=== PATIENT | female | born 1940 | race Caucasian/White ===

== ENCOUNTER 2017-05-25 07:51 | Inpatient (IN) | payer MEDICARE, OTHER ==
[2017-05-25] MEDS ORDERED: Adenosine 6 MG/2 ML VIAL ONE (08:06)
[2017-05-25 09:08] LABS: #Lymphocytes 1.1 thou/uL (1.20-3.40); #Monocytes 1.3 thou/uL (0.11-0.59); #Neutrophils 15.1 thou/uL (1.40-6.50); %Basophils 0.2 % (0.0-1.0); %Eosinophils 0.2 % (0.0-10.0); %Monocytes 7.4 % (0.0-10.0); ALT (SGPT) 18 U/L (8-55); AST (SGOT) 30 U/L (5-34); Alkaline Phosphatase 111 U/L (40-150); Anion Gap 19 mmol/L (10-20); BUN (Urea Nitrogen) 13 mg/dL (9.8-20.1); Band 3 % (5-11); Bilirubin, Total 1.4 mg/dL (0.2-1.2); CK (CPK) 26 U/L (29-168); Calc. Creatinine Clearance 0 mL/min (70-130); Calcium 9.3 mg/dL (7.8-10.44); Carbon Dioxide 26 mmol/L (23-31); Chloride 94 mmol/L (98-107); Estimated GFR-MDRD 57; Hematocrit 40.5 % (36.0-47.0); Hypochromia SLIGHT = 6-15 cells (100X) (0-5/hpf); Lipase 36 U/L (8-78); Mean Platelet Volume 9.5 fL (7.4-10.4); Microcytosis SLIGHT = 6-15 cells (100X) (0-5/hpf); Neutrophil 83 % (42-75); Polychromasia SLIGHT = 2-3 cells (100X) (0-2/hpf); Protein, Total 7.5 g/dL (6.0-8.3); Red Blood Cell (RBC) Count 5.44 mill/uL (4.20-5.40); Troponin I 0.021 ng/mL (< 0.028); White Blood Cell (WBC) Count 17.5 thou/uL (4.8-10.8)
[2017-05-25] MEDS ORDERED: Digoxin 0.5 MG/2 ML AMP ONE (09:19)
--- NOTE | 2017-05-25 10:55 | RAD ---
CHEST ONE VIEW: History: Cough. Comparison: Chest two view, 04-19-17 FINDINGS: Lungs are clear. No pneumothorax or effusion. Cardiac silhouette and mediastinal contours are within normal limits. IMPRESSION: No acute cardiopulmonary process. POS: OFF
--- NOTE | 2017-05-25 11:49 | HP ---
PRIMARY CARE PHYSICIAN: Dr. Vineet Anderson REASON FOR ADMISSION: Atrial fibrillation with rapid ventricular response. HISTORY OF PRESENT ILLNESS: This is a 76-year-old female with a history of gastroesophageal reflux disease and hypertension who is suffering from cough and respiratory symptoms for about 2-3 weeks. The patient saw primary care physician and considering bronchitis the patient was given antibiotic t herapy and steroid. The patient has finished antibiotic therapy and steroid, but she felt a little bit better, but her cough has not improved. Yesterday, she saw her primary care physician again for cough and the patient was given treatment with DuoNeb, albuterol nebs in her primary care physician 's office and primary care physician was concerned about CHF diagnosis as well and that is why he pr escribed Lasix. The patient never had echocardiography before. This morning, the patient was feeling pain in her right shoulder blade and it was getting worse. It started last night. She was feeling palpitations, somewhat dizziness, somewhat shortness of breath . She denies any lower extremity edema. She denies any orthopnea, PND. She denies any fever or ch ills. She denies any hemoptysis. She denies any calf tenderness. She denies any chest pain. The patient was having difficulty walking in the parking lot and she was complaining of dyspnea on e xertion and that is why the patient came to the emergency room for evaluation. When she presented t o emergency room, she was found with atrial fibrillation with RVR. Initially her heart rate was 192 and irregular and fast. The patient was given Cardizem bolus and subsequently Cardizem drip was st arted. Despite that, the patient was still in atrial fibrillation with RVR. We decided to keep thi s patient in the hospital for further evaluation and treatment. The patient denies any excessive caffeinated products. She denies any thyroid problems. She does r eport that she was told that she had some kind of arrhythmia before, but she is not knowing what typ e of arrhythmia she had and she was only taking atenolol. Her primary care physician also did not m ention about any kind of arrhythmia to her as well. REVIEW OF SYSTEMS: The following complete review of systems was negative, unless otherwise mentioned in the HPI or below: Constitutional: Weight loss or gain, ability to conduct usual activities. Skin: Rash, itching. Eyes: Double vision, pain. ENT/Mouth: Nose bleeding, neck stiffness, pain, tenderness. Cardiovascular: Palpitations, dyspnea on exertion, orthopnea. Respiratory: Shortness of breath, wheezing, cough, hemoptysis, fever or night sweats. Gastrointestinal: Poor appetite, abdominal pain, heartburn, nausea, vomiting, constipation, or diarrhea. Genitourinary: Urgency, frequency, dysuria, nocturia. Musculoskeletal: Pain, swelling. Neurologic/Psychiatric: Anxiety, depression. Allergy/Immunologic: Skin rash, bleeding tendency. Please see my HPI for pertinent positives and negatives. All other review of systems reviewed and n egative except as mentioned in the HPI. PAST MEDICAL HISTORY: Hypertension, dyslipidemia, chronic hepatitis C, gastroesophageal reflux dise ase, recent diagnosis of bronchitis. The patient does report that she has history of arrhythmia. PAST SURGICAL HISTORY: Bilateral cataract surgery. She reports vaginal births x4, cholecystectomy. PAST PSYCHIATRIC HISTORY: Reviewed and negative. SOCIAL HISTORY: The patient is and lives at home with her . No history of tobacco, alcohol or illicit drug abuse. FAMILY HISTORY: No strong family history of premature coronary artery disease, stroke or cancer. ALLERGIES: No known drug allergies. CURRENT HOME MEDICATIONS: Atenolol 50 mg p.o. daily, Nexium 40 mg p.o. daily, ferrous sulfate 1 ta blet p.o. daily, Flonase nasal spray daily, Mucinex 600 mg twice daily, Lasix 40 mg p.o. daily. The patient was on Maxzide, but that medication was recently discontinued. EMERGENCY ROOM COURSE: Patient is given Cardizem drip and digoxin 0.5 mg, IV fluid 1 liter, Cardize m bolus. PHYSICAL EXAMINATION: VITAL SIGNS: On arrival, blood pressure 114/90, pulse 192, respiratory rate 20, temperature 98.6, s aturation 95% on room air, weight 70.3 kilograms. GENERAL: The patient is currently alert, awake, no obvious acute distress. HEENT: Head; normocephalic, atraumatic. Eyes: Pupils round, reactive to light. Extraocular muscl es intact. ENT: Oropharynx within normal limits. Moist mucous membranes. No oral lesions. No ph aryngeal erythema, no exudate. NECK: Supple. Range of motion is normal. No meningeal signs of irritation. No JVD, no thyromegal y, no carotid bruits. LUNGS: Clear to auscultation without any wheezing, rhonchi, or rales. CARDIAC: S1, S2 irregularly irregular. No murmur elicited, no gallop, no rub. ABDOMEN: Soft, bowel sounds present, nontender, nondistended. No organomegaly, no mass, no suprapu bic tenderness. BACK: Unremarkable, no CVA tenderness. EXTREMITIES: Upper extremity passive movement of all joints are normal. Lower extremities: No bettina ma. Good peripheral pulsation. SKIN: No skin rash. HEMATOLOGICAL: No lymphadenopathy. NEUROLOGIC: The patient is alert and oriented x3. Cranial nerves II-XII intact. Motor and sensati on within normal limits. No focal neurological deficit noted. SIGNIFICANT LABS: 1. EKG based on my review: Atrial fibrillation with rapid ventricular response. 2. CBC: WBC 17.5, hemoglobin 12.0, platelet 300 with a left shift. 3. BMP: Sodium 136, potassium 3.3, chloride 94, carbon dioxide 26, BUN 13, creatinine 0.95, glucos e 161, calcium 9.3. 4. LFTs: AST 30, ALT 18, alkaline phosphatase 111, albumin 3.5, CK 26, CK-MB 0.8, troponin I 0.021 . BNP 203.6, lipase 36. Chest x-ray based on my review, no acute cardiopulmonary process. ASSESSMENT AND PLAN: 1. Atrial fibrillation with rapid ventricular response. This patient will need admission for rate control. She is currently on Cardizem drip at 10 mg per hour, based on Donaldo 2 score, she had at [facility] 1 point with hypertension and with her age 2 points. She does not have any previous history of c ongestive heart failure. She does not have any diabetes or stroke history. At this point, the jairo ent is to intermediate risk for stroke. We will obtain echocardiography. We will continue with Awilda enox 1 mg per kg subcu twice daily. We will consult Cardiology for assessment. If this patient rem ains in atrial fibrillation then she may need cardioversion versus antiarrhythmic medication versus ablation. We will defer that part to Cardiology. We will check thyroid function test. We will bertin tor on telemetry floor. 2. Leukocytosis. Etiology uncertain, may be related with her bronchitis because the patient is sti ll having cough. She does not have any pneumonia at this point. We will check her urinalysis, give n her bandemia I will start empirically levofloxacin 500 mg IV daily. We will send urine culture as well to rule out any urinary tract infection and we will repeat CBC tomorrow. 3. Hypokalemia. We will give her potassium chloride 40 mEq p.o. 1 time dose and we will check magn esium level as well and will repeat BMP tomorrow. 4. Elevated BNP. We will check echocardiography to assess ejection fraction and other structural a bnormality. 5. Gastroesophageal reflux disease. We will continue Protonix 40 mg p.o. daily. 6. Chronic hepatitis C. We will confirm that status with checking hepatitis profile tomorrow gary romano 7. Hypertension. We will continue with atenolol 50 mg p.o. daily along with Cardizem drip. 8. Deep venous thrombosis prophylaxis. The patient is already on full dose of Lovenox therapy at t his point. The patient will need chronic anticoagulation therapy upon discharge. 9. Gastrointestinal prophylaxis. The patient is already on Protonix therapy. 10. CODE STATUS: The patient is full code. The patient's is surrogate decision maker. Disposition plan based on clinical course. We are expecting the patient's stay in hospital more dwayne n 2 midnights. Plan of care discussed with the patient and her at bedside in the emergency room.
[2017-05-25] MEDS ORDERED: Zolpidem Tartrate 5 MG TAB PO PRN (12:11)
[2017-05-25] MEDS ORDERED: Senokot 8.6 MG TAB PO PRN (12:11)
[2017-05-25] MEDS ORDERED: Nitroglycerin 0.4 MG TAB (25 Tab Bottle) SL PRN (12:11)
[2017-05-25] MEDS ORDERED: Sodium Chloride 0.65% Nasal 44 ML BOT EA NARE PRN (12:11)
[2017-05-25] MEDS ORDERED: Ondansetron ODT 4 MG TAB PO PRN (12:11)
[2017-05-25] MEDS ORDERED: HYDROcodone/Acetaminophen 5/325 mg Tablet PO PRN (12:11)
[2017-05-25] MEDS ORDERED: Acetaminophen 325 MG TAB PO PRN (12:11)
[2017-05-25] MEDS ORDERED: Loperamide HCl 2 MG CAP PO PRN (12:11)
[2017-05-25] MEDS ORDERED: Labetalol HCl 100 MG/20 ML VIAL SLOW IVP PRN (12:11)
[2017-05-25] MEDS ORDERED: Artificial Tears 18 DROP/0.9 ML EA EYE PRN (12:11)
[2017-05-25] MEDS ORDERED: Milk Of Magnesia 30 ML UDCUP PO PRN (12:11)
[2017-05-25] MEDS ORDERED: Mag-Al 1200 mg/1200 mg/30 ML UDCUP PO PRN (12:11)
[2017-05-25] MEDS ORDERED: Eucerin (Mineral Oil/Petrolatum,White) 30 gm Jar TOP PRN (12:11)
[2017-05-25] MEDS ORDERED: Loratadine 10 MG TAB PO PRN (12:11)
[2017-05-25] MEDS ORDERED: Chloraseptic Spray 180 ml Bottle PO PRN (12:11)
[2017-05-25] MEDS ORDERED: Diabetic Tussin 200 MG/10 ML UDCUP PO PRN (12:11)
[2017-05-25] MEDS ORDERED: Potassium Chloride 20 MEQ TAB PO SCH (12:30)
--- NOTE | 2017-05-25 18:06 | CON ---
DATE OF CONSULTATION: 05/25/2017 PRIMARY PROVIDER: Dr. Post. REASON FOR CONSULTATION: Atrial fibrillation. HISTORY OF PRESENT ILLNESS: Ms. Nash is a 76-year-old woman who states over the last several wee ks she has had increased shortness of breath. No chest pain or pressure noted. No ameliorating, ex acerbating or precipitating factors are present. She gives a questionable history of having atrial fibrillation in the past, but has not been on anticoagulation therapy. She was recently seen and ev aluated by Dr. Vineet Anderson who recommended she proceed to the emergency room. PAST MEDICAL HISTORY: Chronic hepatitis C, hypertension, hyperlipidemia, recent bronchitis, acid re flux, cataract surgery. SOCIAL HISTORY: No current tobacco or alcohol use. ALLERGIES: None. MEDICATIONS: Include atenolol, Flomax, Nexium, Mucinex, Maxzide and Lasix. REVIEW OF SYSTEMS: Ten-point review of systems is reviewed and as above is negative. PHYSICAL EXAMINATION: VITAL SIGNS: Blood pressure 112/70, pulse 80, respirations . GENERAL: Patient is a pleasant female who is in no acute distress. The patient appears her stated age. NEUROLOGIC: The patient is alert and oriented times 3 with no focal neurologic deficits. HEENT: Sclerae without icterus. Mouth has moist mucous membranes with normal pallor. NECK: No JVD. Carotid upstroke brisk. No bruits bilaterally. LUNGS: Clear to auscultation with unlabored respirations. BACK: No scoliosis or kyphosis. CARDIAC: Irregularly irregular and tachycardic. ABDOMEN: Soft, nontender, nondistended. No peritoneal signs present. No hepatosplenomegaly. No abnormal striae. EXTREMITIES: 2+ femoral and 2+ dorsalis pedis pulses. No cyanosis, clubbing, or edema. SKIN: No gross abnormalities. EXTREMITIES: No gross abnormalities. PERTINENT LABORATORY DATA: Hemoglobin 12, creatinine 0.95. TSH 0.0146. IMPRESSION: 1. Atrial fibrillation. 2. Hyperthyroidism. RECOMMENDATIONS: I agree with Cardizem and digoxin. Workup on hyperthyroidism per primary team. Kevyn e will add p.o. Cardizem in hopes of titrating down IV Cardizem. She would also benefit from novel oral anticoagulation therapy. I agree with Lovenox for now. Ms. Nash's is a patient of Dr. Ravinder Vazquez. She would like to be seen and evaluated by Dr. Ravinder Vazquez. We will discuss with Dr. Vazquez.
[2017-05-25 18:08] VITALS: BMI 27.0
[2017-05-25 20:31] LABS: Bilirubin Small (Negative); Blood, Urine Negative (Negative); Glucose, Urine (Dipstick) Negative (Negative); Ketone, Urine Trace mg/dL (Negative); Nitrite Negative (Negative); Protein, Urine (Dipstick) 30 mg/dL (Neg-Trace)
[2017-05-25 20:33] LABS: Bacteria/HPF 4+ HPF (None Seen); Squamous Epithelial 0-3 HPF (0-3)
[2017-05-25] MEDS ORDERED: Enoxaparin Sodium 40 MG/0.4 ML SYRINGE SC SCH (21:00)
[2017-05-25] MEDS: Enoxaparin Sodium 80 MG/0.8 ML SYRINGE SC SCH (21:17)
[2017-05-26 07:06] LABS: ALT (SGPT) 11 U/L (8-55); AST (SGOT) 21 U/L (5-34); Alkaline Phosphatase 78 U/L (40-150); Anion Gap 12 mmol/L (10-20); BUN (Urea Nitrogen) 11 mg/dL (9.8-20.1); Calc. Creatinine Clearance 78 mL/min (70-130); Calcium 8.5 mg/dL (7.8-10.44); Carbon Dioxide 23 mmol/L (23-31); Chloride 104 mmol/L (98-107); Estimated GFR-MDRD 90; Globulin 2.8 g/dL (2.4-3.5); Protein, Total 5.4 g/dL (6.0-8.3)
[2017-05-26] MEDS ORDERED: Digoxin 0.5 MG/2 ML AMP SLOW IVP SCH ×2 (07:45→14:00)
[2017-05-26 08:15] LABS: #Lymphocytes 0.8 thou/uL (1.20-3.40); #Neutrophils 11.6 thou/uL (1.40-6.50); %Basophils 0.3 % (0.0-1.0); %Eosinophils 0.2 % (0.0-10.0); Hematocrit 31.9 % (36.0-47.0); Mean Platelet Volume 9.4 fL (7.4-10.4); Red Blood Cell (RBC) Count 4.22 mill/uL (4.20-5.40); White Blood Cell (WBC) Count 13.5 thou/uL (4.8-10.8)
[2017-05-26 08:42] LABS: Free T3 2.89 pg/mL (1.71-3.71); Hypochromia SLIGHT = 6-15 cells (100X) (0-5/hpf); Microcytosis SLIGHT = 6-15 cells (100X) (0-5/hpf); Polychromasia SLIGHT = 2-3 cells (100X) (0-2/hpf)
--- NOTE | 2017-05-26 10:34 | PDOC.PN ---
- Subjective Encounter Start Date: 05/26/17 Encounter Start Time: 10:32 Ms. Nash does not have any complaints. He denies feeling weak or dizzy. She denies chest pain. - Objective Resuscitation Status: Resuscitation Status FULL:Full Resuscitation MAR Reviewed: Yes Vital Signs & Weight: Vital Signs (12 hours) Temp Pulse Resp BP Pulse Ox 05/26/17 04:00 99.7 F H 131 H 18 95/56 L 90 L 05/26/17 00:00 118 H 18 112/65 05/25/17 22:37 94 L Weight Weight 147 lb 14.4 oz I&O: 05/25/17 05/26/17 05/27/17 06:59 06:59 06:59 Intake Total 720 Balance 720 Result Diagrams: 05/26/17 07:46 05/26/17 06:22 Phys Exam - Physical Examination HEENT: PERRLA Respiratory: no wheezing, no rales, no rhonchi, clear to auscultation bilateral Cardiovascular: irregular Tachycardic, no murmurs, Gastrointestinal: soft, non-tender, positive bowel sounds Musculoskeletal: no edema Dx/Plan (1) New onset a-fib Code(s): I48.91 - UNSPECIFIED ATRIAL FIBRILLATION Status: Acute (2) Hypertension Code(s): I10 - ESSENTIAL (PRIMARY) HYPERTENSION Status: Acute (3) Abnormal TSH Code(s): R94.6 - ABNORMAL RESULTS OF THYROID FUNCTION STUDIES Status: Acute - Plan * AFIB with RVR- patient is currently on a Cardizem drip at 10mg./hr * Digoxin IV has been added. * HTN- blood pressure is low normal * ?Thyroid disease- her TSH is suppressed, however the free T4 is normal. In most cases in asymptomatic patients this would be considered Subclinical Hyperthyroidism, and would not need to be treated. However she is in AFIB, and this can be considered an affect of hyperthyroidism. However it is not clear if she does in fact have overt hyperthyroidism, if it is truly causing the AFIB. She also has Bronchitis, and her Echo is still pending. Will check a Thyroid ultrasound , but will hold off on a Radio-active Iodine thyroid scan due to her present illness. This can be done as an outpatient, and she can see an Milk Delivery Driver as outpatient as well. In the meantime, may consider changing Cardizem to a Beta-radha to aid in rate control * Will follow-up on Echo, and Thyroid ultrasound.
[2017-05-26] MEDS: Enoxaparin Sodium 80 MG/0.8 ML SYRINGE SC SCH (10:49)
[2017-05-26] MEDS: Atenolol 50 MG TAB PO SCH (10:52)
[2017-05-26] MEDS: Apixaban 5 MG TAB PO SCH ×2 (10:53→21:23)
--- NOTE | 2017-05-26 14:15 | ULT ---
ULTRASOUND THYROID: History: 76-year-old female with subclinical hyperthyroidism. FINDINGS: Isthmus: 0.2 cm anteroposterior Right lobe: 4.3 x 1.2 x 1.4 cm Left lobe: 4.9 x 1.6 x 2.0 cm Thyroid parenchymal echogenicity is heterogenous. There are multiple focal lesions throughout the bi lateral lobes. Many of them are cystic, with some being cystic with solid components and others bein g purely cystic. The largest lesion is located at the left midpole, measuring 2.2 x 1.2 x 1.4 cm. It has hypoechoic and mixed intermediate echogenicity. It is uncertain whether this is a solid nodule or a cyst with hemorrhage internal contents, or a mixed solid and cystic mass. Although there is no internal blood flow, this is slightly favored to be predominately solid. There is a similar appearin g lesion in the left lower pole, measuring 1.4 x 0.8 x 1.1 cm. Both of these have well circumscribed margins, and are wider than tall. These will be designated as mixed solid and cystic, with hypoecho ic internal contents, for TI-RADS classification purposes. There are no calcifications within them. Both of them are TR3. In the right lower pole, there is a 0.6 x 0.5 x 0.5 cm solid nodule with macrocalcification. It prod uces acoustic shadowing. Margins are circumscribed. TI-RADS score: TR4. IMPRESSION: 1. Numerous bilateral solid and cystic thyroid nodules. 2. Small size of thyroid gland, with heterogeneous echogenicity. 3. A small 0.6 cm TI-RADS category TR4 in the right lower pole, moderately suspicious. However, its size is significantly below the threshold for both follow up and for fine needle aspiration. Therefo re, no further workup is recommended for this. 4. Two lesions in the left lower pole that are TI-RADS TR3, mildly suspicious. They are below the th reshold for fine needle aspiration. One of the two, in the midpole, is greater than the threshold si ze for follow up (greater than 1.5 cm). Therefore, a one-time follow up thyroid ultrasound is recomm ended in 1 year. POS: [facility]
[2017-05-27] MEDS ORDERED: Digoxin 0.5 MG/2 ML AMP SLOW IVP SCH (08:00)
[2017-05-27] MEDS: Dronedarone HCl 400 MG TAB PO SCH ×2 (09:17→18:05)
[2017-05-27] MEDS: Apixaban 5 MG TAB PO SCH ×2 (09:17→22:39)
[2017-05-27] MEDS: Atenolol 50 MG TAB PO SCH (09:18)
--- NOTE | 2017-05-27 10:12 | PDOC.PN ---
- Subjective Encounter Start Date: 05/27/17 Encounter Start Time: 10:08 Ms. Nash notes some nausea, and feeling weak, but otherwise ok. - Objective Resuscitation Status: Resuscitation Status FULL:Full Resuscitation MAR Reviewed: Yes Vital Signs & Weight: Vital Signs (12 hours) Temp Pulse Resp BP Pulse Ox 05/27/17 09:18 104 H 05/27/17 09:08 107 H 05/27/17 04:00 97.8 F 89 20 110/65 92 L 05/27/17 00:00 74 114/66 Weight Weight 147 lb 14.4 oz I&O: 05/26/17 05/27/17 05/28/17 06:59 06:59 06:59 Intake Total 720 1300 Output Total 200 Balance 720 1100 Result Diagrams: 05/26/17 07:46 05/26/17 06:22 Phys Exam - Physical Examination HEENT: PERRLA Respiratory: no wheezing, no rales, no rhonchi, clear to auscultation bilateral Cardiovascular: RRR mildly tachycardic Gastrointestinal: soft, non-tender, no distention, positive bowel sounds Musculoskeletal: no edema Dx/Plan (1) New onset a-fib Code(s): I48.91 - UNSPECIFIED ATRIAL FIBRILLATION Status: Acute (2) Hypertension Code(s): I10 - ESSENTIAL (PRIMARY) HYPERTENSION Status: Acute (3) Abnormal TSH Code(s): R94.6 - ABNORMAL RESULTS OF THYROID FUNCTION STUDIES Status: Acute - Plan * AFIB- Cardiology evaluation appreciated- patient is to go for Cardioversion tomorrow * Subclinical Hyperthyroidism- She is noted to have Multi- nodular Goiter by Thyroid ultrasound. -I have given the report to patient. Will start a low dose Methimazole, in the case that one of these nodules may be functioning, and recommend Outpatient Endocrinology evaluation. She will also need repeat Thyroid Ultrasound in one year- this was all explained to patient. * HTN- blood pressure is stable * Ambulate
[2017-05-27] MEDS: Ondansetron HCl/PF 4 MG/2 ML Vial IVP PRN ×2 (16:40→22:39)
[2017-05-27] MEDS ORDERED: Methimazole 5 MG TAB PO SCH (21:00)
[2017-05-28 05:56] LABS: Hematocrit 35.8 % (36.0-47.0)
[2017-05-28] MEDS: Atenolol 50 MG TAB PO SCH (06:40)
[2017-05-28] MEDS ORDERED: Diprivan 20 ML ONE (07:29)
[2017-05-28] MEDS ORDERED: Lidocaine 1% PF 5 ML VIAL ONE ×2 (07:42→08:02)
[2017-05-28] MEDS ORDERED: Propofol 200 MG/20 ML VIAL ONE (08:02)
--- NOTE | 2017-05-28 09:24 | ECHO ---
TRANSESOPHAGEAL ECHOCARDIOGRAM: DATE OF PROCEDURE: 05/28/17 INDICATION: 76-year-old woman with paroxysmal atrial fibrillation. DESCRIPTION OF PROCEDURE: The patient was taken to the PACU. The patient was sedated by anesthesiology. A transesophageal probe was placed in the distal esophagus and stomach. Echocardiographic images were obtained. The transesophageal probe was removed. FINDINGS: 1. Normal left ventricular systolic function. 2. Normal mitral and aortic valves. 3. Mild mitral regurgitation. 4. Mild tricuspid regurgitation. 5. No thrombus in the left atrium or left atrial appendage. 6. Atherosclerotic debris in the descending aorta. IMPRESSION: No formed thrombus in the left atrium or left atrial appendage.
--- NOTE | 2017-05-28 09:31 | OP ---
ELECTRICAL CARDIOVERSION: Date: 05/28/17 INDICATION: This patient is a 76-year-old woman with paroxysmal atrial fibrillation. DESCRIPTION OF PROCEDURE: The patient was taken to the PACU. The patient was sedated by anesthesiology. The patient was shocke d with 200 joules synchronized electricity. The patient converted to normal sinus rhythm. IMPRESSION: Successful electrical cardioversion.
[2017-05-28] MEDS: Ondansetron HCl/PF 4 MG/2 ML Vial IVP PRN ×2 (09:41→15:14)
[2017-05-28] MEDS: Dronedarone HCl 400 MG TAB PO SCH ×2 (09:41→16:17)
[2017-05-28] MEDS: Apixaban 5 MG TAB PO SCH ×2 (09:41→20:16)
--- NOTE | 2017-05-28 11:46 | PDOC.PN ---
- Subjective Encounter Start Date: 05/28/17 Encounter Start Time: 11:43 Ms. Nash is feeling a bit sleepy, otherwise ok. She has a little chest soreness, otherwise ok. - Objective Resuscitation Status: Resuscitation Status FULL:Full Resuscitation MAR Reviewed: Yes Vital Signs & Weight: Vital Signs (12 hours) Temp Pulse Resp BP Pulse Ox 05/28/17 09:54 98.3 F 75 18 122/65 92 L 05/28/17 04:00 98.6 F 88 18 112/63 92 L 05/28/17 01:24 90 L 05/28/17 00:00 94 18 113/69 93 L Weight Weight 148 lb 3.2 oz I&O: 05/27/17 05/28/17 05/29/17 06:59 06:59 06:59 Intake Total 1300 600 Output Total 200 100 Balance 1100 500 Result Diagrams: 05/28/17 04:58 05/28/17 04:58 Phys Exam - Physical Examination HEENT: PERRLA Respiratory: no wheezing, no rales, no rhonchi, clear to auscultation bilateral Cardiovascular: RRR, no significant murmur Gastrointestinal: soft, non-tender, positive bowel sounds Musculoskeletal: no edema Dx/Plan (1) New onset a-fib Code(s): I48.91 - UNSPECIFIED ATRIAL FIBRILLATION Status: Acute (2) Hypertension Code(s): I10 - ESSENTIAL (PRIMARY) HYPERTENSION Status: Acute (3) Abnormal TSH Code(s): R94.6 - ABNORMAL RESULTS OF THYROID FUNCTION STUDIES Status: Acute - Plan * AFIB- patient is now in sinus rhythm. However there were some EKG changes notes. A stress test has been ordered * Subclinical Hypothyroidism- she is to follow-up with Endocrinology as outpatient * HTN- blood pressure is stable.
[2017-05-28] MEDS ORDERED: Regadenoson 0.4 MG/5 ML SYRINGE ONE (16:18)
--- NOTE | 2017-05-28 17:10 | NM ---
CARDIAC SPECT: CLINICAL HISTORY: 76-year-old female with atrial fibrillation, hypertension, and dyslipidemia. TECHNIQUE: A myocardial perfusion scan was performed using the single isotope one day protocol with technetium- 99m sestamibi. 9 mCi were injected intravenously for the rest exam followed by 27 mCi for the stress exam. Pharmacologic stress with Lexiscan was monitored and interpreted by Dr. Carpenter. FINDINGS: Homogeneous tracer distribution is seen in the myocardial segments on stress and rest images without fixed or reversible defects. GATED SPECT LVEF: 89%. WALL MOTION EXAM: Normal. IMPRESSION: Normal myocardial perfusion scan. POS: [facility]
--- NOTE | 2017-05-29 09:33 | PDOC.PN ---
- Subjective Encounter Start Date: 05/29/17 Encounter Start Time: 09:32 Ms. Nash does not have any complaints. she wants to go home. - Objective Resuscitation Status: Resuscitation Status FULL:Full Resuscitation MAR Reviewed: Yes Vital Signs & Weight: Vital Signs (12 hours) Temp Pulse Resp BP Pulse Ox 05/29/17 08:00 97.0 F L 90 16 143/71 H 95 05/29/17 04:00 97.9 F 83 16 134/71 93 L 05/29/17 00:52 92 L Weight Weight 148 lb 3.2 oz I&O: 05/28/17 05/29/17 05/30/17 06:59 06:59 06:59 Intake Total 600 820 Output Total 100 3 Balance 500 817 Result Diagrams: 05/28/17 04:58 05/28/17 04:58 Phys Exam - Physical Examination HEENT: PERRLA Respiratory: no wheezing, no rales, no rhonchi, clear to auscultation bilateral Cardiovascular: RRR, no significant murmur Gastrointestinal: soft, non-tender, positive bowel sounds Musculoskeletal: no edema Dx/Plan (1) New onset a-fib Code(s): I48.91 - UNSPECIFIED ATRIAL FIBRILLATION Status: Acute (2) Hypertension Code(s): I10 - ESSENTIAL (PRIMARY) HYPERTENSION Status: Acute (3) Abnormal TSH Code(s): R94.6 - ABNORMAL RESULTS OF THYROID FUNCTION STUDIES Status: Acute - Plan * AFIB- she has remained in sinus rhythm since the cardioversion * Stress test was negative * Multinodular goiter- follow-up with Endocrinology as an outpatient * Stable for discharge from the Medical standpoint.
[2017-05-29] MEDS: Atenolol 50 MG TAB PO SCH (10:29)
[2017-05-29] MEDS: Apixaban 5 MG TAB PO SCH (10:29)
[2017-05-29] MEDS: Dronedarone HCl 400 MG TAB PO SCH (10:29)
[2017-05-29 12:18] VITALS: BP 117/68; TEMP 98.6
--- NOTE | 2017-05-29 12:52 | DIS ---
DATE OF ADMISSION: 05/25/2017 DATE OF DISCHARGE: 05/29/2017 PRIMARY CARE PHYSICIAN: Dr. Erik Anderson. DISCHARGE DISPOSITION: Home. PRIMARY DISCHARGE DIAGNOSES: 1. Atrial fibrillation with rapid ventricular response. 2. Hypertension. 3. Dyslipidemia. 4. Chronic hepatitis C. 5. Gastroesophageal reflux disease. DISCHARGE MEDICATIONS: Include Eliquis 5 mg twice daily, atenolol 50 mg daily, Multaq 400 mg twice a day, Nexium 40 mg daily, slow iron 142 mg daily, Flovent 1 spray in each naris daily, Lasix 40 mg daily, DuoNeb q.6 hourly as needed; lutein, lycopene and thiamine plus multivitamins daily; and Muci nex 1200 mg daily. PROCEDURES DONE DURING ADMISSION: The patient had an echocardiogram and this demonstrated an ejecti on fraction estimated at 55%-60%. The right atrium was slightly enlarged as well as the left atrium . The patient had a transesophageal echo, which was not normal. There was no evidence of any throm bus and the patient had an electrical cardioversion as well as a nuclear stress test, which was nega tive for any reversible ischemia. CODE STATUS: FULL CODE. ALLERGIES: No known drug allergies. HOSPITAL COURSE: Ms. Nash is a pleasant 76-year-old female who presented to the emergency room i n atrial fibrillation with rapid ventricular response. She was admitted and started on a Cardizem d rip. She also required digoxin in addition to the Cardizem for rate control. She was seen by her c ardiologist who recommended that she undergo electrical cardioversion. This was done and the patien t returned to sinus rhythm. There were some acute EKG changes seen post-cardioversion and for this reason, a nuclear stress test was obtained. This was negative. Also, during this patient's hospita l course, it was discovered that the patient had slightly enlarged thyroid gland. Her TSH was sligh tly suppressed, but her free T4 was normal. Thyroid ultrasound was obtained and it revealed that sh alexandra had multiple small thyroid nodules, some were solid and some cystic. Two lesions in the left lowe r pole were mildly suspicious and it is recommending that she probably a repeat thyroid ultrasound i n approximately 1 year. I gave the patient a copy of this report to give to her primary care physic georgiana and also I recommended that she follow up either with an kiln placer or primary care physici an, given the suppressed TSH and she may have some subclinical hyperthyroidism, given the setting of the atrial fibrillation, this may need to be treated; however, this is not an urgent issue and can be taken up in the outpatient setting.
== END 2017-05-29 13:16 | disposition home or self-care (01) | DRG 310 ==
LOC: ERS 07:51 → 2NO 09:20
PROVIDERS: ADMIT Internal Medicine; ATTEND Internal Medicine
PROC: 5A2204Z Restoration of Cardiac Rhythm, Single (ICD-10-PCS; principal; 2017-05-28)
DX: I48.0 Paroxysmal atrial fibrillation (principal); E05.20 Thyrotoxicosis with toxic multinodular goiter without thyrotoxic crisis or storm; I10 Essential (primary) hypertension; B18.2 Chronic viral hepatitis C; Z98.42 Cataract extraction status, left eye; Z98.41 Cataract extraction status, right eye; Z90.49 Acquired absence of other specified parts of digestive tract; D72.829 Elevated white blood cell count, unspecified; E87.6 Hypokalemia; K21.9 Gastro-esophageal reflux disease without esophagitis; E78.00 Pure hypercholesterolemia, unspecified
CPT/HCPCS: 36415; 71010; 76536; 78452; 80053; 80061; 81001; 82553; 82565; 83690; 83735; 83880; 84436; 84443; 84479; 84481; 84484; 85014; 85018; 85025; 85049; 87086; 92960; 93005; 93010; 93017; 93306; 93312; 96365; 96366; 96375; 96376; A4216; A9500; J0153; J1160; J1650; J1956; J2001; J2405; J2704; J2785; J7050; Q0162

== ENCOUNTER 2017-06-03 11:06 | Inpatient (IN) | payer MEDICARE, OTHER ==
--- NOTE | 2017-06-03 12:15 | RAD ---
CHEST 1 VIEW: HISTORY: Heart problems. Pain. Chest pain. COMPARISON: Chest 1 view 05/25/17. FINDINGS: Small layering effusions. Perihilar opacities. Heart size is enlarged. Moderate S-shaped scoliosi s thoracolumbar spine. IMPRESSION: New moderate effusions as well as bibasilar opacities can be suggestive of congestive heart failure. Pneumonia is within the differential. Followup recommended. POS: [facility]
[2017-06-03 12:18] LABS: #Eosinphils 0.1 thou/uL (0.0-0.7); #Lymphocytes 1.1 thou/uL (1.20-3.40); #Monocytes 1.3 thou/uL (0.11-0.59); %Basophils 0.1 % (0.0-1.0); %Eosinophils 0.9 % (0.0-10.0); %Lymphocytes 6.6 % (21.0-51.0); Hematocrit 42.5 % (36.0-47.0); Mean Platelet Volume 8.2 fL (7.4-10.4); Red Blood Cell (RBC) Count 5.72 mill/uL (4.20-5.40); White Blood Cell (WBC) Count 16.6 thou/uL (4.8-10.8)
[2017-06-03 12:35] LABS: ALT (SGPT) 21 U/L (8-55); AST (SGOT) 41 U/L (5-34); Alkaline Phosphatase 103 U/L (40-150); Anion Gap 15 mmol/L (10-20); BUN (Urea Nitrogen) 11 mg/dL (9.8-20.1); Bilirubin, Total 0.9 mg/dL (0.2-1.2); CK (CPK) 26 U/L (29-168); Calc. Creatinine Clearance 0 mL/min (70-130); Calcium 9.1 mg/dL (7.8-10.44); Carbon Dioxide 30 mmol/L (23-31); Chloride 93 mmol/L (98-107); Estimated GFR-MDRD 73; Globulin 4.2 g/dL (2.4-3.5); Protein, Total 7.2 g/dL (6.0-8.3)
[2017-06-03 12:36] LABS: Troponin I 0.022 ng/mL (< 0.028)
[2017-06-03 13:09] LABS: Hypochromia SLIGHT = 6-15 cells (100X) (0-5/hpf); Microcytosis SLIGHT = 6-15 cells (100X) (0-5/hpf); Polychromasia SLIGHT = 2-3 cells (100X) (0-2/hpf)
[2017-06-03 13:30] LABS: Bilirubin Negative (Negative); Blood, Urine Negative (Negative); Glucose, Urine (Dipstick) Negative (Negative); Ketone, Urine Negative (Negative); Nitrite Negative (Negative); Protein, Urine (Dipstick) Negative (Neg-Trace)
[2017-06-03 13:38] LABS: Bacteria/HPF None Seen HPF (None Seen); Hyaline Casts/LPF 0-3 HYALINE CAST LPF (0-3 Hyaline); RBC/HPF 0-3 HPF (0-3); Squamous Epithelial 0-3 HPF (0-3); WBC/HPF 0-3 HPF (0-3)
[2017-06-03] MEDS ORDERED: Enoxaparin Sodium 60 MG/0.6 ML SYRINGE ONE (14:36)
[2017-06-03] MEDS ORDERED: ISOVUE-370 76%-LOCM 1 ML ONE (15:01)
--- NOTE | 2017-06-03 15:10 | CT ---
CT PULMONARY ANGIOGRAM WITH IV CONTRAST AND 3D POSTPROCESSING: Date: 06/03/17 HISTORY: Chest pain. FINDINGS: There is good contrast opacification of the pulmonary arterial vasculature with filling defects in t he right and left branches (lower lobe dominance). No pericardial effusion is seen. There is no evid ence of aneurysmal dilatation of the thoracic aorta. Bilateral pleural effusions are seen, left larg er than right, with adjacent infiltrate/atelectatic changes, left greater than right. No pneumothora mimi are seen. There are benign-appearing calcifications in the region of the dome of the liver and a right renal cyst, also seen on CT stone protocol of 05/09/14. IMPRESSION: 1. Bilateral pulmonary embolism. 2. Bilateral pleural effusions, left larger than right. Findings discussed over the telephone with ER physician at 1351 hours. CODE CR. POS: [facility]
[2017-06-03] MEDS ORDERED: Ondansetron ODT 4 MG TAB SL PRN (15:49)
[2017-06-03] MEDS ORDERED: Ondansetron HCl/PF 4 MG/2 ML Vial IVP PRN ×2 (15:49→15:59)
[2017-06-03] MEDS ORDERED: Acetaminophen 325 MG TAB PO PRN ×2 (15:49→15:59)
[2017-06-03] MEDS ORDERED: Eucerin (Mineral Oil/Petrolatum,White) 30 gm Jar TOP PRN (15:59)
[2017-06-03] MEDS ORDERED: Loratadine 10 MG TAB PO PRN (15:59)
[2017-06-03] MEDS ORDERED: Milk Of Magnesia 30 ML UDCUP PO PRN (15:59)
[2017-06-03] MEDS ORDERED: Artificial Tears 18 DROP/0.9 ML EA EYE PRN (15:59)
[2017-06-03] MEDS ORDERED: Ondansetron ODT 4 MG TAB PO PRN (15:59)
[2017-06-03] MEDS ORDERED: Diabetic Tussin 200 MG/10 ML UDCUP PO PRN (15:59)
[2017-06-03] MEDS ORDERED: Sodium Chloride 0.65% Nasal 44 ML BOT EA NARE PRN (15:59)
[2017-06-03] MEDS ORDERED: Mag-Al 1200 mg/1200 mg/30 ML UDCUP PO PRN (15:59)
[2017-06-03] MEDS ORDERED: Senokot 8.6 MG TAB PO PRN (15:59)
[2017-06-03] MEDS ORDERED: Loperamide HCl 2 MG CAP PO PRN (15:59)
[2017-06-03] MEDS ORDERED: Chloraseptic Spray 180 ml Bottle PO PRN (15:59)
[2017-06-03] MEDS ORDERED: Zolpidem Tartrate 5 MG TAB PO PRN (15:59)
[2017-06-03] MEDS ORDERED: HYDROcodone/Acetaminophen 5/325 mg Tablet PO PRN (15:59)
--- NOTE | 2017-06-03 16:04 | HP ---
PRIMARY CARE PHYSICIAN: Dr. Erik Anderson. REASON FOR ADMISSION: Bilateral pulmonary embolism. HISTORY OF PRESENT ILLNESS: A 76-year-old female who was recently admitted in our hospital on 05/25. At that time, the patient was having atrial fibrillation with rapid ventricular response. P arline was treated with a Cardizem drip and subsequently Cardiology changed to Multaq therapy. She also had transesophageal echocardiography and patient had a cardioversion done. She was discharged home on 05/29/2017. Patient was taking Eliquis therapy after discharge and while in hospital, she was on anticoagulant t herapy as well. Patient was doing relatively well up until yesterday when she was complaining of le ft scapular pain and left-sided chest pain, which was pleuritic in nature. She denies any associate d cough, hemoptysis, shortness of breath or palpitation. She denies any calf tenderness. She denie s any lower extremity swelling. Patient reports that at home she was pretty much relatively active and able to do all her routine activities, but pain was not getting better. Intensity of pain was a bout /10. She denies any syncope. She denies any fever or chills. She denies any urinary tract i nfection symptoms. She denies any recent travel or immobilization. Patient was recently admitted in the hospital for about 5 to 6 days. Today, patient came to the ER and she had elevated D-dimer and that is why CT angio was done, which showed bilateral pulmonary embolism, bilateral pleural effusions, left more than right. Patient was given Lovenox 1 mg per kg in the emergency room and subsequently patient is being admitted to [facility] floor for further treatment. EMERGENCY ROOM COURSE: Patient is given Lovenox 60 mg subcutaneously one time dose. REVIEW OF SYSTEMS: The following complete review of systems was negative, unless otherwise mentione d in the HPI or below: CONSTITUTIONAL: Weight loss or gain, ability to conduct usual activities. SKIN: Rash, itching. EYES: Double vision, pain. ENT/MOUTH: Nose bleeding, neck stiffness, pain, tenderness. CARDIOVASCULAR: Palpitations, dyspnea on exertion, orthopnea. RESPIRATORY: Shortness of breath, wheezing, cough, hemoptysis, fever or night sweats. GASTROINTESTINAL: Poor appetite, abdominal pain, heartburn, nausea, vomiting, constipation, or diar edvin. GENITOURINARY: Urgency, frequency, dysuria, nocturia. MUSCULOSKELETAL: Pain, swelling. NEUROLOGIC/PSYCHIATRIC: Anxiety, depression. ALLERGY/IMMUNOLOGIC: Skin rash, bleeding tendency. Please see my HPI for pertinent positives and negative. All other review of systems reviewed and ne gative except as mentioned in the HPI. PAST MEDICAL HISTORY: Chronic hepatitis C, hypertension, dyslipidemia, gastroesophageal reflux dise ase, atrial fibrillation, chronic anticoagulation therapy with Eliquis. PAST PSYCHIATRIC HISTORY: Reviewed and negative. PAST SURGICAL HISTORY: Bilateral cataract surgery, transesophageal echocardiography cardioversion, history of vaginal x4, cholecystectomy. SOCIAL HISTORY: Patient is . Lives at home with her . No history of tobacco, alcoho l, or illicit drug abuse. FAMILY HISTORY: No strong family history of premature coronary artery disease, stroke or cancer. ALLERGIES: No known drug allergies. CURRENT HOME MEDICATIONS: Patient was discharged home on following medication, atenolol 50 mg p.o. daily, Eliquis 5 mg p.o. b.i.d., Multaq 400 mg p.o. b.i.d., Nexium 40 mg p.o. daily, ferrous sulfat e one tablet p.o. daily, Flovent inhalation daily, Lasix 40 mg p.o. daily, DuoNeb q.6 hourly p.r.n., multivitamin 1 tablet p.o. daily, Mucinex 600 mg twice daily. PHYSICAL EXAMINATION: VITAL SIGNS: On arrival, blood pressure 123/75, pulse 74 irregular, respiratory rate 16, temperatur e 98.6, saturation 94% on room air, weight 63.9 kilograms. GENERAL: Patient is currently alert, awake, no obvious acute distress. HEENT: Normocephalic, atraumatic. Eyes: Pupils round, reactive to light. Extraocular muscle inta ct. ENT: Oropharynx within normal limits. Moist mucous membranes. No oral lesions. No pharyngeal mikal thema, no exudate. NECK: Supple. Range of motion is normal. No meningeal signs of irritation. LUNGS: Clear to auscultation without any rhonchi or rales. CARDIAC: S1, S2 irregularly irregular. No murmur elicited, no gallop, no rub. ABDOMEN: Soft, bowel sounds present, nontender, nondistended. No organomegaly, no mass, no suprapu bic tenderness. BACK: Unremarkable, no CVA tenderness. EXTREMITIES: Upper extremity: Passive movements of all joints are normal. Lower extremities: No edema, no calf tenderness. Good peripheral pulsation. SKIN: No skin rash. HEMATOLOGICAL: No lymphadenopathy. PSYCHIATRIC: Normal affect. SIGNIFICANT LABORATORY DATA: 1. EKG based on my review, atrial fibrillation with controlled ventricular response, nonspecific ST -T changes in anterolateral leads. 2. CBC: WBC 16.6, hemoglobin 12.6, MCV 74.3, platelets 484, D-dimer 2.78. BMP: Sodium 134, potas sium 3.8, chloride 93, carbon dioxide 30, anion gap 15, BUN 11, creatinine 0.77, glucose 111, calciu m 9.1. 3. LFT: AST 41, ALT 21, alkaline phosphatase was 103. Albumin 3.0. CK 26, CK-MB 0.8, troponin I 0.022. Urinalysis: Leukocyte esterase trace. ASSESSMENT AND PLAN: IMPRESSION: 1. New onset bilateral pulmonary embolism, acute. This patient presented with pleuritic chest pain . This patient has elevated D-dimer and CT angio positive for bilateral pulmonary embolism. This p atient was treated with anticoagulation therapy in the recent hospitalization as well as patient was on p.o. Eliquis therapy. Despite that, this patient developed with pulmonary embolism. Most likel y this patient has Eliquis failure. At this point, patient will be admitted to telemetry floor. We will continue to treat with Lovenox 1 mg per kg subcu twice daily. Upon discharge, we will conside r changing her Eliquis to Xarelto therapy. We will also do ultrasound bilateral lower extremity to rule out deep vein thrombosis. We will check stool for guaiac to rule out any occult bleeding. We will monitor H\T\H, platelets, creatinine and PT/INR as per protocol. We will monitor her oxygen sa turation. 2. Atrial fibrillation with controlled ventricular response. At this point, we are changing her ch ronic anticoagulation therapy with Lovenox 1 mg per kg. We will continue Multaq 400 mg twice daily, atenolol 50 mg p.o. daily. Patient's rate is under control. Patient already had recently treatment from Cardiology. 3. Bilateral pleural effusion, most likely related with bilateral pulmonary embolism. Patient migh t have underlying diastolic dysfunction. Patient had recently echocardiography, which showed normal ejection fraction. 4. Gastroesophageal reflux disease. We will continue Protonix 40 mg p.o. daily. 5. Microcytosis. We will continue ferrous sulfate one tablet p.o. daily. 6. Hypertension. Currently well controlled. We will continue with atenolol 50 mg p.o. daily. 7. Leukocytosis. We will send urine culture. We will repeat CBC tomorrow. 8. Deep venous thrombosis prophylaxis. Patient is already on full dose of Lovenox therapy. 9. Gastrointestinal prophylaxis. Protonix 40 mg p.o. daily. CODE STATUS: The patient is FULL CODE. Patient's is surrogate decision maker. Disposition plan based on clinical course. We are expecting patient's stay in hospital more than 2 midnights. Plan of care discussed with the patient and patient's at bedside in the emergenc y room.
[2017-06-03 16:05] VITALS: BMI 25.7
[2017-06-03] MEDS: Dronedarone HCl 400 MG TAB PO SCH (17:23)
--- NOTE | 2017-06-03 17:27 | ULT ---
ULTRASOUND WITH DOPPLER DUPLEX VENOUS LOWER EXTREMITY BILATERAL 06/03/17 CPT: 70261 ICD-10-PCS: B54D HISTORY: Pulmonary embolus. TECHNIQUE: Color flow Doppler, spectral waveform analysis of pulsed Doppler, and hale-scale imaging with compre ssion and augmentation, were used to evaluate the bilateral common femoral, femoral, popliteal, post erior tibial, and superficial femoral, veins; and the proximal portions of the profunda femoral and greater saphenous, veins. FINDINGS: There is absence of normal flow and decreased compressibility involving the popliteal vein in the le ft lower extremity. Otherwise, within the remainder of left lower extremity and within the right low er extremity, there is appropriate compressibility and flow within the imaged deep vein system of ea ch lower extremity. IMPRESSION: Evidence of DVT involving the left popliteal vein. Telephone call of findings placed to nurse caring for the patient on the hospital floor at the time of interpretation, 1700 hours, 06/03/17. Code CR POS: [facility]
[2017-06-03] MEDS ORDERED: FLU VACC TS2017-18 (>65YR) 0.5 ML SYRINGE IM ONE (19:00)
[2017-06-03] MEDS: Enoxaparin Sodium 60 MG/0.6 ML SYRINGE SC SCH (20:36)
[2017-06-04 05:17] LABS: Prothrombin Time 21.4 SEC (12.0-14.7)
[2017-06-04 05:20] LABS: #Basophils 0.1 thou/uL (0.0-0.2); #Eosinphils 0.1 thou/uL (0.0-0.7); #Lymphocytes 1.3 thou/uL (1.20-3.40); #Monocytes 1.4 thou/uL (0.11-0.59); #Neutrophils 10.3 thou/uL (1.40-6.50); %Basophils 0.6 % (0.0-1.0); %Monocytes 10.6 % (0.0-10.0); Hematocrit 36.9 % (36.0-47.0); Hematocrit 37.5 % (36.0-47.0); Mean Platelet Volume 8.3 fL (7.4-10.4); Red Blood Cell (RBC) Count 4.99 mill/uL (4.20-5.40); White Blood Cell (WBC) Count 13.2 thou/uL (4.8-10.8)
[2017-06-04 05:35] LABS: ALT (SGPT) 17 U/L (8-55); AST (SGOT) 22 U/L (5-34); Alkaline Phosphatase 84 U/L (40-150); Anion Gap 10 mmol/L (10-20); BUN (Urea Nitrogen) 11 mg/dL (9.8-20.1); Bilirubin, Total 0.9 mg/dL (0.2-1.2); Calc. Creatinine Clearance 67 mL/min (70-130); Calcium 8.7 mg/dL (7.8-10.44); Carbon Dioxide 36 mmol/L (23-31); Chloride 92 mmol/L (98-107); Estimated GFR-MDRD 80; Globulin 3.4 g/dL (2.4-3.5); Protein, Total 5.9 g/dL (6.0-8.3)
[2017-06-04] MEDS: Ferrous Sulfate 325 MG TAB PO SCH (08:51)
[2017-06-04] MEDS: Dronedarone HCl 400 MG TAB PO SCH ×2 (08:51→16:17)
[2017-06-04] MEDS: Enoxaparin Sodium 60 MG/0.6 ML SYRINGE SC SCH (08:52)
[2017-06-04] MEDS: Atenolol 50 MG TAB PO SCH (08:52)
[2017-06-04] MEDS ORDERED: Potassium Chloride 40 MEQ, Admixture Fee 1 EACH in Sodium Chloride 0.9% 250 ML 250 ML IVPB SCH (09:15)
[2017-06-04] MEDS ORDERED: Potassium Chloride 40 MEQ in Premix Bag 1 BAG IVPB SCH (09:15)
--- NOTE | 2017-06-04 11:54 | PDOC.PN ---
- Subjective Encounter Start Date: 06/04/17 Encounter Start Time: 11:52 Subjective: feels well. no chest pain/SOB/leg pain or swelling - Objective Resuscitation Status: Resuscitation Status FULL:Full Resuscitation MAR Reviewed: Yes Vital Signs & Weight: Vital Signs (12 hours) Temp Pulse Resp BP BP Pulse Ox 06/04/17 08:52 77 117/70 06/04/17 08:00 98.4 F 77 18 91 L 06/04/17 07:55 98.4 F 77 18 117/70 91 L 06/04/17 03:47 98.5 F 70 16 118/61 93 L 06/04/17 03:19 92 L Weight Weight 141 lb 0.122 oz I&O: 06/03/17 06/04/17 06/05/17 06:59 06:59 06:59 Intake Total 200 Balance 200 Result Diagrams: 06/04/17 04:17 06/04/17 04:17 Radiology Reviewed by me: Yes (CTA -b/l [place] doppler- left popliteal vein DVT) Phys Exam - Physical Examination Constitutional: NAD HEENT: PERRLA, moist MMs, sclera anicteric, oral pharynx no lesions Neck: no nodes, no JVD, supple, full ROM Respiratory: no wheezing, no rales, no rhonchi, clear to auscultation bilateral Cardiovascular: no significant murmur, no rub, gallop, irregular Gastrointestinal: soft, non-tender, no distention, positive bowel sounds Musculoskeletal: no edema, pulses present Neurological: non-focal, normal sensation, moves all 4 limbs Psychiatric: normal affect, A&O x 3 Skin: no rash Dx/Plan (1) Pulmonary emboli Code(s): I26.99 - OTHER PULMONARY EMBOLISM WITHOUT ACUTE COR PULMONALE Status : Acute Qualifiers: Chronicity: acute Acute cor pulmonale presence: without acute cor pulmonale (2) DVT (deep venous thrombosis) Code(s): I82.409 - ACUTE EMBOLISM AND THOMBOS UNSP DEEP VN UNSP LOWER EXTREMITY Status: Acute Qualifiers: DVT location: lower extremity Affected thrombotic vein of extremity: popliteal Chronicity: acute Laterality: left Qualified Code(s): I82.432 - Acute embolism and thrombosis of left popliteal vein (3) A-fib Code(s): I48.91 - UNSPECIFIED ATRIAL FIBRILLATION Status: Chronic (4) Hypertension Code(s): I10 - ESSENTIAL (PRIMARY) HYPERTENSION Status: Chronic - Plan incentive spirometry, DVT proph w/SCDs cont BID lovenox.? choice of PO AC -: pt took only 5 days of eliquis so may not be true failure of eliquis. 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 HR controlled on Multaq+atenolol. -: add HH .am labs * . Review of Systems - Review of Systems Constitutional: negative: Fever, Chills, Sweats, Weakness, Malaise, Other Respiratory: negative: Cough, Dry, Shortness of Breath, Hemoptysis, SOB with Excertion, Pleuritic Pain, Sputum, Wheezing Cardiovascular: negative: Chest Pain, Palpitations, Orthopnea, Paroxysmal Noc. Dyspnea, Edema, Light Headedness, Other Gastrointestinal: negative: Nausea, Vomiting, Abdominal Pain, Diarrhea, Constipation, Melena, Hematochezia, Other Genitourinary: negative: Dysuria, Frequency, Incontinence, Hematuria, Retention , Other Musculoskeletal: negative: Neck Pain, Shoulder Pain, Arm Pain, Back Pain, Hand Pain, Leg Pain, Foot Pain, Other Neurological: negative: Weakness, Numbness, Incoordination, Change in Speech, Confusion, Seizures, Other - Medications/Allergies Allergies/Adverse Reactions: Allergies Allergy/AdvReac Type Severity Reaction Status Date / Time No Known Allergies Allergy Unverified 05/25/17 08:26 Medications: Current Medications Acetaminophen (Tylenol) 650 mg PO Q4H PRN PRN Reason: Headache/Fever or Pain Hydrocodone Bitart/Acetaminophen ([place] 5/325) 1 tab PO Q4H PRN PRN Reason: Moderate Pain (4-6) Al Hydroxide/Mg Hydroxide (Maalox) 30 ml PO Q6H PRN PRN Reason: Heartburn or Indigestion Artificial Tears (Tears Naturale) 0 drop EA EYE PRN PRN PRN Reason: Dry Eyes Atenolol (Tenormin) 50 mg PO DAILY [facility] Last Admin: 06/04/17 08:52 Dose: 50 mg Dronedarone (Multaq) 400 mg PO BID-[facility] Last Admin: 06/04/17 08:51 Dose: 400 mg Enoxaparin Sodium (Lovenox) 60 mg SC 0900,2100 [facility] Last Admin: 06/04/17 08:52 Dose: 60 mg Ferrous Sulfate (Feosol) 325 mg PO QAM-[facility] Last Admin: 06/04/17 08:51 Dose: 325 mg Ferrous Sulfate (Feosol) 325 mg PO DAILY [facility] Furosemide (Lasix) 40 mg PO DAILY [facility] Guaifenesin (Robitussin Sf) 200 mg PO Q4H PRN PRN Reason: Cough Hydralazine HCl (Apresoline) 10 mg SLOW IVP Q4H PRN PRN Reason: Systolic BP > 180 Potassium Chloride 40 meq/Miscellaneous Medication 1 each/ Sodium Chloride 270 mls @ 67.5 mls/hr IVPB NOW [facility] Stop: 06/04/17 13:00 Loperamide HCl (Imodium) 2 mg PO PRN PRN PRN Reason: Diarrhea/Loose Stools Loratadine (Claritin) 10 mg PO DAILYPRN PRN PRN Reason: Sinus Symptoms Magnesium Hydroxide (Milk Of Magnesium) 30 ml PO DAILYPRN PRN PRN Reason: Constipation Mineral Oil/White Petrolatum (Eucerin Cream) 0 gm TOP BIDPRN PRN PRN Reason: Dry Skin Mometasone Furoate (Asmanex Hfa 100 Mcg) 1 puff INH BID-RT [facility] Ondansetron HCl (Zofran Odt) 4 mg PO Q6H PRN PRN Reason: Nausea/Vomiting Ondansetron HCl (Zofran) 4 mg IVP Q6H PRN PRN Reason: Nausea/Vomiting Pantoprazole Sodium (Protonix) 40 mg PO DAILY [facility] Last Admin: 06/04/17 08:52 Dose: 40 mg Phenol (Chloraseptic [place] 180 Ml Bot) 0 ml PO PRN PRN PRN Reason: Sore Throat Potassium Chloride (K-Dur) 20 meq PO QAM-[facility] Senna (Senokot) 2 tab PO HSPRN PRN PRN Reason: Constipation Sodium Chloride ([place] Nasal [place] 0.65%) 0 ml EA NARE QIDPRN PRN PRN Reason: Nasal Congestion Sodium Chloride (Flush - Normal Saline) 10 ml IVF Q12HR [facility] Sodium Chloride (Flush - Normal Saline) 10 ml IVF PRN PRN PRN Reason: Saline Flush Zolpidem Tartrate (Ambien) 5 mg PO HSPRN PRN PRN Reason: Insomnia
[2017-06-04] MEDS ORDERED: Ipratropium Bromide 0.06% Nasal Inhaler 15ml NASAL SCH (13:00)
--- NOTE | 2017-06-04 17:15 | CON ---
DATE OF CONSULTATION: 06/04/2017 HISTORY OF PRESENT ILLNESS: Ms. Nash is a 76-year-old female. She presented with complaints of left-sided chest discomfort that was pleuritic. She was found to have thromboembolic disease on CT angiogram. She has also been complaining of cough that has been going on for a month. She was recently in the hospital for atrial fibrillation and underwent a transesophageal echo and wa s cardioverted. I was consulted. Reviewing records from what I can get out of the computer looks like she is on Lovenox for 2 days. She was sent home on Eliquis 5 mg twice a day. PAST MEDICAL HISTORY: Remarkable for hepatitis C, hypertension, lipid disorder, reflux disease, and cataract surgery. She also gives a history of having longstanding allergic rhinitis. SOCIAL HISTORY: She is nonsmoker and nondrinker. ALLERGIES: She has no drug allergies. REVIEW OF SYSTEMS: Otherwise negative. PHYSICAL EXAMINATION: GENERAL: She is in no distress. VITAL SIGNS: She is afebrile, heart rate is 68, respiratory rate is 17, blood pressure 123/66, and oximetry is 95 on 2 liters. HEAD AND NECK: Unremarkable. LUNGS: Clear. HEART: Regular rhythm. ABDOMEN: Soft and nontender. EXTREMITIES: Asymmetry. LABORATORY DATA: White count 13.2, hemoglobin 10.9, and platelets 413. Sodium 135, potassium 3.1, chloride 92, bicarbonate 36, BUN 11, and creatinine 0.7. Albumin is 2.5. IMPRESSION: Thromboembolic disease from a deep vein thrombosis and still has residual clot in her p opliteal vein. I suggest we put her back on Eliquis but increase her to the loading dose for a week and then cut he r back to 5 mg twice a day. With regards to her cough, I suspect this is rhinitis cough, nasal ipratropium will be added.
[2017-06-04] MEDS: Mometasone 100 MCG HFA INHALER INH SCH (18:58)
[2017-06-04] MEDS: Apixaban 5 MG TAB PO SCH (20:36)
[2017-06-05 05:17] LABS: Prothrombin Time 22.4 SEC (12.0-14.7)
[2017-06-05 05:18] LABS: Hematocrit 37.1 % (36.0-47.0)
[2017-06-05] MEDS: Mometasone 100 MCG HFA INHALER INH SCH ×2 (07:23→18:37)
[2017-06-05] MEDS: Ferrous Sulfate 325 MG TAB PO SCH ×2 (08:50→09:34)
[2017-06-05] MEDS: Dronedarone HCl 400 MG TAB PO SCH ×2 (08:50→16:22)
[2017-06-05] MEDS ORDERED: FERROUS SULFATE 142 MG PO SCH (09:00)
[2017-06-05] MEDS ORDERED: Non-Formulary Item 1 EACH (Fluticasone Propionate [Flovent Diskus] 1 SPRAY) NASAL SCH (09:00)
[2017-06-05] MEDS: Potassium Chloride 20 MEQ TAB PO SCH (09:32)
[2017-06-05] MEDS: Atenolol 50 MG TAB PO SCH (09:32)
[2017-06-05] MEDS: Furosemide 40 MG TAB PO SCH (09:32)
[2017-06-05] MEDS: Apixaban 5 MG TAB PO SCH ×2 (09:33→20:33)
[2017-06-05] MEDS ORDERED: Benzonatate 100 MG CAP PO PRN (09:34)
--- NOTE | 2017-06-05 10:42 | PDOC.PN ---
- Subjective Encounter Start Date: 06/05/17 Encounter Start Time: 10:41 Subjective: feels much better. denies any Chest pain/SOB. -: developed dry cough -: daughter at bedside,updated - Objective Resuscitation Status: Resuscitation Status FULL:Full Resuscitation MAR Reviewed: Yes Vital Signs & Weight: Vital Signs (12 hours) Temp Pulse Resp BP BP Pulse Ox 06/05/17 09:32 73 126/72 06/05/17 08:00 98 F 73 18 93 L 06/05/17 07:55 98 F 73 18 126/72 93 L 06/05/17 07:26 93 L 06/05/17 07:23 72 14 93 L 06/05/17 04:00 97.9 F 68 18 114/65 94 L 06/05/17 00:00 98.5 F 74 18 130/66 95 Weight Weight 147 lb 6.4 oz I&O: 06/04/17 06/05/17 06/06/17 06:59 06:59 06:59 Intake Total 200 1685 Balance 200 1685 Result Diagrams: 06/05/17 04:14 06/05/17 04:14 Additional Labs: Microbiology 06/03/17 13:22 Urine clean catch Urine Culture - Preliminary NO GROWTH AT 24 HOURS Phys Exam - Physical Examination Constitutional: NAD HEENT: PERRLA, moist MMs, sclera anicteric, oral pharynx no lesions Neck: no nodes, no JVD, supple, full ROM Respiratory: no wheezing, no rales, no rhonchi, clear to auscultation bilateral Cardiovascular: RRR, no significant murmur, no rub, gallop Gastrointestinal: soft, non-tender, no distention, positive bowel sounds Musculoskeletal: no edema, pulses present Neurological: non-focal, normal sensation, moves all 4 limbs Psychiatric: normal affect, A&O x 3 Skin: no rash Dx/Plan (1) Pulmonary emboli Code(s): I26.99 - OTHER PULMONARY EMBOLISM WITHOUT ACUTE COR PULMONALE Status : Acute Qualifiers: Chronicity: acute Acute cor pulmonale presence: without acute cor pulmonale (2) DVT (deep venous thrombosis) Code(s): I82.409 - ACUTE EMBOLISM AND THOMBOS UNSP DEEP VN UNSP LOWER EXTREMITY Status: Acute Qualifiers: DVT location: lower extremity Affected thrombotic vein of extremity: popliteal Chronicity: acute Laterality: left Qualified Code(s): I82.432 - Acute embolism and thrombosis of left popliteal vein (3) A-fib Code(s): I48.91 - UNSPECIFIED ATRIAL FIBRILLATION Status: Chronic Qualifiers: Atrial fibrillation type: chronic Qualified Code(s): I48.2 - Chronic atrial fibrillation (4) Hypertension Code(s): I10 - ESSENTIAL (PRIMARY) HYPERTENSION Status: Chronic - Plan plan discussed w/ family, PT/OT, respiratory therapy, incentive spirometry, out of bed/ambulate, DVT proph w/SCDs Eliquis increased.Lovenox BId stopped. appreciate Pulm input. -: cont higher dose eliquis 10 BID X 1 week,then 5 mg BID -: isael DC home later today. PT eval & HH if qualifies -: add jhony ford * . Review of Systems - Review of Systems Constitutional: negative: Fever, Chills, Sweats, Weakness, Malaise, Other Respiratory: Cough. negative: Dry, Shortness of Breath, Hemoptysis, SOB with Excertion, Pleuritic Pain, Sputum, Wheezing Cardiovascular: negative: Chest Pain, Palpitations, Orthopnea, Paroxysmal Noc. Dyspnea, Edema, Light Headedness, Other Gastrointestinal: negative: Nausea, Vomiting, Abdominal Pain, Diarrhea, Constipation, Melena, Hematochezia, Other Genitourinary: negative: Dysuria, Frequency, Incontinence, Hematuria, Retention , Other Musculoskeletal: negative: Neck Pain, Shoulder Pain, Arm Pain, Back Pain, Hand Pain, Leg Pain, Foot Pain, Other Neurological: negative: Weakness, Numbness, Incoordination, Change in Speech, Confusion, Seizures, Other - Medications/Allergies Allergies/Adverse Reactions: Allergies Allergy/AdvReac Type Severity Reaction Status Date / Time No Known Allergies Allergy Unverified 05/25/17 08:26 Medications: Current Medications Acetaminophen (Tylenol) 650 mg PO Q4H PRN PRN Reason: Headache/Fever or Pain Hydrocodone Bitart/Acetaminophen ([place] 5/325) 1 tab PO Q4H PRN PRN Reason: Moderate Pain (4-6) Al Hydroxide/Mg Hydroxide (Maalox) 30 ml PO Q6H PRN PRN Reason: Heartburn or Indigestion Apixaban (Eliquis) 10 mg PO BID [facility] Last Admin: 06/05/17 09:33 Dose: 10 mg Artificial Tears (Tears Naturale) 0 drop EA EYE PRN PRN PRN Reason: Dry Eyes Atenolol (Tenormin) 50 mg PO DAILY [facility] Last Admin: 06/05/17 09:32 Dose: 50 mg Benzonatate (Tessalon) 100 mg PO Q4H PRN PRN Reason: Cough Dronedarone (Multaq) 400 mg PO BID-[facility] Last Admin: 06/05/17 08:50 Dose: 400 mg Ferrous Sulfate (Feosol) 325 mg PO QAM-[facility] Last Admin: 06/05/17 08:50 Dose: 325 mg Ferrous Sulfate (Feosol) 325 mg PO DAILY [facility] Last Admin: 06/05/17 09:34 Dose: Not Given Furosemide (Lasix) 40 mg PO DAILY [facility] Last Admin: 06/05/17 09:32 Dose: 40 mg Guaifenesin (Robitussin Sf) 200 mg PO Q4H PRN PRN Reason: Cough Hydralazine HCl (Apresoline) 10 mg SLOW IVP Q4H PRN PRN Reason: Systolic BP > 180 Ipratropium [place] (Atrovent 0.06% Nasal Inhaler) 1 ml NASAL BID [facility] Loperamide HCl (Imodium) 2 mg PO PRN PRN PRN Reason: Diarrhea/Loose Stools Loratadine (Claritin) 10 mg PO DAILYPRN PRN PRN Reason: Sinus Symptoms Magnesium Hydroxide (Milk Of Magnesium) 30 ml PO DAILYPRN PRN PRN Reason: Constipation Mineral Oil/White Petrolatum (Eucerin Cream) 0 gm TOP BIDPRN PRN PRN Reason: Dry Skin Mometasone Furoate (Asmanex Hfa 100 Mcg) 1 puff INH BID-RT [facility] Last Admin: 06/05/17 07:23 Dose: 1 puff Ondansetron HCl (Zofran Odt) 4 mg PO Q6H PRN PRN Reason: Nausea/Vomiting Ondansetron HCl (Zofran) 4 mg IVP Q6H PRN PRN Reason: Nausea/Vomiting Pantoprazole Sodium (Protonix) 40 mg PO DAILY [facility] Last Admin: 06/05/17 09:32 Dose: 40 mg Phenol (Chloraseptic [place] 180 Ml Bot) 0 ml PO PRN PRN PRN Reason: Sore Throat Potassium Chloride (K-Dur) 20 meq PO QAM-[facility] Last Admin: 06/05/17 09:32 Dose: 20 meq Senna (Senokot) 2 tab PO HSPRN PRN PRN Reason: Constipation Sodium Chloride ([place] Nasal [place] 0.65%) 0 ml EA NARE QIDPRN PRN PRN Reason: Nasal Congestion Sodium Chloride (Flush - Normal Saline) 10 ml IVF Q12HR [facility] Last Admin: 06/05/17 09:33 Dose: 10 ml Sodium Chloride (Flush - Normal Saline) 10 ml IVF PRN PRN PRN Reason: Saline Flush Zolpidem Tartrate (Ambien) 5 mg PO HSPRN PRN PRN Reason: Insomnia
--- NOTE | 2017-06-05 16:56 | PRG ---
DATE OF SERVICE: 06/05/2017 SUBJECTIVE: Ms. Nash has no complaints. She says she feels better and yesterday she was afebril e. OBJECTIVE: VITAL SIGNS: Oximetry is 95 on 1 liter, heart rate 75, blood pressure 126/72. LUNGS: Clear. HEART: Regular rhythm. ABDOMEN: Soft. IMPRESSION: 1. Pulmonary emboli. 2. Decreased mean corpuscular volume on CBC suggestive of iron deficiency. It is unclear to me at this point whether she is up to date on her GI prophylaxis, colonoscopy. PLAN: Continue anticoagulation, may consider discharge if she is stable tomorrow.
[2017-06-06 05:32] LABS: Hematocrit 37.6 % (36.0-47.0)
[2017-06-06 05:48] LABS: Prothrombin Time 26.9 SEC (12.0-14.7)
[2017-06-06] MEDS: Mometasone 100 MCG HFA INHALER INH SCH (07:48)
[2017-06-06] MEDS: Apixaban 5 MG TAB PO SCH (08:56)
[2017-06-06] MEDS: Ferrous Sulfate 325 MG TAB PO SCH ×2 (08:57→09:30)
[2017-06-06] MEDS: Dronedarone HCl 400 MG TAB PO SCH (08:57)
[2017-06-06] MEDS: Atenolol 50 MG TAB PO SCH (08:57)
[2017-06-06] MEDS: Potassium Chloride 20 MEQ TAB PO SCH (08:57)
[2017-06-06] MEDS: Furosemide 40 MG TAB PO SCH (08:57)
--- NOTE | 2017-06-06 10:39 | PDOC.PN ---
- Subjective Encounter Start Date: 06/06/17 Encounter Start Time: 10:37 Subjective: feels better and wants to go home.denies any chest pain/SOB -: Pt unfortunately hasn't been out of bed yet. -: nursing reports hypoxia w/o O2 supplementation - Objective Resuscitation Status: Resuscitation Status FULL:Full Resuscitation MAR Reviewed: Yes Vital Signs & Weight: Vital Signs (12 hours) Temp Pulse Resp BP BP Pulse Ox 06/06/17 08:57 74 125/69 06/06/17 08:00 97.7 F 74 18 125/69 96 06/06/17 07:48 82 16 93 L 06/06/17 04:00 98.3 F 80 20 127/70 92 L 06/06/17 00:24 94 L 06/06/17 00:00 98.3 F 71 16 129/60 92 L Weight Weight 147 lb 3.2 oz I&O: 06/05/17 06/06/17 06/07/17 06:59 06:59 06:59 Intake Total 1685 1050 Balance 1685 1050 Result Diagrams: 06/06/17 04:32 06/06/17 04:32 Phys Exam - Physical Examination Constitutional: NAD HEENT: PERRLA, moist MMs, sclera anicteric, oral pharynx no lesions Neck: no nodes, no JVD, supple, full ROM Respiratory: no wheezing, no rales, no rhonchi, clear to auscultation bilateral Cardiovascular: no significant murmur, no rub, gallop, irregular Gastrointestinal: soft, non-tender, no distention, positive bowel sounds Musculoskeletal: no edema, pulses present Neurological: non-focal, normal sensation, moves all 4 limbs Psychiatric: normal affect, A&O x 3 Dx/Plan (1) Pulmonary emboli Code(s): I26.99 - OTHER PULMONARY EMBOLISM WITHOUT ACUTE COR PULMONALE Status : Acute Qualifiers: Chronicity: acute Acute cor pulmonale presence: without acute cor pulmonale (2) DVT (deep venous thrombosis) Code(s): I82.409 - ACUTE EMBOLISM AND THOMBOS UNSP DEEP VN UNSP LOWER EXTREMITY Status: Acute Qualifiers: DVT location: lower extremity Affected thrombotic vein of extremity: popliteal Chronicity: acute Laterality: left Qualified Code(s): I82.432 - Acute embolism and thrombosis of left popliteal vein (3) A-fib Code(s): I48.91 - UNSPECIFIED ATRIAL FIBRILLATION Status: Chronic Qualifiers: Atrial fibrillation type: chronic Qualified Code(s): I48.2 - Chronic atrial fibrillation (4) Hypertension Code(s): I10 - ESSENTIAL (PRIMARY) HYPERTENSION Status: Chronic - Plan plan discussed w/ family, PT/OT, 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 -: Ambulate and check O2.cont supportive care. PCCM following -: cont Eliquis 10 mg BID X1 week then 5 mg BID. -: A-fib is rate controlled.cont Atenolol,Multaq. -: Home only if able to wean off of Oxygen.am labs * . Review of Systems - Review of Systems Constitutional: negative: Fever, Chills, Sweats, Weakness, Malaise, Other Respiratory: negative: Cough, Dry, Shortness of Breath, Hemoptysis, SOB with Excertion, Pleuritic Pain, Sputum, Wheezing Cardiovascular: negative: Chest Pain, Palpitations, Orthopnea, Paroxysmal Noc. Dyspnea, Edema, Light Headedness, Other Gastrointestinal: negative: Nausea, Vomiting, Abdominal Pain, Diarrhea, Constipation, Melena, Hematochezia, Other Genitourinary: negative: Dysuria, Frequency, Incontinence, Hematuria, Retention , Other Musculoskeletal: negative: Neck Pain, Shoulder Pain, Arm Pain, Back Pain, Hand Pain, Leg Pain, Foot Pain, Other Neurological: negative: Weakness, Numbness, Incoordination, Change in Speech, Confusion, Seizures, Other - Medications/Allergies Allergies/Adverse Reactions: Allergies Allergy/AdvReac Type Severity Reaction Status Date / Time No Known Allergies Allergy Unverified 05/25/17 08:26 Medications: Current Medications Acetaminophen (Tylenol) 650 mg PO Q4H PRN PRN Reason: Headache/Fever or Pain Hydrocodone Bitart/Acetaminophen ([place] 5/325) 1 tab PO Q4H PRN PRN Reason: Moderate Pain (4-6) Al Hydroxide/Mg Hydroxide (Maalox) 30 ml PO Q6H PRN PRN Reason: Heartburn or Indigestion Apixaban (Eliquis) 10 mg PO BID [facility] Last Admin: 06/06/17 08:56 Dose: 10 mg Artificial Tears (Tears Naturale) 0 drop EA EYE PRN PRN PRN Reason: Dry Eyes Atenolol (Tenormin) 50 mg PO DAILY [facility] Last Admin: 06/06/17 08:57 Dose: 50 mg Benzonatate (Tessalon) 100 mg PO Q4H PRN PRN Reason: Cough Dronedarone (Multaq) 400 mg PO BID[facility] Last Admin: 06/06/17 08:57 Dose: 400 mg Ferrous Sulfate (Feosol) 325 mg PO [facility] Last Admin: 06/06/17 08:57 Dose: 325 mg Ferrous Sulfate (Feosol) 325 mg PO DAILY [facility] Last Admin: 06/05/17 09:34 Dose: Not Given Furosemide (Lasix) 40 mg PO DAILY [facility] Last Admin: 06/06/17 08:57 Dose: 40 mg Guaifenesin (Robitussin Sf) 200 mg PO Q4H PRN PRN Reason: Cough Hydralazine HCl (Apresoline) 10 mg SLOW IVP Q4H PRN PRN Reason: Systolic BP > 180 Ipratropium [place] (Atrovent 0.06% Nasal Inhaler) 1 ml NASAL BID [facility] Loperamide HCl (Imodium) 2 mg PO PRN PRN PRN Reason: Diarrhea/Loose Stools Loratadine (Claritin) 10 mg PO DAILYPRN PRN PRN Reason: Sinus Symptoms Magnesium Hydroxide (Milk Of Magnesium) 30 ml PO DAILYPRN PRN PRN Reason: Constipation Mineral Oil/White Petrolatum (Eucerin Cream) 0 gm TOP BIDPRN PRN PRN Reason: Dry Skin Mometasone Furoate (Asmanex Hfa 100 Mcg) 1 puff INH BID-RT [facility] Last Admin: 06/06/17 07:48 Dose: 1 puff Ondansetron HCl (Zofran Odt) 4 mg PO Q6H PRN PRN Reason: Nausea/Vomiting Ondansetron HCl (Zofran) 4 mg IVP Q6H PRN PRN Reason: Nausea/Vomiting Pantoprazole Sodium (Protonix) 40 mg PO DAILY [facility] Last Admin: 06/06/17 08:57 Dose: 40 mg Phenol (Chloraseptic [place] 180 Ml Bot) 0 ml PO PRN PRN PRN Reason: Sore Throat Potassium Chloride (K-Dur) 20 meq PO [facility] Last Admin: 06/06/17 08:57 Dose: 20 meq Senna (Senokot) 2 tab PO HSPRN PRN PRN Reason: Constipation Sodium Chloride ([place] Nasal [place] 0.65%) 0 ml EA NARE QIDPRN PRN PRN Reason: Nasal Congestion Sodium Chloride (Flush - Normal Saline) 10 ml IVF Q12HR [facility] Last Admin: 06/05/17 20:33 Dose: 10 ml Sodium Chloride (Flush - Normal Saline) 10 ml IVF PRN PRN PRN Reason: Saline Flush Zolpidem Tartrate (Ambien) 5 mg PO HSPRN PRN PRN Reason: Insomnia
--- NOTE | 2017-06-06 15:13 | PRG ---
DATE OF SERVICE: 06/06/2017 Ms. Nash did well overnight. She says she is ready to go home. She is in no distress. She is a febrile. OBJECTIVE: VITAL SIGNS: Blood pressure 125/60, heart rate 74. Oximetry is 94 on room air. LUNGS: Clear. PLAN: She will go home on Eliquis 10 mg twice a day for 5 more days and then go to 5 mg twice a day . She will see me when she comes back into town to see Dr. Vazquez since they live 50 [place] for the prescription for the Eliquis and a prescription for Tenormin 50 mg a day since she is almost out of this.
[2017-06-06 19:46] VITALS: BP 125/69; TEMP 98.2
--- NOTE | 2017-06-06 20:30 | DIS ---
DATE OF ADMISSION: 06/03/2017 DATE OF DISCHARGE: 06/06/2017 CONDITION AT THE TIME OF DISCHARGE: Stable and improved. DISCHARGE DIAGNOSES: 1. Left lower extremity deep venous thrombosis. 2. Pulmonary embolism, bilateral. 3. Chronic atrial fibrillation diagnosed last month. 4. Chronic anticoagulation. 5. Hypertension. 6. History of cerebrovascular accident in the past. 7. Dyslipidemia. 8. History of chronic hepatitis C. DISCHARGE MEDICATIONS: Are as follows; new medication, Eliquis 10 mg p.o. b.i.d. for 5 more days, t hen resume 5 mg p.o. b.i.d. Resume following home medications; Flovent Diskus daily, Nexium 40 mg d aily, Multaq 400 mg p.o. b.i.d., Tenormin 50 mg daily, Mucinex as needed, Lasix 40 mg daily. CONSULTATIONS IN THE HOSPITAL: Pulmonary or Critical Care, Dr. Wilkes. PROCEDURES DONE IN THE HOSPITAL: Include; 1. CT angio of the chest, which shows bilateral pulmonary embolism and bilateral pleural effusions, left greater than right. 2. Lower extremity Doppler ultrasound, which shows small left popliteal vein DVT. ADMISSION HISTORY: Ms. Nash is a very pleasant 76-year-old female with past medical history of h ypertension, dyslipidemia, and recent atrial fibrillation, who came to the emergency room with compl aints of left-sided chest pain going to left scapula, which was pleuritic in nature. She was recent ly admitted in our facility and was discharged on 05/29/2017 on Eliquis for new onset of atrial fibr illation. She has taken the medication for 5 days prior to arrival. Upon presentation, she had vijay vated D-dimer and a CT angio confirmed findings of bilateral pulmonary embolism. She was given ther apeutic anticoagulation with Lovenox 1 mg/kg dozing and was admitted to telemetry floor for further treatment. Please see admission history and physical for further detail. She was hemodynamically s table upon presentation. HOSPITAL COURSE: The patient remained stable throughout the rest of her hospitalization. A lower e xtremity ultrasound also confirmed left lower extremity popliteal vein DVT. Because of the question of her already being on Eliquis and the need for anticoagulation, Pulmonary Medicine was consulted. Dr. Wilkes saw the patient and recommended increasing the Eliquis to twice a day for 1 week and the n resuming the dosages of 5 mg b.i.d. Lovenox was discontinued and she was put on 10 mg of Eliquis twice a day and scripts were provided to her by Dr. Wilkes. Otherwise, she remained hemodynamically stable and her atrial fibrillation remained rate controlled on Tenormin and Multaq in the hospital. She was seen and examined prior to discharge. 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 At this time, she is safe to go back to work in 1-2 days. The patient was weaned off of oxygen and she tolerated it very well prior to discharge. All the questions were answered. Discharge plan was discussed with the patien t and family, who verbalized understanding. She was seen and examined prior to discharge. Please see hospitalist progress note from today's saad e for further details. PRIMARY CARE PHYSICIAN: Erik Anderson D.O. DISCHARGE FOLLOWUP: Primary care physician as well Pulmonary Medicine in 1 week.
== END 2017-06-06 15:39 | disposition home or self-care (01) | DRG 299 ==
LOC: ERS 11:06 → 2NO 15:00
PROVIDERS: ADMIT Internal Medicine; ATTEND Internal Medicine
DX: I82.432 Acute embolism and thrombosis of left popliteal vein (principal); I26.99 Other pulmonary embolism without acute cor pulmonale; Z79.01 Long term (current) use of anticoagulants; I48.2 Chronic atrial fibrillation; I10 Essential (primary) hypertension; Z86.73 Personal history of transient ischemic attack (TIA), and cerebral infarction without residual deficits; E78.5 Hyperlipidemia, unspecified; K21.9 Gastro-esophageal reflux disease without esophagitis
CPT/HCPCS: 36415; 71010; 71275; 80053; 81003; 81015; 82550; 82553; 82565; 84484; 85014; 85018; 85025; 85049; 85379; 85610; 87086; 90471; 90682; 93005; 93970; 94664; 94760; 96372; A4216; G0008; G8978-GP-CJ; G8979-GP-CI; J1650; J3480; J7050; Q2036

== ENCOUNTER 2017-06-29 12:42 | Outpatient (CLI) | payer MEDICARE, OTHER ==
--- NOTE | 2017-06-29 15:58 | RAD ---
PA AND LATERAL CHEST: Date: 06-29-17 History: Dyspnea. FINDINGS: There is patchy parenchymal opacity seen within the left hilar region, not well seen on the frontal projection. This was not seen on the prior study. This may be related to developing area of pneumoni a. The right lung is clear. Cardiac silhouette and pulmonary vasculature are within normal limits. T here has been improvement in bibasilar pleural and parenchymal lung changes noted on the study of . IMPRESSION: 1. Parenchymal opacity in the left hilar region which may be related to developing pneumonia. Follow up to complete resolution is recommended. 2. Improvement in bilateral pleural and parenchymal lung changes. POS: [facility]
== END 2017-06-29 12:43 | disposition home or self-care (01) ==
LOC: RAD 12:42
PROVIDERS: ATTEND Internal Medicine Critical Care Medicine
DX: R06.00 Dyspnea, unspecified (principal); J98.4 Other disorders of lung
CPT/HCPCS: 71020

== ENCOUNTER 2017-07-09 16:45 | Emergency (ER) | payer MEDICARE, OTHER ==
[2017-07-09 17:25] LABS: Hematocrit 29.7 % (36.0-47.0); Mean Platelet Volume 7.9 fL (7.4-10.4); Red Blood Cell (RBC) Count 3.52 mill/uL (4.20-5.40); White Blood Cell (WBC) Count 17.2 thou/uL (4.8-10.8)
[2017-07-09 17:31] LABS: Prothrombin Time 16.6 SEC (12.0-14.7)
[2017-07-09 17:40] LABS: PTT 18.7 SEC (22.9-36.1)
[2017-07-09 17:44] LABS: ALT (SGPT) 21 U/L (8-55); AST (SGOT) 25 U/L (5-34); Alkaline Phosphatase 83 U/L (40-150); Anion Gap 15 mmol/L (10-20); BUN (Urea Nitrogen) 22 mg/dL (9.8-20.1); Bilirubin, Total 0.3 mg/dL (0.2-1.2); Calc. Creatinine Clearance 0 mL/min (70-130); Calcium 9.2 mg/dL (7.8-10.44); Carbon Dioxide 28 mmol/L (23-31); Chloride 96 mmol/L (98-107); Estimated GFR-MDRD 56; Globulin 3.1 g/dL (2.4-3.5); Protein, Total 6.3 g/dL (6.0-8.3)
[2017-07-09 17:46] LABS: #Eosinphils 0.1 thou/uL (0.0-0.7); #Lymphocytes 1.4 thou/uL (1.20-3.40); #Monocytes 0.9 thou/uL (0.11-0.59); #Neutrophils 14.8 thou/uL (1.40-6.50); %Basophils 0.2 % (0.0-1.0); %Eosinophils 0.6 % (0.0-10.0); %Lymphocytes 8.4 % (21.0-51.0); %Monocytes 5.1 % (0.0-10.0); Acanthocytes SLIGHT = 1-5 cells (100X) (None Seen); Anisocytosis SLIGHT = 6-15 cells (100X) (0-5/hpf); Hypochromia SLIGHT = 6-15 cells (100X) (0-5/hpf); Ovalocytes SLIGHT = 2-5 cells (100X) (0-1/hpf); Polychromasia SLIGHT = 2-3 cells (100X) (0-2/hpf)
[2017-07-09 18:36] LABS: Bilirubin Negative (Negative); Blood, Urine Negative (Negative); Glucose, Urine (Dipstick) Negative (Negative); Ketone, Urine Trace mg/dL (Negative); Nitrite Negative (Negative); Protein, Urine (Dipstick) Negative (Neg-Trace); Urobilinogen 0.2 mg/dL (0.2-1.0)
[2017-07-09 18:38] LABS: Bacteria/HPF None Seen HPF (None Seen); Hyaline Casts/LPF 0-3 HYALINE CAST LPF (0-3 Hyaline); RBC/HPF 0-3 HPF (0-3); Squamous Epithelial 0-3 HPF (0-3)
--- NOTE | 2017-07-09 18:42 | ULT ---
ULTRASOUND WITH DOPPLER DUPLEX VENOUS LOWER EXTREMITY LEFT 07/09/17 CPT: 02640 ICD-10-PCS: B54D HISTORY: Unilateral edema. TECHNIQUE: Color flow Doppler, spectral waveform analysis of pulsed Doppler, and hale-scale imaging with compre ssion and augmentation, were used to evaluate the left common femoral, femoral, popliteal, posterior tibial, and superficial femoral, veins; and the proximal portions of the profunda femoral and great er saphenous, veins. FINDINGS: Appropriate compressibility and flow within the imaged deep vein system of left lower extremity. IMPRESSION: No DVT. Soft tissue edema. Correlate clinically. POS: [facility]
[2017-07-09] MEDS ORDERED: Potassium Chloride 20 MEQ TAB ONE (19:14)
== END 2017-07-09 20:41 | disposition home or self-care (01) ==
LOC: ERS 16:45
DX: R60.0 Localized edema (principal); D64.9 Anemia, unspecified; E87.6 Hypokalemia; N39.0 Urinary tract infection, site not specified; I10 Essential (primary) hypertension; Z79.899 Other long term (current) drug therapy
CPT/HCPCS: 80053; 81003; 81015; 82274; 85025; 85379; 85610; 85730

== ENCOUNTER 2017-09-06 09:25 | Outpatient (CLI) | payer MEDICARE, OTHER ==
--- NOTE | 2017-09-06 10:01 | RAD ---
FRONTAL AND LATERAL IMAGING CHEST: Date: 09-06-17 Comparison: 07-05-17 History: Shortness of breath. FINDINGS: Blunting of bilateral costophrenic angles noted, evidence of interval development of small nonspecifi c pleural effusions. Stable heart and mediastinal contours. No pneumothorax, lobar consolidation or a lveolar edema. IMPRESSION: New small bilateral pleural effusions noted. POS: [facility]
== END 2017-09-06 09:26 | disposition home or self-care (01) ==
LOC: RAD 09:25
PROVIDERS: ATTEND Internal Medicine Critical Care Medicine
DX: R06.00 Dyspnea, unspecified (principal); J90 Pleural effusion, not elsewhere classified
CPT/HCPCS: 71046

== ENCOUNTER 2017-11-20 14:50 | Inpatient (IN) | payer MEDICARE, OTHER ==
[2017-11-20] MEDS ORDERED: Ondansetron HCl/PF 4 MG/2 ML Vial ONE (15:19)
[2017-11-20] MEDS ORDERED: Esmolol 100 MG/10 ML VIAL IVP SCH (16:00)
[2017-11-20 16:10] LABS: #Basophils 0.1 thou/uL (0.0-0.2); #Eosinphils 0.1 thou/uL (0.0-0.7); #Lymphocytes 0.7 thou/uL (1.20-3.40); #Monocytes 0.7 thou/uL (0.11-0.59); #Neutrophils 5.8 thou/uL (1.40-6.50); %Eosinophils 1.9 % (0.0-10.0); %Lymphocytes 9.8 % (21.0-51.0); %Monocytes 9.5 % (0.0-10.0); %Neutrophils 77.9 % (42.0-75.0); Hemoglobin 7.1 g/dL (12.0-16.0); Mean Corpuscular HGB CONC 28.7 g/dL (32.0-36.0); Mean Corpuscular Hemoglobin 20.5 pg (27.0-31.0); Mean Corpuscular Volume 71.6 fl (81.0-99.0); Mean Platelet Volume 8.5 fL (7.4-10.4); Platelet Count 295 thou/uL (130-400); RBC Distribution Width 18.2 % (11.5-14.5); Red Blood Cell (RBC) Count 3.44 mill/uL (4.20-5.40); White Blood Cell (WBC) Count 7.5 thou/uL (4.8-10.8)
[2017-11-20 16:25] LABS: Anisocytosis SLIGHT = 6-15 cells (100X) (0-5/hpf); Elliptocytes SLIGHT = 2-5 cells (100X) (0-1/hpf); Hypochromia SLIGHT = 6-15 cells (100X) (0-5/hpf); MDiff Complete? YES; Microcytosis SLIGHT = 6-15 cells (100X) (0-5/hpf); Ovalocytes SLIGHT = 2-5 cells (100X) (0-1/hpf); PLT Morphology Comment Appears Adequate; Polychromasia SLIGHT = 2-3 cells (100X) (0-2/hpf); Target Cells SLIGHT = 2-5 cells (100X) (0-1/hpf)
[2017-11-20 16:34] LABS: CKMB 1.2 ng/mL (0-6.6); Troponin I Less than 0.010 ng/mL (< 0.028)
[2017-11-20 16:38] LABS: ALT (SGPT) 11 U/L (8-55); AST (SGOT) 20 U/L (5-34); Albumin 3.4 g/dL (3.4-4.8); Alkaline Phosphatase 97 U/L (40-150); Anion Gap 17 mmol/L (10-20); BUN (Urea Nitrogen) 9 mg/dL (9.8-20.1); CK (CPK) 35 U/L (29-168); Calc. Creatinine Clearance 0 mL/min (70-130); Calcium 8.9 mg/dL (7.8-10.44); Carbon Dioxide 23 mmol/L (23-31); Chloride 100 mmol/L (98-107); Estimated GFR-MDRD 59; Globulin 2.8 g/dL (2.4-3.5); Glucose 100 mg/dL (83-110); Lipase 30 U/L (8-78); Potassium 3.9 mmol/L (3.5-5.1); Protein, Total 6.2 g/dL (6.0-8.3); Sodium 136 mmol/L (136-145)
[2017-11-20] MEDS ORDERED: Digoxin 0.125 MG TAB ONE (17:24)
[2017-11-20] MEDS ORDERED: Acetaminophen 650 MG Suppository PR PRN (17:36)
[2017-11-20] MEDS ORDERED: Ondansetron ODT 4 MG TAB PO PRN (17:36)
[2017-11-20] MEDS ORDERED: Ondansetron HCl/PF 4 MG/2 ML Vial IVP PRN (17:36)
[2017-11-20] MEDS ORDERED: Digoxin 0.5 MG/2 ML AMP SLOW IVP SCH (17:45)
--- NOTE | 2017-11-20 18:24 | HP ---
PRIMARY CARE PHYSICIAN: Erik Anderson D.O. PRESENTING COMPLAINT: Generalized weakness. HISTORY OF PRESENT ILLNESS: A 77-year-old female with a past medical history of atrial fibrillation, chronic anemia, hypertension, and pulmonary embolism on Eliquis, who presented to the emergency room with a 2-day history of fatigue, palpitations, and generally feeling unwell. She also reports mild shortness of breath and nonproductive cough. She denies fever, chills, chest pain, PND, orthopnea, or lower extremity edema. PAST MEDICAL HISTORY: Atrial fibrillation, chronic anemia, hypertension, and pulmonary embolism. PAST SURGICAL HISTORY: Cholecystectomy. FAMILY HISTORY: Reviewed and noncontributory. SOCIAL HISTORY: Denies smoking, but drinks alcohol occasionally. No illicit drug use. ALLERGIES: MULTAQ (causes nausea and vomiting). HOME MEDICATIONS: Apixaban 10 mg b.i.d., atenolol 50 mg daily, dronedarone 400 mg b.i.d., Nexium 40 mg daily, ferrous sulfate 142 mg daily, fluticasone propionate 1 spray in each naris daily, furosemide 40 mg daily, Mucinex 1200 mg daily, and multivitamin tablets 1 daily. REVIEW OF SYSTEMS: GENERAL/CONSTITUTIONAL: Positive for malaise. Negative for fever, chills, headaches. HEENT: Negative. RESPIRATORY: Positive for cough and shortness of breath. Negative for sputum production, eye discharge, or ear discharge. EYES: Denies vision changes. CARDIOVASCULAR: Positive for palpitations, otherwise negative. ABDOMEN: Negative. SKIN: Negative. NEUROLOGIC: Negative. MUSCULOSKELETAL: Negative. PSYCHIATRIC: Negative. ALLERGY/IMMUNOLOGY: Negative. HEMATOLOGIC: Positive for dyspnea on exertion. All other symptoms negative except as stated in HPI. LABORATORY DATA: Important labs include hemoglobin of 7.1. Serum chemistry is unremarkable. Initial troponin was less than 0.01. PHYSICAL EXAMINATION: VITAL SIGNS: Blood pressure within normal limits. Heart rate in the 140s. GENERAL: Not in acute distress. Lying comfortably in bed. HEENT: Normocephalic, atraumatic. Not pale, anicteric. PERRLA, EOMI. Moist mucous membranes. RESPIRATORY: Vesicular breath sounds bilaterally. No wheezes or rales. CARDIOVASCULAR: Tachycardic with irregular rhythm, S1, S2 only. No murmurs, rubs, or gallops. ABDOMEN: Soft, nontender, nondistended. Bowel sounds present. No hepatosplenomegaly. MUSCULOSKELETAL: No edema. PSYCHIATRIC: Alert and well oriented. NEUROLOGIC: No focal deficits, following commands, moving all extremities spontaneously. SKIN: Warm, dry, well perfused. No rashes or lesions. HEMATOLOGIC: No lymphadenopathy. PSYCHIATRIC: Normal mood and affect. ASSESSMENT AND PLAN: 1. Atrial fibrillation with rapid ventricular response. The patient was markedly tachycardic on presentation with heart rates in the 150s and 160s. Due to the diltiazem shot, she was started on esmolol. EKG showed atrial fibrillation. Chest x-ray ordered and pending. We will also follow up in case she has a pneumonia, for which she will be started on antibiotics. Cardiology consult will be obtained. She will be continued on esmolol, admitted to the [facility]. Digoxin will also be prescribed p.r.n. for marked tachycardia with heart rate greater than 140-150. We will continue on her home medications. She reports taking atenolol 50 mg p.o. daily. On chart review, she is still on dronedarone, although she states she gets nausea and vomiting when she takes this. We will confirm. 2. History of pulmonary embolism. The patient has been on Eliquis and reports compliance. We will continue. 3. Chronic anemia, previous anemia panel negative. She reports a history of anemia dating back to decades. Hemoglobin is currently 7.1. We will type and screen in anticipation of possible transfusion during this admission. 4. Hypertension. Blood pressure is currently at goal. We will resume home regimen and monitor blood pressure closely. CODE STATUS: FULL CODE. The patient wishes to remain full code. Her plan was discussed with her present, and he is the patient's surrogate decision maker. KACIE
[2017-11-20] MEDS ORDERED: Atenolol 50 MG TAB PO SCH (19:30)
[2017-11-20] MEDS: Esmolol 2,500 MG/250 ML 250 ML IVPB SCH ×3 (19:36→23:33)
[2017-11-20] MEDS: Guaifenesin DM 100-10/5 ML UDCUP PO PRN (20:30)
[2017-11-20] MEDS: Apixaban 5 MG TAB PO SCH (20:59)
[2017-11-20] MEDS ORDERED: Apixaban 5 MG TAB PO SCH (21:00)
[2017-11-20 21:10] VITALS: BMI 26.4
[2017-11-20 22:59] LABS: Troponin I 0.012 ng/mL (< 0.028)
[2017-11-21] MEDS ORDERED: Sodium Chloride 0.9% 500 ML IVPB PRN (00:24)
[2017-11-21] MEDS ORDERED: Digoxin 0.5 MG/2 ML AMP SLOW IVP SCH (00:30)
[2017-11-21] MEDS: Esmolol 2,500 MG/250 ML 250 ML IVPB SCH ×2 (02:24→05:39)
[2017-11-21] MEDS: Acetaminophen 325 MG TAB PO PRN (02:24)
[2017-11-21 04:27] LABS: Anion Gap 12 mmol/L (10-20); BUN (Urea Nitrogen) 8 mg/dL (9.8-20.1); Calc. Creatinine Clearance 48 mL/min (70-130); Calcium 8.6 mg/dL (7.8-10.44); Carbon Dioxide 25 mmol/L (23-31); Chloride 100 mmol/L (98-107); Estimated GFR-MDRD 51; Glucose 93 mg/dL (83-110); Potassium 4.2 mmol/L (3.5-5.1); Sodium 133 mmol/L (136-145)
[2017-11-21 04:30] LABS: #Basophils 0.1 thou/uL (0.0-0.2); #Eosinphils 0.2 thou/uL (0.0-0.7); #Lymphocytes 0.9 thou/uL (1.20-3.40); #Monocytes 0.6 thou/uL (0.11-0.59); #Neutrophils 4.3 thou/uL (1.40-6.50); %Basophils 0.9 % (0.0-1.0); %Eosinophils 2.5 % (0.0-10.0); %Lymphocytes 14.5 % (21.0-51.0); %Monocytes 10.4 % (0.0-10.0); %Neutrophils 71.7 % (42.0-75.0); Hemoglobin 6.2 g/dL (12.0-16.0); Mean Corpuscular Hemoglobin 20.5 pg (27.0-31.0); Mean Platelet Volume 9.1 fL (7.4-10.4); Platelet Count 261 thou/uL (130-400); RBC Distribution Width 18.5 % (11.5-14.5); Red Blood Cell (RBC) Count 3.02 mill/uL (4.20-5.40); White Blood Cell (WBC) Count 6.1 thou/uL (4.8-10.8)
[2017-11-21 04:32] LABS: Digoxin 2.59 ng/mL (0.8-2.0)
[2017-11-21] MEDS: Guaifenesin DM 100-10/5 ML UDCUP PO PRN (06:53)
[2017-11-21] MEDS: Apixaban 5 MG TAB PO SCH (08:41)
[2017-11-21] MEDS ORDERED: Atenolol 50 MG TAB PO SCH (09:00)
--- NOTE | 2017-11-21 12:03 | CON ---
DATE OF CONSULTATION: 11/21/2017 CARDIOLOGY CONSULTATION REASON FOR CONSULTATION: Atrial fibrillation with rapid ventricular response. HISTORY OF PRESENT ILLNESS: Ms. Nash is a pleasant 77-year-old white female who comes to the hosp ital for weakness. She was seen in the ER and sent over by Dr. Anderson, her primary care physician and was found to be in atrial fibrillation with RVR, heart rate in the 150s. She has a history of p aroxysmal atrial fibrillation. She has been cardioverted last year in April after EL showed no atrial appendage clot. She has been on Eliquis since this is for both her atrial fibrillation and hi story of deep venous thrombosis and pulmonary embolism. She comes in with her RVR. She was started on esmolol drip, heart rate went from 150s to 110s. She was found to be anemic with hemoglobin of 7, down to 6.1 this morning. She has already received one unit of blood and is about to receive a seco nd one. Her heart rate is getting better controlled. She denies any chest pain, tightness, or press ure. She denies any hematemesis. No nosebleeds, no blood in her urine. She does admit to having di arrhea for the last 2 or 3 months. They stopped her Multaq thinking that this was causing diarrhea a nd the diarrhea never stopped. Actually the family tells me that her diarrhea is black. She is on i da supplementation. They thought this was related to that. PAST MEDICAL HISTORY: 1. Paroxysmal atrial fibrillation. 2. Chronic anemia. 3. Hypertension. 4. Pulmonary embolism and DVTs in the past. PAST SURGICAL HISTORY: Cholecystectomy. OUTPATIENT MEDICATIONS: Include, 1. Eliquis 5 mg p.o. b.i.d. 2. Atenolol 50 mg a day. 3. Nexium 40 mg a day. 4. Ferrous sulfate. 5. Fluticasone. 6. Furosemide 4 mg a day. 7. Mucinex. 8. Multivitamins daily. ALLERGIES: JAGDEEP has cough, nausea, and vomiting from the record, but family states they thought it was a diarrhea more than anything else. SOCIAL HISTORY: No alcohol, tobacco or drugs. Social alcohol use only. FAMILY HISTORY: Noncontributory. REVIEW OF SYSTEMS: A 12 point review of systems was done and it is all negative as stated in the his tory of present illness. PHYSICAL EXAMINATION: VITAL SIGNS: Temperature 98.5, pulse 118, respiratory rate 16, satting 98% on room air, blood pressu re 125/82. GENERAL: Awake, alert, oriented x3, in no distress. HEENT: Normocephalic, atraumatic. NECK: Supple. LUNGS: Clear. CARDIOVASCULAR: Irregularly regular heart rate in the 110s-120s. S1, S2, no murmurs or rubs. ABDOMEN: Soft, positive bowel sounds. EXTREMITIES: Trace edema. SKIN: Warm and dry. LABORATORY DATA: Laboratory work was reviewed. CBC with white count of 7.5, hemoglobin 7.1 on admis viki, 6.2 this morning, and platelet count of 261. Chemistry unremarkable except for sodium of 133. Troponin is negative x3. TSH was low at 0.04. T4 was normal at 7.7, lipase was normal at 30, creat inine 0.94. Digoxin level was 2.59. ASSESSMENT AND PLAN: 1. Atrial fibrillation with rapid ventricular response: Better rate control still not ideal. Most likely related to both her atrial fibrillation and her significant anemia. Hold Eliquis for now, con tinue esmolol drip at current rate. Once we tank her up some more with the units of blood that she i s getting, I am hoping her atrial fibrillation will be better controlled as well. Definitely cannot be on Eliquis at this point until we see exactly what may be going on with her blood levels. We will get GI involved. I already spoke with Dr. Diaz who will evaluate her later today. 2. Anemia: Iron deficient. Already the iron supplements are slowly trickling down in the last 3 or 4 months. As above, GI evaluation. 3. History of deep venous thrombosis and pulmonary embolism: We have to hold Eliquis at this time b ecause of concern for bleeding. If there is no significant bleeding, we will restart Eliquis. This is depending GI's evaluation whether she may need an IVC filter, but we may have to discuss it with Savi short before. Thank you for letting us to participate in the care of patient. Dr. Vazquez, her primary cardiologi st will follow up in the morning.
--- NOTE | 2017-11-21 13:29 | CON ---
DATE OF CONSULTATION: 11/21/2017 PULMONARY CRITICAL CARE CONSULTATION CONSULTING PHYSICIAN: Merari Fajardo. Seventy minutes total care time was spent with the patient, of that 70 minutes, greater than 50% was spent with the patient and/or on the patient's unit. HISTORY OF PRESENT ILLNESS: History is obtained directly from the patient and also from records and the chart. She is a 77-year-old female who was admitted to the Hospitalist group last night with atr ial fibrillation with a rapid ventricular response. I believe that she has a history of persistent a trial fibrillation. Dr. Wilkes has seen her in the past in regards to DVT and pulmonary emboli that w as diagnosed back in 05/2017. She has been on Eliquis for that, but also for management of her chron ic atrial fibrillation. The patient's anticoagulation is currently being held because she was found to have a hemoglobin of 7 .1. She says she has been anemic in the past, but I am not sure to what degree. She denies any marine temesis, melena, hematochezia. PAST MEDICAL HISTORY: 1. Atrial fibrillation. 2. Pulmonary embolism. 3. DVT. 4. Chronic anemia. 5. Hypertension. PAST SURGICAL HISTORY: Cholecystectomy. SOCIAL HISTORY: Nonsmoker, does not consume alcohol. She lives in [place] with her . Both are retired. FAMILY MEDICAL HISTORY: Unremarkable for blood clots. ALLERGIES: MULTAQ. MEDICATIONS PRIOR TO ADMISSION: Eliquis, atenolol, dronedarone, Nexium, iron sulfate, fluticasone, f urosemide, Mucinex, multivitamin. REVIEW OF SYSTEMS: Twelve point review of systems is otherwise negative. PHYSICAL EXAMINATION: VITAL SIGNS: Temperature 98.8, pulse 105, respirations 18, O2 sat 97% on room air, blood pressure 11 5/85. GENERAL: She is awake and alert and in no distress. HEENT: Unremarkable. NECK: No adenopathy or JVD, no bruits. CARDIOVASCULAR: S1, S2, irregularly irregular without murmur. LUNGS: Clear, without wheezing or rhonchi. ABDOMEN: Soft, nontender, nondistended. EXTREMITIES: No clubbing, cyanosis, no edema. LABORATORY DATA: White blood cell count 6.1, hemoglobin 6.2, hematocrit 22.0, platelet count 261. S odium 132, potassium 4.2, chloride 100, CO2 is 25, BUN 8, creatinine 1.0, glucose 93. ASSESSMENT: 1. Atrial fibrillation with rapid ventricular response. 2. Severe anemia. 3. Anticoagulated for history of deep venous thrombosis and pulmonary embolism. PLAN: 1. Agree with holding anticoagulation. 2. Transfuse patient. 3. Suggest GI evaluation to clear her stomach and colon. I will inform Dr. Wilkes of the patient's h ospitalization.
[2017-11-21 18:17] LABS: Reticulocyte Count 3.5 % (0.5-1.5)
[2017-11-21 18:18] LABS: Hemoglobin 10.1 g/dL (12.0-16.0)
[2017-11-21] MEDS ORDERED: GoLYTELY 4,000 ml Bottle PO SCH (20:15)
--- NOTE | 2017-11-21 20:39 | PDOC.PN ---
- Subjective Encounter Start Date: 11/21/17 Encounter Start Time: 13:30 Patient seen and examined. No new complaints. No overnight events - Objective Resuscitation Status: Resuscitation Status FULL:Full Resuscitation MAR Reviewed: Yes Vital Signs & Weight: Vital Signs (12 hours) Temp Pulse Pulse Resp BP BP BP 11/21/17 19:21 98.6 F 113 H 15 11/21/17 15:40 98.5 F 113 H 20 106/87 11/21/17 14:10 98.1 F 112 H 16 135/90 11/21/17 11:30 98.8 F 105 H 18 115/85 11/21/17 11:18 97.9 F 112 H 16 135/80 11/21/17 10:12 98.5 F 119 H 16 125/82 11/21/17 08:44 118 H 107/69 Pulse Ox 11/21/17 19:21 96 11/21/17 15:40 97 11/21/17 14:10 11/21/17 11:30 97 11/21/17 11:18 94 L 11/21/17 10:12 98 11/21/17 08:44 Weight Weight 149 lb 8 oz I&O: 11/20/17 11/21/17 11/22/17 06:59 06:59 06:59 Intake Total 1500 2050 Output Total 350 850 Balance 1150 1200 Result Diagrams: 11/22/17 04:10 11/22/17 04:10 EKG Reviewed by me: Yes (Tele Afib) Phys Exam - Physical Examination Constitutional: NAD Respiratory: no wheezing, no rhonchi Scat rales at bases, Symmetrical Cardiovascular: no rub, irregular no heaves/pulsations Gastrointestinal: soft, non-tender, no distention, positive bowel sounds Musculoskeletal: no edema Neurological: non-focal, moves all 4 limbs Psychiatric: A&O x 3 Dx/Plan - Plan DVT proph w/SCDs IMPRESSION: 1. Afib with RVR - off Esmolol drip 2. Anemia - prob due to chronic GI blood loss 3. HLD / HTN 4. DVT / h/o PE - Anticoag on hold 5. Elevated Digoxin level PLAN: * Cardio/Critical care following * Will receive 2 units PRBC * Await GI input * Check Digoxin level in AM * Cont Atenolol * Cont current meds as below Review of Systems - Review of Systems Respiratory: negative: Cough, Dry, Shortness of Breath, Hemoptysis, SOB with Excertion, Pleuritic Pain, Sputum, Wheezing Cardiovascular: negative: chest pain, palpitations, orthopnea, paroxysmal nocturnal dyspnea, edema, light headedness Gastrointestinal: Hematochezia. negative: Nausea, Vomiting, Abdominal Pain, Diarrhea, Constipation - Medications/Allergies Allergies/Adverse Reactions: Allergies Allergy/AdvReac Type Severity Reaction Status Date / Time No Known Allergies Allergy Unverified 05/25/17 08:26 Medications: Current Medications Acetaminophen (Tylenol) 650 mg PO Q4H PRN PRN Reason: Headache/Fever or Pain Last Admin: 11/21/17 02:24 Dose: 650 mg Acetaminophen (Tylenol) 650 mg PA Q4H PRN PRN Reason: Headache/Fever or Pain Apixaban (Eliquis) 5 mg PO BID [facility] Last Admin: 11/21/17 08:41 Dose: Not Given Atenolol (Tenormin) 50 mg PO DAILY [facility] Last Admin: 11/21/17 08:44 Dose: 50 mg Guaifenesin/Dextromethorphan (Robitussin Dm) 15 ml PO Q4H PRN PRN Reason: Cough Last Admin: 11/21/17 06:53 Dose: 15 ml Esmolol HCl/Sodium Chloride (Brevibloc Rtu) 250 mls @ 81.374 mls/hr IVPB INF DEEDEE; 200 MCG/KG/MIN PRN Reason: Protocol Last Admin: 11/21/17 05:39 Dose: 250 mls Ondansetron HCl (Zofran Odt) 4 mg PO Q6H PRN PRN Reason: Nausea/Vomiting Ondansetron HCl (Zofran) 4 mg IVP Q6H PRN PRN Reason: Nausea/Vomiting Polyethylene Glycol/Electrolytes (Golytely) 4,000 ml PO NOW DEEDEE Stop: 11/21/17 23:59 Last Admin: 11/21/17 20:36 Dose: 4,000 ml Sodium Chloride (Flush - Normal Saline) 10 ml IVF Q12HR [facility] Last Admin: 11/21/17 20:37 Dose: 10 ml Sodium Chloride (Flush - Normal Saline) 10 ml IVF PRN PRN PRN Reason: Saline Flush
--- NOTE | 2017-11-21 22:27 | CON ---
DATE OF CONSULTATION: 11/21/2017 REASON FOR CONSULTATION: Anemia. CONSULTING PHYSICIAN: Dr. Jeovanny Christine. HISTORY OF PRESENT ILLNESS: The patient is a 77-year-old female with past medical history of atrial fibrillation, on chronic anticoagulation; chronic anemia; hypertension; and pulmonary embolism; who i nitially presented to the hospital with complaints of fatigue, palpitations, and general malaise. Wh ile in the ER, she was noted to be in atrial fibrillation with rapid ventricular response with her he art rates in the 150s. She was subsequently started on esmolol drip and transferred to the CCU for f urther evaluation. However, upon review of routine labs on admission, she was found to be significan tly anemic with her current H&H down trending when compared to the previous and her normal baseline i n approximately May/April of last year. She currently denies any overt evidence of GI bleedi ng without any hematochezia, hematemesis or melena. She does admit to having intermittent solid and semi solid/liquid stools for the last 2-3 months with darker colored appearance, but none of them ricci earing black in nature. She has also been taking iron supplementations for her anemia. Further joni ng that, she has been anemic since she was a child and may have a possible familial component to her anemia. She also endorses intermittent nausea every other day that is also associated with mild abdo fernanda cramping for the last 2 days, but seems to have no clear alleviating or exacerbating factors. Of note, she was placed on Eliquis in 04/2017 and when compared to her H&H, it is noted that has been down trending since that particular point in time. REVIEW OF SYSTEMS: A 10-category review of systems was obtained with all responses negative except f or the pertinent positives as listed in the HPI. PAST MEDICAL HISTORY: As per HPI. PAST SURGICAL HISTORY: Cholecystectomy and cardioversion. FAMILY HISTORY: Denies any GI malignancy. SOCIAL HISTORY: Up until 2 weeks ago, was drinking 1 glass of bourbon daily. Denies any tobacco or illicit drug use. OUTPATIENT MEDICATIONS: Reviewed. ALLERGIES: MULTAQ. PHYSICAL EXAMINATION: VITAL SIGNS: Temperature 98.6, pulse 113, blood pressure 106/87, respiratory rate 15, satting 96% on room air. LABORATORY DATA: CBC with a white blood cell count of 6.1, hemoglobin 6.2, hematocrit 22, platelets 261, MCV 73, RDW 18.5. Chemistry with a sodium of 133, potassium 4.2, chloride 100, CO2 of 25, BUN 8 , creatinine 1.04, glucose of 93. IMAGING DATA: No current GI imaging is available for review. ASSESSMENT AND PLAN: The patient is a 77-year-old female with a past medical history of paroxysmal a trial fibrillation, chronic anemia, hypertension, pulmonary embolism and deep venous thrombosis in th e past, now presenting with acute onset of atrial fibrillation with rapid ventricular response and an emia. Anemia: The patient is presenting with routine labs showing a significant anemia when compared to he r baseline with downtrending over the last 6 months. Also, per her CBC indices, she is noted to have a significantly microcytic anemia in addition to an elevated RDW concerning for a possible iron defi ciency anemia despite being on iron supplementation during the same time. When I reviewed her chart, the downtrending of her H&H roughly coincides with the initiation of Eliquis therapy, concerning for possible GI bleeding source, further exacerbated by anticoagulation medications. At this point in t tyrell, given her decreased H&H, a possible GI bleeding source would need to be elucidated prior to kellie g placed back on anticoagulation with endoscopic intervention indicated at this time. RECOMMENDATIONS: 1. We would continue to trend H&H and transfuse as necessary to maintain an H&H of 7/21. 2. Continue to monitor clinically for signs of active gastrointestinal bleeding. 3. Please make the patient n.p.o. at midnight for procedures in the morning. 4. We would proceed with EGD and colonoscopy in the morning for evaluation of possible GI bleeding. Please administer GoLYTELY prep in accordance with colonoscopy protocol. 5. We would avoid any NSAIDs at this time. We will continue to follow. Please call with any additional questions.
[2017-11-22 04:42] LABS: #Eosinphils 0.2 thou/uL (0.0-0.7); #Lymphocytes 0.8 thou/uL (1.20-3.40); #Monocytes 0.7 thou/uL (0.11-0.59); #Neutrophils 6.4 thou/uL (1.40-6.50); %Basophils 0.5 % (0.0-1.0); %Eosinophils 2.7 % (0.0-10.0); %Lymphocytes 9.8 % (21.0-51.0); %Monocytes 8.6 % (0.0-10.0); %Neutrophils 78.4 % (42.0-75.0); Hemoglobin 10.1 g/dL (12.0-16.0); Mean Corpuscular HGB CONC 30.8 g/dL (32.0-36.0); Mean Corpuscular Hemoglobin 23.1 pg (27.0-31.0); Mean Corpuscular Volume 74.8 fl (81.0-99.0); Mean Platelet Volume 8.7 fL (7.4-10.4); Platelet Count 282 thou/uL (130-400); RBC Distribution Width 18.8 % (11.5-14.5); Red Blood Cell (RBC) Count 4.37 mill/uL (4.20-5.40); White Blood Cell (WBC) Count 8.1 thou/uL (4.8-10.8)
[2017-11-22 04:51] LABS: Digoxin 1.01 ng/mL (0.8-2.0)
[2017-11-22 04:53] LABS: Anion Gap 14 mmol/L (10-20); BUN (Urea Nitrogen) 8 mg/dL (9.8-20.1); Calc. Creatinine Clearance 51 mL/min (70-130); Calcium 8.8 mg/dL (7.8-10.44); Carbon Dioxide 23 mmol/L (23-31); Chloride 100 mmol/L (98-107); Estimated GFR-MDRD 56; Glucose 96 mg/dL (83-110); Magnesium 1.9 mg/dL (1.6-2.6); Potassium 3.5 mmol/L (3.5-5.1); Sodium 133 mmol/L (136-145)
[2017-11-22] MEDS ORDERED: Atenolol 50 MG TAB PO SCH (06:00)
--- NOTE | 2017-11-22 14:55 | PRG ---
DATE OF SERVICE: 11/22/2017 SUBJECTIVE: Ms. Nash's events have been reviewed. She is in no distress. She is n.p.o. awaiting endoscopy today. OBJECTIVE: VITAL SIGNS: Heart rate was 105-114 when I was in the room. She is afebrile. Respiratory rates in the 20s, oximetry is 93% on room air and blood pressure 135/85. LUNGS: Clear. HEART: Irregularly irregular. ABDOMEN: Soft. IMPRESSION: 1. Rapid atrial fibrillation 2. History of pulmonary embolism, on Eliquis. 3. History of hypertension. PLAN: Her anticoagulants are held. She is awaiting endoscopy. I will be happy to follow with the other physicians.
[2017-11-22] MEDS ORDERED: PROPOFOL 200 MG/20 ML VIAL ONE (16:33)
[2017-11-22] MEDS ORDERED: Lidocaine 1% PF 5 ML VIAL ONE (16:33)
--- NOTE | 2017-11-22 18:36 | OP ---
DATE OF PROCEDURE: 11/22/2017 PROCEDURE: Esophagogastroduodenoscopy with biopsy, colonoscopy (incomplete). INDICATIONS FOR PROCEDURE: Anemia, possible melena. DESCRIPTION OF PROCEDURE: After the risks and benefit of the procedure were explained to the patient including risks of bleeding, infection, perforation, reaction to anesthesia and/or pain, informed co nsent was obtained. The standard gastroscope was then introduced. The patient was then taken to the endoscopy suite where deep sedation via propofol and anesthesia support was administered. The stand sharon gastroscope was then introduced into the mouth with intubation of the esophagus, stomach and prox imal small intestine with the findings listed below. The patient tolerated the EGD well with no imme diate perioperative complications. After completion of the EGD, the bed was rotated and the standard colonoscope was introduced into the rectum after external examination. The colonoscope was advanced to the sigmoid colon where further progress was impeded by extremely tortuous and redundant colon. Changes in patient's position (placed in supine position), manual abdominal pressure to the abdomen a nd even changing out to the scope for a smaller caliber scope were not successful in advancing past t his segment of the colon. The quality of the prep was fair with a large amount of liquid stool still seen in the colon. The patient tolerated the procedure well with no immediate perioperative complic ations. ESOPHAGOGASTRODUODENOSCOPY FINDINGS: ESOPHAGUS: Normal appearing mucosa was seen in the proximal, mid and distal esophagus. There was no evidence of erosions, ulcerations, mass lesions or active/recent bleeding. STOMACH: Multiple allen colored polyps ranging from between 2-5 mm in size were seen in the gastric fu ndus and body without any associated erythema or overlying ulceration. Biopsies were taken from a re presentative sample of these polyps and placed in specimen jar for evaluation. Otherwise, normal muc melina was seen in the cardia, distal gastric body, antrum and incisura. There was no evidence of erosi ons, ulcerations, mass lesions or active/recent bleeding. DUODENUM: Normal appearing mucosa was seen in both the duodenal bulb and second portion of the duode num with no evidence of erosions, ulcerations, or mass lesions. IMPRESSION: 1. Multiple santos colored polyps seen in the gastric fundus and body consistent with fundic gland poly posis and chronic acid suppression medication use. 2. Otherwise, normal upper endoscopy. COLONOSCOPY: The digital rectal examination, increased perianal erythema was seen consistent with sk in irritation/maceration. No external hemorrhoids were identified. COLON FINDINGS: The colonoscope was advanced to the sigmoid colon where multiple small and large div erticula were seen as well as extreme redundancy and tortuosity of the colon making advancement of th e colonoscope difficult. Despite using manual abdominal pressure, placing the patient in the supine position and changing the scope for smaller caliber scope, advancement past the sigmoid colon was obdulia ble to be achieved. The colonoscope was then withdrawn slowly with evaluation of the mucosa seen. N ormal appearing mucosa was seen in the sigmoid colon and rectum. Small internal hemorrhoids were see n on rectal retroflexion. IMPRESSION: 1. Incomplete evaluation of the colon due to increased tortuosity and redundancy of the sigmoid colo n secondary to diverticulosis. 2. Moderate to severe sigmoid diverticulosis. 3. Internal hemorrhoids. RECOMMENDATIONS: 1. Follow up on biopsy results of the upper endoscopy. 2. Can consider either CT colonography or tagged red cell scan for evaluation of possible lower GI b leeding. If positive for any pathology, to consider attempt at repeat colonoscopy. 3. Would obtain iron indices as an outpatient for further characterization of her anemia, but given the administration of blood products during this hospitalization, the lab results will be erroneous. 4. Recommend higher fiber diet given the presence of diverticulosis and internal hemorrhoids. Consi alfonso other sources of anemia. We will continue to follow. Please call with any questions.
[2017-11-22] MEDS ORDERED: Atenolol 25 MG TAB PO SCH (19:30)
--- NOTE | 2017-11-22 20:29 | PDOC.PN ---
- Subjective Encounter Start Date: 11/22/17 Encounter Start Time: 18:00 Patient seen and examined. No new complaints. No overnight events. s/p EGD. No CP/SOB - Objective Resuscitation Status: Resuscitation Status FULL:Full Resuscitation MAR Reviewed: Yes Vital Signs & Weight: Vital Signs (12 hours) Temp Pulse Resp BP BP Pulse Ox 11/22/17 19:51 115 H 123/74 11/22/17 19:50 98.6 F 115 H 18 123/74 99 11/22/17 17:40 138/86 11/22/17 15:00 98.8 F 118 H 19 134/90 94 L 11/22/17 11:47 98.6 F 127 H 22 H 135/85 93 L Weight Weight 148 lb 3.2 oz I&O: 11/21/17 11/22/17 11/23/17 06:59 06:59 06:59 Intake Total 1500 4560 0 Output Total 350 1250 500 Balance 1150 3310 -500 Result Diagrams: 11/23/17 04:25 11/23/17 04:25 EKG Reviewed by me: Yes (Tele Afib with RVR) Phys Exam - Physical Examination Constitutional: NAD Respiratory: no wheezing, no rhonchi Cardiovascular: no rub, irregular Gastrointestinal: soft, non-tender, positive bowel sounds Musculoskeletal: no edema Neurological: moves all 4 limbs Dx/Plan - Plan DVT proph w/SCDs IMPRESSION: 1. Afib with RVR - off Esmolol drip, On Atenolol 2. Anemia - prob due to chronic GI blood loss, GI following 3. HLD / HTN 4. DVT / h/o PE - Anticoag on hold 5. Elevated Digoxin level - repeat levels in normal range PLAN: * Cardio/GI/Critical care following * s/p 2 units PRBC * Cont Atenolol, Extra 25 mg dose tonight * Cardizem 30 mg PO PRN for HR >120 * Cont current meds as below Review of Systems - Review of Systems Respiratory: negative: Cough, Dry, Shortness of Breath, Hemoptysis, SOB with Excertion, Pleuritic Pain, Sputum, Wheezing Cardiovascular: negative: chest pain, palpitations, orthopnea, paroxysmal nocturnal dyspnea, edema, light headedness Gastrointestinal: negative: Nausea, Vomiting, Abdominal Pain, Diarrhea, Constipation, Melena, Hematochezia - Medications/Allergies Allergies/Adverse Reactions: Allergies Allergy/AdvReac Type Severity Reaction Status Date / Time No Known Allergies Allergy Unverified 05/25/17 08:26 Medications: Current Medications Acetaminophen (Tylenol) 650 mg PO Q4H PRN PRN Reason: Headache/Fever or Pain Last Admin: 11/21/17 02:24 Dose: 650 mg Acetaminophen (Tylenol) 650 mg MO Q4H PRN PRN Reason: Headache/Fever or Pain Apixaban (Eliquis) 5 mg PO BID [facility] Last Admin: 11/21/17 08:41 Dose: Not Given Atenolol (Tenormin) 50 mg PO DAILY [facility] Atenolol (Tenormin) 25 mg PO NOW [facility] Stop: 11/22/17 21:00 Last Admin: 11/22/17 19:51 Dose: 25 mg Diltiazem HCl (Cardizem) 30 mg PO Q6HR PRN PRN Reason: HR >120 sustained Guaifenesin/Dextromethorphan (Robitussin Dm) 15 ml PO Q4H PRN PRN Reason: Cough Last Admin: 11/21/17 06:53 Dose: 15 ml Ondansetron HCl (Zofran Odt) 4 mg PO Q6H PRN PRN Reason: Nausea/Vomiting Ondansetron HCl (Zofran) 4 mg IVP Q6H PRN PRN Reason: Nausea/Vomiting Last Admin: 11/21/17 20:57 Dose: 4 mg Sodium Chloride (Flush - Normal Saline) 10 ml IVF Q12HR [facility] Last Admin: 11/22/17 19:53 Dose: 10 ml Sodium Chloride (Flush - Normal Saline) 10 ml IVF PRN PRN PRN Reason: Saline Flush
[2017-11-23 05:12] LABS: #Eosinphils 0.3 thou/uL (0.0-0.7); #Lymphocytes 0.8 thou/uL (1.20-3.40); #Monocytes 0.6 thou/uL (0.11-0.59); #Neutrophils 6.2 thou/uL (1.40-6.50); %Basophils 0.4 % (0.0-1.0); %Lymphocytes 10.5 % (21.0-51.0); %Monocytes 7.7 % (0.0-10.0); %Neutrophils 77.5 % (42.0-75.0); Hemoglobin 10.1 g/dL (12.0-16.0); Mean Corpuscular HGB CONC 29.5 g/dL (32.0-36.0); Mean Corpuscular Hemoglobin 22.6 pg (27.0-31.0); Mean Corpuscular Volume 76.5 fl (81.0-99.0); Mean Platelet Volume 8.4 fL (7.4-10.4); Platelet Count 321 thou/uL (130-400); RBC Distribution Width 19.6 % (11.5-14.5); Red Blood Cell (RBC) Count 4.49 mill/uL (4.20-5.40)
[2017-11-23 05:20] LABS: Anion Gap 12 mmol/L (10-20); BUN (Urea Nitrogen) 7 mg/dL (9.8-20.1); Calc. Creatinine Clearance 61 mL/min (70-130); Carbon Dioxide 23 mmol/L (23-31); Chloride 104 mmol/L (98-107); Estimated GFR-MDRD 68; Glucose 96 mg/dL (83-110); Potassium 3.6 mmol/L (3.5-5.1); Sodium 135 mmol/L (136-145)
[2017-11-23] MEDS: Atenolol 50 MG TAB PO SCH (09:19)
--- NOTE | 2017-11-23 10:23 | RAD ---
BARIUM ENEMA SINGLE COLUMN: DATE: 11/23/17. HISTORY: A 77-year-old female with iron deficiency anemia. TECHNIQUE: Although this was ordered as an air-contrast barium enema, it was converted to a single-column barium enema because patients of this age group typically are not able to retain an air-contrast barium latrice ma. Following placement of a rectal catheter, thin liquid barium was introduced into the colon under intermittent fluoroscopy. Overhead radiographic images and fluoroscopic spot images were obtained. Post evacuation image was obtained. FINDINGS: There was poor tolerance of the examination, and the patient leaked some of the barium. There is a l arge number of diverticula throughout the sigmoid colon. Contrast freely flows from the rectum to th e cecum. The tortuosity and the large number of diverticula result in irregularity and incomplete vi sualization of all of the sigmoid colon. No definite large constricting lesion is identified. The a ppendix partially fills with contrast, indicating that the contrast has reached the cecum, which is l ocated relatively superiorly compared to the location of the hepatic flexure. IMPRESSION: 1. Limited study. 2. Extensive sigmoid colonic diverticulosis, and nonspecific irregularity of the sigmoid colon. POS: [facility]
[2017-11-23] MEDS ORDERED: Digoxin 0.5 MG/2 ML AMP SLOW IVP SCH (12:00)
--- NOTE | 2017-11-23 18:21 | PRG ---
DATE OF SERVICE: 11/23/2017 SUBJECTIVE: Ms. Ilene Nash did not have any complaints today. She says she is feeling better. She is excited about dinner. She is still in atrial fibrillation with a rate of 110. OBJECTIVE: VITAL SIGNS: Currently, she is afebrile, respiratory rate is 18, oximetry is 96% on room air and blo od pressure 117/75. Intake and output was negative 140. LUNGS: Clear. HEART: Regular rhythm. ABDOMEN: Soft. IMAGING DATA: Barium enema done today just showed diverticulosis. Endoscopy yesterday identified mu ltiple gastric polyps. There were biopsied. LABORATORY DATA: Hemoglobin today is 10.1 grams, which was the same yesterday. It has been as low a s 6.2 grams this admission on the . IMPRESSION: 1. Anemia, presumably secondary to gastrointestinal blood loss anemia. I have not seen anemia of ch ronic disease with a hemoglobin of 6. 2. Atrial fibrillation. 3. History of pulmonary embolism and deep venous thrombosis. 4. Anticoagulation prior to admission. Her thromboembolic event was back in 05/2017. She is at a point where we would be considering switch ing her to prophylactic dose anticoagulants at this time. I would not recommend filter placement. H er atrial fibrillation is a separate anticoagulation issue. I will continue to follow up.
--- NOTE | 2017-11-23 20:08 | PRG ---
DATE OF SERVICE: 11/23/2017 REASON FOR CONSULTATION: Anemia. SUBJECTIVE: Patient states that she is doing well today with no acute events or problems overnight. She denies any nausea, vomiting, fevers, chills, abdominal pain, or GI bleeding. She underwent barium enema yesterday for evaluation of the nonvisualized colon with only findings of diverticulosis seen on imaging. OBJECTIVE: VITAL SIGNS: Temperature 98.8, pulse 110, blood pressure 117/75, respiratory rate 18, satting 96% on room air. GENERAL: Patient is lying in bed in no acute distress. Alert and oriented x4. CARDIOVASCULAR: Irregularly irregular rhythm with no discernible murmurs, gallops, or rubs, tachycardic heart rate. RESPIRATORY: Clear to auscultation bilaterally with no discernible wheezes or rales. ABDOMEN: Normoactive bowel sounds, soft, nontender, nondistended. EXTREMITIES: No cyanosis, clubbing, or edema. LABORATORY DATA: CBC with a white blood cell count of 8, hemoglobin 10.1, hematocrit 34.3, platelets 321. Chemistry with sodium of 135, potassium 3.6, chloride 104, CO2 of 23, BUN 7, creatinine 0.81, glucose 96. IMAGING DATA: Barium enema with air contrast obtained on 11/23/2017 showed a large number of diverticula throughout the sigmoid colon with tortuosity and irregularly seen within the sigmoid colon as well. No definite large constricting lesion was identified with contrast reaching the cecum as indicated by a partially-filled appendix. ASSESSMENT AND PLAN: The patient is a 77-year-old female with past medical history of paroxysmal atrial fibrillation, chronic anemia, hypertension, pulmonary embolism, and deep vein thrombosis in the past presenting with acute worsening of atrial fibrillation and anemia. Anemia: The patient presented with routine labs showing a significant anemia when compared to her baseline with down trending over the last 6 months since institution of anticoagulation therapy. During this time period there was some question of darker colored stools (patient has been taking iron), but otherwise did not display any evidence of overt GI bleeding. Of note, she was evaluated for iron deficiency anemia with negative EGD, colonoscopy, and capsule endoscopy in 2006. Repeat EGD performed on 11/22/2017 did not show any overt abnormalities within the stomach other than santos-colored polyps consistent with fundic gland polyposis associated with chronic acid suppression use. Colonoscopy was also attempted on 11/22/2017 but unable to be progressed past the sigmoid colon due to significant tortuosity of the colon and diverticulosis. Subsequently, an air-contrast barium enema was ordered with no gross lesions seen during that examination as well, making the probability GI malignancy much less likely. At this time, given the negative upper endoscopy, negative colonoscopy to the sigmoid colon, negative air-contrast barium enema, and no clinical evidence of overt GI bleeding, the likelihood of a GI bleed is much less likely. In any case, consideration for non-GI bleeding source should be contemplated at this time. RECOMMENDATIONS: 1. Would continue to trend H&H and transfuse as necessary to maintain an H&H of 03/19. 2. Continue to monitor clinically for signs of active gastrointestinal bleeding. 3. If patient continues to have a downtrending H&H would then consider either a tagged RBC scan for localization of her bleeding and/or capsule endoscopy for evaluation of the small bowel. 4. Would confer with Cardiology service about the need for anticoagulation in light of decreasing H&H while on this particular medication. 5. Would avoid any NSAIDs at this time. Given the stability of her H&H, negative GI studies, and lack of overt GI bleeding, we will sign off at this time. Please call with any additional questions. KACIE
[2017-11-23] MEDS: Guaifenesin DM 100-10/5 ML UDCUP PO PRN (20:25)
--- NOTE | 2017-11-23 22:35 | PDOC.PN ---
- Subjective Encounter Start Date: 11/23/17 Encounter Start Time: 19:00 Patient seen and examined. No new complaints. No overnight events - Objective Resuscitation Status: Resuscitation Status FULL:Full Resuscitation Vital Signs & Weight: Vital Signs (12 hours) Temp Pulse Resp BP Pulse Ox 11/23/17 20:00 98.7 F 103 H 18 11/23/17 19:30 98.7 F 103 H 18 119/73 100 11/23/17 15:00 98.8 F 110 H 18 117/75 96 11/23/17 12:36 128 H 11/23/17 11:08 98.7 F 128 H 22 H 111/79 96 Weight Weight 151 lb 4 oz I&O: 11/22/17 11/23/17 11/24/17 06:59 06:59 06:59 Intake Total 4560 960 Output Total 1250 1100 Balance 3310 -140 Result Diagrams: 11/24/17 03:31 11/24/17 03:31 EKG Reviewed by me: Yes (Tele Afib) Phys Exam - Physical Examination Constitutional: NAD Neck: no JVD Cardiovascular: no rub, irregular Gastrointestinal: soft, non-tender, positive bowel sounds Musculoskeletal: no edema Neurological: moves all 4 limbs Dx/Plan - Plan DVT proph w/SCDs IMPRESSION: 1. Afib with RVR - off Esmolol drip, On Atenolol/Digoxin, Cardio following 2. Anemia - prob due to chronic GI blood loss, s/p 2 units PRBC, GI following 3. HLD / HTN 4. DVT / h/o PE - Anticoag on hold 5. Elevated Digoxin level - repeat levels in normal range PLAN: * Anticoag on hold * Cardio/GI/Critical care following * Cont Atenolol and Digoxin per Cardio * HHC eval per family * Cont PRN Cardizem * Cont current meds as below Review of Systems - Review of Systems Cardiovascular: negative: chest pain, palpitations, orthopnea, paroxysmal nocturnal dyspnea, edema, light headedness Gastrointestinal: negative: Nausea, Vomiting, Abdominal Pain, Diarrhea, Constipation, Melena, Hematochezia - Medications/Allergies Allergies/Adverse Reactions: Allergies Allergy/AdvReac Type Severity Reaction Status Date / Time No Known Allergies Allergy Unverified 05/25/17 08:26 Medications: Current Medications Acetaminophen (Tylenol) 650 mg PO Q4H PRN PRN Reason: Headache/Fever or Pain Last Admin: 11/21/17 02:24 Dose: 650 mg Acetaminophen (Tylenol) 650 mg RI Q4H PRN PRN Reason: Headache/Fever or Pain Apixaban (Eliquis) 5 mg PO BID [facility] Last Admin: 11/21/17 08:41 Dose: Not Given Atenolol (Tenormin) 50 mg PO DAILY [facility] Last Admin: 11/23/17 09:19 Dose: 50 mg Digoxin (Lanoxin) 0.125 mg PO DAILY [facility] Guaifenesin/Dextromethorphan (Robitussin Dm) 15 ml PO Q4H PRN PRN Reason: Cough Last Admin: 11/23/17 20:25 Dose: 15 ml Ondansetron HCl (Zofran Odt) 4 mg PO Q6H PRN PRN Reason: Nausea/Vomiting Ondansetron HCl (Zofran) 4 mg IVP Q6H PRN PRN Reason: Nausea/Vomiting Last Admin: 11/21/17 20:57 Dose: 4 mg Sodium Chloride (Flush - Normal Saline) 10 ml IVF Q12HR [facility] Last Admin: 11/23/17 20:26 Dose: 10 ml Sodium Chloride (Flush - Normal Saline) 10 ml IVF PRN PRN PRN Reason: Saline Flush
[2017-11-24 04:13] LABS: #Eosinphils 0.3 thou/uL (0.0-0.7); #Lymphocytes 0.9 thou/uL (1.20-3.40); #Monocytes 0.7 thou/uL (0.11-0.59); #Neutrophils 4.2 thou/uL (1.40-6.50); %Basophils 0.7 % (0.0-1.0); %Eosinophils 4.7 % (0.0-10.0); %Monocytes 11.2 % (0.0-10.0); %Neutrophils 68.5 % (42.0-75.0); Hemoglobin 9.7 g/dL (12.0-16.0); Mean Corpuscular HGB CONC 29.2 g/dL (32.0-36.0); Mean Corpuscular Hemoglobin 22.9 pg (27.0-31.0); Mean Corpuscular Volume 78.5 fl (81.0-99.0); Mean Platelet Volume 8.4 fL (7.4-10.4); Platelet Count 275 thou/uL (130-400); RBC Distribution Width 19.8 % (11.5-14.5); Red Blood Cell (RBC) Count 4.22 mill/uL (4.20-5.40); White Blood Cell (WBC) Count 6.1 thou/uL (4.8-10.8)
[2017-11-24 04:33] LABS: Anion Gap 9 mmol/L (10-20); BUN (Urea Nitrogen) 8 mg/dL (9.8-20.1); Calc. Creatinine Clearance 62 mL/min (70-130); Calcium 8.5 mg/dL (7.8-10.44); Carbon Dioxide 26 mmol/L (23-31); Chloride 106 mmol/L (98-107); Estimated GFR-MDRD 68; Glucose 126 mg/dL (83-110); Potassium 3.6 mmol/L (3.5-5.1); Sodium 137 mmol/L (136-145)
[2017-11-24] MEDS: Digoxin 0.125 MG TAB PO SCH (08:26)
[2017-11-24] MEDS: Atenolol 50 MG TAB PO SCH (08:27)
[2017-11-24] MEDS ORDERED: Apixaban 5 MG TAB PO SCH (10:00)
--- NOTE | 2017-11-24 10:19 | RAD ---
RADIOGRAPH CHEST 1 VIEW: Date: 11-20-17 Time: 3:48 p.m. This is being submitted for dictation on 11-24-17. HISTORY: 77-year-old female with tachycardia and palpitations. COMPARISON: 09-06-17 FINDINGS: There is cardiomegaly. The heart size appears larger on the current study compared with the previous, at least partially due to positional differences. Mild blunting of the left lateral costophrenic ang le and minimal blunting of the right lateral costophrenic angle are suggestive of small or tiny pleur al effusions. No zina pulmonary alveolar edema. There is mild pulmonary vascular engorgement. No con solidation or pneumothorax. IMPRESSION: 1. Cardiomegaly. 2. Small bilateral pleural effusions versus pleural thickening. FRANDY POS: FRANTZ
[2017-11-24] MEDS ORDERED: Senokot 8.6 MG TAB PO PRN (19:01)
--- NOTE | 2017-11-24 19:04 | PDOC.PN ---
- Subjective Encounter Start Date: 11/24/17 Encounter Start Time: 10:00 Patient seen and examined. No new complaints. No overnight events - Objective Resuscitation Status: Resuscitation Status FULL:Full Resuscitation MAR Reviewed: Yes Vital Signs & Weight: Vital Signs (12 hours) Temp Pulse Resp BP BP BP Pulse Ox 11/24/17 15:55 98.8 F 115 H 18 132/82 99 11/24/17 11:29 98.5 F 113 H 15 121/86 95 11/24/17 08:27 93 146/90 H 11/24/17 08:26 96 11/24/17 08:00 98 F 93 18 11/24/17 07:50 98.4 F 93 9 L 146/90 H 94 L Weight Weight 152 lb 6 oz I&O: 11/23/17 11/24/17 11/25/17 06:59 06:59 06:59 Intake Total 960 720 860 Output Total 1100 425 Balance -140 295 860 Result Diagrams: 11/24/17 03:31 11/24/17 03:31 EKG Reviewed by me: Yes (Tele Afib) Phys Exam - Physical Examination Constitutional: NAD Respiratory: no wheezing, no rhonchi Cardiovascular: no rub, irregular Gastrointestinal: soft, non-tender, positive bowel sounds Musculoskeletal: no edema Dx/Plan - Plan IMPRESSION: 1. Afib with RVR - off Esmolol drip, On Atenolol/Digoxin, Cardio following 2. Anemia - prob due to chronic GI blood loss, s/p 2 units PRBC, GI signed off 3. HLD / HTN 4. DVT / h/o PE - Anticoag restarted today 5. Elevated Digoxin level - repeat levels in normal range PLAN: * Anticoag restarted * Cardio/Critical care following * Cont Atenolol and Digoxin per Cardio * Cont PRN Cardizem * Cont current meds as below * DC planning with [facility] * Digoxin level in AM Review of Systems - Review of Systems Respiratory: negative: Cough, Dry, Shortness of Breath, Hemoptysis, SOB with Excertion, Pleuritic Pain, Sputum, Wheezing Cardiovascular: negative: chest pain, palpitations, orthopnea, paroxysmal nocturnal dyspnea, edema, light headedness Gastrointestinal: negative: Nausea, Vomiting, Abdominal Pain, Diarrhea, Constipation, Melena, Hematochezia - Medications/Allergies Allergies/Adverse Reactions: Allergies Allergy/AdvReac Type Severity Reaction Status Date / Time No Known Allergies Allergy Unverified 05/25/17 08:26 Medications: Current Medications Acetaminophen (Tylenol) 650 mg PO Q4H PRN PRN Reason: Headache/Fever or Pain Last Admin: 11/21/17 02:24 Dose: 650 mg Acetaminophen (Tylenol) 650 mg [place] Q4H PRN PRN Reason: Headache/Fever or Pain Apixaban (Eliquis) 5 mg PO BID [facility] Atenolol (Tenormin) 50 mg PO DAILY [facility] Last Admin: 11/24/17 08:27 Dose: 50 mg Digoxin (Lanoxin) 0.125 mg PO DAILY [facility] Last Admin: 11/24/17 08:26 Dose: 0.125 mg Docusate Sodium (Colace) 100 mg PO BID [facility] Ferrous Sulfate (Feosol) 325 mg PO QA-[facility] Guaifenesin/Dextromethorphan (Robitussin Dm) 15 ml PO Q4H PRN PRN Reason: Cough Last Admin: 11/23/17 20:25 Dose: 15 ml Ondansetron HCl (Zofran Odt) 4 mg PO Q6H PRN PRN Reason: Nausea/Vomiting Ondansetron HCl (Zofran) 4 mg IVP Q6H PRN PRN Reason: Nausea/Vomiting Last Admin: 11/21/17 20:57 Dose: 4 mg Senna (Senokot) 2 tab PO HSPRN PRN PRN Reason: Constipation Sodium Chloride (Flush - Normal Saline) 10 ml IVF Q12HR [facility] Last Admin: 11/24/17 08:27 Dose: 10 ml Sodium Chloride (Flush - Normal Saline) 10 ml IVF PRN PRN PRN Reason: Saline Flush
[2017-11-24] MEDS: Apixaban 5 MG TAB PO SCH ×2 (21:50→22:09)
[2017-11-24] MEDS: Docusate 100 MG CAP PO SCH (21:55)
[2017-11-24] MEDS: Acetaminophen 325 MG TAB PO PRN (23:31)
[2017-11-25 04:51] LABS: Hemoglobin 9.2 g/dL (12.0-16.0); Platelet Count 244 thou/uL (130-400)
[2017-11-25 04:55] LABS: Digoxin 1.11 ng/mL (0.8-2.0)
[2017-11-25] MEDS ORDERED: Atenolol 50 MG TAB PO SCH ×2 (07:35→09:00)
[2017-11-25] MEDS ORDERED: Ferrous Sulfate 325 MG TAB PO SCH (08:00)
[2017-11-25] MEDS: Apixaban 5 MG TAB PO SCH (09:15)
[2017-11-25] MEDS: Docusate 100 MG CAP PO SCH (09:15)
[2017-11-25] MEDS: Digoxin 0.125 MG TAB PO SCH (09:15)
[2017-11-25] MEDS ORDERED: Mag-Al 1200 mg/1200 mg/30 ML UDCUP PO PRN (09:19)
[2017-11-25] MEDS ORDERED: Calcium Carbonate 500 MG ChewTAB PO PRN (09:19)
--- NOTE | 2017-11-25 10:59 | PRG ---
11/24/2017 SUBJECTIVE: Ms. Nash has no complaints, says she is feeling well. Heart rate still fluctuating, but more in the 90s today than over 100. OBJECTIVE: VITAL SIGNS: She is afebrile, blood pressure 146/92, oximetry is 95 on room air. LUNGS: Clear. HEART: Irregular. ABDOMEN: Soft and nontender. I have talked to Dr. Vazquez and is planning on just trying to rate control her for a while. LABORATORY DATA: White count 6.1, hemoglobin is 9.7, platelets 275. Sodium 137 , potassium 3.6, chloride 106, bicarb 26, BUN 8, creatinine 0.81. IMPRESSION: 1. Atrial fibrillation. 2. Anemia with an extensive workup on this admission. 3. History of pulmonary embolism and deep vein thrombosis in the past. 4. Anticoagulation prior to admission. It would be reasonable to place her on a prophylactic dose of anticoagulants or if Gastroenterology agrees, gradually ease her back into full dose anticoagulation with her atrial fibrillation. The short term risks of stroke are relatively low. Long-term risks are increased of course. I will be happy to continue to follow her. Hopefully, she will be a candidate for discharge tomorrow. KACIE
[2017-11-25 11:22] VITALS: BP 130/88; TEMP 98.2
--- NOTE | 2017-11-26 07:47 | DIS ---
DATE OF DISCHARGE: 11/25/2017 DISCHARGE DISPOSITION: Home. FOLLOWUPS: 1. Follow up with primary care physician, Dr. Anderson in 1 week. 2. Follow up with Cardiology, Dr. Vazquez and GI, Dr. Kaila kuhn in 2-3 weeks. ALLERGIES: No known drug allergies. DISCHARGE MEDICATIONS: 1. Atenolol 75 mg daily (dose increased). 2. Digoxin 0.125 mg daily. 3. All other home medications were resumed. The patient was seen and examined on the day of discharge, denies any new complaints, no chest pain, shortness of breath or palpitations. SIGNIFICANT LABORATORY DATA: 1. Hemoglobin was 6.2 after transfusion and at discharge 9.2. 2. TSH 0.046 with normal total T4. Primary care physician advised to follow up on TSH and free T4 a s outpatient. 3. Sodium 133, at discharge 137. 4. Stool for occult blood was positive. 5. Reticulocyte count was 3.5. INPATIENT PROCEDURES: On 11/22/2017, patient underwent EGD with incomplete colonoscopy. EGD did not show any active bleeding. Colonoscopy was incomplete and showed moderate to severe sigmoid divertic ulosis and internal hemorrhoids. Patient underwent barium enema with air contrast that was limited study. It showed extensive sigmoid colonic diverticulosis. BRIEF HOSPITAL COURSE: The patient is a 77-year-old female with atrial fibrillation on anticoagulati on who presented to the hospital with generalized weakness. Her workup was consistent with atrial fi brillation with rapid ventricular response as well as anemia. Her hemoglobin on admission was 7.1 wi th repeat of 6.2 requiring blood transfusion. Please refer to the history and physical for further d etails. The patient was admitted to the intermediate care unit with above diagnosis. She was started on esmo lol drip that was later discontinued. Atenolol dose has been increased. She has been started on dig oxin. She was found to have elevated digoxin level that was drawn within 3 hours of IV digoxin dose. Her digoxin level on the day of discharge is 1.1. She will follow up with Cardiology as outpatient . Eliquis was held during the hospitalization and has been resumed since there was no active bleedin g by Cardiology. She will follow up with Cardiology, GI, and primary care physician as scheduled. Plan of care was discussed with the patient in detail. She stated understanding. FINAL DIAGNOSES: 1. Atrial fibrillation with rapid ventricular response. 2. Anemia, probably secondary to chronic gastrointestinal blood loss, status post 2 units of PRBC. 3. Hypertension. 4. Hyperlipidemia. 5. History of deep venous thrombosis and pulmonary embolisms on anticoagulation. 6. History of chronic anemia. 7. Hyponatremia. 8. Chronic kidney disease stage 2. 9. Abnormal TSH level at 0.046. Primary care physician is advised to follow. Plan of care was discussed with the patient. She state d understanding.
--- NOTE | 2017-12-01 15:51 | EKG ---
Test Reason : Blood Pressure : / mmHG Vent. Rate : 153 BPM Atrial Rate : 110 BPM P-R Int : 000 ms QRS Dur : 070 ms QT Int : 300 ms P-R-T Axes : 000 083 031 degrees QTc Int : 479 ms Atrial fibrillation with rapid ventricular response Nonspecific ST abnormality Abnormal ECG Confirmed by FAINA LUTZ MD ([id number]), editor city JUAN FRANCISCO YARBROUGH ([id number]) on 12/01/2017 3:49:27 PM Referred By: Confirmed By:FAINA LUTZ MD
== END 2017-11-25 15:05 | disposition home or self-care (01) | DRG 378 ==
LOC: ERS 14:50 → IMCU/EMU 17:14
PROVIDERS: ADMIT Internal Medicine; ATTEND Internal Medicine
PROC: 30233N1 Transfusion of Nonautologous Red Blood Cells into Peripheral Vein, Percutaneous Approach (ICD-10-PCS; 2017-11-21)
PROC: 0DB68ZX Excision of Stomach, Via Natural or Artificial Opening Endoscopic, Diagnostic (ICD-10-PCS; principal; 2017-11-22)
PROC: 0DJD8ZZ Inspection of Lower Intestinal Tract, Via Natural or Artificial Opening Endoscopic (ICD-10-PCS; 2017-11-22)
DX: K92.2 Gastrointestinal hemorrhage, unspecified (principal); E87.1 Hypo-osmolality and hyponatremia; I48.0 Paroxysmal atrial fibrillation; D50.0 Iron deficiency anemia secondary to blood loss (chronic); Q43.8 Other specified congenital malformations of intestine; Z86.711 Personal history of pulmonary embolism; Z79.01 Long term (current) use of anticoagulants; Z88.8 Allergy status to other drugs, medicaments and biological substances; K31.7 Polyp of stomach and duodenum; K57.30 Diverticulosis of large intestine without perforation or abscess without bleeding; K64.8 Other hemorrhoids; I12.9 Hypertensive chronic kidney disease with stage 1 through stage 4 chronic kidney disease, or unspecified chronic kidney disease; N18.2 Chronic kidney disease, stage 2 (mild); Z86.718 Personal history of other venous thrombosis and embolism; E78.00 Pure hypercholesterolemia, unspecified; B18.2 Chronic viral hepatitis C
CPT/HCPCS: 36415; 36430; 71045; 74280; 80048; 80053; 80162; 82274; 82550; 82553; 82565; 83690; 83735; 84436; 84443; 84484; 85014; 85018; 85025; 85046; 85049; 86850; 86900; 86901; 88305; 88312; 93005; 94760; 96365; 96366; 96375; 96376; J2001; J2405; J2704; P9016

== ENCOUNTER 2017-11-27 17:03 | Inpatient (IN) | payer MEDICARE, OTHER ==
[2017-11-27 17:48] LABS: #Basophils 0.1 thou/uL (0.0-0.2); #Eosinphils 0.4 thou/uL (0.0-0.7); #Lymphocytes 1.4 thou/uL (1.20-3.40); #Monocytes 0.7 thou/uL (0.11-0.59); #Neutrophils 5.2 thou/uL (1.40-6.50); %Basophils 1.4 % (0.0-1.0); %Eosinophils 5.1 % (0.0-10.0); %Lymphocytes 17.7 % (21.0-51.0); %Monocytes 8.9 % (0.0-10.0); Hemoglobin 11.4 g/dL (12.0-16.0); Mean Corpuscular Hemoglobin 22.6 pg (27.0-31.0); Mean Corpuscular Volume 77.7 fl (81.0-99.0); Platelet Count 325 thou/uL (130-400); RBC Distribution Width 20.2 % (11.5-14.5); Red Blood Cell (RBC) Count 5.07 mill/uL (4.20-5.40); White Blood Cell (WBC) Count 7.7 thou/uL (4.8-10.8)
[2017-11-27 18:08] LABS: ALT (SGPT) 13 U/L (8-55); AST (SGOT) 24 U/L (5-34); Albumin 3.6 g/dL (3.4-4.8); Alkaline Phosphatase 109 U/L (40-150); Anion Gap 14 mmol/L (10-20); BUN (Urea Nitrogen) 12 mg/dL (9.8-20.1); Bilirubin, Total 0.7 mg/dL (0.2-1.2); CK (CPK) 26 U/L (29-168); Calc. Creatinine Clearance 0 mL/min (70-130); Carbon Dioxide 29 mmol/L (23-31); Chloride 96 mmol/L (98-107); Estimated GFR-MDRD 63; Globulin 3.3 g/dL (2.4-3.5); Glucose 107 mg/dL (83-110); Potassium 3.6 mmol/L (3.5-5.1); Protein, Total 6.9 g/dL (6.0-8.3); Sodium 135 mmol/L (136-145)
[2017-11-27 18:11] LABS: CKMB 1.8 ng/mL (0-6.6); Troponin I 0.013 ng/mL (< 0.028)
[2017-11-27 18:35] LABS: Digoxin 0.93 ng/mL (0.8-2.0)
[2017-11-27] MEDS ORDERED: Diltiazem 125 MG in Sodium Chloride 0.9% 100 ML IVPB SCH ×2 (19:15→23:45)
--- NOTE | 2017-11-27 19:37 | RAD ---
AP VIEW OF THE CHEST: 11/27/17 INDICATION: Tachycardia. COMPARISON: Prior exam dated 11/20/17. IMPRESSION: Stable cardiomegaly. Stable chronic lung changes. No acute cardiopulmonary abnormality seen when comp ared to the prior. POS: FRANTZ
[2017-11-27] MEDS ORDERED: Acetaminophen 325 MG TAB PO PRN ×2 (20:41→23:34)
[2017-11-27] MEDS ORDERED: Ondansetron ODT 4 MG TAB SL PRN (20:41)
[2017-11-27] MEDS ORDERED: Ondansetron HCl/PF 4 MG/2 ML Vial IVP PRN ×2 (20:41→23:34)
[2017-11-27 20:56] VITALS: BMI 21.9
--- NOTE | 2017-11-27 23:28 | PDOC.PN ---
- Subjective Encounter Start Date: 11/27/17 Encounter Start Time: 23:00 Patient seen and examined. - Objective MAR Reviewed: Yes Vital Signs & Weight: Vital Signs (12 hours) Temp Pulse Resp BP Pulse Ox 11/27/17 20:55 98.4 F 97 16 124/75 94 L Weight Weight 124 lb 3.2 oz Result Diagrams: 11/28/17 04:56 11/28/17 04:56 Additional Labs: Laboratory Tests 11/27/17 11/27/17 17:27 17:27 Troponin I 0.013 Digoxin 0.93 Radiology Reviewed by me: Yes (CXR - negative) EKG Reviewed by me: Yes (Afib with RVR) Phys Exam - Physical Examination Constitutional: NAD HEENT: PERRLA, moist MMs Neck: no nodes, no JVD, supple Respiratory: no wheezing, no rales, no rhonchi, clear to auscultation bilateral Cardiovascular: no rub, irregular 2/6 SM at mitral area, no heaves/pulsations Gastrointestinal: soft, non-tender, no distention, positive bowel sounds Musculoskeletal: no edema Neurological: non-focal, normal sensation, moves all 4 limbs Lymphatic: no nodes (neck) Psychiatric: normal affect, A&O x 3 Skin: no rash Dx/Plan - Plan * Please see H&P Review of Systems - Review of Systems Constitutional: negative: fever, chills, sweats, weakness, malaise Eyes: negative: Pain, Vision Change, Conjunctivae Inflammation, Eyelid Inflammation, Redness ENT: negative: Ear Pain, Ear Discharge, Nose Pain, Nose Discharge, Nose Congestion, Mouth Pain, Mouth Swelling, Throat Pain, Throat Swelling, Other Respiratory: negative: Cough, Dry, Shortness of Breath, Hemoptysis, SOB with Excertion, Pleuritic Pain, Sputum, Wheezing Cardiovascular: negative: chest pain, palpitations, orthopnea, paroxysmal nocturnal dyspnea, edema, light headedness Gastrointestinal: negative: Nausea, Vomiting, Abdominal Pain, Diarrhea, Constipation, Melena, Hematochezia Genitourinary: negative: Dysuria, Frequency, Incontinence, Hematuria, Retention Musculoskeletal: negative: Neck Pain, Shoulder Pain, Arm Pain, Back Pain, Hand Pain, Leg Pain, Foot Pain Skin: negative: Rash, Lesions, Alvaro, Bruising Neurological: negative: Weakness, Numbness, Incoordination, Change in Speech, Confusion, Seizures - Medications/Allergies Allergies/Adverse Reactions: Allergies Allergy/AdvReac Type Severity Reaction Status Date / Time No Known Allergies Allergy Verified 11/27/17 21:32 Medications: Current Medications Acetaminophen (Tylenol) 650 mg PO Q4H PRN PRN Reason: Headache/Fever or Pain Stop: 11/28/17 06:30 Ondansetron HCl (Zofran) 4 mg IVP Q6H PRN PRN Reason: Nausea/Vomiting Stop: 11/28/17 06:30 Ondansetron HCl (Zofran Odt) 4 mg SL Q6H PRN PRN Reason: Nausea/Vomiting Stop: 11/28/17 06:30 Sodium Chloride (Flush - Normal Saline) 10 ml IVF PRN PRN PRN Reason: Saline Flush Stop: 11/28/17 06:30
[2017-11-27] MEDS ORDERED: Nitroglycerin 0.4 MG TAB (25 Tab Bottle) PO PRN (23:34)
[2017-11-27] MEDS ORDERED: Calcium Carbonate 500 MG ChewTAB PO PRN (23:34)
[2017-11-27] MEDS ORDERED: Milk Of Magnesia 30 ML UDCUP PO PRN (23:34)
[2017-11-27] MEDS ORDERED: Senokot 8.6 MG TAB PO PRN (23:34)
[2017-11-27] MEDS ORDERED: Ondansetron ODT 4 MG TAB PO PRN (23:34)
[2017-11-27] MEDS ORDERED: Apixaban 5 MG TAB PO SCH (23:45)
[2017-11-28 05:33] LABS: #Basophils 0.1 thou/uL (0.0-0.2); #Eosinphils 0.5 thou/uL (0.0-0.7); #Lymphocytes 1.3 thou/uL (1.20-3.40); #Monocytes 0.6 thou/uL (0.11-0.59); #Neutrophils 4.6 thou/uL (1.40-6.50); %Basophils 1.1 % (0.0-1.0); %Eosinophils 7.2 % (0.0-10.0); %Lymphocytes 18.2 % (21.0-51.0); %Monocytes 8.9 % (0.0-10.0); %Neutrophils 64.7 % (42.0-75.0); Mean Corpuscular HGB CONC 29.9 g/dL (32.0-36.0); Mean Corpuscular Hemoglobin 22.9 pg (27.0-31.0); Mean Corpuscular Volume 76.6 fl (81.0-99.0); Platelet Count 276 thou/uL (130-400); RBC Distribution Width 19.9 % (11.5-14.5); Red Blood Cell (RBC) Count 4.38 mill/uL (4.20-5.40); White Blood Cell (WBC) Count 7.1 thou/uL (4.8-10.8)
[2017-11-28 05:35] LABS: Albumin 2.9 g/dL (3.4-4.8); Anion Gap 13 mmol/L (10-20); BUN (Urea Nitrogen) 8 mg/dL (9.8-20.1); BUN/Creatinine Ratio 10.81; Calc. Creatinine Clearance 56 mL/min (70-130); Calcium 8.8 mg/dL (7.8-10.44); Carbon Dioxide 25 mmol/L (23-31); Chloride 102 mmol/L (98-107); Estimated GFR-MDRD 76; Glucose 96 mg/dL (83-110); Magnesium 1.9 mg/dL (1.6-2.6); Phosphorus 3.3 mg/dL (2.3-4.7); Potassium 3.8 mmol/L (3.5-5.1); Sodium 136 mmol/L (136-145)
[2017-11-28 05:37] LABS: Troponin I Less than 0.010 ng/mL (< 0.028)
--- NOTE | 2017-11-28 07:28 | HP ---
DATE OF ADMISSION: 11/27/2017 PRIMARY CARE PHYSICIAN: Erik Anderson D.O. [employer]IMARY [employer] APPRENTICE: Ravinder Vazquez M.D. The patient was seen and examined on 11/27/2017. CHIEF COMPLAINT: Elevated heart rate. HISTORY OF PRESENT ILLNESS: The patient is a 77-year-old female who was discharged from [facility] on 11/25/2017 presented to the emergency room with elevated heart rate. She was admitted at [facility] from 11/20/2017-11/25/2017 with a diagnosis of atrial fibrillation with rapid ventricular res ponse as well as anemia. The patient was evaluated by Dr. Ravinder Vazquez. She was started on digox in 0.125 mcg daily and her atenolol dose was increased to 75 mg from 50 mg daily. The heart rate was controlled at the time of discharge. She was also evaluated by GI for anemia during the same admiss ion. Yesterday, patient was found to have elevated heart rate by her family members for which she was brou ght into the emergency room. Apparently, the family member checked her heart rate on a pulse oximetr y device. The patient denied any chest pain, shortness of breath, palpitations, lightheadedness, diz ziness or syncope. In the emergency room, initial vital signs showed temperature 98.5, respirations 16, pulse 133 with b lood pressure of 132/72 with O2 saturation 96% on room air. Her EKG showed atrial fibrillation with rapid ventricular response. She was started on Cardizem drip after 200 mg IV bolus. She also receiv ed 500 mL IV normal saline. PAST MEDICAL HISTORY: 1. Chronic atrial fibrillation on Eliquis. 2. Hypertension. 3. History of pulmonary embolism and DVT. 4. Hyperlipidemia. 5. Chronic anemia with recent workup. 6. Chronic kidney disease stage 2. 7. Abnormal TSH in the last one year. PAST SURGICAL HISTORY: 1. Cholecystectomy. 2. Recent EGD and incomplete colonoscopy. ALLERGIES: Patient is allergic to MULTAQ that causes nausea and vomiting. CURRENT HOME MEDICATIONS: Digoxin 0.125 mg daily, atenolol 75 mg daily, Eliquis 5 mg b.i.d., Nexium 20 mg daily, fluticasone as needed, Lasix 40 mg daily, potassium chloride 20 mEq daily. SOCIAL HISTORY: Patient currently lives at home with her family. No smoking, alcohol or drug use. She ambulates without any assistance. She is independent of activities of daily living. She is FULL CODE and makes her own decision with the help of her family. FAMILY HISTORY: Negative for heart disease. REVIEW OF SYSTEMS: Please refer to my progress note dated 11/27/2017. PHYSICAL EXAMINATION: Please refer to my progress note dated 11/27/2017. LABORATORY FINDINGS: Please refer to my progress note dated 11/27/2017. RADIOLOGY FINDINGS. Please refer to my progress note dated 11/27/2017. IMPRESSION: 1. Atrial fibrillation with rapid ventricular response. 2. Recent hospitalization for atrial fibrillation and anemia. 3. Hypertension. 4. Hyperlipidemia. 5. 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 6. Chronic kidney disease stage 2. 7. Abnormal thyroid studies. 8. Fall precautions. 9. DVT prophylaxis. The patient already on anticoagulation. PLAN: The patient will be monitored on the telemetry unit. Cardizem drip will be continued. We julián l continue atenolol 75 mg as well as Digoxin 0.125 mg daily. Continue Eliquis. We will also continu e Lasix and potassium chloride. Labs will be monitored on a daily basis. Plan of care was discussed with the patient and the family at the bedside. They stated understanding . DISPOSITION: Probably in 2 days depending on Cardiology input.
[2017-11-28] MEDS ORDERED: Prevnar 13-Val Conj/PF 0.5 ML SYRINGE IM ONE (09:00)
[2017-11-28] MEDS ORDERED: Atenolol 50 MG TAB PO SCH (09:00)
[2017-11-28] MEDS: Apixaban 5 MG TAB PO SCH ×2 (09:06→21:16)
[2017-11-28] MEDS: Potassium Chloride 20 MEQ TAB PO SCH (09:06)
[2017-11-28] MEDS: Digoxin 0.125 MG TAB PO SCH (09:06)
[2017-11-28] MEDS: Furosemide 40 MG TAB PO SCH (09:06)
[2017-11-28] MEDS: Docusate 100 MG CAP PO SCH ×2 (09:06→21:18)
--- NOTE | 2017-11-28 19:58 | PDOC.PN ---
- Subjective Encounter Start Date: 11/28/17 Encounter Start Time: 14:30 Patient seen and examined. No new complaints. No overnight events. On Cardizem drip. No CP/SOB/syncope. - Objective Resuscitation Status: Resuscitation Status FULL:Full Resuscitation MAR Reviewed: Yes Vital Signs & Weight: Vital Signs (12 hours) Temp Pulse Resp BP Pulse Ox 11/28/17 16:00 98.8 F 86 24 H 118/60 94 L 11/28/17 12:00 98.5 F 89 24 H 118/60 92 L 11/28/17 09:06 92 Weight Weight 124 lb 3.2 oz I&O: 11/27/17 11/28/17 11/29/17 06:59 06:59 06:59 Intake Total 515 720 Output Total 400 300 Balance 115 420 Result Diagrams: 11/28/17 04:56 11/28/17 04:56 Radiology Reviewed by me: Yes (CXR - neg) EKG Reviewed by me: Yes (Tele Afib - rate controlled on drip) Phys Exam - Physical Examination Constitutional: NAD Neck: no JVD Respiratory: no wheezing, no rales, no rhonchi, clear to auscultation bilateral Cardiovascular: no rub, irregular no heaves/pulsations Gastrointestinal: soft, non-tender, no distention, positive bowel sounds Musculoskeletal: no edema Neurological: non-focal, normal sensation, moves all 4 limbs Psychiatric: A&O x 3 Dx/Plan - Plan IMPRESSION: 1. Atrial fibrillation with rapid ventricular response - on Cardizem drip 2. Recent hospitalization for atrial fibrillation and anemia. 3. Hypertension. 4. Hyperlipidemia. 5. 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 6. Chronic kidney disease stage 2. 7. Abnormal thyroid studies. 8. Fall precautions. PLAN: * Cont Cardizem drip * Await Cardio input * Cont Eliquis * Cont current meds as below * Cont to monitor Review of Systems - Review of Systems Respiratory: negative: Cough, Dry, Shortness of Breath, Hemoptysis, SOB with Excertion, Pleuritic Pain, Sputum, Wheezing Cardiovascular: negative: chest pain, palpitations, orthopnea, paroxysmal nocturnal dyspnea, edema, light headedness - Medications/Allergies Allergies/Adverse Reactions: Allergies Allergy/AdvReac Type Severity Reaction Status Date / Time No Known Allergies Allergy Verified 11/27/17 21:32 Medications: Current Medications Acetaminophen (Tylenol) 650 mg PO Q4H PRN PRN Reason: Headache/Fever or Pain Apixaban (Eliquis) 5 mg PO BID [facility] Last Admin: 11/28/17 09:06 Dose: 5 mg Atenolol (Tenormin) 75 mg PO BID [facility] Calcium Carbonate (Tums) 1,000 mg PO Q4H PRN PRN Reason: Heartburn or Indigestion Digoxin (Lanoxin) 0.125 mg PO DAILY [facility] Last Admin: 11/28/17 09:06 Dose: 0.125 mg Docusate Sodium (Colace) 100 mg PO BID [facility] Last Admin: 11/28/17 09:06 Dose: 100 mg Furosemide (Lasix) 40 mg PO DAILY [facility] Last Admin: 11/28/17 09:06 Dose: 40 mg Lactulose (Lactulose) 20 gm PO DAILYPRN PRN PRN Reason: Constipation Magnesium Hydroxide (Milk Of Magnesium) 30 ml PO DAILYPRN PRN PRN Reason: Constipation Nitroglycerin (Nitrostat) 0.4 mg PO Q5MIN PRN PRN Reason: Chest Pain Ondansetron HCl (Zofran Odt) 4 mg PO Q6H PRN PRN Reason: Nausea/Vomiting Ondansetron HCl (Zofran) 4 mg IVP Q6H PRN PRN Reason: Nausea/Vomiting Pantoprazole Sodium (Protonix) 40 mg PO DAILY [facility] Last Admin: 11/28/17 09:06 Dose: 40 mg Potassium Chloride (K-Dur) 20 meq PO QAM-WM [facility] Last Admin: 11/28/17 09:06 Dose: 20 meq Senna (Senokot) 2 tab PO HSPRN PRN PRN Reason: Constipation
[2017-11-28] MEDS: Atenolol 50 MG TAB PO SCH (21:17)
--- NOTE | 2017-11-29 07:43 | CON ---
DATE OF CONSULTATION: 11/28/2017 HISTORY: Ms. Nash is a pleasant 77-year-old woman with a history of atrial fibrillation who presents with recurrent palpitations. The patient has a history of atrial fibrillation. She has previously undergone electrocardioversion. The patient also had a history of GI hemorrhage. The patient was recently admitted with atrial fibrillation with a rapid ventricular response. She denied having any palpitations or chest pain. She noticed increasing fatigue with her elevated heart rate. The patient states she is feeling better since she has been in the hospital. The patient denies having any present palpitations. PAST MEDICAL HISTORY: 1. Atrial fibrillation. 2. Hypertension. 3. Pulmonary embolus. PAST SURGICAL HISTORY: Cholecystectomy. SOCIAL HISTORY: Nonsmoker. FAMILY HISTORY: Positive family history of coronary artery disease. ALLERGIES: MULTAQ. REVIEW OF SYSTEMS: A 10-point system unremarkable. No history of easy bruising or bleeding, bright red blood per rectum. PHYSICAL EXAMINATION: GENERAL: This is a well-developed woman in no acute distress. VITAL SIGNS: Blood pressure is 118/60, heart rate of 90. NECK: Showed no jugular venous distention. LUNGS: Clear to auscultation. HEART: Irregular rate and rhythm, normal S1, S2. ABDOMEN: Nondistended. EXTREMITIES: Showed trace edema. NEUROLOGIC: Nonfocal. VASCULAR: Radial pulses are 2+. LABORATORY RESULTS: Her white blood count 7.1, hemoglobin 10.0, hematocrit 33.5. Her platelets are 276. Sodium 136, potassium 3.8, chloride 102, bicarbonate 25, BUN 8, creatinine 0.74, troponin less than 0.01. BNP 234. EKG revealed atrial fibrillation with a rapid ventricular response, nonspecific ST- T wave abnormality. IMPRESSION: 1. Atrial fibrillation with a rapid ventricular response. 2. Hypertension. 3. History of pulmonary embolus. 4. Dyslipidemia. This patient presents with rapid atrial fibrillation. She states she has been compliant with her medication. From a cardiac standpoint I will increase the dose of her atenolol to see if her heart rate can be better controlled. If she becomes refractory, she may need pacemaker placement with an AV luli ablation. PLAN: 1. Discontinue IV Cardizem. 2. Increase atenolol to 75 mg twice daily. MTDD
[2017-11-29] MEDS: Atenolol 50 MG TAB PO SCH ×2 (08:21→21:30)
[2017-11-29] MEDS: Potassium Chloride 20 MEQ TAB PO SCH (08:22)
[2017-11-29] MEDS: Docusate 100 MG CAP PO SCH ×2 (08:22→21:31)
[2017-11-29] MEDS: Apixaban 5 MG TAB PO SCH (08:22)
[2017-11-29] MEDS: Digoxin 0.125 MG TAB PO SCH (08:22)
[2017-11-29] MEDS: Furosemide 40 MG TAB PO SCH (08:22)
--- NOTE | 2017-11-29 21:44 | PDOC.PN ---
- Subjective Encounter Start Date: 11/29/17 Encounter Start Time: 17:30 Patient seen and examined. No new complaints. No overnight events. No CP/ lightheadedness/syncope/palpitations. - Objective Resuscitation Status: Resuscitation Status FULL:Full Resuscitation MAR Reviewed: Yes Vital Signs & Weight: Vital Signs (12 hours) Temp Pulse Resp BP BP Pulse Ox 11/29/17 21:30 107 H 121/72 11/29/17 20:00 98.2 F 105 H 20 121/72 94 L 11/29/17 16:00 98.3 F 100 18 118/81 93 L 11/29/17 12:00 98.3 F 98 18 121/64 93 L Weight Weight 124 lb 14.4 oz I&O: 11/28/17 11/29/17 11/30/17 06:59 06:59 06:59 Intake Total 515 975 Output Total 400 750 Balance 115 225 Result Diagrams: 11/28/17 04:56 11/28/17 04:56 EKG Reviewed by me: Yes (Tele Afib) Phys Exam - Physical Examination Constitutional: NAD Respiratory: no wheezing, no rhonchi Cardiovascular: no rub, irregular Gastrointestinal: soft, non-tender, positive bowel sounds Musculoskeletal: no edema Neurological: moves all 4 limbs Dx/Plan - Plan IMPRESSION: 1. Atrial fibrillation with rapid ventricular response - off Cardizem drip, on anticoag 2. Recent hospitalization for atrial fibrillation and anemia. HH stable 3. Hypertension. 4. Hyperlipidemia. 5. 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 6. Chronic kidney disease stage 2. 7. Abnormal thyroid studies. 8. Fall precautions. PLAN: * Atenolol dose increased to 75 mg BID * Cardiology following * Cont Eliquis * Cont current meds as below * Cont to monitor * AM labs * DC if ok with Cardiology Review of Systems - Review of Systems Respiratory: negative: Cough, Dry, Shortness of Breath, Hemoptysis, SOB with Excertion, Pleuritic Pain, Sputum, Wheezing Cardiovascular: negative: chest pain, palpitations, orthopnea, paroxysmal nocturnal dyspnea, edema, light headedness, other - Medications/Allergies Allergies/Adverse Reactions: Allergies Allergy/AdvReac Type Severity Reaction Status Date / Time No Known Allergies Allergy Verified 11/27/17 21:32 Medications: Current Medications Acetaminophen (Tylenol) 650 mg PO Q4H PRN PRN Reason: Headache/Fever or Pain Atenolol (Tenormin) 75 mg PO BID [facility] Last Admin: 11/29/17 21:30 Dose: 75 mg Calcium Carbonate (Tums) 1,000 mg PO Q4H PRN PRN Reason: Heartburn or Indigestion Digoxin (Lanoxin) 0.125 mg PO DAILY [facility] Last Admin: 11/29/17 08:22 Dose: 0.125 mg Docusate Sodium (Colace) 100 mg PO BID [facility] Last Admin: 11/29/17 21:31 Dose: 100 mg Furosemide (Lasix) 40 mg PO DAILY [facility] Last Admin: 11/29/17 08:22 Dose: 40 mg Lactulose (Lactulose) 20 gm PO DAILYPRN PRN PRN Reason: Constipation Magnesium Hydroxide (Milk Of Magnesium) 30 ml PO DAILYPRN PRN PRN Reason: Constipation Nitroglycerin (Nitrostat) 0.4 mg PO Q5MIN PRN PRN Reason: Chest Pain Ondansetron HCl (Zofran Odt) 4 mg PO Q6H PRN PRN Reason: Nausea/Vomiting Ondansetron HCl (Zofran) 4 mg IVP Q6H PRN PRN Reason: Nausea/Vomiting Pantoprazole Sodium (Protonix) 40 mg PO DAILY [facility] Last Admin: 11/29/17 08:22 Dose: 40 mg Potassium Chloride (K-Dur) 20 meq PO QAM-WM [facility] Last Admin: 11/29/17 08:22 Dose: 20 meq Senna (Senokot) 2 tab PO HSPRN PRN PRN Reason: Constipation
[2017-11-30 05:30] LABS: Hemoglobin 10.8 g/dL (12.0-16.0); Platelet Count 281 thou/uL (130-400)
[2017-11-30 05:42] LABS: Albumin 3.1 g/dL (3.4-4.8); Anion Gap 10 mmol/L (10-20); BUN (Urea Nitrogen) 10 mg/dL (9.8-20.1); BUN/Creatinine Ratio 11.76; Calc. Creatinine Clearance 49 mL/min (70-130); Calcium 9.3 mg/dL (7.8-10.44); Carbon Dioxide 27 mmol/L (23-31); Chloride 102 mmol/L (98-107); Estimated GFR-MDRD 65; Glucose 98 mg/dL (83-110); Magnesium 1.9 mg/dL (1.6-2.6); Phosphorus 3.3 mg/dL (2.3-4.7); Potassium 3.9 mmol/L (3.5-5.1); Sodium 135 mmol/L (136-145)
[2017-11-30] MEDS ORDERED: Atenolol 50 MG TAB PO SCH (08:11)
[2017-11-30] MEDS: Digoxin 0.125 MG TAB PO SCH (08:16)
[2017-11-30] MEDS: Potassium Chloride 20 MEQ TAB PO SCH (08:16)
[2017-11-30] MEDS: Docusate 100 MG CAP PO SCH ×2 (08:17→22:02)
[2017-11-30] MEDS: Furosemide 40 MG TAB PO SCH (08:17)
[2017-11-30] MEDS: Enoxaparin Sodium 60 MG/0.6 ML SYRINGE SC SCH ×2 (10:21→22:02)
[2017-11-30] MEDS: Atenolol 50 MG TAB PO SCH ×2 (10:22→22:00)
--- NOTE | 2017-11-30 23:12 | PDOC.PN ---
- Subjective Encounter Start Date: 11/30/17 Encounter Start Time: 16:00 Patient seen and examined. No new complaints. No overnight events - Objective Resuscitation Status: Resuscitation Status FULL:Full Resuscitation MAR Reviewed: Yes Vital Signs & Weight: Vital Signs (12 hours) Temp Pulse Resp BP BP Pulse Ox 11/30/17 22:00 100 125/59 L 11/30/17 16:36 98.0 F 98 19 116/78 93 L 11/30/17 12:00 98.1 F 94 18 92/61 94 L Weight Weight 122 lb 6.4 oz I&O: 11/29/17 11/30/17 12/01/17 06:59 06:59 06:59 Intake Total 975 550 Output Total 750 1150 Balance 225 -600 Result Diagrams: 11/30/17 04:48 11/30/17 04:48 EKG Reviewed by me: Yes (Tele Afib) Phys Exam - Physical Examination Constitutional: NAD Respiratory: no wheezing, no rhonchi Cardiovascular: no rub, irregular Gastrointestinal: soft, non-tender, positive bowel sounds Musculoskeletal: no edema Neurological: moves all 4 limbs Dx/Plan - Plan DVT proph w/SCDs IMPRESSION: 1. Atrial fibrillation with rapid ventricular response - off Cardizem drip, Eliquis on hold 2. Recent hospitalization for atrial fibrillation and anemia. HH stable 3. Hypertension. 4. Hyperlipidemia. 5. 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 6. Chronic kidney disease stage 2. 7. Abnormal thyroid studies. 8. Fall precautions. PLAN: * Cont Atenolol * Cardiology following * Cont current meds as below * Cont to monitor * AM labs * Possible AV luli ablation with pacemaker Review of Systems - Review of Systems Respiratory: negative: Cough, Dry, Shortness of Breath, Hemoptysis, SOB with Excertion, Pleuritic Pain, Sputum, Wheezing Cardiovascular: negative: chest pain, palpitations, orthopnea, paroxysmal nocturnal dyspnea, edema, light headedness, other - Medications/Allergies Allergies/Adverse Reactions: Allergies Allergy/AdvReac Type Severity Reaction Status Date / Time No Known Allergies Allergy Verified 11/27/17 21:32 Medications: Current Medications Acetaminophen (Tylenol) 650 mg PO Q4H PRN PRN Reason: Headache/Fever or Pain Atenolol (Tenormin) 50 mg PO BID [facility] Last Admin: 11/30/17 22:00 Dose: 50 mg Calcium Carbonate (Tums) 1,000 mg PO Q4H PRN PRN Reason: Heartburn or Indigestion Digoxin (Lanoxin) 0.125 mg PO DAILY [facility] Last Admin: 11/30/17 08:16 Dose: 0.125 mg Docusate Sodium (Colace) 100 mg PO BID [facility] Last Admin: 11/30/17 22:02 Dose: 100 mg Enoxaparin Sodium (Lovenox) 55 mg SC 0900,2100 [facility] Last Admin: 11/30/17 22:02 Dose: 55 mg Furosemide (Lasix) 40 mg PO DAILY [facility] Last Admin: 11/30/17 08:17 Dose: 40 mg Lactulose (Lactulose) 20 gm PO DAILYPRN PRN PRN Reason: Constipation Magnesium Hydroxide (Milk Of Magnesium) 30 ml PO DAILYPRN PRN PRN Reason: Constipation Nitroglycerin (Nitrostat) 0.4 mg PO Q5MIN PRN PRN Reason: Chest Pain Ondansetron HCl (Zofran Odt) 4 mg PO Q6H PRN PRN Reason: Nausea/Vomiting Ondansetron HCl (Zofran) 4 mg IVP Q6H PRN PRN Reason: Nausea/Vomiting Pantoprazole Sodium (Protonix) 40 mg PO DAILY [facility] Last Admin: 11/30/17 08:15 Dose: 40 mg Potassium Chloride (K-Dur) 20 meq PO QAM-WM [facility] Last Admin: 11/30/17 08:16 Dose: 20 meq Senna (Senokot) 2 tab PO HSPRN PRN PRN Reason: Constipation
[2017-12-01 06:11] LABS: Anion Gap 10 mmol/L (10-20); BUN (Urea Nitrogen) 15 mg/dL (9.8-20.1); Calc. Creatinine Clearance 45 mL/min (70-130); Calcium 9.1 mg/dL (7.8-10.44); Carbon Dioxide 31 mmol/L (23-31); Chloride 102 mmol/L (98-107); Estimated GFR-MDRD 61; Glucose 114 mg/dL (83-110); Potassium 3.7 mmol/L (3.5-5.1); Sodium 139 mmol/L (136-145)
[2017-12-01 06:13] LABS: Digoxin 0.84 ng/mL (0.8-2.0)
[2017-12-01] MEDS: Furosemide 40 MG TAB PO SCH (09:29)
[2017-12-01] MEDS: Digoxin 0.125 MG TAB PO SCH (09:30)
[2017-12-01] MEDS: Docusate 100 MG CAP PO SCH (09:30)
[2017-12-01] MEDS: Potassium Chloride 20 MEQ TAB PO SCH (09:30)
[2017-12-01] MEDS: Atenolol 50 MG TAB PO SCH (09:30)
[2017-12-01] MEDS: Enoxaparin Sodium 60 MG/0.6 ML SYRINGE SC SCH (09:31)
[2017-12-01 13:18] VITALS: BP 112/67; TEMP 98.1
--- NOTE | 2017-12-01 13:18 | DIS ---
DATE OF ADMISSION: 11/27/2017 DATE OF DISCHARGE: 12/01/2017 DISCHARGE DIAGNOSES: Acute atrial fibrillation with rapid ventricular rate. DISCHARGE DIAGNOSES: Acute atrial fibrillation with rapid ventricular rate. SECONDARY DIAGNOSES: 1. Hypertension. 2. History of hyperlipidemia. 3. History of chronic anemia. 4. Chronic kidney disease stage 2. HISTORY OF PRESENT ILLNESS/HOSPITAL COURSE: In brief, this is a 77-year-old white female who was dis charged from the facility on 11/25/2017 that presented to the ER with elevated heart rate. She was a dmitted for this. She was admitted with a diagnosis of atrial fibrillation with RVR as well as anemi a. The patient was evaluated by Dr. Vazquez during that admission and was started on digoxin and al so on atenolol. The heart rate was controlled at the time of discharge. She was also evaluated by Marzena Mcnair for anemia during the same admission. At this time, the patient was found to have elevated heart r ate by her family members for which she was brought to the ER. Apparently family members checked her heart rate on a pulse oximetry device and the patient denied any chest pain, no shortness of breath. The patient was seen by Cardiology during this admission and did a 2D echo which was unchanged. Th e patient was suggested for ablation or pacemaker at a later date. The patient will follow up with Dr. Veto Helton as outpatient. The patient was discharged home in stable condition. The patient's heart rate was stable during the stay. PHYSICAL EXAMINATION: VITAL SIGNS: Blood pressures are 115/59, heart rate is 92, respiration is 18, saturation 98%. GENERAL: The patient is moderately built, well-nourished, does not appear to be in acute distress. CARDIOVASCULAR: S1, S2 normal. No murmurs, rubs or gallops. LUNGS: Bilateral air entry was equal. No wheezing, no crackles. ABDOMEN: Soft, nontender, no guarding, no rebound tenderness. Bowel sounds normal. MUSCULOSKELETAL: No calf tenderness. No pedal edema. No joint tenderness, no joint swelling. DISCHARGE MEDICATIONS: Ferrous sulfate 140 mg p.o. daily, fluticasone 1 spray nasal daily, guaifenes in 200 mg p.o. daily, ondansetron 1 tablet p.o. q.8h., Docusate, Eliquis 5 mg p.o. b.i.d., atenolol 50 mg p.o. daily, digoxin 0.25 mg p.o. daily, omeprazole, Lasix 40 mg p.o. daily. DISCHARGE INSTRUCTIONS: Continue activity as tolerated. Advised to follow up with Cardiology in 1-2 weeks. If the patient has persistent elevation of the heart rate the plan was to plan for ablation. No plans were made at this time. The patient was discharged home in stable condition. ATTENDING PHYSICIAN: Mil Tracy M.D. I spent 35 minutes with this patient on the day of discharge .
[2017-12-01] MEDS ORDERED: Apixaban 5 MG TAB PO SCH (21:00)
[2017-12-02] MEDS ORDERED: Digoxin 0.25 MG TAB PO SCH (09:00)
--- NOTE | 2017-12-02 15:02 | EKG ---
Test Reason : Blood Pressure : / mmHG Vent. Rate : 125 BPM Atrial Rate : 095 BPM P-R Int : 000 ms QRS Dur : 070 ms QT Int : 316 ms P-R-T Axes : 000 058 -81 degrees QTc Int : 456 ms Atrial fibrillation with rapid ventricular response with premature ventricular or aberrantly conducte d complexes Abnormal ECG Confirmed by COOPER LEVIN ([id number]), video editor JUAN FRANCISCO YARBROUGH ([id number]) on 12/02/2017 3:00:27 PM Referred By: Confirmed By:COOPER LEVIN
[2017-12-03] MEDS ORDERED: Digoxin 0.125 MG TAB PO SCH (09:00)
== END 2017-12-01 14:40 | disposition home or self-care (01) | DRG 310 ==
LOC: ERS 17:03 → 2NO 18:30
PROVIDERS: ADMIT Internal Medicine; ATTEND Internal Medicine
PROC: 30233N1 Transfusion of Nonautologous Red Blood Cells into Peripheral Vein, Percutaneous Approach (ICD-10-PCS; principal; 2017-11-27)
DX: R94.6 Abnormal results of thyroid function studies; Z86.718 Personal history of other venous thrombosis and embolism; Z87.891 Personal history of nicotine dependence; B18.2 Chronic viral hepatitis C; I12.9 Hypertensive chronic kidney disease with stage 1 through stage 4 chronic kidney disease, or unspecified chronic kidney disease; Z86.711 Personal history of pulmonary embolism; D64.9 Anemia, unspecified; E78.5 Hyperlipidemia, unspecified; I48.2 Chronic atrial fibrillation; N18.2 Chronic kidney disease, stage 2 (mild); R19.7 Diarrhea, unspecified
CPT/HCPCS: 36415; 71045; 80048; 80053; 80069; 80162; 82550; 82553; 83735; 83880; 84484; 85014; 85018; 85025; 85049; 90471; 90670; 93005; 93306; 94760; 96361; 96365; G0009; J1650; J7050

== ENCOUNTER 2019-01-02 07:57 | Inpatient (IN) | payer MEDICARE, OTHER ==
[2019-01-02] MEDS ORDERED: Digoxin 0.5 MG/2 ML AMP ONE ×2 (08:34→09:16)
--- NOTE | 2019-01-02 10:06 | CT ---
CTA CHEST WITH CONTRAST, AND 3-D VOLUME RENDERING CLINICAL INDICATION: Short of breath; Elevated D-dimer Comparison exam: 06/03/2017 FINDINGS: Pulmonary embolus:No significant filling defect is identified within the pulmonary arteries. Pulmonary parenchymal consolidation:Bilateral interstitial opacities with interstitial septal thicken ing. Mild groundglass opacification is seen within each lung Pleural effusion: Mild bilateral pleural fluid Pneumothorax: None Osseous structures: No acute process. IMPRESSION: No acute pulmonary embolus. Bilateral pulmonary parenchymal opacities and bilateral mild pleural fluid.
[2019-01-02] MEDS ORDERED: cefTRIAXone\\ROCEPHIN 2 GM VIAL ONE (10:20)
[2019-01-02 11:21] LABS: Troponin I 5.142 ng/mL (< 0.028)
[2019-01-02] MEDS ORDERED: Azithromycin 500 MG VIAL ONE (11:39)
[2019-01-02] MEDS ORDERED: hydrALAZINE 20 MG/ML VIAL SLOW IVP PRN (12:51)
[2019-01-02] MEDS ORDERED: Benzonatate 100 MG CAP PO PRN (12:51)
[2019-01-02] MEDS ORDERED: Nitroglycerin 0.4 MG TAB (25 Tab Bottle) SL PRN (12:51)
[2019-01-02] MEDS ORDERED: Guaifenesin DM 100-10/5 ML UDCUP PO PRN (12:51)
--- NOTE | 2019-01-02 14:45 | HP ---
PRIMARY CARE PROVIDER: Erik Anderson DO CHIEF COMPLAINT: Chest pain, shortness of breath, and nausea. HISTORY OF PRESENT ILLNESS: This is a 78-year-old female, who presents to [facility] Emergency Department after complaining of approximate 1-day history of chest pain, nausea, and shortness of breath. 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 The patient initially rated the pain 7/10, constant with associated nausea and palpitations. The patient took AcipHex with some relief of her symptoms. The patient denied any recent travel history, exposures, family members with similar symptoms, or documented fever. The patient does admit to a dry cough over the last 3 to 4 days. In the emergency room, the patient underwent general evaluation with telemetry monitoring showing atrial fibrillation with rapid ventricular response, heart rates in the 150s. The patient was given digoxin 0.25 mg IV push in addition to Cardizem infusion. The patient had persistent tachycardia and rapid ventricular response with an additional 0.5 mg of digoxin initiated. The patient also received intravenous normal saline with eventual decreased heart rate in the upper 90s. The patient underwent chest imaging showing evidence of mild pleural effusions without evidence of pulmonary embolus. The patient also received aspirin 324 mg and was referred to the Hospitalist Service for admission. PAST MEDICAL HISTORY: 1. Atrial fibrillation with chronic anticoagulation with Eliquis. 2. Hepatitis C. 3. History of recurrent urinary tract infections. 4. Hypertension. 5. History of deep venous thrombosis and pulmonary embolus. 6. Chronic anemia. 7. Chronic kidney disease stage 2. PAST SURGICAL HISTORY: 1. Status post cholecystectomy. 2. Status post EGD and colonoscopy. 3. Status post cholecystectomy. 4. Status post bilateral cataract removal. CURRENT MEDICATIONS: 1. Eliquis 5 mg p.o. b.i.d. 2. Atenolol 75 mg p.o. daily. 3. Nexium 20 mg p.o. b.i.d. 4. Docusate calcium 240 mg p.o. daily. 5. Digoxin 0.125 mg p.o. daily. ALLERGIES: TO BACTRIM AND MULTAQ. FAMILY HISTORY: Positive for hypertension. SOCIAL HISTORY: The patient is accompanied by her daughter and in the emergency room. No current alcohol, tobacco, or illicit drug use. Remote tobacco use. REVIEW OF SYSTEMS: CONSTITUTIONAL: Negative for weight loss or gain, ability to conduct usual activities. SKIN: Negative for rash, itching. EYES: Negative for double vision, pain. ENT/MOUTH: Negative for nose bleeding, neck stiffness, pain, tenderness. CARDIOVASCULAR: Negative for palpitations, dyspnea on exertion, orthopnea. RESPIRATORY: Negative for shortness of breath, wheezing, cough, hemoptysis, fever or night sweats. GASTROINTESTINAL: Negative for poor appetite, abdominal pain, heartburn, nausea, vomiting, constipation, or diarrhea. GENITOURINARY: Negative for urgency, frequency, dysuria, nocturia. MUSCULOSKELETAL: Negative for pain, swelling. NEUROLOGIC/PSYCHIATRIC: Negative for anxiety, depression. ALLERGY/IMMUNOLOGIC: Negative for skin rash, bleeding tendency. Otherwise, negative except as stated per HPI. PHYSICAL EXAMINATION: VITAL SIGNS: On admission; blood pressure 119/83, pulse 160, respiratory rate 20, temperature 98.4 degrees Fahrenheit, and O2 saturation 97% on room air. GENERAL APPEARANCE: This is a 78-year-old female, alert and oriented x3, pleasant, in mild distress. HEENT: Pupils are equal, round, and reactive to light and accommodation. Extraocular muscles are intact. No scleral icterus. No conjunctival injection. Nares patent. OP is clear. Teeth in good repair. NECK: Supple. No cervical adenopathy. No thyromegaly. No carotid bruits. No JVD appreciated. Cervical spine with full active and passive range of motion. CHEST: Diminished breath sounds in the bases bilaterally. Occasional crackle noted. ABDOMEN: Obese, soft, nontender, and nondistended. Bowel sounds are positive in all 4 quadrants. There is no hepatosplenomegaly. No abdominal bruits. No rebound or guarding appreciated. EXTREMITIES: Warm and dry with fair turgor. Minimal edema to the lower extremities bilaterally. Capillary refill less than 2 seconds. NEUROLOGIC: Cranial nerves 2 through 12 are grossly intact. No focal or lateralizing signs appreciated. LAB AND X-RAY FINDINGS: Sodium 135, potassium 3.6, chloride 104, CO2 of 17, BUN 13, creatinine 1.07, estimated GFR of 49, glucose 192, lactic acid level 2.3, and calcium 9.3. LFTs within normal limits. Troponin I ranged between 0.160 to 5.14 on 01/02/2019. BNP 474, previously noted 235 on 11/27/2017. CBC showed a white blood cell count of 8.2, hemoglobin 8.2, hematocrit 29, MCV 64, and platelet count 331 with 82% neutrophilia. Digoxin level less than 0.15. Portable chest x-ray dated 01/02/2019, showed cardiomegaly without acute findings. CT angiogram of the chest dated 01/02/2019, showed no evidence for pulmonary embolus. Mild bilateral pleural effusion. No pneumothorax. Bilateral interstitial opacities noted. EKG dated 01/02/2019, by my interpretation shows atrial fibrillation with rapid ventricular response, heart rates in the 150s. Premature ventricular complexes noted. Incomplete right bundle branch pattern. Right axis deviation. ASSESSMENT AND PLAN: 1. Atrial fibrillation with rapid ventricular response. Rate improved with initiation of Cardizem and IV digoxin. We will continue Cardizem infusion at 10 mg/hour. Continue Eliquis 5 mg p.o. b.i.d. Check 2D transthoracic echocardiogram. Consult Cardiology Service for further management options. 2. Non-ST elevation myocardial infarction. Elevated troponin I in the context of atrial fibrillation with rapid ventricular response. We will continue aspirin 325 mg daily. Start statin agent. Consult Cardiology Service for further recommendations. 3. Acute hypoxic respiratory failure. We will continue oxygen supplementation to maintain O2 saturations greater than or equal to 90%. Anticipate hypoxia will improve with control of atrial fibrillation. 4. Pneumonia. Suspected given CT imaging of the chest findings. We will continue empiric treatment with Rocephin 2 g IV daily. Add Zithromax 500 mg IV q.24 hours. 5. Chronic anticoagulation. Continue Eliquis 5 mg b.i.d. No current evidence to suggest acute blood loss. 6. Prophylaxis. Sequential compression devices while in bed. Pepcid 20 mg IV q.12 hours. 7. Code status is full. Surrogate medical decision maker is the patient's spouse. Job ID: [id number]
[2019-01-02 15:05] LABS: Lactic Acid 1.6 mmol/L (0.5-2.2)
[2019-01-02] MEDS: Diltiazem 125 MG in Sodium Chloride 0.9% 100 ML IVPB SCH (15:37)
[2019-01-02 15:50] LABS: Troponin I 8.481 ng/mL (< 0.028)
[2019-01-02] MEDS: Acetaminophen 500 MG TAB PO PRN ×2 (16:39→20:00)
[2019-01-02] MEDS ORDERED: ISOVUE-370 76%-LOCM 1 ML ONE (17:05)
[2019-01-02] MEDS: Famotidine 20 MG TAB PO SCH (19:59)
[2019-01-02] MEDS: Famotidine/PF 20 mg/2ml Vial SLOW IVP SCH (20:01)
[2019-01-02] MEDS ORDERED: Apixaban 5 MG TAB PO SCH (21:00)
[2019-01-02] MEDS: HYDROcodone/Acetaminophen 5/325 mg Tablet PO PRN (21:11)
--- NOTE | 2019-01-02 21:17 | CON ---
DATE OF CONSULTATION: HISTORY OF PRESENT ILLNESS: Ms. Nash is a very pleasant 78-year-old female. She was admitted last year with atrial fibrillation in November. She said she felt great yesterday and she went to bed. She woke up with chest pain that lasted about half an hour. She had some mild nausea associated with this. She was seen in the [place] [facility] and transferred here. Cardiomegaly is the only finding on the chest x-ray. She arrived here and had a chest CT, which shows an increase in interstitial markings and bilateral small effusions. She subsequently has been admitted. EKG in the emergency room had a rate of 146. She says she is feeling much better at this time. Currently, her heart rates in the 90s. PAST MEDICAL HISTORY: 1. As mentioned was remarkable for atrial fibrillation, last admission. 2. History of pulmonary embolism. 3. History of DVT. 4. History of hypertension. 5. History of cholecystectomy. 6. History of diverticulosis. 7. History of GI blood loss with a hemoglobin of 6.2 when she was admitted in October of last year, felt to be secondary to chronic gastrointestinal blood loss. She received 2 units of packed cells that admission. 8. History of hypertension. 9. History of lipid disorder. FAMILY HISTORY: Negative for lung disease in early age. SOCIAL HISTORY: She is . She is a nonsmoker and nondrinker. REVIEW OF SYSTEMS: Ten point review of systems otherwise negative. She has had no cough. No fever. No purulent sputum. No pleuritic chest discomfort. PHYSICAL EXAMINATION: VITAL SIGNS: She is afebrile, heart rate is 98, respiratory rate 16, oximetry is 95% on room air, blood pressure is 112/67. Pupils are equal. Sclerae are anicteric. NECK: Supple. No lymphadenopathy. LUNGS: Remarkable for fine crackles at both lung bases. HEART: Irregularly irregular, rate in the 90s. ABDOMEN: Soft and nontender. EXTREMITIES: Without clubbing, cyanosis, or edema. NEUROLOGIC: Nonfocal. LABORATORY DATA: White count 8.2, hemoglobin 8.2, platelets 331. Sodium 135, potassium 3.6, chloride 104, bicarb 17, BUN 13, creatinine 1.07. Troponin is up to 5.1. IMPRESSION: Rapid atrial fibrillation with a troponin release associated with that and mild interstitial edema. I do not feel she has pneumonia. It is reasonable to treat her for 24 hours with antimicrobial therapy, but if her cultures are negative, we would consider discontinuing antibiotics. I will notify Dr. Vazquez of her admission. This was a 50 minute consult with 50% of time spent on unit coordinating care. Job ID: [id number] [id number]
--- NOTE | 2019-01-03 00:10 | CON ---
DATE OF CONSULTATION: HISTORY OF PRESENT ILLNESS: Ilene Nash is a 78-year-old white female, who was initially sent to the hospital in April 2017 for the finding of atrial fibrillation. She had a questionable history of atrial fibrillation in the past. I have taken care of her for many many years and assumed her care after she was initially admitted. She was placed on Lovenox and then Eliquis 5 mg b.i.d., Multaq 400 mg b.i.d. Echo showed ejection fraction of 55% to 60%. Cardiolite revealed no evidence of ischemia. She underwent transesophageal echo followed by electrical cardioversion with 200 joules and was discharged in sinus rhythm. Again in May 2017, she was admitted with left lower extremity deep venous thrombosis and bilateral pulmonary embolism. She had been on Eliquis for 5 days. She was admitted in October 2017 with hemoglobin of 6.2. EGD was unremarkable. Colonoscopy was incomplete and showed moderate to severe sigmoid diverticulosis and internal hemorrhoids. She was in atrial fibrillation at that time and her atenolol dose was increased. She had developed diarrhea with Multaq. We did discuss when she was back on anticoagulation loading with amiodarone, consideration of electrocardioversion; however, she opted for anticoagulation and rate control. She was last seen on September 16, 2018 and complained of shortness of breath if she walked too fast. No chest pain or palpitations. It was felt that she was in chronic atrial fibrillation; however, rate was controlled. She now presents complaining of increased chest pain, shortness of breath and nausea. She has had a nonproductive cough over the last several days, but no fever. In the emergency room, she had heart rates in the 150s, was given digoxin 0.25 mg IV in addition to Cardizem infusion. She was given additional 0.5 mg of digoxin IV. Chest CT revealed mild pleural effusion without evidence of pulmonary embolism. At the present time, she denies any chest discomfort. PAST MEDICAL HISTORY: Chronic atrial fibrillation, hepatitis C, hypertension, hyperlipidemia, history of left leg DVT and pulmonary embolism, chronic anemia, and chronic kidney disease. PAST SURGICAL HISTORY: Cholecystectomy, and bilateral cataract removal. MEDICATIONS: 1. Atenolol 75 mg daily,. 2. Eliquis 5 mg b.i.d. 3. Digoxin 0.125 daily. 4. Nexium 20 daily. 5. Slow release iron 142 daily. 6. Lasix 40 mg daily. 7. Multivitamin daily. ALLERGIES: SULFA AND TRIMETHOPRIM. SOCIAL HISTORY: She does not smoke or drink. REVIEW OF SYSTEMS: A 12-point review of systems is otherwise unremarkable. PHYSICAL EXAMINATION: VITAL SIGNS: Blood pressure 131/89, pulse of 112, atrial fibrillation. HEENT: PERRL. NECK: Supple. CHEST: Clear. CARDIAC: S1 and S2 were normal. ABDOMEN: Obese, normal bowel sounds. No tenderness. EXTREMITIES: Revealed no clubbing, cyanosis, or edema. NEUROLOGIC: Grossly intact. SKIN: Warm and dry. LABORATORY DATA: EKG reveals atrial fibrillation with rapid ventricular response with incomplete right bundle-branch block. Possible anterior ischemia. Troponin I is up to 8.481. Hemoglobin 8.2, hematocrit 28.9, platelets 331,000. D-dimer 0.83. BNP 474.1. Sodium 135, potassium 3.6, chloride 104, carbon dioxide 17, BUN 13, creatinine 1.07. Digoxin less than 0.15. IMPRESSION: 1. Noncompliance with medications - the patient freely admits that she probably forgets to take medicines and her digoxin level was not detectable. 2. Possible pneumonia. 3. Chronic atrial fibrillation now with rapid ventricular response. 4. Possible isk-KP-bdazueqas myocardial infarction versus demand ischemia for prolonged tachycardia. 5. Hypertension. 6. Hypercholesterolemia. 7. Chronic hepatitis C. 8. Acid reflux. 9. History of left leg deep venous thrombosis. 10. Pulmonary embolism. 11. Anemia-possible iron deficiency. PLAN: The patient will be continued on antibiotics. Digoxin level will be checked in the morning. With her significant elevated troponin I, consideration needs to be given to cardiac catheterization at sometime. I therefore will discontinue her Eliquis, instead place her on Lovenox in case catheterization is contemplated in 2 to 3 days. Job ID: [id number] [facility]
[2019-01-03] MEDS: Diltiazem 125 MG in Sodium Chloride 0.9% 100 ML IVPB SCH (01:02)
[2019-01-03 06:43] LABS: Band 7 % (5-11); Hemoglobin 8.8 g/dL (12.0-16.0); Hypochromia MODERATE=16-30 cells (100X) (0-5/hpf); Lymphocytes 4 % (21-51); MDiff Complete? YES; Mean Corpuscular Hemoglobin 19.2 pg (27.0-31.0); Mean Corpuscular Volume 68.5 fL (78.0-98.0); Mean Platelet Volume 10.8 fL (7.4-10.4); Microcytosis MODERATE=15-30 cells (100X) (0-5/hpf); Monocytes 5 % (0-10); Neutrophil 84 % (42-75); Ovalocytes SLIGHT = 2-5 cells (100X) (0-1/hpf); Platelet Count 315 thou/uL (130-400); Platelet Morphology Comment Appears Adequate; RBC Distribution Width 18.5 % (11.5-14.5); Red Blood Cell (RBC) Count 4.57 mill/uL (4.20-5.40); Reflex for Review?? NO
[2019-01-03 06:48] LABS: Anion Gap 15 mmol/L (10-20); BUN (Urea Nitrogen) 11 mg/dL (9.8-20.1); Calc. Creatinine Clearance 71 mL/min (70-130); Carbon Dioxide 19 mmol/L (23-31); Chloride 103 mmol/L (98-107); Estimated GFR-MDRD 71; Glucose 115 mg/dL (83-110); Potassium 3.9 mmol/L (3.5-5.1); Sodium 133 mmol/L (136-145)
[2019-01-03 06:51] LABS: Digoxin 1.35 ng/mL (0.8-2.0)
[2019-01-03 08:46] LABS: Iron 18 ug/dL (50-170); Iron Binding Capacity, Total 473 mcg/dL (265-497)
[2019-01-03] MEDS ORDERED: Aspirin 325 mg Enteric Coated Tablet PO SCH (09:00)
[2019-01-03] MEDS ORDERED: Atenolol 50 MG TAB PO SCH (09:00)
[2019-01-03 10:03] LABS: Reticulocyte Count 2.7 % (0.5-1.5)
--- NOTE | 2019-01-03 10:23 | PRG ---
DATE OF SERVICE: 01/03/2019 SUBJECTIVE: The patient is seen and examined at the bedside. She is wheezing. She feels weak. She feels short of breath. She does not have much appetite. OBJECTIVE: VITAL SIGNS: Blood pressure is 128/79, pulse is 110 to 120s and she is in atrial fibrillation on the monitor. Temperature is 98.7, that is maximal temperature. She is on 5 L by nasal cannula. O2 saturation is 91%, respiratory rate is 25. HEENT: Her head is atraumatic and normocephalic. Eyes are PERRLA. Sclerae are nonicteric. Oral mucosa is moist. NECK: Supple. LUNGS: Rales and wheezes mainly in the right middle part of the right lung. HEART: S1 and S2. Irregularly irregular. Tachycardiac. ABDOMEN: Soft, nontender, nondistended. Bowel sounds are present. No organomegaly. EXTREMITIES: No clubbing, cyanosis, or edema. NEUROLOGICAL: She is following my commands. She moves all 4 extremities. There are no any motor or sensory deficits. LABORATORY DATA: Labs showed white count of 14.0, hemoglobin 8.8, hematocrit 31.3, platelet count is 315, MCV is 68.5, 7 bands. Sodium of 133, potassium 3.9, chloride 103, CO2 of 19, BUN 11, creatinine 0.78, glucose 115, calcium 9.0. Two troponin I 5.142 and 8.481 and digoxin 1.35. Microbiology, nothing so far. IMPRESSION: 1. Atrial fibrillation with rapid ventricular response. The patient is on Cardizem drip and beta-radha. Her heart rate is still above 100. She will have atenolol this morning at 9 o'clock, so hopefully this is going to help us to control her rate. Her Eliquis is stopped by boat hoist operator helper, who is planning to do cardiac catheterization on her in the next 48 hours. 2. Questionable pneumonia. We will continue antibiotics for now. She is going to be started on DuoNeb this morning, and we will await until culture comes back and we will assess her pulmonary status daily. 3. Mvt-EM-zuywrkgzc myocardial infarction. 4. Acute hypoxic respiratory failure. 5. Chronic anticoagulation. 6. Hypertension. 7. Hypercholesterolemia. 8. Chronic hepatitis C. 9. History of deep venous thrombosis of the left leg. 10. History of pulmonary embolism. 11. Anemia, for diagnostic workup. PLAN: We are going to do retic count. We will check her iron studies. Since she has microcytic anemia, we will do occult blood on her stool. Continue her Cardizem drip and beta-radha. Continue antibiotics. Start her on DuoNebs and she is switched to subcutaneous Lovenox, and she will be most likely scheduled for cardiac catheterization in the next 48 hours. Job ID: [id number]
[2019-01-03] MEDS: cefTRIAXone\\ROCEPHIN 2 GM in Sodium Chloride 0.9% 100 ML IVPB SCH (10:44)
[2019-01-03] MEDS: Enoxaparin Sodium 80 MG/0.8 ML SYRINGE SC SCH ×2 (10:44→20:01)
[2019-01-03] MEDS: Ferrous Sulfate 325 MG TAB PO SCH (10:45)
[2019-01-03] MEDS: Digoxin 0.125 MG TAB PO SCH (10:45)
[2019-01-03] MEDS: Furosemide 40 MG TAB PO SCH (10:46)
[2019-01-03] MEDS: Azithromycin 500 MG in Sodium Chloride 0.9% 250 ML 250 ML IVPB SCH (10:46)
[2019-01-03] MEDS: Aspirin 81 mg Enteric Coated Tablet PO SCH (10:46)
--- NOTE | 2019-01-03 13:39 | PRG ---
DATE OF SERVICE: 01/03/2019 SUBJECTIVE: Charity is very anxious to get some short of breath. She pushed herself up in bed. Her atrial fibrillation rate went up into the high 120s with that when she became tachypneic and anxious. I stayed in the room with her for about 15 minutes. She gradually calmed down as her heart rate came down. I have put in a p.r.n. for low dose of alprazolam to help with these episodes. She is still in atrial fibrillation by the monitor. OBJECTIVE: VITAL SIGNS: She is afebrile, blood pressure 132/81, and respiratory rate in the teens. LUNGS: Once she calmed down, she has crackles in both lung bases. HEART: Irregularly irregular. ABDOMEN: Soft and nontender. EXTREMITIES: Without edema. LABORATORY DATA: Intake and outputs not recorded from yesterday to today. Hemoglobin is 8.8 g today. Sodium 133, potassium 3.9, chloride 103, bicarb 19, BUN 11, creatinine 0.78, and glucose 115. Hemoglobin was 8.2 g yesterday. IMPRESSION: 1. Rapid atrial fibrillation with pulmonary edema. 2. Anemia. 3. Myocardial infarction with her episode of rapid atrial fibrillation with chest discomfort. 4. History of severe sigmoid diverticulosis and internal hemorrhoids. 5. History of hypothyroid C. 6. History of hypertension. 7. History of deep venous thrombosis and pulmonary embolism. PLAN: We will continue to keep her in the intermediate care unit. She is chest pain free at this time. I suspect with rate control, she will gradually improve. She needs intake and output recorded. Anxiolytics may help. Job ID: [id number]
[2019-01-03] MEDS: Famotidine 20 MG TAB PO SCH (20:02)
[2019-01-03] MEDS: ALPRAZolam 0.25 MG TAB PO PRN (20:02)
[2019-01-03] MEDS: Famotidine/PF 20 mg/2ml Vial SLOW IVP SCH (20:03)
[2019-01-04] MEDS: Diltiazem 125 MG in Sodium Chloride 0.9% 100 ML IVPB SCH (03:12)
[2019-01-04] MEDS: Acetaminophen 500 MG TAB PO PRN (04:24)
[2019-01-04 04:54] LABS: #Lymphocytes 0.9 thou/uL (1.20-3.40); #Monocytes 0.8 thou/uL (0.11-0.59); #Neutrophils 11.1 thou/uL (1.40-6.50); %Basophils 0.2 % (0.0-1.0); %Eosinophils 0.1 % (0.0-10.0); %Lymphocytes 6.6 % (21.0-51.0); %Monocytes 6.6 % (0.0-10.0); %Neutrophils 86.5 % (42.0-75.0); Mean Corpuscular HGB CONC 28.2 g/dL (32.0-36.0); Mean Corpuscular Volume 67.2 fL (78.0-98.0); Mean Platelet Volume 11.4 fL (7.4-10.4); Platelet Count 261 thou/uL (130-400); RBC Distribution Width 18.5 % (11.5-14.5); White Blood Cell (WBC) Count 12.8 thou/uL (4.8-10.8)
[2019-01-04 05:17] LABS: Cardiac Risk 2.7 (Less than 4.5)
[2019-01-04] MEDS: Digoxin 0.125 MG TAB PO SCH (09:59)
[2019-01-04] MEDS: ALPRAZolam 0.25 MG TAB PO PRN ×2 (10:00→20:45)
[2019-01-04] MEDS: Ferrous Sulfate 325 MG TAB PO SCH (10:01)
[2019-01-04] MEDS: Aspirin 81 mg Enteric Coated Tablet PO SCH (10:01)
[2019-01-04] MEDS: Furosemide 40 MG TAB PO SCH (10:01)
[2019-01-04] MEDS: Atenolol 50 MG TAB PO SCH (10:02)
[2019-01-04] MEDS: cefTRIAXone\\ROCEPHIN 2 GM in Sodium Chloride 0.9% 100 ML IVPB SCH (10:02)
--- NOTE | 2019-01-04 10:14 | RAD ---
XR Chest 1 View Portable HISTORY: 01/02/2019. COMPARISON: 01/02/2019 study FINDINGS: Heart size is enlarged. There is been development of pleural and parenchymal changes in the right lung base new as compared to previous chest x-ray. Minimal blunting to the left costophrenic angle seen. IMPRESSION: Right-sided pleural effusion with right lower lobe parenchymal changes probably infiltrat e rather than atelectasis.
--- NOTE | 2019-01-04 11:20 | PDOC.PN ---
- Subjective Encounter Start Date: 01/04/19 Encounter Start Time: 11:19 Ms. Nash was seen today in follow-up of acute respiratory distress. she is a bit short of breath. She denies chest pain. - Objective Resuscitation Status - Order Detail: 01/02/19 11:49 Resuscitation Status Routine Resuscitation Status: FULL: Full Resuscitation MAR Reviewed: Yes Vital Signs & Weight: Vital Signs (12 hours) Temp Pulse Resp Pulse Ox 01/04/19 10:34 98.2 F 01/04/19 10:02 85 01/04/19 09:59 100 01/04/19 08:00 94 L 01/04/19 07:00 98.2 F 85 20 01/04/19 03:31 97.9 F Weight Weight 168 lb 13.985 oz Most Recent Monitor Data Heart Rate from ECG 95 NIBP 115/64 NIBP BP-Mean 81 Respiration from ECG 21 SpO2 100 I&O: 01/03/19 01/04/19 01/05/19 06:59 06:59 06:59 Intake Total 600 1387.5 Output Total 250 850 Balance 350 537.5 Result Diagrams: 01/04/19 04:06 01/03/19 04:43 Phys Exam - Physical Examination HEENT: PERRLA Respiratory: wheezing present + bilateral wheezing, + rales at the bases Cardiovascular: RRR, no significant murmur, no rub Gastrointestinal: soft, non-tender, no distention, positive bowel sounds Musculoskeletal: pulses present, edema present + trace pedal edema Dx/Plan (1) Acute respiratory failure with hypoxemia Code(s): J96.01 - ACUTE RESPIRATORY FAILURE WITH HYPOXIA Status: Acute (2) Bilateral pneumonia Code(s): J18.9 - PNEUMONIA, UNSPECIFIED ORGANISM Status: Acute (3) NSTEMI (non-ST elevated myocardial infarction) Code(s): I21.4 - NON-ST ELEVATION (NSTEMI) MYOCARDIAL INFARCTION Status: Acute (4) New onset a-fib Code(s): I48.91 - UNSPECIFIED ATRIAL FIBRILLATION Status: Acute (5) Hypertension Code(s): I10 - ESSENTIAL (PRIMARY) HYPERTENSION Status: Chronic (6) Iron deficiency anemia Code(s): D50.9 - IRON DEFICIENCY ANEMIA, UNSPECIFIED Status: Acute - Plan * Acute respiratory failure with hypoxemia- improving * Bilateral Pneumonia- continue Rocephin and Azithromycin- chest X- Ray is pending- PCCM following * AFIB- her heart rate is controlled * Iron deficiency anemia- her iron level is low, but will also check a ferritin level, as well as stool for occult blood * GI consult has been placed by Dr. Vazquez * NSTEMI- plan is for cardiac cath once anemia has been evaluated * HTN- blood pressure is .
--- NOTE | 2019-01-04 12:58 | PQF ---
CLINICAL DOCUMENTATION IMPROVEMENT CLARIFICATION FORM: ICD-10 Updated PLEASE DO AN ADDENDUM TO THE PROGRESS NOTE WITH ANY DOCUMENTATION UPDATES OR ADDITIONS AND CARRY THROUGH TO DC SUMMARY. THANK YOU. DATE: 01/04/19 ATTN: DR. GARAY Please exercise your independent, professional judgment in responding to the clarification form. Clinical indicators are provided on the bottom of this form for your review Please check appropriate box(es): [ ] Sepsis due to: (Pna, UTI, gangrenous gall bladder, etc.) Due to: [ ] Device (please specify) [ ] Implant [ ] Graft [ ] Infusion [ ] SIRS due to non-infectious process (please specify etiology) [ ] with organ dysfunction [ ] without organ dysfunction [ ] Severe sepsis with acute organ dysfunction of: (Examples: respiratory failure, encephalopathy, acute kidney failure, other) [ ] Septic Shock [ ] Localized infection without sepsis [ ] Other diagnosis [ X] Unable to determine Will need more clinical information as her hospital course proceeds, so far sepsis is unlikely In addition, please specify: Present on Admission (POA): [ ] Yes [ ] No [ X ] Unable to determine For continuity of documentation, please document condition throughout progress notes and discharge summary. Thank You. CLINICAL INDICATORS - SIGNS / SYMPTOMS / LABS ER NOTE: "SEPSIS" PULSE 162 RR 26 WBC 14.0 LACTIC ACIDOSIS 2.3 RISKS: PNEUMONIA TREATMENT: IV AZITHROMYCIN (ER-PRESENT) IV ROCEPHIN (ER-PRESENT) CARDIAC MONITORING BLOOD CULTURES [employer] Win[employer] Viewer (This form is maintained as a part of the permanent medical record) 2014 [employer]. All Rights Reserved [email or web address] [email or web address] Office: [phone] [facility]
[2019-01-04] MEDS: Azithromycin 500 MG in Sodium Chloride 0.9% 250 ML 250 ML IVPB SCH (13:05)
--- NOTE | 2019-01-04 13:13 | PQF ---
CLINICAL DOCUMENTATION IMPROVEMENT CLARIFICATION FORM: ICD-10 Updated PLEASE DO AN ADDENDUM TO THE PROGRESS NOTE WITH ANY DOCUMENTATION UPDATES OR ADDITIONS AND CARRY THROUGH TO DC SUMMARY. THANK YOU. DATE: 01/04/19 ATTN : DR. GARAY Please exercise your independent, professional judgment in responding to the clarification form. Clinical indicators are provided on the bottom of this form for your review Please check appropriate box(s) to clarify if the following diagnosis has been ruled in or ruled out: "NSTEMI" [ X ] Ruled in diagnosis [ X ] Continue to treat [ ] Resolved [ ] Ruled out diagnosis [ ] Other diagnosis [ ] Unable to determine In addition, please specify: Present on Admission (POA): [X ] Yes [ ] No [ ] Unable to determine For continuity of documentation, please document condition throughout progress notes and discharge summary. Thank You. CLINICAL INDICATORS - SIGNS / SYMPTOMS / LABS H&P: "NON-ST ELEVATION MYOCARDIAL INFARCTION. ELEVATED TROPONIN I IN THE CONTEXT OF ATRIAL FIBRILLATION WITH RAPID VENTRICULAR RESPONSE." CONSULTATION NOTE (PULMONARY): "RAPID ATRIAL FIBRILLATION WITH A TROPONIN RELEASE ASSOCIATED WITH THAT AND MILD INTERSTITIAL EDEMA." CONSULTATION NOTE (CARDIOLOGY): "POSSIBLE NON-ST ELEVATION MYOCARDIAL INFARCTION VERSUS DEMAND ISCHEMIA FOR PROLONGED TACHYCARDIA." PROGRESS NOTE 01/04: "NSTEMI, ACUTE" TROPONINS 2.751 / 5.142 / 8.481 RISKS: ATRIAL FIBRILLATION TREATMENT: CARDIAC MONITORING SERIAL LABS CARDIOLOGY CONSULT ECOTRIN (01/03-PRESENT) (This form is maintained as a part of the permanent medical record) 2014 [employer]. All Rights Reserved [email or web address] Office: [phone] [facility]
--- NOTE | 2019-01-04 13:29 | PQF ---
CLINICAL DOCUMENTATION IMPROVEMENT CLARIFICATION FORM: ICD-10 Updated PLEASE DO AN ADDENDUM TO THE PROGRESS NOTE WITH ANY DOCUMENTATION UPDATES OR ADDITIONS AND CARRY THROUGH TO DC SUMMARY. THANK YOU. DATE: 01/04/19 ATTN: DR. GARAY Please exercise your independent, professional judgment in responding to the clarification form. Clinical indicators are provided on the bottom of this form for your review Please check appropriate box(s): Conflicting documentation was noted in the Medical Record, please clarify if patient is being treated/monitored for: [ ] PNEUMONIA [ ] INTERSTITIAL EDEMA [ ] Other diagnosis [ X ] Unable to determine In addition, please specify: Present on Admission (POA): [ ] Yes [ ] No [X ] Unable to determine Ham Smoker states in his most recent note that he doubts the X-ray findings are due to pneumonia For continuity of documentation, please document condition throughout progress notes and discharge summary. Thank You. CLINICAL INDICATORS - SIGNS / SYMPTOMS/ LABS H&P: "PNEUMONIA" CONSULTATION NOTE (PULMONARY): "...MILD INTERSTITIAL EDEMA. I DO NOT FEEL SHE HAS PNEUMONIA" PROGRESS NOTE 01/04: "BILATERAL PNEUMONIA" CHEST XRAY 01/04: "RIGHT-SIDED PLEURAL EFFUSION WITH RIGHT LOWER LOBE PARENCHYMAL CHANGES PROBABLY INFILTRATE RATHER THAN ATELECTASIS." WBC 14.0 RISKS: SHORTNESS OF BREATH ELEVATED HEART RATE TREATMENT: SUPPLEMENTAL OXYGEN PULMONARY CONSULT IV AZITHROMYCIN (ER-PRESENT) IV ROCEPHIN (ER-PRESENT) DUONEBS (01/03-PRESENT) (This form is maintained as a part of the permanent medical record) 2014 [employer]. All Rights Reserved [email or web address] [email or web address] Office: [phone] [facility]
--- NOTE | 2019-01-04 16:23 | PRG ---
DATE OF SERVICE: 01/04/2019 SUBJECTIVE: I saw Ms. Nash today with the daughter in the room. Apparently , Ms. Nash sundowns at home, has been diagnosed with dementia. She sundowned last night and was verbally aggressive toward the nurses this morning. OBJECTIVE: VITAL SIGNS: She is afebrile, heart rate is 84, respiratory rate is 20, oximetry is 87% when her oxygen is off of her. I have put back on her and she comes up to 93% to 94% on her nasal cannula. LUNGS: Remarkable for distant breath sounds at the right base. Left lung is clear. HEART: Irregular rhythm. She is still in atrial fibrillation by monitor. Rate in the 90s. ABDOMEN: Soft and nontender. EXTREMITIES: Without edema. LABORATORY DATA: White count 12.8, hemoglobin 8.0, platelets 261. Sodium 133, potassium 3.9, chloride 103, bicarb 19, BUN 11, and creatinine 0.78. IMPRESSION: 1. Rapid atrial fibrillation associated with chest pain and a troponin that peaked at 8. 2. Dementia with sundowning. 3. Right pleural effusion, which I suspect is related to rapid atrial fibrillation. She is asymptomatic at this time. She has had no fever. I have obtained consent for thoracentesis from the daughter, but I will reassess her tomorrow. This may be manageable conservatively. 4. Anemia? Slow gastrointestinal blood loss on full-dose Lovenox at this time. PLAN: I still doubt clinically that she has a pneumonia. I will switch her to p.o. antibiotics. Reassess her clinically in the morning. Consider thoracentesis. Certainly if she develops respiratory distress, I would recommend this, but I doubt she has an empyema or parapneumonic effusion. Job ID: [id number] MTDD
[2019-01-04] MEDS ORDERED: Iron, Sodium Ferric Gluconate 250 MG in Sodium Chloride 0.9% 100 ML IVPB SCH (19:15)
--- NOTE | 2019-01-05 02:36 | CON ---
DATE OF CONSULTATION: CONSULTING PHYSICIAN: Ravinder Vazquez MD, Cardiology. REASON FOR CONSULTATION: Documented iron-deficiency anemia and recurrent admission with AFib with RVR. HISTORY OF PRESENT ILLNESS: Ms. Nash is a 78-year-old female, some mild dementia, history of AFib with intermittent admissions for rapid ventricular rate, and dyspnea, and anemia in the last two years, which has been more prevalent since she started anticoagulation for history of PE in the past and her AFib. She got admitted on the 6th two days ago for shortness of breath and chest pain, which are now resolved. She has chronic reflux and took some AcipHex, but it really did not improve her symptoms. In the emergency room, she was found to have AFib with rapid ventricular response, heart rate in 150s, and she was given digoxin and Cardizem infusion, and her heart rate has come under control. She also had a CT scan of the chest with her prior history of PEs and had no evidence of PE, but did have bilateral effusions. Her Eliquis has been held as her hemoglobin was 8 on admission and she has low MCV of 64. Her hemoglobin had been 10 back on 11/28, but it was as low as 6.2 back in 10/2017. She has had documented iron deficiency on labs. Stool occult blood was positive last year in October and in 2016, it had been negative. When she was seen by our group in October of 2017, she underwent upper endoscopy with some fundic gland polyps, which related to her PPI use, but no stigmata of bleeding were seen. Attempted colonoscopy was unsuccessful as she had fairly severe sigmoid disease and this could not be traversed. A barium enema was done that showed irregular areas in the sigmoid colon, which were felt to be nonspecific. I have asked to re-evaluate her as she may need some cardiac intervention and Cardiology would like to clarify the source of her iron-deficiency anemia before intervening vascularly, which may require other anticoagulants or other antiplatelet therapy. The patient's daughter is in the room, she states she has been doing a little better today, but she did have some sundowning, confusion last night, early this morning she was little combative. She is very sleepy today, but arousable. Reading Dr. Wilkes's note, there has been issues with hypoxemia. I did not feel she needed thoracentesis, but was keeping her on oxygen because when her oxygen comes off, her O2 saturation is about 87%. The daughter states that the patient lives with her at home. There has been no history of bleeding. She does have a history of anorexia and nausea at times and severe reflux where she takes a PPI. PAST MEDICAL HISTORY: Remote history hepatitis C with positive PCR in 2017. It is unclear if she has been treated or not. She has atrial fibrillation and is chronically anticoagulated with Eliquis. History recurrent UTIs. Hypertension. DVT and pulmonary embolus in 2017, on chronic anticoagulation. Chronic anemia with microcytic indices and low iron. Chronic renal insufficiency. PAST SURGICAL HISTORY: Cholecystectomy, upper and lower endoscopies in October of 2017, colonoscopy was incomplete secondary to diverticular disease, previous cholecystectomy, history of bilateral cataract removals. HOME MEDICATIONS: At home her daughter states, she is on: 1. Rabeprazole. 2. Docusate. 3. Digoxin. ALLERGIES: BACTRIM AND MULTAQ. FAMILY HISTORY: Hypertension. Negative for liver disease or colon malignancy. SOCIAL HISTORY: The patient is . She lives at home with her . Her daughter is here at the bedside. There is no history of alcohol, drugs, or tobacco use now. She used to drink some alcohol in the remote past. REVIEW OF SYSTEMS: She has had some issues with dementia and confusion at times, but usually does well at home. She has no issues with rash. She has had some chronic issues with nausea and anorexia at times and reflux. She has no dysphagia or odynophagia. She has had no melena, hematochezia, hematemesis, or overt bleeding. There has been no history of edema in the legs or swelling or ascites. There has been no history of cirrhosis. PRESENT MEDICATIONS: Here, 1. Tylenol. 2. DuoNeb. 3. Xanax. 4. Ecotrin. 5. Tenormin. 6. Lanoxin. 7. Diltiazem. 8. Pepcid. 9. Ferrous sulfate. 10. Lasix. 11. Hydrocodone. 12. Levofloxacin. 13. Nitroglycerin. 14. Zofran. 15. Seroquel p.r.n. 16. She is on a low-salt diet. PHYSICAL EXAMINATION: VITAL SIGNS: Temperature 98, . GENERAL: She is a little bit confused. She coughs when I asked to take her deep breaths and has difficult time stopping. She has decreased breath sounds on the right, but on the left, there is slight expiratory wheeze. HEART: Irregular rate and rhythm. ABDOMEN: Soft and nontender. There is no palpable hepatomegaly. EXTREMITIES: No clubbing, cyanosis, or edema. IMAGING STUDIES: CT scan report reviewed. Chest x-ray today showed pleural effusion. ASSESSMENT: This is a 78-year-old female who has had anemia on and off over time, but she said she has been on blood thinners since her pulmonary emboli, she has had worsened anemia, she has microcytosis and documented iron deficiency. She has chronic reflux, but is on a PPI. She has had a recent EGD last years, which showed fundic gland polyps, no source of blood loss that was in October 2017. She has had no overt signs of gastrointestinal hemorrhage, but again presents with fairly significant anemia and atrial fibrillation with rapid ventricular response with some component of heart failure. Cardiology is concerned that she had elevated troponin on admission of 8, considering cardiac catheterization. She likely had some ischemia when she came in. With regard to her anemia, she did have attempted colonoscopy last year as well, but due to severe diverticular disease, the colonoscopy could not be completed, even with a small scope. A barium enema was performed, which is suboptimal. There was irregularity noted in the colon, the sigmoid colon, very minimal, there is not much more to be said about it now. I have talked with Dr. Vazquez this evening and feels that she is pretty stable from a cardiac standpoint, and would like to like to get her GI tract evaluated more fully if possible. Understands the possible limitations that encountered last time, but it may make a difference in plan of treatment or maybe her anticoagulation dosing, but is little bit reluctant to proceed with cardiac catheterization without fully knowing the issues with her anemia. PLAN: At this time, with her respiratory status and needing 5 L nasal cannula and desaturation, pretty significantly without oxygen, I think she is probably at prohibitive respiratory risk. She is on some diuretics. We will see if that improves in the next couple of days. I am not sure what we are going to gain by repeating a colonoscopy or may be the second attempt will be successful in traversing the area or may find something else there that explains her anemia. If she would have malignancy, this may be clarified the goals of her treatment with her family, but I am not sure if the findings on this are going to change her risk of bleeding with further anticoagulation and antiplatelet therapy and it is pretty well documented at this time that she is going to lose blood from her gastrointestinal tract. We will talk with Dr. Wilkes, singe machine operator, to see if she can again see for endoscopy and risks. I think she is very high risk right now and with her mild dementia, she is experiencing owning, I am not sure she will be able to complete a prep this evening anyway. We will re-evaluate her tomorrow, talk with pulmonology. It may be reasonable to give her some intravenous iron in the meantime. Job ID: [id number]
[2019-01-05 05:07] LABS: #Basophils 0.1 thou/uL (0.0-0.2); #Eosinphils 0.6 thou/uL (0.0-0.7); #Lymphocytes 1.1 thou/uL (1.20-3.40); #Neutrophils 7.4 thou/uL (1.40-6.50); %Basophils 0.6 % (0.0-1.0); %Eosinophils 6.1 % (0.0-10.0); %Lymphocytes 10.8 % (21.0-51.0); %Neutrophils 72.6 % (42.0-75.0); Hemoglobin 7.9 g/dL (12.0-16.0); Mean Corpuscular HGB CONC 29.2 g/dL (32.0-36.0); Mean Corpuscular Hemoglobin 19.5 pg (27.0-31.0); Mean Platelet Volume 11.6 fL (7.4-10.4); Platelet Count 267 thou/uL (130-400); RBC Distribution Width 18.6 % (11.5-14.5); Red Blood Cell (RBC) Count 4.06 mill/uL (4.20-5.40); White Blood Cell (WBC) Count 10.2 thou/uL (4.8-10.8)
[2019-01-05] MEDS: ALPRAZolam 0.25 MG TAB PO PRN ×2 (06:23→20:37)
--- NOTE | 2019-01-05 08:02 | RAD ---
Chest AP view INDICATION: Pneumonia COMPARISON: January 04, 2019 FINDINGS: Tubes and Lines: Stable. Lungs:There are bilateral pleural parenchymal opacities, right greater than left. The opacity within the left lung base has worsened. Cardiac silhouette pulmonary vasculature:There is persisting cardiomegaly. There is worsening pulmona ry vascular congestion. There is worsening interstitial edema pattern. Pleural spaces: There are worsening bilateral pleural effusions Upper abdomen:No abnormality seen. Osseous structures: No acute abnormality. IMPRESSION: Worsening bilateral pleural-parenchymal opacities with worsening cardiomegaly and pulmona ry vascular congestion suspicious for worsening CHF
[2019-01-05] MEDS ORDERED: Pantoprazole 40 MG VIAL IVP SCH (09:00)
[2019-01-05] MEDS: Digoxin 0.125 MG TAB PO SCH (09:19)
[2019-01-05] MEDS: Atenolol 50 MG TAB PO SCH (09:19)
[2019-01-05] MEDS: Aspirin 81 mg Enteric Coated Tablet PO SCH (09:19)
[2019-01-05] MEDS: Furosemide 40 MG TAB PO SCH (09:19)
--- NOTE | 2019-01-05 09:42 | PDOC.PN ---
- Subjective Encounter Start Date: 01/05/19 Encounter Start Time: 09:40 Ms. Nash was seen today in follow-up of Respiratory failure and AFIB. She says she really isn't awake enough to be able to tell how she feels. - Objective Resuscitation Status - Order Detail: 01/02/19 11:49 Resuscitation Status Routine Resuscitation Status: FULL: Full Resuscitation MAR Reviewed: Yes Vital Signs & Weight: Vital Signs (12 hours) Temp Pulse Resp BP Pulse Ox 01/05/19 09:19 122 H 104/70 01/05/19 07:13 98.1 F 01/05/19 07:08 99 01/05/19 07:05 107 H 24 H 99 01/05/19 04:00 97.4 F L 01/05/19 00:00 98.8 F Weight Weight 168 lb 13.985 oz Most Recent Monitor Data Heart Rate from ECG 98 NIBP 119/73 NIBP BP-Mean 88 Respiration from ECG 40 SpO2 100 I&O: 01/04/19 01/05/19 01/06/19 06:59 06:59 06:59 Intake Total 1387.5 1450 Output Total 850 875 Balance 537.5 575 Result Diagrams: 01/05/19 04:00 01/03/19 04:43 Phys Exam - Physical Examination HEENT: PERRLA Respiratory: wheezing present Cardiovascular: RRR, no significant murmur, no rub Gastrointestinal: soft, non-tender, no distention, positive bowel sounds Musculoskeletal: no edema, pulses present Dx/Plan (1) Acute respiratory failure with hypoxemia Code(s): J96.01 - ACUTE RESPIRATORY FAILURE WITH HYPOXIA Status: Acute (2) Bilateral pneumonia Code(s): J18.9 - PNEUMONIA, UNSPECIFIED ORGANISM Status: Acute (3) NSTEMI (non-ST elevated myocardial infarction) Code(s): I21.4 - NON-ST ELEVATION (NSTEMI) MYOCARDIAL INFARCTION Status: Acute (4) New onset a-fib Code(s): I48.91 - UNSPECIFIED ATRIAL FIBRILLATION Status: Acute (5) Hypertension Code(s): I10 - ESSENTIAL (PRIMARY) HYPERTENSION Status: Chronic (6) Iron deficiency anemia Code(s): D50.9 - IRON DEFICIENCY ANEMIA, UNSPECIFIED Status: Acute - Plan * Acute respiratory failure with hypoxemia- slowly improving * Possible Pneumonia- she has been changed to Levaquin * AFIB- her heart rate is elevated- she is on Metoprolol- await further recommendations from Cardiology * HTN- blood pressure is controlled * NSTEMI- plan is for cardiac cath, after GI work-up for anemia complete * Iron deficiency anemia- GI recommendations noted, would like to await better respiraory status before proceeding with Colonoscopy. She was given IV iron yesterday
[2019-01-05] MEDS ORDERED: Fluticasone Propionate Nasal Spray 16 gm Bottle NASAL SCH (10:15)
--- NOTE | 2019-01-05 11:22 | PRG ---
DATE OF SERVICE: 01/05/2019 SUBJECTIVE: Charity is confused, but was apparently more cooperative and less combative last night and early this morning. Still intermittently having rapid atrial fibrillation. OBJECTIVE: VITAL SIGNS: Blood pressure 104/70, respiratory rate 18. GENERAL: She is lying upright in bed. LUNGS: Remarkable for decreased breath sounds at the right base. HEART: Regular rhythm. ABDOMEN: Soft. EXTREMITIES: Without edema. Intake and output positive 575. LABORATORY STUDIES: Hemoglobin is 7.9 now, white count 10.2. Creatinine 0.78, potassium is 3.9. IMPRESSION: 1. Rapid atrial fibrillation. 2. Deconditioning. 3. Dementia with mild exacerbation of her symptoms while she is in the hospital. 4. Right pleural effusion, most likely secondary to rapid atrial fibrillation. 5. Blood loss anemia that is chronic, probably ended up needing a transfusion here within the next 24 to 48 hours. 6. Seen by Gastroenterology yesterday. I would agree with no invasive workup at this time as the risk with sedation is significant. 7. I agree that she probably would not tolerate bowel prep. 8. She needs to be kept in a little bit of a negative fluid balance at this time, if we can. 9. We will continue to follow. I do not feel thoracentesis is indicated at this time. Job ID: [id number]
--- NOTE | 2019-01-05 16:25 | PRG ---
DATE OF SERVICE: 01/05/2019 SUBJECTIVE: Ms. Nash, on talking with the nurses, she did have confusion last night. Again, she was given some Seroquel, but she is a little bit more or less combative and more cooperative. She has been in and out of atrial fibrillation on her x-ray. She states she feels like she is breathing a little bit better. OBJECTIVE: VITAL SIGNS: Temperature 98, pulse 102 to 118, respirations 18, O2 saturation . In's and out's slightly positive. LUNGS: Still decreased breath sounds in the bases, especially on the right. ABDOMEN: Soft and nontender with no rebound or guarding. LABORATORY STUDIES: Ferritin was 19 yesterday. Hemoglobin is 7.9 today, white count is 10.2, platelet count is 267. IMAGING STUDIES: Chest x-ray, 01/05/2019, at 6 a.m. showed worsening bilateral effusions, cardiomegaly, and pulmonary edema. ASSESSMENT: Iron deficiency anemia. She was not able to have a complete colonoscopy last year secondary to severe diverticular disease and poor prep. Her barium enema showed no overt other disease. Her EGD was normal. Likely, her anemia is related to chronic loss with related to her anticoagulation as her anemia began to worsen about that same time. I have discussed with the patient's family, cardiology and pulmonology issues with regard to repeating endoscopies at this point in time. I think with the respiratory status, her atrial fibrillation has been fluctuating quite a bit that she would poorly tolerate a bowel prep and it would be unlikely we would see much more than was seen in last year. She will be at an increased risk of perforation with the strictured sigmoid colon. I did explain to the patient and the patient's daughter that any findings really change her overall outcome with her comorbidities of atrial fibrillation, heart failure, and her early dementia, which has been really more prominent display while she has been here in the hospital. She has been positive on fluids in the last 24 hours. We will continue to observe her. She actually responds to the IV iron and if she has improvement in her respiratory and pulmonary status, we will again re-evaluate and consider endoscopy at that time. Job ID: [id number]
[2019-01-06] MEDS: HYDROcodone/Acetaminophen 5/325 mg Tablet PO PRN (01:26)
[2019-01-06] MEDS: ALPRAZolam 0.25 MG TAB PO PRN (01:26)
[2019-01-06] MEDS: Diltiazem 125 MG in Sodium Chloride 0.9% 100 ML IVPB SCH (01:27)
[2019-01-06] MEDS: Ondansetron PF 4 MG/2 ML Vial IVP PRN (04:50)
[2019-01-06] MEDS ORDERED: Promethazine HCl 12.5 MG in Sodium Chloride 0.9% 50 ML IVPB PRN (05:44)
[2019-01-06 06:47] LABS: #Basophils 0.1 thou/uL (0.0-0.2); #Eosinphils 0.7 thou/uL (0.0-0.7); #Lymphocytes 1.6 thou/uL (1.20-3.40); #Monocytes 1.4 thou/uL (0.11-0.59); #Neutrophils 10.9 thou/uL (1.40-6.50); %Basophils 0.6 % (0.0-1.0); %Monocytes 9.3 % (0.0-10.0); %Neutrophils 74.1 % (42.0-75.0); Elliptocytes SLIGHT = 2-5 cells (100X) (0-1/hpf); Hemoglobin 9.2 g/dL (12.0-16.0); MDiff Complete? YES; Mean Corpuscular HGB CONC 28.2 g/dL (32.0-36.0); Mean Corpuscular Hemoglobin 18.9 pg (27.0-31.0); Mean Corpuscular Volume 66.9 fL (78.0-98.0); Mean Platelet Volume 10.4 fL (7.4-10.4); Platelet Count 387 thou/uL (130-400); Polychromasia SLIGHT = 2-3 cells (100X) (0-2/hpf); RBC Distribution Width 19.1 % (11.5-14.5); Red Blood Cell (RBC) Count 4.86 mill/uL (4.20-5.40); White Blood Cell (WBC) Count 14.7 thou/uL (4.8-10.8)
[2019-01-06 06:49] LABS: Microcytosis MODERATE=15-30 cells (100X) (0-5/hpf)
--- NOTE | 2019-01-06 06:59 | RAD ---
CHEST ONE VIEW: INDICATIONS: Pleural effusions. COMPARISON: Prior exam dated 01/05/2019 at 4:32 a.m. FINDINGS/IMPRESSION: There is improvement of the central edema pattern. The moderate prominent right and small left pleur al effusions persist. Pulmonary vascular congestion persists. Cardiomegaly is stable. No pneumotho rax is evident. IMPRESSION: Some improvement in the central edema pattern seen from the comparison examination. POS: BH
[2019-01-06] MEDS: Ferrous Sulfate 325 MG TAB PO SCH ×2 (09:26→16:40)
[2019-01-06] MEDS: Fluticasone Propionate Nasal Spray 16 gm Bottle NASAL SCH (09:27)
[2019-01-06] MEDS: Digoxin 0.125 MG TAB PO SCH (09:27)
[2019-01-06] MEDS: Atenolol 50 MG TAB PO SCH (09:27)
[2019-01-06] MEDS: Aspirin 81 mg Enteric Coated Tablet PO SCH (09:27)
[2019-01-06] MEDS: Furosemide 40 MG TAB PO SCH (09:28)
[2019-01-06] MEDS ORDERED: Furosemide 40 MG/4 ML VIAL SLOW IVP SCH (12:15)
--- NOTE | 2019-01-06 12:15 | PDOC.PN ---
- Subjective Encounter Start Date: 01/06/19 Encounter Start Time: 09:40 Ms. Nash was seen today in follow-up of AFIB and respiratory failure. She was seen immediately after PT. She was only able to stand for a few minutes. She looked very pale, and diaphoretic and had to be laid down. Her heart rate also increased as well. - Objective Resuscitation Status - Order Detail: 01/02/19 11:49 Resuscitation Status Routine Resuscitation Status: FULL: Full Resuscitation MAR Reviewed: Yes Vital Signs & Weight: Vital Signs (12 hours) Temp Pulse Pulse Pulse Resp BP BP 01/06/19 10:35 97.0 F L 01/06/19 09:50 128 H 115 H 128/101 H 125/90 01/06/19 09:27 116 H 01/06/19 08:00 01/06/19 07:13 98.0 F 01/06/19 06:54 122 H 29 H 01/06/19 03:49 98.4 F Pulse Ox Pulse Ox Pulse Ox 01/06/19 10:35 01/06/19 09:50 96 96 01/06/19 09:27 01/06/19 08:00 93 L 01/06/19 07:13 01/06/19 06:54 01/06/19 03:49 Weight Weight 164 lb 10.965 oz Most Recent Monitor Data Heart Rate from ECG 113 NIBP 128/82 NIBP BP-Mean 97 Respiration from ECG 35 SpO2 95 I&O: 01/05/19 01/06/19 01/07/19 06:59 06:59 06:59 Intake Total 1450 1050 Output Total 875 1900 Balance 575 -850 Result Diagrams: 01/06/19 04:58 01/03/19 04:43 Phys Exam - Physical Examination HEENT: PERRLA + occasional rhonchi Cardiovascular: RRR 2/6 systolic heart murmur Gastrointestinal: soft, non-tender, no distention, positive bowel sounds Musculoskeletal: pulses present, edema present Neurological: non-focal Dx/Plan (1) Acute respiratory failure with hypoxemia Code(s): J96.01 - ACUTE RESPIRATORY FAILURE WITH HYPOXIA Status: Acute (2) Bilateral pneumonia Code(s): J18.9 - PNEUMONIA, UNSPECIFIED ORGANISM Status: Acute (3) NSTEMI (non-ST elevated myocardial infarction) Code(s): I21.4 - NON-ST ELEVATION (NSTEMI) MYOCARDIAL INFARCTION Status: Acute (4) New onset a-fib Code(s): I48.91 - UNSPECIFIED ATRIAL FIBRILLATION Status: Acute (5) Hypertension Code(s): I10 - ESSENTIAL (PRIMARY) HYPERTENSION Status: Chronic (6) Iron deficiency anemia Code(s): D50.9 - IRON DEFICIENCY ANEMIA, UNSPECIFIED Status: Acute - Plan * Acute respiratory failure- slowly improving- however she is extremely deconditioned * Volume overload- continue to diurese. * Continue Levaquin for presumed pneumonia * AFIB- her heart rate has been variable- especially with minimal exertion- will defer to Cardiology * Iron deficiency anemia- continue with iron supplementation, and will avoid anticoagulation due to concern for chronic GI bleed * Discussed with Dr. Vazquez, she is not stable enough to undergo cardiac cath now, so will defer this to a later date * Plan is for residential transfer * Discussed with the patient's who is at bedside
--- NOTE | 2019-01-06 15:22 | PRG ---
DATE OF SERVICE: 01/06/2019 SUBJECTIVE: Ms. Nash is still sundowning at night. She had a hydrocodone last night and said she did not want to take anymore of these. OBJECTIVE: VITAL SIGNS: Heart rate is 100 to 120 this morning, respiratory rate is in the 20s, blood pressure 119/87, oximetry is 93% to 94% on a nasal cannula. LUNGS: Remarkable for decreased breath sounds at the right base. HEART: Irregular rhythm. ABDOMEN: Soft. EXTREMITIES: Without edema. LABORATORY DATA: White count 14.7, hemoglobin 9.2, platelets 387. Sodium 133, potassium 3.9, chloride 103, bicarb 19, BUN 11, and creatinine 0.78. IMPRESSION AND PLAN: 1. Atrial fibrillation. 2. Pleural effusion secondary to atrial fibrillation and diastolic dysfunction. 3. Chronic anemia, most likely secondary to blood loss, aggravated by anticoagulants. Her indices are consistent with iron deficiency. Today's chest x-ray is improved compared to the last film. I have recommended placing a Maxwell and trying to more aggressively diurese her. With regard to her sundowning, she may do better with a bigger dose of Seroquel in the evening, but we will give the 25 mg dose one more night to see how she does tonight. Job ID: [id number] MTDD
--- NOTE | 2019-01-06 16:07 | PRG ---
DATE OF SERVICE: 01/06/2019 SUBJECTIVE: Ms. Nash is pretty somnolent. She is arousable, talking with her nurse. She received some benzodiazepines and narcotics last night for symptoms of combativeness and confusion. Dr. Wilkes is discontinuing those medicines now. OBJECTIVE: VITAL SIGNS: Temperature 97.7, pulse 100 to 122 when I was in the room, respirations 18, pulse ox 94% on 4 L, blood pressure is 115/90. ABDOMEN: Soft and nontender. LABORATORY DATA: White count 14.7, hemoglobin 9.2, platelet count 387. DIAGNOSTIC DATA: Chest x-ray today shows what appears to be effusion in the right base of the lung, some improvement in pulmonary edema pattern. ASSESSMENT AND PLAN: 1. Anemia. Probably, this is multifactorial, but she has had a history of iron deficiency, likely loss from her GI tract related to chronic anticoagulation. She did have severe diverticular disease in sigmoid, and attempted colonoscopy last year was unsuccessful secondary to the very poor prep and strictured sigmoid colon. Her esophagogastroduodenoscopy was normal then. I was considering repeat endoscopy to ensure that the stricture in the sigmoid was benign. However, she has not really ever been stable or awake enough or strong enough to undergo a bowel prep and colonoscopy. Today, she is even a little more somnolent. 2. Atrial fibrillation with fluctuating rate. 3. Pleural effusion secondary to atrial fibrillation and diastolic dysfunction. 4. Dementia with owning. Agree with changing Seroquel dose and stopping the narcotic as such this can exacerbate the sundowning. I would not give her benzodiazepines either. 5. At this time, we are going to hold off on any plans for endoscopy. I will re-follow up and see how she is doing on Wednesday. If there is any urgent GI emergencies, Dr. Dewey will be on-call this weekend for Gastroenterology. He can be contacted to see her if needed. Job ID: [id number]
[2019-01-07 05:43] LABS: Anion Gap 18 mmol/L (10-20); BUN (Urea Nitrogen) 13 mg/dL (9.8-20.1); Calc. Creatinine Clearance 69 mL/min (70-130); Calcium 9.2 mg/dL (7.8-10.44); Carbon Dioxide 23 mmol/L (23-31); Chloride 99 mmol/L (98-107); Estimated GFR-MDRD 73; Glucose 128 mg/dL (83-110); Potassium 3.4 mmol/L (3.5-5.1); Sodium 137 mmol/L (136-145)
[2019-01-07 06:53] LABS: Anisocytosis SLIGHT = 6-15 cells (100X) (0-5/hpf); Band 12 % (5-11); Hemoglobin 10.2 g/dL (12.0-16.0); Hypochromia SLIGHT = 6-15 cells (100X) (0-5/hpf); Lymphocytes 1 % (21-51); MDiff Complete? YES; Mean Corpuscular Hemoglobin 19.2 pg (27.0-31.0); Mean Corpuscular Volume 66.2 fL (78.0-98.0); Mean Platelet Volume 11.6 fL (7.4-10.4); Microcytosis MODERATE=15-30 cells (100X) (0-5/hpf); Monocytes 1 % (0-10); Neutrophil 85 % (42-75); Platelet Count 337 thou/uL (130-400); Polychromasia SLIGHT = 2-3 cells (100X) (0-2/hpf); Reactive Lymphocytes 1 % (0-10); Red Blood Cell (RBC) Count 5.35 mill/uL (4.20-5.40)
[2019-01-07] MEDS: Atenolol 50 MG TAB PO SCH (08:36)
[2019-01-07] MEDS: Aspirin 81 mg Enteric Coated Tablet PO SCH (08:36)
[2019-01-07] MEDS: Ferrous Sulfate 325 MG TAB PO SCH ×2 (08:36→16:30)
[2019-01-07] MEDS: Fluticasone Propionate Nasal Spray 16 gm Bottle NASAL SCH (08:37)
[2019-01-07] MEDS: Digoxin 0.125 MG TAB PO SCH (08:37)
[2019-01-07] MEDS: Ondansetron ODT 4 MG TAB PO PRN (08:38)
[2019-01-07] MEDS: Furosemide 40 MG TAB PO SCH (08:48)
--- NOTE | 2019-01-07 10:28 | PDOC.PN ---
- Subjective Encounter Start Date: 01/07/19 Encounter Start Time: 10:26 Ms. Nash was seen today in follow-up of AFIB and NSTEMI. She does not have any complaints. She appears weak, She denies chest pain or cough, no abdominal pain. - Objective Resuscitation Status - Order Detail: 01/02/19 11:49 Resuscitation Status Routine Resuscitation Status: FULL: Full Resuscitation MAR Reviewed: Yes Vital Signs & Weight: Vital Signs (12 hours) Temp Pulse Resp Pulse Ox 01/07/19 08:37 120 H 01/07/19 08:36 120 H 01/07/19 08:00 92 L 01/07/19 07:25 98.8 F 01/07/19 07:00 95 01/07/19 06:59 114 H 23 H 95 01/07/19 03:43 99.7 F H 01/06/19 23:39 99.6 F Weight Weight 159 lb 13.362 oz Most Recent Monitor Data Heart Rate from ECG 111 NIBP 105/76 NIBP BP-Mean 85 Respiration from ECG 30 SpO2 91 I&O: 01/06/19 01/07/19 01/08/19 06:59 06:59 06:59 Intake Total 1050 969 Output Total 1900 2800 Balance -850 -1831 Result Diagrams: 01/07/19 06:03 01/07/19 04:26 Phys Exam - Physical Examination HEENT: PERRLA Respiratory: wheezing present + occasional wheeze, no rhonchi or rales Cardiovascular: no significant murmur, no rub, irregular Gastrointestinal: soft + diffuse tenderness no rebound or guarding Musculoskeletal: no edema Dx/Plan (1) Acute respiratory failure with hypoxemia Code(s): J96.01 - ACUTE RESPIRATORY FAILURE WITH HYPOXIA Status: Acute (2) Bilateral pneumonia Code(s): J18.9 - PNEUMONIA, UNSPECIFIED ORGANISM Status: Acute (3) NSTEMI (non-ST elevated myocardial infarction) Code(s): I21.4 - NON-ST ELEVATION (NSTEMI) MYOCARDIAL INFARCTION Status: Acute (4) New onset a-fib Code(s): I48.91 - UNSPECIFIED ATRIAL FIBRILLATION Status: Acute (5) Hypertension Code(s): I10 - ESSENTIAL (PRIMARY) HYPERTENSION Status: Chronic (6) Iron deficiency anemia Code(s): D50.9 - IRON DEFICIENCY ANEMIA, UNSPECIFIED Status: Acute - Plan * Acute respiratory failure- variable- may be volume overload * Leukocytosis- ? etiology- I am told that the WBC count was repeated and verified to be elevated- will re-culture, and broaden antibiotic coverage. Will also consult ID * AFIB- her heart rate has been elevated- she remains on a Cardizem drip * Iron deficiency Anemia- likely from a slow GI bleed- continue iron supplementation, and will avoid anticoagulation. * HTN- blood pressure is controlled
[2019-01-07] MEDS: Vancomycin HCl 1.5 GM in Sodium Chloride 0.9% 250 ML 300 ML IVPB SCH (11:51)
[2019-01-07] MEDS ORDERED: ISOVUE-370 76%-LOCM 1 ML ONE (12:01)
--- NOTE | 2019-01-07 14:42 | PRG ---
DATE OF SERVICE: 01/07/2019 SUBJECTIVE: Ilene Nash is in no distress. She is oriented to person and place. OBJECTIVE: VITAL SIGNS: She is afebrile, heart rate is 105, respiratory rates in the 20s, oximetry is 96% on 2 L, and blood pressure 113/77. LUNGS: Remarkable for decreased breath sounds at her right lung base. HEART: Irregular rhythm. ABDOMEN: Soft and nontender. I was in the bedside, answered all her questions. LABORATORY DATA: White count is 39, hemoglobin 10.2, platelets 337,000. Sodium 137, potassium 3.4, chloride 99, bicarb 23, BUN 13, and creatinine 0.76. IMPRESSION: 1. Atrial fibrillation with congestive heart failure. She diuresed 1831 mL yesterday. She is clinically stable at this point in time. We will continue with supportive care. I do not feel thoracentesis is indicated at this time. Goal is rate control and medical management currently. 2. Anemia with stable hemoglobin at this time. Not sure what to do with leukocytosis other than repeat her CBC tomorrow. Blood cultures on admission were negative and her radiograph and chest CT on admission were not consistent with bacterial pneumonia. Her images were consistent with atrial fibrillation and induced pulmonary edema, which she also had last year. We will continue with current supportive care. Repeat cultures were ordered. Antibiotics were changed. Job ID: [id number] MTDD
[2019-01-07] MEDS ORDERED: Vancomycin HCl 1 GM in Premix Bag 1 BAG IVPB SCH (21:00)
[2019-01-07] MEDS: Cefepime 1 GM in Sodium Chloride 0.9% 100 ML IVPB SCH (22:01)
[2019-01-08] MEDS: ALPRAZolam 0.25 MG TAB PO PRN (00:07)
[2019-01-08] MEDS: Acetaminophen 500 MG TAB PO PRN (00:07)
[2019-01-08] MEDS: Diltiazem 125 MG in Sodium Chloride 0.9% 100 ML IVPB SCH (01:12)
--- NOTE | 2019-01-08 02:12 | PDOC.EVN ---
Event Note - Event Note Event Note: Dr. Randall received a call from radiology regarding critical CT result of right atrial mass; stat echo ordered.
--- NOTE | 2019-01-08 02:46 | CON ---
DATE OF CONSULTATION: 01/07/2019 REASON FOR CONSULTATION: Fever. HISTORY OF PRESENT ILLNESS: 78-year-old patient who has history of atrial fibrillation, chronic hepatitis C which reportedly has not been treated, recurrent UTIs, and prior DVT with pulmonary embolism [place] and has developed a 2-week history of cough, which has persisted. The cough was productive of mostly light-colored sputum, but sometimes grayish, brownish. This was associated with some pain in the abdominal wall area. The cough persisted. Eventually, the patient was brought to the emergency room for evaluation. On arrival, she had atrial fibrillation with RVR, heart rate in the 150s. She was given digoxin and transferred to the [facility]. CT angio showed no evidence of pulmonary embolism. There was a little bit of pleural effusion noted. Currently, Ms. Nash appears acute and chronically ill. She is awake. She knows she is in the hospital. She knew the city. Her is with her. She denied any headaches. No sore throat, odynophagia, dysphagia. No back pain. No more chest pain. Cough has improved. She has abdominal tenderness, but only on palpation, she does not have abdominal pain otherwise. No genitourinary symptoms and has not had any bleeding or joint symptoms. PAST MEDICAL HISTORY: Atrial fibrillation, on Eliquis; prior DVT and pulmonary embolism; UTIs; hypertension; renal insufficiency stage 2. PAST SURGICAL HISTORY: Cholecystectomy, EGD, colonoscopy, cataracts. ALLERGIES: BACTRIM, MULTAQ. FAMILY HISTORY: Hypertension. SOCIAL HISTORY: [place] She is pretty functional otherwise, cooks and does all the activities of daily living until she became ill at this time. Does not drink. Does not smoke. No drug use. MEDICATION LIST: Includes; 1. DuoNeb. 2. Xanax. 3. Ecotrin. 4. Tenormin. 5. Tessalon. 6. Cefepime. 7. Diltiazem. 8. Flonase. 9. Robitussin. 10. Nitrostat. 11. Promethazine. 12. Seroquel. 13. Vancomycin. PHYSICAL EXAMINATION: VITAL SIGNS: T-max 99.7, blood pressure 108/75, pulse 104, respirations 30, O2 sat 91% on 2 L nasal cannula. SKIN: The patient has a peripheral IV access and she is voiding with an indwelling Maxwell catheter. GENERAL: She is awake, appears in some distress. NECK: No lymphadenopathy. Ocular movements conjugate. No temporal wasting. Nasal passages patent. Ear exam normal. Oral cavity is not remarkable. NECK: Supple. No jugular venous distention. LUNGS: Symmetric air entry. No obvious crackles or wheezing. HEART: S1, S2. Regular rate without murmurs. ABDOMEN: Markedly tender pretty much diffusely to palpation. No evidence of ascites or organomegaly. No bladder distention. EXTREMITIES: She is able to move extremities, but she is diffusely weak. No edema. Pulses 1+ in dorsalis pedis. Plantar responses are flexor. No clonus. PSYCHIATRIC: She is awake, oriented, recognizes . She knew she is in [facility] and knew the city. LABORATORY DATA: Her white cell count is 14,000, then it went down to 10,000, now is up to 39,000; hemoglobin 10; platelets 337; 85% neutrophils; 12% bands. Chemistry with sodium 133, creatinine 0.78. I do not see any liver profile on admission. Two sets of blood cultures with no growth in 5 days. She had a chest CT angiogram on admission a few days ago, which showed no pulmonary embolism, bilateral parenchymal opacities, mild pleural fluid. Repeat chest x-ray done yesterday with improvement of the edema pattern. Prominent right and small left pleural effusions. ASSESSMENT: 1. Atrial fibrillation, on anticoagulation. 2. Hepatitis C. 3. Urinary infections. 4. Hypertension. 5. Two-week history of cough, quite persistent with sputum production, now abdominal tenderness which is marked associated with some marked neutrophilia, almost leukemoid reaction with bandemia. DISCUSSION: The main concern here is with an intraabdominal process since she is on Eliquis, the possibility of bleeding and alternate inflammatory process, gastric ulcer with rupture or a hepatic lesion that has not yet been identified in view of the history of chronic untreated hepatitis C is a concern. It seems like the respiratory issues are improving which were the initial factors that precipitated the admission. We will go ahead and pursue a CT abdomen and pelvis with contrast and continue current antimicrobial therapy. Job ID: [id number]
[2019-01-08 05:58] LABS: White Blood Cell (WBC) Count 41.3 thou/uL (4.8-10.8)
[2019-01-08 06:10] LABS: Anisocytosis SLIGHT = 6-15 cells (100X) (0-5/hpf); Band 19 % (5-11); Hemoglobin 10.8 g/dL (12.0-16.0); Hypochromia SLIGHT = 6-15 cells (100X) (0-5/hpf); Lymphocytes 3 % (21-51); MDiff Complete? YES; Mean Corpuscular HGB CONC 29.1 g/dL (32.0-36.0); Mean Corpuscular Hemoglobin 19.7 pg (27.0-31.0); Mean Corpuscular Volume 67.6 fL (78.0-98.0); Mean Platelet Volume 6.2 fL (7.4-10.4); Metamyelocyte 1 % (0-0); Microcytosis MODERATE=15-30 cells (100X) (0-5/hpf); Monocytes 3 % (0-10); Neutrophil 74 % (42-75); Platelet Count 258 thou/uL (130-400); Platelet Morphology Comment Appears Adequate; Polychromasia SLIGHT = 2-3 cells (100X) (0-2/hpf)
--- NOTE | 2019-01-08 08:44 | PDOC.PN ---
- Subjective Encounter Start Date: 01/08/19 Encounter Start Time: 08:42 Ms. Nash was seen today in follow-up of leukocytosis and AFIB. She is a bit drowsy this morning. I am told she was given Xanax last night. She does not endorse shortness of breath, chest pain or abdominal pain. She has not had a bowel movement in days according to her nurse. - Objective Resuscitation Status - Order Detail: 01/02/19 11:49 Resuscitation Status Routine Resuscitation Status: FULL: Full Resuscitation MAR Reviewed: Yes Vital Signs & Weight: Vital Signs (12 hours) Temp Pulse Resp Pulse Ox 01/08/19 07:24 92 L 01/08/19 07:22 98 27 H 92 L 01/08/19 07:05 97.7 F 01/08/19 04:00 97.6 F 01/08/19 00:00 98.1 F Weight Weight 159 lb 9.835 oz Most Recent Monitor Data Heart Rate from ECG 111 NIBP 106/68 NIBP BP-Mean 80 Respiration from ECG 27 SpO2 91 I&O: 01/07/19 01/08/19 01/09/19 06:59 06:59 06:59 Intake Total 969 720 Output Total 2800 850 Balance -1831 -130 Result Diagrams: 01/08/19 04:09 01/07/19 04:26 Phys Exam - Physical Examination HEENT: PERRLA Respiratory: no rales + coarse breath sounds Cardiovascular: RRR, no significant murmur, no rub Gastrointestinal: soft, non-tender, no distention trace pedal edema Neurological: non-focal, normal sensation Dx/Plan (1) Leukocytosis Code(s): D72.829 - ELEVATED WHITE BLOOD CELL COUNT, UNSPECIFIED Status: Acute (2) New onset a-fib Code(s): I48.91 - UNSPECIFIED ATRIAL FIBRILLATION Status: Acute (3) Acute respiratory failure with hypoxemia Code(s): J96.01 - ACUTE RESPIRATORY FAILURE WITH HYPOXIA Status: Acute (4) Bilateral pneumonia Code(s): J18.9 - PNEUMONIA, UNSPECIFIED ORGANISM Status: Acute (5) NSTEMI (non-ST elevated myocardial infarction) Code(s): I21.4 - NON-ST ELEVATION (NSTEMI) MYOCARDIAL INFARCTION Status: Acute (6) Hypertension Code(s): I10 - ESSENTIAL (PRIMARY) HYPERTENSION Status: Chronic (7) Iron deficiency anemia Code(s): D50.9 - IRON DEFICIENCY ANEMIA, UNSPECIFIED Status: Acute (8) Colitis Code(s): K52.9 - NONINFECTIVE GASTROENTERITIS AND COLITIS, UNSPECIFIED Status : Acute - Plan * Leukocytosis- ? etiology- CT scan results noted. Read by [facility]- possible right atrial mass and an Echo has been ordered * There was also mention of colitis as well. she has not had diarrhea, but she has not had a bowel movement in several days and she has diffuse tenderness on abdominal exam- will check for C. Diff as this can cause a leukomoid reaction as well- will give a dose of oral Vancomycin this morning, and defer to ID * AFIB- her heart rate is variable- continue Cardizem drip as well as Digoxin * HTN- blood pressure is stable * Pneumonia- resolving * Iron deficiency anemia- likely due to chronic GI blood loss- continue iron supplementation, and no anticoagulation - her H&H has remained stable * Severe deconditioning- plan is for [facility] bed once she is medically stable
[2019-01-08] MEDS: Ferrous Sulfate 325 MG TAB PO SCH ×2 (08:45→16:34)
[2019-01-08] MEDS: Cefepime 1 GM in Sodium Chloride 0.9% 100 ML IVPB SCH ×2 (08:45→20:48)
[2019-01-08] MEDS ORDERED: Fleet Enema 133 ML BOT PR SCH (08:45)
[2019-01-08] MEDS: Atenolol 50 MG TAB PO SCH (08:45)
[2019-01-08] MEDS: Aspirin 81 mg Enteric Coated Tablet PO SCH (08:45)
[2019-01-08] MEDS: Fluticasone Propionate Nasal Spray 16 gm Bottle NASAL SCH (08:46)
[2019-01-08] MEDS: Furosemide 40 MG TAB PO SCH (08:46)
[2019-01-08] MEDS: Digoxin 0.125 MG TAB PO SCH (08:46)
[2019-01-08] MEDS ORDERED: Vancomycin HCl 25 MG/ML Oral PO ONE (08:53)
[2019-01-08] MEDS: Vancomycin HCl 1.5 GM in Sodium Chloride 0.9% 250 ML 300 ML IVPB SCH (09:39)
--- NOTE | 2019-01-08 10:11 | CT ---
PRELIMINARY REPORT/[facility]/EMERGENCY AFTER HOURS PROCEDURE: Addendum created by Ruddy Stevenson MD on 01/08/2019 1:26 AM Central Time ([place] & [place]) Findings were dis cussed with Dr. Randall at 01/08/2019 1:24 AM CDT. Initial Report created on 01/08/2019 1:20 AM Central Time ([place] & [place]) EXAM: CT Abdomen and Pelvis With Contrast EXAM DATE/TIME: 01/08/2019 12:25 AM CLINICAL HISTORY: 78 years old, female; Abdominal pain; Patient HX: No previous. . . Ccu 2. . . Severe abdominal tender ness, leukemoid react, afib, PT. Poor historian. TECHNIQUE: Imaging protocol: Axial computed tomography images of the abdomen and pelvis with intravenous contras t. Coronal reformatted images were created and reviewed. COMPARISON: No relevant prior studies available. FINDINGS: Pleural space: There are small bilateral pleural effusions compressive atelectasis of the lung basis. Heart: There is an indeterminate hypo-attenuation within the RIGHT atrium measuring 2.6 x 2.4 x 4.5 c m, partially visualized but possibly loss control representative of RIGHT atrial mass. ABDOMEN: Liver: Normal. No mass. Gallbladder and bile ducts: Gallbladder is absent. No ductal dilation. Pancreas: The pancreas appears normal. No ductal dilatation. Spleen: The spleen is normal. Adrenals: There is nonspecific adrenal gland thickening. Kidneys and ureters: There is a simple cyst in the right kidney. There is a focal left renal hypodens ity that cannot be further characterized on the current examination. Stomach and bowel: The stomach is normal. The duodenum is unremarkable. Mild diverticulosis is presen t in the sigmoid and descending colon. There are mildly prominent loops of small and large bowel cont aining stool compatible with delayed transit and/or wall thickening which can be seen with enterocoli tis. Appendix: The appendix is not definitely identified. No evidence of appendicitis. PELVIS: Bladder: Maxwell catheter is present within a collapsed urinary bladder. Reproductive: The uterus is normal. ABDOMEN and PELVIS: Intraperitoneal space: There is a small amount of free pelvic fluid present. Bones/joints: No acute fracture. No dislocation. Soft tissues: Unremarkable. Vasculature: Normal. No abdominal aortic aneurysm. Lymph nodes: Normal. No enlarged lymph nodes. Other findings: There is indeterminate calcification underlying the RIGHT hemidiaphragm. IMPRESSION: 1. There are mildly prominent loops of small and large bowel containing stool compatible with delayed transit and/or wall thickening which can be seen with enterocolitis. Correlate clinically. 2. Suspected RIGHT Atrial mass as above. Further evaluation with echocardiogram is advised. Thank you for allowing us to participate in the care of your patient. Dictated and Authenticated by: Ruddy Stevenson MD 01/08/2019 1:20 AM Central Time ([place] & [place]) FINAL REPORT EMERGENCY AFTER HOURS CT ABDOMEN AND PELVIS: IMPRESSION: There is a suspected focal filling defect within portions of the right atrium which may be related to mass or possibly unopacified blood. A blood clot could also have a similar appearance. Echocardiogra phy to exclude presence of a mass or clot would be helpful. There are small bilateral pleural effusions. There is some air space consolidation in the right lower lobe which may be related to pneumonia or atelectasis. There is left basilar atelectasis present. Stable right renal cyst. Bilateral adrenal hypertrophy. Gallbladder surgically absent. No focal hepatic lesion evident. There are some calcifications involvi ng the margins of the right hepatic lobe which may be related to prior trauma or infection. Mild scattered ascites within the abdominal cavity. A few loops of small bowel are mildly prominent w ithin the lower central abdomen which may reflect an ileus or mild partial small bowel obstruction. N o definite transition zone is grossly evident. There are a few scattered diverticula involving the co yamel without evidence of active diverticulitis. Scattered degenerative and osteoarthritic change. There is a Maxwell catheter in a decompressed bladder. POS:
[2019-01-08] MEDS ORDERED: Succinylcholine Chloride 20 MG/ML 10 ml SYRINGE FS ONE (12:14)
[2019-01-08] MEDS ORDERED: Rocuronium Bromide 10 MG/ML (10ML VIAL) ONE (12:14)
[2019-01-08] MEDS ORDERED: PHENYLEPHRINE-NS 100 MCG/ML 10 ML SYRINGE ONE (12:14)
[2019-01-08] MEDS ORDERED: Lidocaine 1% PF 5 ML VIAL ONE (12:14)
[2019-01-08] MEDS ORDERED: Calcium Chloride 1 GM/10 ML Abboject SYRINGE ONE (12:14)
[2019-01-08] MEDS ORDERED: PROPOFOL 200 MG/20 ML VIAL ONE (12:14)
[2019-01-08 12:27] LABS: INR-International Normal Ratio 1.6; PTT 28.4 SEC (22.9-36.1); Prothrombin Time 18.7 SEC (12.0-14.7)
[2019-01-08 12:36] LABS: Lactic Acid 1.8 mmol/L (0.5-2.2)
[2019-01-08] MEDS ORDERED: Fentanyl 100 MCG/2 ML VIAL ONE (12:36)
[2019-01-08] MEDS ORDERED: Norepinephrine 8 MG/0.9% NS 250 ML ONE (14:05)
[2019-01-08] MEDS ORDERED: Albumin 25% 0 ML ONE (14:06)
[2019-01-08] MEDS ORDERED: Albumin 5% 500 ML ONE (14:07)
--- NOTE | 2019-01-08 14:28 | CON ---
DATE OF CONSULTATION: 01/08/2019 HISTORY OF PRESENT ILLNESS: This is a 78-year-old woman with history of paroxysmal atrial fibrillation, who was admitted on 01/02/2019 with complaint of shortness of breath associated with substernal chest pain. Non ST-segment ND was diagnosed on admission. The patient was also finding acute congestive heart failure with recurrent atrial fibrillation, rapid ventricular response. Rate is currently controlled. The patient has been successfully treated for acute congestive heart failure exacerbation. Over the last two days, the patient has developed worsening abdominal pain. This is associated with worsening leukocytosis. The patient underwent a CT scan of the abdomen and pelvis last night, which revealed some small and large bowel wall thickening as well as possible right atrial mass. 2D transthoracic echocardiography was performed. This did not confirm the atrial mass. Today; however, the patient exhibits severe abdominal pain. She has had no bowel movement since admission. Although, she has had no fevers or chills, white blood cell count has been on a dramatic rise over the last 48 hours. PAST MEDICAL HISTORY: Significant for chronic paroxysmal atrial fibrillation, essential hypertension, chronic anemia, hepatitis C, diverticulosis coli, stage 2 chronic kidney disease, and recurrent urinary tract infections. PAST SURGICAL HISTORY: Pertinent for cholecystectomy, bilateral intraocular lens implants, previous EGD, and an attempted colonoscopy. SOCIAL HISTORY: The patient is . Lives at home with her . She also has adult children, who are involved in her life. She has no cigarette smoking, ethanol, or illicit drug abuse history. FAMILY HISTORY: Noncontributory for this patient's age. ALLERGIES: TO SULFA DRUGS. REVIEW OF SYSTEMS: Could not be obtained today. The patient is somewhat somnolent, although arousable with the voice and tactile stimulus. PHYSICAL EXAMINATION: GENERAL: This reveals a 78-year-old woman with history of senile dementia of Alzheimer's type, who is somewhat somnolent today, but arousable. She moves all extremities and follows commands. She appears to be in no acute distress at time of my evaluation. VITAL SIGNS: Include blood pressure 94/69, pulse 106 and irregular, respiratory rate is 24, temperature is 97.7 degrees Fahrenheit, and oxygen saturation is 94% on 3 L by nasal cannula oxygen. Maximum temperature in the last 24 hours is 99.7 degrees Fahrenheit. HEENT: Reveals normocephalic and atraumatic. Pupils are equal, round, and reactive to light and accommodation. NECK: She has no jugular venous distention noted. HEART: Reveals irregular rate and irregular rhythm. LUNGS: Clear to auscultation bilaterally. Breathing, regular and nonlabored. ABDOMEN: Soft and moderately distended. She has diffuse tenderness to palpation with gross rebound tenderness present. Liver and spleen otherwise nonpalpable below costal margins. NEUROLOGIC: Reveals no focal deficits present. EXTREMITIES: Reveals 2+ radial and pedal pulses bilaterally. No ankle edema is present. PERTINENT LABORATORY FINDINGS: Includes a CBC today with 41,300 white blood cells compared to 39,000 yesterday and 14,700 day before. Hemoglobin and hematocrit stable at 10.8 and 37.2 respectively. Platelet count is 258,000. Differential count as follows; 74% segmented neutrophils, 19 bands, 3 lymphocytes, and 3 monocytes. Metabolic profile; sodium is 137, potassium is 3.4, chloride is 99, bicarb is 23, BUN is 13, creatinine is 0.76, glucose is 128, and lactic acid is 1.8. PTT and INR today normal at 28.4 seconds and 1.6 respectively. I have personally reviewed the CT scan of the abdomen and pelvis obtained last night, which reveals nonspecific gas pattern and mildly prominent loops of small and large bowel. Some bowel wall thickening present. There is a free intraperitoneal fluid. No pneumoperitoneum evident. There is bilateral pleural effusion noted. IMPRESSION: 1. Acute enterocolitis, likely ischemic, especially in the face of recent atrial fibrillation with rapid ventricular response and highly suspicious right atrial mass possibly thrombus. 2. History of venous thromboembolism. 3. History of diverticulosis coli. 4. History of chronic congestive heart failure. RECOMMENDATIONS: 1. Exploratory laparotomy and possible bowel resection for bowel necrosis if present. 2. Postoperative anticoagulation. 3. Above findings and plan has been discussed with the patient, her , and an adult daughter at bedside. 4. I advised them of the likelihood of colostomy, if the left colon is involved and likely return to the operating room in 48 hours for second-look. 5. The patient faces additional risk for respiratory failure, myocardial infarction, stroke or extension of mesenteric infarctions. The patient's and adult daughter both indicated understanding of information provided. 6. I have answered their questions. is going to consent for the proposed surgical intervention. Thank you again, Dr. Wilkes, for allowing me the opportunity to participate in the care of this patient. Job ID: [id number]
[2019-01-08] MEDS ORDERED: Midazolam HCl 2 mg/2 ml Vial ONE (15:17)
--- NOTE | 2019-01-08 16:00 | PRG ---
DATE OF SERVICE: 01/08/2019 SUBJECTIVE: Ilene Nash was lesser alert today. She is afebrile. Heart rate is in the 90s, blood pressure is 105/59. Still in atrial fibrillation. She apparently developed abdominal pain during the night. CT scan was ordered, which showed findings suggestive of colitis. Echocardiogram did not show a mass as reported on the CT scan. When I examined her today, her atrial fib rate was controlled. OBJECTIVE: VITAL SIGNS: She was afebrile. Blood pressure was in the 90s. LUNGS: Clear. HEART: Regular rhythm. ABDOMEN: Exquisitely tender. EXTREMITIES: Without asymmetry. LABORATORY DATA: White count up to 41.3, hemoglobin 10.8, platelets 258,000. Electrolytes are unremarkable. My concern was one of an embolic event to her bowel, leading to ischemic bowel. Made referral to General Surgery. She is tentatively scheduled for surgery. She will be moved to critical care unit. I met with the family multiple times, answered all their questions. Discussed case with Dr. Vazquez, Dr. Root, and Dr. Berg. CRITICAL CARE TIME: 30 minutes. Job ID: [id number]
[2019-01-08] MEDS ORDERED: Lorazepam 2 MG/ML VIAL SLOW IVP PRN (16:16)
[2019-01-08] MEDS ORDERED: Propofol 1,000 MG/100 ML VIAL IV PRN (16:16)
[2019-01-08] MEDS ORDERED: Morphine 2 MG/ML SYRINGE SLOW IVP PRN (16:16)
[2019-01-08] MEDS ORDERED: Propofol BOLUS 1,000 MG/100 ML VIAL IV PRN (16:16)
[2019-01-08] MEDS ORDERED: DISCONTINUE PREVIOUS NARCOTIC PAIN MEDICATIONS AND BENZODIAZEPINES FS SCH (16:16)
--- NOTE | 2019-01-08 16:19 | RAD ---
Chest AP view INDICATION: Central line placement COMPARISON: January 06, 2019 FINDINGS: Lungs:Continued improvement in central edema pattern. There is mild bibasilar atelectasis. Cardiac silhouette pulmonary vasculature:Moderate cardiomegaly persists. Pulmonary vascular congestio n is slightly improved. Patient is intubated with placement of the gastric catheter and a left subclavian central venous catheter Pleural spaces:There is improving small moderate right and tiny left pleural effusions Upper abdomen:No abnormality seen. Osseous structures: No acute osseous abnormality. Additional findings:None. IMPRESSION: Interval intubation, gastric catheter placement and left subclavian central venous cathet er placement. No pneumothorax. Improving CHF
[2019-01-08] MEDS: fentaNYL Citrate/PF 2,000 MCG in Sodium Chloride 0.9% 60 ML IV SCH (16:30)
[2019-01-08] MEDS: Lactated Ringer's 1,000 ML IV SCH (16:31)
[2019-01-08 16:37] LABS: Actual Bicarbonate (HCO3a) 25.6 mEq/L (22-28); Base Excess (BEa) 1.7 mEq/L (-2.0 to +3.0); CO2 Tension 37.6 mmHg (35.0-45.0); Calcium, Ionized 1.16 mmol/L (1.12-1.30); Carboxyhemoglobin (COHb) 1.5 gm% (0.0-3.0); Hemoglobin (Hb) 11.9 g/dL (12.0-16.0); O2 Tension (PaO2) 70.8 mmHg (> 70.0); Potassium - ABG Lab 2.91 mmol/L (3.70-5.30); pH, Arterial 7.45 (7.35-7.45)
[2019-01-08 16:41] LABS: Puncture Site LINE
--- NOTE | 2019-01-08 16:49 | PRG ---
DATE OF SERVICE: 01/08/2019 SUBJECTIVE: Ms. Nash had a CT, which showed evidence suggestive of enterocolitis. Looks like she was taken for exploratory lap in view of the worsening neutrophil counts. OBJECTIVE: VITAL SIGNS: With T-max 99.7 and BP 105/59. LUNGS: Symmetric air entry. ABDOMEN: Distended and markedly tender. LABORATORY DATA: White cell count 41.3, hemoglobin 10.8, and platelets 258. Creatinine 0.76. Blood culture and urine culture, no growth thus far. The echocardiogram with normal EF, mildly dilated left atrium, moderate mitral regurgitation. The abdomen and pelvis CT with prominent loops of small and large bowel containing stool compatible with delayed transit, wall thickening, possible right atrial mass was not confirmed on echocardiogram. ASSESSMENT AND DISCUSSION: Atrial fibrillation, hep C, urinary infections, hypertension, worsening cough, persistent sputum production, and now diffuse abdominal tenderness with leukemoid reaction and possible enterocolitis versus ischemic colitis. The patient will undergo exploratory lap and then after that, further interventions as needed. Waiting on the report from the surgical procedure. C. difficile is another possibility, but she has not had any stool output. Job ID: [id number]
--- NOTE | 2019-01-08 18:25 | OP ---
DATE OF PROCEDURE: 01/08/2019 PREOPERATIVE DIAGNOSES: 1. Acute enterocolitis. 2. Acute peritonitis secondary to acute enterocolitis. 3. Acute paroxysmal atrial fibrillation, now rate controlled. POSTOPERATIVE DIAGNOSES: 1. Acute enterocolitis. 2. Acute peritonitis secondary to acute enterocolitis. 3. Acute paroxysmal atrial fibrillation, now rate controlled. 4. 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 5. Extensive intraabdominal adhesions. PROCEDURES PERFORMED: 1. Exploratory laparotomy. 2. Extensive adhesiolysis. 3. Right hemicolectomy. 4. Segmental distal small bowel resection. 5. Temporary abdominal closure with wound VAC. ANESTHESIA: General endotracheal. ESTIMATED BLOOD LOSS: 200 mL. FLUIDS GIVEN: 800 mL crystalloids and 250 mL 5% albumin. INDICATIONS FOR OPERATION: A 78-year-old woman admitted with chest pain and found to have non-ST elevation NV as well as acute congestive heart failure. Over the last 48 hours, the patient has developed worsening abdominal pain associated with worsening leukocytosis. Abdominal examination today reveals a woman with acute peritonitis. She is now somnolent. Ischemic bowel necrosis is suspected, for which the patient was brought to the operating room for exploration. Findings are consistent with ischemic bowel necrosis of the right colon and long segment distal ileum. Also noted is multiple intraabdominal adhesions. DESCRIPTION OF PROCEDURE: Informed consent was obtained from the patient's . The patient was brought to the operating room and placed in supine position. Following general anesthesia, previous Maxwell catheter was placed to bedside drain. Orogastric tube was inserted and placed to wall suction. Abdomen was sterilely prepped and draped in usual fashion. A midline incision was made using #10 scalpel. Incision was carried through subcutaneous tissues maintaining hemostasis using cautery. Fascia was incised midline exposing the peritoneum beneath, which was grasped x2 with hemostats. Peritoneal cavity was sharply entered using Metzenbaum scissors. Cloudy ascitic fluid was evacuated, this was quite foul smelling. Extensive intraabdominal adhesions were encountered involving multiple loops of small bowel and anterior abdominal wall. Adhesions were meticulously taken down, avoiding enterotomies. Small bowel was then run from ligament of Treitz down to the mid to distal ileum, where the bowel was quite necrotic. Necroses extended through the cecum, ascending, and down to the level of proximal transverse colon. The appendix itself was surprisingly spared. The remainder of the large intestine from the mid transverse colon to the rectum were without other pathology except for chronic diverticulosis involving the sigmoid colon. Palpation revealed an area, which was somewhat dense, likely diverticular stricture could not exclude mass. This was approximately 5 cm proximal to the peritoneal reflection. I decided to proceed with right hemicolectomy and resection of the distal ileal segment. To accomplish this, I created a rent through the small bowel mesentery proximal to the necrotic segment, through this a MATTHEW stapler was introduced and bowel was divided. As the right colon was mobilized medially, care was taken to avoid injury to underlying duodenum. I then created another rent in the transverse mesocolon approximately 4 cm distal to the necrotic transverse colonic segment. Through this, a reload MATTHEW stapler was introduced. Bowel was divided. Mesentery of the specimen was serially divided using LigaSure device with good hemostasis. The bowel segment was sent off the field formal transmission to Pathology. The abdominal cavity was copiously irrigated clear with saline solution. Liver was palpated free of any abnormalities. The spleen was noted in the usual anatomic location. Previous orogastric tube was palpated within the gastric lumen. Finding no other pathology, exploration was terminated. All sponges and instruments were removed and accounted for. Small bowel returned normal anatomic location. The omentum was drawn over remainder of the viscera. After dressing was used to cover the entire viscera. Sponges were placed over this. An external wound VAC dressing done over the entire abdomen and connected to vacuum assisted device with good suction. The patient tolerated the operation without any apparent complication and was returned to the intensive care unit in critical, but stable condition. Job ID: [id number]
[2019-01-08] MEDS: Heparin 10,000 UNITS/ 10 ML VIAL SLOW IVP SCH (19:18)
[2019-01-08] MEDS: Heparin 25,000 units/D5W 500 ML IV SCH (19:20)
[2019-01-09 01:32] LABS: PTT 120.2 SEC (22.9-36.1)
[2019-01-09 05:22] LABS: Anisocytosis MODERATE=16-30 cells (100X) (0-5/hpf); Band 12 % (5-11); Elliptocytes SLIGHT = 2-5 cells (100X) (0-1/hpf); Hemoglobin 11.1 g/dL (12.0-16.0); Hypochromia SLIGHT = 6-15 cells (100X) (0-5/hpf); Lymphocytes 4 % (21-51); MDiff Complete? YES; Mean Corpuscular HGB CONC 29.8 g/dL (32.0-36.0); Mean Corpuscular Hemoglobin 22.1 pg (27.0-31.0); Mean Platelet Volume 6.4 fL (7.4-10.4); Microcytosis SLIGHT = 6-15 cells (100X) (0-5/hpf); Monocytes 5 % (0-10); Neutrophil 79 % (42-75); Platelet Count 161 thou/uL (130-400); RBC Distribution Width 24.4 % (11.5-14.5); Red Blood Cell (RBC) Count 5.02 mill/uL (4.20-5.40); White Blood Cell (WBC) Count 24.4 thou/uL (4.8-10.8)
--- NOTE | 2019-01-09 08:13 | RAD ---
XR Chest 1 View Portable HISTORY: Respiratory failure COMPARISON: 01/16/2019 FINDINGS: Line and tube positions are unchanged. The heart size is stable. The lungs are well expanded without lobar consolidation, pneumothoraces or large effusions. There is no evidence of zina pulmonary edema.
[2019-01-09 08:22] LABS: Hemoglobin 11.1 g/dL (12.0-16.0); Mean Corpuscular HGB CONC 30.8 g/dL (32.0-36.0); Mean Corpuscular Hemoglobin 22.4 pg (27.0-31.0); Mean Corpuscular Volume 72.8 fL (78.0-98.0); Mean Platelet Volume 6.6 fL (7.4-10.4); Platelet Count 163 thou/uL (130-400); RBC Distribution Width 24.2 % (11.5-14.5); Red Blood Cell (RBC) Count 4.96 mill/uL (4.20-5.40); White Blood Cell (WBC) Count 23.6 thou/uL (4.8-10.8)
[2019-01-09 08:31] LABS: Actual Bicarbonate (HCO3a) 25.2 mEq/L (22-28); Analyzer IN Cardio OR; Base Excess (BEa) 1.7 mEq/L (-2.0 to +3.0); CO2 Tension 35.6 mmHg (35.0-45.0); Calcium, Ionized 1.11 mmol/L (1.12-1.30); Carboxyhemoglobin (COHb) 0.9 gm% (0.0-3.0); Hemoglobin (Hb) 11.4 g/dL (12.0-16.0); O2 Tension (PaO2) 117.3 mmHg (> 70.0); Potassium - ABG Lab 2.66 mmol/L (3.70-5.30); Puncture Site ALINE; pH, Arterial 7.47 (7.35-7.45)
[2019-01-09] MEDS ORDERED: Furosemide 40 MG TAB ONE (08:38)
[2019-01-09] MEDS ORDERED: Aspirin 81 mg Enteric Coated Tablet ONE (08:38)
[2019-01-09] MEDS ORDERED: Digoxin 0.125 MG TAB ONE (08:39)
[2019-01-09] MEDS ORDERED: Pantoprazole 40 MG VIAL ONE (08:40)
[2019-01-09 08:42] LABS: Anion Gap 11 mmol/L (10-20); BUN (Urea Nitrogen) 23 mg/dL (9.8-20.1); Calc. Creatinine Clearance 73 mL/min (70-130); Calcium 8.6 mg/dL (7.8-10.44); Carbon Dioxide 26 mmol/L (23-31); Chloride 108 mmol/L (98-107); Estimated GFR-MDRD 76; Glucose 114 mg/dL (83-110); Sodium 142 mmol/L (136-145)
[2019-01-09] MEDS ORDERED: Cefepime 1 GM VIAL ONE (08:42)
[2019-01-09] MEDS ORDERED: Cefepime 2 GM VIAL ONE (08:43)
[2019-01-09 08:44] LABS: Potassium 2.9 mmol/L (3.5-5.1)
[2019-01-09] MEDS: Digoxin 0.125 MG TAB PO SCH (08:45)
[2019-01-09] MEDS: Aspirin 81 mg Enteric Coated Tablet PO SCH (08:46)
[2019-01-09] MEDS: Pantoprazole 40 MG VIAL IVP SCH (08:46)
[2019-01-09] MEDS: Furosemide 40 MG TAB PO SCH (08:46)
[2019-01-09 08:47] LABS: Band 9 % (5-11); Hypochromia SLIGHT = 6-15 cells (100X) (0-5/hpf); Lymphocytes 1 % (21-51); MDiff Complete? YES; Microcytosis MODERATE=15-30 cells (100X) (0-5/hpf); Monocytes 7 % (0-10); Neutrophil 83 % (42-75); Platelet Morphology Comment Appears Adequate; Polychromasia MODERATE = 3-4 cells (100X) (0-2/hpf)
[2019-01-09] MEDS: Fluticasone Propionate Nasal Spray 16 gm Bottle NASAL SCH (08:47)
[2019-01-09] MEDS: Cefepime 1 GM in Sodium Chloride 0.9% 100 ML IVPB SCH ×2 (08:47→18:10)
[2019-01-09] MEDS: Atenolol 50 MG TAB PO SCH (08:48)
[2019-01-09] MEDS: Ferrous Sulfate 325 MG TAB PO SCH ×2 (08:48→15:33)
[2019-01-09] MEDS: Lactated Ringer's 1,000 ML IV SCH (08:55)
[2019-01-09 10:18] LABS: Vancomycin, Trough 11.8 ug/mL
[2019-01-09] MEDS: Heparin 10,000 UNITS/ 10 ML VIAL SLOW IVP SCH (10:30)
[2019-01-09] MEDS ORDERED: Potassium Chloride 40 MEQ/100 ML PREMIX BAG ONE (10:36)
--- NOTE | 2019-01-09 10:44 | PRG ---
DATE OF SERVICE: 01/09/2019 SUBJECTIVE: Ms. Nash remains mechanically ventilated after a laparotomy for bowel. OBJECTIVE: VITAL SIGNS: Blood pressure is 100/58, heart rate is 102, respiratory rate is 12. LUNGS: Clear. HEART: Regular rhythm. S1 and S2 are normal. ABDOMEN: Soft. EXTREMITIES: She will awake and move her extremities. LABORATORY DATA: White count is 23.6, hemoglobin 11.1, platelets 163. Sodium 142, potassium 2.9, chloride 108, bicarb 26, BUN 23, creatinine 0.74. PH is 7.47, CO2 of 35, PO2 OF 117, on IMV of 12. Chest radiograph shows no infiltrates or effusions visible on the supine film. IMPRESSION: 1. Status post resection of bowel. 2. Atrial fibrillation. 3. Chronic gastrointestinal blood loss. Therefore, no anticoagulants with atrial fibrillation. 4. Status post atrial fibrillation induced embolism. 5. Right atrial mass? versus clot. This is not seen on the echocardiogram. 6. Deconditioning. 7. Dementia. 8. Right pleural effusion that radiographically has improved. She would need to follow with the other physicians. We will start the weaning process in the morning. Critical care time is 35 minutes. Job ID: [id number] MTDD
[2019-01-09] MEDS: Vancomycin HCl 1.5 GM in Sodium Chloride 0.9% 250 ML 300 ML IVPB SCH (10:53)
[2019-01-09] MEDS ORDERED: Vancomycin HCl 750 MG in Sodium Chloride 0.9% 250 ML 250 ML IVPB SCH (11:00)
[2019-01-09] MEDS: Potassium Chloride 40 MEQ in Sodium Chloride 0.9% 250 ML 250 ML IVPB SCH ×2 (11:59→16:02)
[2019-01-09] MEDS: Fentanyl BOLUS 250 ML IVPB PRN ×2 (13:11→17:53)
--- NOTE | 2019-01-09 14:27 | PRG ---
DATE OF SERVICE: 01/09/2019 SUBJECTIVE: This is a 78-year-old woman with a history of paroxysmal atrial fibrillation, who was admitted on 01/02/2019 with complaints of shortness of breath associated with substernal chest pain. The patient was diagnosed with a non-STEMI on admission. The patient was also found to have acute congestive heart failure with recurrent atrial fibrillation with rapid ventricular response. The patient's rate remains well controlled. The patient is postop day #1 exploratory laparotomy, extensive adhesiolysis, right hemicolectomy, segmental distal small-bowel resection, temporary abdominal closure with wound VAC. The patient was found to have acute enterocolitis and acute peritonitis yesterday. The patient remains on a mechanical ventilator, and clerk specialist is managing, the plan is to wean patient in the morning. The patient has had good urinary output. The patient had no overnight events. OBJECTIVE: VITAL SIGNS: Pulse 97, respirations 13, SpO2 is 97% on FiO2 of 50%, CVP 8, arterial blood pressure of 93/52, manual blood pressure of 100/66. The patient is mechanically ventilated with minimal sedation. The patient opens eyes and able to follow commands. Current vent settings; assist control, tidal volume 500, rate 12, 50% FiO2, PEEP pressure is 18. HEENT: Normocephalic, atraumatic. HEART: Irregular rhythm. No pedal edema. LUNGS: Clear to auscultation bilaterally, equal chest expansion. ABDOMEN: Abdominal incision temporarily closed with a wound VAC in place. Abdomen is soft. The patient with active bowel sounds. NEUROLOGIC: No focal deficits. EXTREMITIES: 2+ distal pulses. Extremities, well perfused. LABORATORY DATA: WBC 23.6, RBC 4.96, hemoglobin 11.1, hematocrit 36.1. Sodium 142, potassium 2.9, chloride 108, carbon dioxide 26, anion gap 11, BUN 23, creatinine 0.74, estimated GFR 76, calcium 8.6. DIAGNOSTICS: Chest x-ray; line tube positions are unchanged. Heart size stable. The lungs are well expanded without local consolidation, pneumothoraces, or large effusions. Colon specimen pending. IMPRESSION: 1. Acute peritonitis secondary to acute enterocolitis. 2. Postop day #1 exploratory laparotomy with extensive adhesiolysis, right hemicolectomy, segmental distal small-bowel resection, temporary abdominal closure with wound VAC. PLAN: We will continue supportive care. Vent management per clerk specialist. We will continue postoperative anticoagulation. Plan for returning to the operating room in 48 hours for a second look. The patient was examined with Dr. Oquendo during morning rounds. Job ID: [id number]
[2019-01-09] MEDS: Heparin 25,000 units/D5W 500 ML IV SCH (14:35)
[2019-01-09 15:29] LABS: Potassium 3.6 mmol/L (3.5-5.1)
[2019-01-09] MEDS ORDERED: Furosemide 40 MG/4 ML VIAL ONE (15:29)
--- NOTE | 2019-01-09 15:43 | PDOC.PN ---
- Subjective Encounter Start Date: 01/09/19 Encounter Start Time: 15:40 Subjective: f/u for ischemic bowel necrosis, R hemicolectomy and DULCE POD #1 -: Remains on mech ventilation but alert per family. - Objective Resuscitation Status - Order Detail: 01/02/19 11:49 Resuscitation Status Routine Resuscitation Status: FULL: Full Resuscitation MAR Reviewed: Yes Vital Signs & Weight: Vital Signs (12 hours) Temp Pulse Resp BP Pulse Ox 01/09/19 15:00 97.8 F 01/09/19 14:47 96 01/09/19 13:37 14 01/09/19 12:25 97 98/57 L 01/09/19 11:18 14 01/09/19 11:00 98.6 F 01/09/19 10:36 104 H 96/55 L 01/09/19 10:28 105 H 01/09/19 09:53 14 01/09/19 08:48 105 H 96/52 L 01/09/19 08:45 101 H 01/09/19 08:05 105 H 107/58 L 01/09/19 08:00 14 96 01/09/19 07:00 98.2 F 01/09/19 06:00 15 01/09/19 04:00 98.5 F 12 Weight Admit Weight 168 lb Weight 164 lb 14.492 oz Most Recent Monitor Data Heart Rate from ECG 106 NIBP 115/75 NIBP BP-Mean 88 Respiration from ECG 0 SpO2 100 I&O: 01/08/19 01/09/19 01/10/19 06:59 06:59 06:59 Intake Total 720 1645.3 350 Output Total 850 997 635 Balance -130 648.3 -285 Result Diagrams: 01/09/19 08:06 01/09/19 14:46 Additional Labs: Microbiology 01/07/19 11:43 Urine tolbert catheter Urine Culture - Final NO GROWTH AT 48 HOURS Laboratory Tests 01/07/19 01/07/19 01/08/19 04:26 06:03 04:09 WBC 39.0 H 41.3 H* Hgb 10.2 L 10.8 L Neutrophils % (Manual) 85 H 74 Band Neuts % (Manual) 12 H 19 H Potassium 3.4 L 01/09/19 01/09/19 03:30 08:06 WBC Hgb Neutrophils % (Manual) 79 H Band Neuts % (Manual) 12 H Potassium 2.9 L* Radiology Reviewed by me: Yes (PCXR - no acute infiltrates, lines/tubes in position) EKG Reviewed by me: Yes (Tele - A-fib in low 100's) Phys Exam - Physical Examination alert, tracks with eyes, nods on mech vent, ETT in place HEENT: PERRLA, sclera anicteric, oral pharynx no lesions Neck: no nodes, no JVD, supple, full ROM Respiratory: no wheezing, no rales, no rhonchi, clear to auscultation bilateral S1, S2, tachycardic Cardiovascular: no rub, irregular post-surgical changes with wound vac in place mild TTP diffusely Musculoskeletal: no edema, pulses present Neurological: normal sensation, moves all 4 limbs Skin: normal turgor, cap refill <2 seconds Deviation from normal: Tolbert with power urine Dx/Plan (1) Ischemic necrosis of large intestine Code(s): K55.049 - ACUTE INFARCTION OF LARGE INTESTINE, EXTENT UNSPECIFIED Status: Acute Comment: s/p R hemicolectomy, DULCE, distal small bowel resection and temporary wound closure with wound vac POD #1, continue Vanc/Cefepime and wound vac application (2) Acute bacterial peritonitis Code(s): K65.9 - PERITONITIS, UNSPECIFIED Status: Acute Comment: See above (3) Acute respiratory failure with hypoxemia Code(s): J96.01 - ACUTE RESPIRATORY FAILURE WITH HYPOXIA Status: Acute Comment: Slow wean off mech ventilation per Pulmonology (4) NSTEMI (non-ST elevated myocardial infarction) Code(s): I21.4 - NON-ST ELEVATION (NSTEMI) MYOCARDIAL INFARCTION Status: Acute Comment: ASA, Atenolol (5) A-fib Code(s): I48.91 - UNSPECIFIED ATRIAL FIBRILLATION Status: Acute Qualifiers: Atrial fibrillation type: paroxysmal Qualified Code(s): I48.0 - Paroxysmal atrial fibrillation Comment: Cardizem gtt, Heparin gtt currently, Digoxin, Atenolol - Plan continue antibiotics, PT/OT, social media specialist, respiratory therapy, DVT proph w/ SCDs Continue critical support -: Mech ventilation with weaning parameters likely in next 24-48h -: Continue Vancomycin/Cefepime -: Await pathology from colon resection -: AM lab: BMP, CBC, PTT * .
[2019-01-09] MEDS ORDERED: Furosemide 40 MG/4 ML VIAL SLOW IVP SCH (15:45)
--- NOTE | 2019-01-09 16:42 | PRG ---
DATE OF SERVICE: 01/09/2019 SUBJECTIVE: Ms. Nash is seen today for Dr. Root. The patient is in the ICU. She is on the ventilator. Yesterday, she underwent laparotomy, right colectomy with disconnected for planned second look. She had an ABThera open abdomen in place. The patient opens her eyes and grimaces to indicate discomfort on abdominal exam. OBJECTIVE: VITAL SIGNS: Temperature 97.8 degrees, heart rate 106, blood pressure 115/75. Gastric drainage 75 mL per NG tube. Maxwell 572 for the last 24 hours. LUNGS: Clear to auscultation. CARDIAC: Regular rate and rhythm without murmur or gallop. ABDOMEN: Soft. Bowel sounds diminished. EXTREMITIES: Unremarkable. LABORATORY DATA: This morning, her white count is down to 24,000 from 41,000 yesterday, hemoglobin 11.1. Platelet count is 163. Basic metabolic profile is unremarkable except potassium of 2.9, which has been corrected. ASSESSMENT AND PLAN: Ischemic bowel, planned second look laparotomy per Dr. Root in the next day or two. Hope is that she can have a colon reanastomosis and definitive fascial closure. Continue supportive care and vent management. Job ID: [id number]
[2019-01-09] MEDS: metroNIDAZOLE 500 MG in Premix Bag 1 BAG IVPB SCH (18:10)
[2019-01-09] MEDS: Norepinephrine 8 MG/250 ML BAG IVPB PRN (18:17)
--- NOTE | 2019-01-09 18:37 | PRG ---
DATE OF SERVICE: 01/09/2019 SUBJECTIVE: The patient is in the ICU. After the CT of abdomen, she had exploratory laparotomy and loops of colon were necrosed, those were resected. She had a primary anastomosis that may be missed. It looks like she is going for a repeat procedure. According to Dr. Root, there was evidence of arterial embolic phenomenon, which led to the necrosis. This was a right hemicolectomy with segmental distal small-bowel resection and temporary abdominal closure with wound VAC. She is going for revision tomorrow. Pathology is pending. White cell count is 98.6, blood pressure is 114/81. She is sedated and intubated. Pupils are miotic. Orotracheal intubation. OBJECTIVE: LUNGS: Symmetric with clear breath sounds. ABDOMEN: Midline wound with negative pressure dressing. LABORATORY DATA: White cell count is 24.4, hemoglobin 11, platelets 161, 79% neutrophils. ASSESSMENT AND DISCUSSION: Atrial fibrillation, hepatitis C, urinary infections, hypertension, worsening cough, persistent sputum production, diffuse abdominal tenderness after admission with leukemoid reaction, and evidence of right-sided colonic necrosis probably from an embolic phenomenon with thrombosis of the corresponding mesenteric artery feeding to that segment of bowel. The patient is going back for revision and I think probably is going to have end up with an ileostomy or colostomy. Continue broad-spectrum antimicrobial therapy. She is on cefepime. We will discontinue vancomycin, and add Flagyl. Job ID: [id number]
--- NOTE | 2019-01-09 18:49 | PRG ---
DATE OF SERVICE: 01/09/2019 SUBJECTIVE: Ms. Nash over the weekend apparently developed acute abdominal pain at about 10 at night on the . Stat CAT scan was obtained, showed a questionable atrial mass and prominent loops of small and large bowel. There is some thickening. When Dr. Wilkes saw the following day, he felt that she had acute abdomen and Surgery was consulted. She went to OR and was found to have an ischemia involving the right colon and distal small bowel that was resected. The plan is for to go back for second look tomorrow as her surgery was a temporary abdominal closure with wound VAC secondary to ischemic necrosis and some peritonitis. She remains intubated as she has had no overt bleeding. OBJECTIVE: VITAL SIGNS: Temperature 98.7, blood pressure is 114/66, pulse 102. GENERAL: She is intubated and sedated. ABDOMEN: There is a wound VAC on her abdomen. Bowel sounds are quiescent. LUNGS: Clear. LABORATORY DATA: White count 23,000, hemoglobin 11, platelet count 163. Potassium 3.6, sodium 142, BUN and creatinine of 23 and 1.73. ASSESSMENT: Ischemic bowel. PLAN: 1. Plan for second look in the next 1-2 days. 2. 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 3. No signs of overt hemorrhage. I agree with above plans, we will follow. Job ID: [id number]
[2019-01-09] MEDS: fentaNYL Citrate/PF 2,000 MCG in Sodium Chloride 0.9% 60 ML IV SCH (19:36)
[2019-01-10] MEDS: Cefepime 1 GM in Sodium Chloride 0.9% 100 ML IVPB SCH ×3 (01:03→17:31)
[2019-01-10] MEDS: metroNIDAZOLE 500 MG in Premix Bag 1 BAG IVPB SCH ×3 (01:10→17:45)
[2019-01-10 04:24] LABS: Anion Gap 13 mmol/L (10-20); BUN (Urea Nitrogen) 29 mg/dL (9.8-20.1); Calc. Creatinine Clearance 63 mL/min (70-130); Calcium 8.6 mg/dL (7.8-10.44); Carbon Dioxide 26 mmol/L (23-31); Chloride 108 mmol/L (98-107); Estimated GFR-MDRD 64; Glucose 103 mg/dL (83-110); Potassium 3.7 mmol/L (3.5-5.1); Sodium 143 mmol/L (136-145)
[2019-01-10 06:39] LABS: ALV-art Gradient 114.975 (0-20); Actual Bicarbonate (HCO3a) 22.1 mEq/L (22-28); Base Excess (BEa) -1.8 mEq/L (-2.0 to +3.0); CO2 Tension 34.9 mmHg (35.0-45.0); Calcium, Ionized 1.16 mmol/L (1.12-1.30); Carboxyhemoglobin (COHb) 1.1 gm% (0.0-3.0); Hemoglobin (Hb) 11.8 g/dL (12.0-16.0); O2 Tension (PaO2) 126.6 mmHg (> 70.0); Potassium - ABG Lab 3.66 mmol/L (3.70-5.30); Puncture Site ALINE; pH, Arterial 7.42 (7.35-7.45)
[2019-01-10] MEDS: Lactated Ringer's 1,000 ML IV SCH ×2 (06:42→18:18)
[2019-01-10 06:44] LABS: Mean Corpuscular HGB CONC 29.5 g/dL (32.0-36.0); Mean Corpuscular Hemoglobin 21.9 pg (27.0-31.0); Mean Corpuscular Volume 74.2 fL (78.0-98.0); Mean Platelet Volume 6.1 fL (7.4-10.4); Platelet Count 220 thou/uL (130-400); Red Blood Cell (RBC) Count 5.02 mill/uL (4.20-5.40); White Blood Cell (WBC) Count 22.8 thou/uL (4.8-10.8)
[2019-01-10] MEDS ORDERED: Fentanyl 100 MCG/2 ML VIAL ONE (07:25)
[2019-01-10] MEDS ORDERED: Midazolam HCl 2 mg/2 ml Vial ONE (07:25)
[2019-01-10] MEDS ORDERED: Albumin 5% 500 ML ONE (07:51)
[2019-01-10] MEDS: Ferrous Sulfate 325 MG TAB PO SCH (08:00)
[2019-01-10 08:23] LABS: Band 7 % (5-11); Burr Cells SLIGHT = 2-5 cells (100X) (0-1/hpf); Hypochromia SLIGHT = 6-15 cells (100X) (0-5/hpf); Lymphocytes 3 % (21-51); MDiff Complete? YES; Microcytosis SLIGHT = 6-15 cells (100X) (0-5/hpf); Monocytes 4 % (0-10); Neutrophil 84 % (42-75); Polychromasia SLIGHT = 2-3 cells (100X) (0-2/hpf); Reactive Lymphocytes 2 % (0-10)
[2019-01-10] MEDS ORDERED: Norepinephrine 8 MG/0.9% NS 250 ML ONE (08:39)
[2019-01-10] MEDS: Furosemide 40 MG TAB PO SCH (09:00)
[2019-01-10] MEDS: Fluticasone Propionate Nasal Spray 16 gm Bottle NASAL SCH (09:00)
[2019-01-10] MEDS: Digoxin 0.125 MG TAB PO SCH (09:00)
[2019-01-10] MEDS: Pantoprazole 40 MG VIAL IVP SCH (09:00)
[2019-01-10] MEDS: Aspirin 81 mg Enteric Coated Tablet PO SCH (09:00)
[2019-01-10] MEDS: Atenolol 50 MG TAB PO SCH (09:00)
--- NOTE | 2019-01-10 10:23 | RAD ---
Exam: Chest one view HISTORY:Intubated patient. Status post surgery. Congestive heart failure. Comparison: 01/09/2019 FINDINGS: Cardiac silhouette:Cardiomegaly Pulmonary vessels: Normal Costophrenic angles: Small bilateral effusions. LUNGS: Patchy opacities which may represent edema or infiltrate. Pneumothorax: No pneumothorax on the supine projection Lines and tubes: Endotracheal tube terminates beyond the clavicles. Dobbhoff feeding tube and nasogas tric tube extend beyond the diaphragm. Distal tips not seen. Left-sided central venous catheter is unchanged. Osseous abnormalities: None IMPRESSION: No significant interval change.
--- NOTE | 2019-01-10 10:40 | RAD ---
ABDOMEN ONE VIEW: History: Dobbhoff tube placement evaluation. FINDINGS: NG tube extends into the stomach. The Dobbhoff tube has been advanced and passes through the region o f the pylorus and into the fourth portion of the duodenum/proximal jejunum. Surgical candelario. Some ty pe of tube overlies the right pelvis with the tip overlying the left midabdomen. Evidence for left pl eural effusion. IMPRESSION: Dobbhoff tube extends into the fourth portion of the duodenum/proximal jejunum. POS: C
--- NOTE | 2019-01-10 11:05 | OP ---
DATE OF PROCEDURE: 01/10/2019 PREOPERATIVE DIAGNOSES: Status post exploratory laparotomy with right hemicolectomy and segmental small bowel resection for ischemic bowel necrosis. POSTOPERATIVE DIAGNOSES: Status post exploratory laparotomy with right hemicolectomy and segmental small bowel resection for ischemic bowel necrosis. PROCEDURES PERFORMED: 1. Second-look exploratory laparotomy. 2. Abdominal washout. 3. Placement of feeding nasojejunal tube. 4. Ileocolostomy and abdominal closure. ANESTHESIA: General endotracheal. ESTIMATED BLOOD LOSS: 50 mL. FLUIDS GIVEN: 1000 mL crystalloids and 500 mL 5% albumin. COUNTS: Sponge and instrument counts were verified as correct x2. COMPLICATIONS: None apparent at the time of operation. INDICATIONS FOR OPERATION: This is a 78-year-old woman, who is postop day #2, status post exploratory laparotomy, right hemicolectomy, and segmental small bowel resection for ischemic bowel necrosis. The patient was brought to the operating room today for second-look laparotomy. Findings are consistent with viable remnant small and large bowel. No evidence of ongoing ischemia. The previously noted sigmoid colon diverticular stricture was re-examined today. There is no active inflammation in that area. It seems like the previous inflammation noted was paracolitis as opposed to an active diverticulitis. DESCRIPTION OF PROCEDURE: Informed consent obtained from the patient's and the patient was brought to the operating room and placed in supine position. Following general anesthesia, previous Maxwell catheter was placed to bedside drain. Nasogastric tube was placed to wall suction. External wound VAC dressing was removed and abdomen was sterilely prepped and draped in usual fashion. An internal wound VAC dressing removed and peritoneal cavity was entered. Bookwalter retractor was put in place to gain exposure. Small bowel was then run from ligament of Treitz down to the level of the staple line and no active ischemia noted. The large intestine was then inspected from the staple line of the transverse colon, past the splenic flexure, through the descending, sigmoid colon, and rectum. No active inflammation or evidence of ischemia was noted. The previously noted diverticular stricture with inflammation was re-examined. At this time, no active inflammation was noted. I suspected that this might have been paracolitis as opposed to an active diverticulitis at the time of previous surgery. Decision was made therefore to avoid previously planned left colectomy and ileostomy due to the significant risk of electrolyte and fluid losses from the ostomy, especially when a good portion of the distal small bowel had been previously resected. At this juncture, the abdominal cavity was copiously irrigated clear with saline solution. A nasojejunal tube was introduced by Anesthesia, the tip of which was palpated by myself within the gastric lumen. I then manipulated tip of this catheter into proximal small bowel without resistance. The staple end of the small and large intestines were brought in a [id number] fashion antimesenteric borders and approximated using interrupted sutures of 3-0 silk. Enterotomies were made at both apices, through which free ends of MATTHEW stapler were introduced and functional end-to-end, but anatomic [id number] ileocolostomy was perfected. The common enterotomies were closed using two loads of MATTHEW stapler. Resultant mesenteric defect work was closed using a running stitch of 2-0 Vicryl. A #19 Parveen drain was introduced overlying the anastomosis site and the drain was allowed to exit the abdominal cavity through a separate stab incision, securing the drain to anterior abdominal wall using 2-0 silk suture. At this juncture, all sponges and instruments were reported as correct x2. The abdominal cavity was again re-irrigated until it was clear. I placed one sheet of Seprafilm in the deep pelvis prior to returning small bowel to normal anatomic location. A second piece of Seprafilm was placed over this. The omentum was drawn over remainder of the viscera. The fascia was approximated in the midline using a running stitch of #1 single stranded PDS. Subcutaneous tissues were pulse lavaged with 3 L of sterile saline. The subcutaneous tissues were approximated in layers using interrupted sutures of 3-0 Vicryl. Skin was closed using candelario. Sterile dressings were applied. The patient tolerated the operation without any apparent complication and was returned to the intensive care unit in critical, but stable condition. Job ID: [id number]
[2019-01-10] MEDS ORDERED: Rocuronium Bromide 10 MG/ML (10ML VIAL) ONE (11:15)
[2019-01-10] MEDS ORDERED: Sodium Bicarbonate Tab 325 MG TAB PER TUBE PRN ×2 (11:16→12:50)
[2019-01-10] MEDS ORDERED: Pancrelipase DR 12000 1 CAP FS PRN ×2 (11:16→12:50)
[2019-01-10 11:34] LABS: Magnesium 1.7 mg/dL (1.6-2.6); Phosphorus 3.4 mg/dL (2.3-4.7)
--- NOTE | 2019-01-10 13:01 | PRG ---
DATE OF SERVICE: 01/10/2019 SUBJECTIVE: Ms. Nash did well overnight. She is awake and alert. She would awaken and follow commands. Moved all extremities this morning. OBJECTIVE: LUNGS: Clear anteriorly. HEART: Regular rhythm. ABDOMEN: Soft. EXTREMITIES: Without asymmetry. LABORATORY DATA: White count this morning was 22.8, hemoglobin 11.0. She had 84 segs, 7% bands, and platelets 220,000. Sodium 143, potassium 3.7, chloride 108, bicarb 26, BUN 29, creatinine 0.86. PH 7.42, CO2 of 34, PO2 of 126. She has since gone back to the operating room and has been reconnected and closed. Hopefully, over the next few days, we can successfully wean her from mechanical ventilation. I met with family and answered all their questions. CRITICAL CARE TIME: 30 minutes. Job ID: [id number]
[2019-01-10] MEDS ORDERED: Heparin 25,000 units/D5W 500 ML IV SCH (14:45)
[2019-01-10] MEDS ORDERED: Enoxaparin Sodium 60 MG/0.6 ML SYRINGE SC SCH ×2 (15:00→21:00)
--- NOTE | 2019-01-10 16:33 | OP ---
DATE OF PROCEDURE: 01/08/2019 PREOPERATIVE DIAGNOSES: 1. Acute enterocolitis. 2. Acute peritonitis secondary to acute enterocolitis. 3. Acute respiratory failure. POSTOPERATIVE DIAGNOSES: 1. Acute enterocolitis. 2. Acute peritonitis secondary to acute enterocolitis. 3. Acute respiratory failure. PROCEDURE PERFORMED: Placement of a triple-lumen left subclavian central venous catheter. DESCRIPTION OF PROCEDURE: Informed consent obtained from the patient, who was brought to the operating room. Following general anesthesia, left chest wall sterilely prepped and draped in usual fashion. Left subclavian vein was cannulated with an 18-gauge introducer needle returning dark venous blood. Guidewire was passed through the needle and placed into the left subclavian vein without resistance. Needle was withdrawn over the guidewire. A stab incision was made adjacent to the guidewire using 11 scalpel. Dilator was passed over the guidewire dilating the subcutaneous tissues. Dilator was removed and a triple-lumen central venous catheter was advanced over the guidewire and placed in the left subclavian vein without resistance stopping at the 18 cm maricarmen. Guidewire was removed. Dark venous blood was aspirated from all three ports, which were individually flushed with saline. Catheter was secured to anterior chest wall using 3-0 silk suture at two points. Sterile dressings were applied. The patient tolerated the procedure without any apparent complication and we will proceed with the abdominal operation thereafter. Job ID: [id number]
[2019-01-10] MEDS: Heparin 25,000 units/D5W 500 ML IV SCH (17:23)
--- NOTE | 2019-01-10 17:24 | PDOC.PN ---
- Subjective Encounter Start Date: 01/10/19 Encounter Start Time: 17:25 Subjective: f/u for ischemic necrosis of the bowel s/p laparotomy, R hemicolectomy -: and distal small bowel resection now with 2nd look with washout and -: ileocolostomy with abd closure. Remains on mech vent. - Objective Resuscitation Status - Order Detail: 01/02/19 11:49 Resuscitation Status Routine Resuscitation Status: FULL: Full Resuscitation MAR Reviewed: Yes Vital Signs & Weight: Vital Signs (12 hours) Temp Pulse Resp BP Pulse Ox 01/10/19 16:00 12 01/10/19 15:16 111 H 100/52 L 01/10/19 14:00 12 01/10/19 13:21 99 127/67 01/10/19 12:00 97.7 F 12 01/10/19 10:32 102 H 143/83 H 01/10/19 10:01 98.7 F 01/10/19 10:00 14 01/10/19 09:00 99 127/67 01/10/19 07:30 12 99 01/10/19 06:00 12 Weight Admit Weight 168 lb Weight 168 lb 10.458 oz Most Recent Monitor Data Heart Rate from ECG 101 NIBP 111/65 NIBP BP-Mean 80 Respiration from ECG 12 SpO2 99 I&O: 01/09/19 01/10/19 01/11/19 06:59 06:59 06:59 Intake Total 1645.3 3122 104 Output Total 997 1479 699 Balance 648.3 1643 -595 Result Diagrams: 01/10/19 03:45 01/10/19 03:30 Additional Labs: Microbiology 01/07/19 11:43 Urine tolbert catheter Urine Culture - Final NO GROWTH AT 48 HOURS Laboratory Tests 01/07/19 01/07/19 01/08/19 04:26 06:03 04:09 WBC 39.0 H 41.3 H* Hgb 10.2 L 10.8 L Neutrophils % (Manual) 85 H 74 Band Neuts % (Manual) 12 H 19 H Potassium 3.4 L Phosphorus Magnesium Cortisol 01/09/19 01/09/19 01/09/19 03:30 08:06 08:06 WBC 23.6 H Hgb 11.1 L Neutrophils % (Manual) 79 H 83 H Band Neuts % (Manual) 12 H Potassium 2.9 L* Phosphorus Magnesium Cortisol 01/10/19 01/10/19 01/10/19 03:45 11:04 11:04 WBC Hgb Neutrophils % (Manual) 84 H Band Neuts % (Manual) Potassium Phosphorus 3.4 Magnesium 1.7 Cortisol 25.60 Radiology Reviewed by me: Yes (ABD x-ray - feeding tube extends into jejunum) EKG Reviewed by me: Yes (Tele - A-fib in 90's) Phys Exam - Physical Examination Constitutional: NAD alert on [facility] vent, ETT in place HEENT: PERRLA, sclera anicteric, oral pharynx no lesions Neck: no nodes, no JVD, supple, full ROM Respiratory: no wheezing, no rales, no rhonchi, clear to auscultation bilateral S1, S2 Cardiovascular: no significant murmur, no rub, gallop, irregular surgical incision intact, LOBO drain noted with serosanguineous fluid Gastrointestinal: soft, no distention Musculoskeletal: pulses present, edema present Neurological: moves all 4 limbs Skin: normal turgor, cap refill <2 seconds Deviation from normal: Tolbert with power urine Dx/Plan (1) Ischemic necrosis of large intestine Code(s): K55.049 - ACUTE INFARCTION OF LARGE INTESTINE, EXTENT UNSPECIFIED Status: Acute Comment: s/p R hemicolectomy, DULCE, distal small bowel resection and temporary wound closure with wound vac POD #2, second look performed with washout and ileocolostomy with abd wound closure today, continue Cefepime/ Metronidazole (2) Acute bacterial peritonitis Code(s): K65.9 - PERITONITIS, UNSPECIFIED Status: Acute Comment: See above (3) Acute respiratory failure with hypoxemia Code(s): J96.01 - ACUTE RESPIRATORY FAILURE WITH HYPOXIA Status: Acute Comment: Slow wean off [facility] ventilation per Pulmonology (4) NSTEMI (non-ST elevated myocardial infarction) Code(s): I21.4 - NON-ST ELEVATION (NSTEMI) MYOCARDIAL INFARCTION Status: Acute Comment: ASA, Atenolol (5) A-fib Code(s): I48.91 - UNSPECIFIED ATRIAL FIBRILLATION Status: Acute Qualifiers: Atrial fibrillation type: paroxysmal Qualified Code(s): I48.0 - Paroxysmal atrial fibrillation Comment: Cardizem gtt d/c'd, Heparin gtt currently, Digoxin, Atenolol - Plan continue antibiotics, PT/OT, psych social worker, respiratory therapy, DVT proph w/ SCDs Continue critical support -: Continue Cefepime/Metronidazole -: Continue Diltiazem/Heparin gtt -: Nutritional support with dietary recommendations -: AM lab: BMP, CBC, Mg++, PO3 * .
[2019-01-10] MEDS: fentaNYL Citrate/PF 2,000 MCG in Sodium Chloride 0.9% 60 ML IV SCH (17:46)
--- NOTE | 2019-01-10 18:44 | PRG ---
DATE OF SERVICE: 01/10/2019 SUBJECTIVE: Still intubated, but she opens her eyes and establishes eye contact, grimaces sometimes when touched. OBJECTIVE: VITAL SIGNS: T-max 98.6, blood pressure 117/74, pulse 104, and respirations 12. HEENT: Orotracheal intubation. ABDOMEN: Abdominal incision site was closed by Dr. Root and she has a LOBO drain in place now. LUNGS: Symmetric air entry. HEART: S1, S2, regular rate. LABORATORY DATA: White cell count is at 24.4, hemoglobin 11, and platelets 161. Sodium 143 and creatinine 0.86. Microbiology with no growth in urine and blood cultures. Pathology of surgical specimen demonstrated ischemic colitis involving all portions of bowel segment examined. Ischemic colitis present in the proximal margin of resection. ASSESSMENT AND DISCUSSION: Atrial fibrillation, hepatitis C, urinary infections, hypertension, worsening cough with persistent sputum production, admitted and then developed diffuse abdominal tenderness with leukemoid reaction with evidence of ischemic colitis. In view of the compromised margin, the possibility of recrudescence of inflammatory process is a concern. Continue broad-spectrum antimicrobial therapy. She is receiving total parenteral nutrition. She is on cefepime and metronidazole. Job ID: [id number]
[2019-01-10] MEDS ORDERED: Digoxin 0.5 MG/2 ML AMP ONE (19:41)
[2019-01-10] MEDS ORDERED: Digoxin 0.5 MG/2 ML AMP SLOW IVP SCH (19:45)
[2019-01-10] MEDS ORDERED: Sodium Chloride 0.9% 1,000 ML IV SCH (19:45)
[2019-01-10] MEDS: Amiodarone 450 MG, Admixture Fee 1 EACH in Dextrose 5% in Water 250 ML IVPB SCH (20:08)
--- NOTE | 2019-01-10 20:08 | PRG ---
DATE OF SERVICE: 01/10/2019 SUBJECTIVE: Ms. Nash is intubated. She has come back from the OR. She had a second-look surgery today with no evidence of ongoing ischemia or necrosis. Apparently, she was on pressors today, after came back from the OR, she is off those. She had an ileocolonic anastomosis. There was some stricturing in the sigmoid colon per General Surgery, but it did not look like there is anything acute or obstruction. OBJECTIVE: VITAL SIGNS: Pulse is 108, blood pressure is 117/74, temperature 98.6. GENERAL: The patient is intubated and sedated. ABDOMEN: Has dressing on it. LABORATORY DATA: White count 22,000, hemoglobin 11, platelet count 220. Sodium 143, potassium 3.7, BUN and creatinine are 29 and 0.86. ASSESSMENT: Status post right hemicolectomy for small bowel and colonic ischemia, about 75 cm of small bowel removed. PLAN: We will follow with postoperative care. She will likely need TPN, but I would try use gut feeding as soon as possible to help stimulate growth and regeneration. We may need to watch for signs of diarrhea in the acute phase. Her overall prognosis is probably going to be more dependent on her heart disease, COPD, and early dementia issues. Job ID: [id number]
[2019-01-10] MEDS: Norepinephrine 8 MG/250 ML BAG IVPB PRN (21:35)
[2019-01-11] MEDS: Cefepime 1 GM in Sodium Chloride 0.9% 100 ML IVPB SCH ×3 (01:18→18:00)
[2019-01-11] MEDS: metroNIDAZOLE 500 MG in Premix Bag 1 BAG IVPB SCH ×3 (01:18→18:00)
[2019-01-11] MEDS: Amiodarone 450 MG, Admixture Fee 1 EACH in Dextrose 5% in Water 250 ML IVPB SCH ×2 (04:42→16:23)
[2019-01-11 05:56] LABS: Anisocytosis SLIGHT = 6-15 cells (100X) (0-5/hpf); Band 6 % (5-11); Eosinophils 2 % (0-10); Hemoglobin 10.3 g/dL (12.0-16.0); Hypochromia SLIGHT = 6-15 cells (100X) (0-5/hpf); Lymphocytes 4 % (21-51); MDiff Complete? YES; Mean Corpuscular Hemoglobin 22.3 pg (27.0-31.0); Mean Corpuscular Volume 74.3 fL (78.0-98.0); Mean Platelet Volume 6.1 fL (7.4-10.4); Microcytosis SLIGHT = 6-15 cells (100X) (0-5/hpf); Monocytes 8 % (0-10); Myelocyte 1 % (0-0); Neutrophil 78 % (42-75); Platelet Count 164 thou/uL (130-400); RBC Distribution Width 25.3 % (11.5-14.5); Reactive Lymphocytes 1 % (0-10); White Blood Cell (WBC) Count 21.4 thou/uL (4.8-10.8)
[2019-01-11 05:59] LABS: Anion Gap 10 mmol/L (10-20); BUN (Urea Nitrogen) 24 mg/dL (9.8-20.1); Calc. Creatinine Clearance 78 mL/min (70-130); Calcium 8.4 mg/dL (7.8-10.44); Carbon Dioxide 25 mmol/L (23-31); Chloride 110 mmol/L (98-107); Estimated GFR-MDRD 78; Glucose 133 mg/dL (83-110); Magnesium 1.6 mg/dL (1.6-2.6); Potassium 3.6 mmol/L (3.5-5.1); Sodium 141 mmol/L (136-145)
[2019-01-11 07:01] LABS: Phosphorus 2.4 mg/dL (2.3-4.7)
--- NOTE | 2019-01-11 07:32 | RAD ---
EXAM: Single view of the chest HISTORY: Ventilated patient with respiratory failure COMPARISON: 01/10/2019 FINDINGS: Single view of the chest shows an enlarged but stable cardiomediastinal silhouette. The li greta and tubes are unchanged in position. There is no evidence of consolidation, mass, or pleural effusion. The bones are unremarkable. IMPRESSION: Stable exam
[2019-01-11 07:34] LABS: Actual Bicarbonate (HCO3a) 23.9 mEq/L (22-28); Base Excess (BEa) 0.8 mEq/L (-2.0 to +3.0); CO2 Tension 33.2 mmHg (35.0-45.0); Calcium, Ionized 1.15 mmol/L (1.12-1.30); Carboxyhemoglobin (COHb) 0.7 gm% (0.0-3.0); Hemoglobin (Hb) 10.9 g/dL (12.0-16.0); O2 Tension (PaO2) 126.5 mmHg (> 70.0); Potassium - ABG Lab 3.48 mmol/L (3.70-5.30); pH, Arterial 7.48 (7.35-7.45)
[2019-01-11 07:37] LABS: Puncture Site LINE
[2019-01-11] MEDS: Furosemide 40 MG/4 ML VIAL SLOW IVP SCH (09:00)
[2019-01-11] MEDS: Pantoprazole 40 MG VIAL IVP SCH (10:16)
[2019-01-11] MEDS: Aspirin 81 mg Enteric Coated Tablet PO SCH (10:16)
[2019-01-11] MEDS: Sodium Chloride 0.9% (PF) 10 ML VIAL FS PRN (10:16)
[2019-01-11] MEDS: Digoxin 0.5 MG/2 ML AMP SLOW IVP SCH (11:33)
[2019-01-11] MEDS: Lactated Ringer's 1,000 ML IV SCH (11:47)
--- NOTE | 2019-01-11 12:55 | PRG ---
DATE OF SERVICE: 01/11/2019 SUBJECTIVE: Ms. Nash is a 78-year-old woman, postop day #1, status post second-look exploratory laparotomy with ileocolostomy. The patient is slightly sedated, on mechanical ventilator support. She awakens to voice. She moves all extremities and follows commands. Urinary output has been approximately 0.35 mL/kg per hour over the last 4 hours. She is on norepinephrine at 5 mcg/minute. OBJECTIVE: VITAL SIGNS: This morning include blood pressure 120/67, pulse is 90, respiratory rate is 16, temperature 99.1 degrees Fahrenheit, maximum temperature last 24 hours is 99.4 degrees Fahrenheit, oxygen saturation is 99% on FiO2 of 30%. HEENT: She has no jugular venous distention noted. HEART: Reveals regular rate and rhythm. No murmurs or gallops auscultated. LUNGS: Clear to auscultation bilaterally. Breathing, regular and nonlabored. ABDOMEN: Soft and nondistended. Bowel sounds in all 4 quadrants appear normoactive. LABORATORY DATA: The findings today include a CBC with 21,400 white blood cells, hemoglobin and hematocrit 10.3 and 34.2 respectively, platelet count is 164,000. Metabolic profile; sodium 141, potassium 3.6, chloride 110, bicarb 25, BUN 24, creatinine 0.72, glucose 133, phosphorus is 2.4, magnesium is 1.6. IMPRESSION: 1. Postop day #1, status post second-look exploratory laparotomy with ileocolostomy. 2. The patient is hemodynamically stable. 3. No further surgical indication at this time. PLAN: We will continue with trophic tube feeds until return of bowel function. Above findings and plan discussed with the patient's and adult daughter at bedside. I have answered their questions. Job ID: [id number]
[2019-01-11] MEDS: Heparin 25,000 units/D5W 500 ML IV SCH (14:48)
[2019-01-11] MEDS: Acetaminophen 1,000 MG in Premix Bag 1 BAG IVPB SCH ×2 (16:26→23:24)
--- NOTE | 2019-01-11 18:36 | PRG ---
DATE OF SERVICE: 01/11/2019 SUBJECTIVE: Ilene Nash is awake and alert this morning. She would follow commands with all of her extremities. She is in no distress. She met criteria for spontaneous breathing trial and this was done for several hours. She subsequently was felt to be a candidate for extubation. She has successfully been extubated. OBJECTIVE: VITAL SIGNS: This afternoon, her heart rates in the 90s, blood pressure 115/71, respiratory rates in the 20s, oximetry is 96%, blood pressure is 102/ 51. LUNGS: Clear. HEART: Regular rhythm. ABDOMEN: Soft and nontender. EXTREMITIES: Without edema. LABORATORY DATA: White count 21.4, hemoglobin 10.3, platelets 164. Blood gas 7.48, CO2 of 33, PO2 of 126. Ventilator settings were IMV of 12, FiO2 of 40%, tidal volume 500, PEEP of 5. Sodium 141, potassium 3.6, chloride 110, bicarb 25, BUN 24, creatinine 0.72. PTT has been fluctuating around 100. IMPRESSION AND PLAN: 1. Status post resection of bowel, felt to be an embolic event related to atrial fibrillation. 2. Status post cholecystectomy. 3. Atrial fibrillation. 4. Deconditioning with dementia. Hopefully, she will stabilize. We will see gradual improvement, although it will be quite some time before she is even marginally functional. She has small bilateral pleural effusions, more so on the right. These do not need to be addressed at this time. These are most likely related to atrial fibrillation combined with a laparotomy. Critical care time is 35 minutes. Job ID: [id number] MTDD
--- NOTE | 2019-01-11 18:52 | PDOC.PN ---
- Subjective Encounter Start Date: 01/11/19 Encounter Start Time: 18:00 Subjective: f/u resp failure successfully extubated today. Remains on Levophed -: and Amiodarone due to hypotension and A-fib RVR respectively. - Objective Resuscitation Status - Order Detail: 01/02/19 11:49 Resuscitation Status Routine Resuscitation Status: FULL: Full Resuscitation MAR Reviewed: Yes Vital Signs & Weight: Vital Signs (12 hours) Temp Pulse Resp Pulse Ox 01/11/19 18:39 82 14 97 01/11/19 13:16 94 14 100 01/11/19 12:00 98.8 F 01/11/19 11:33 89 01/11/19 11:20 96 16 99 01/11/19 10:47 91 01/11/19 10:00 10 L 01/11/19 08:45 14 01/11/19 08:00 99.9 F H 14 01/11/19 07:27 90 Weight Admit Weight 168 lb Weight 172 lb 9.951 oz Most Recent Monitor Data Heart Rate from ECG 93 NIBP 115/71 NIBP BP-Mean 85 Respiration from ECG 25 SpO2 97 I&O: 01/10/19 01/11/19 01/12/19 06:59 06:59 06:59 Intake Total 3122 3733.2 60 Output Total 1479 1597 350 Balance 1643 2136.2 -290 Result Diagrams: 01/11/19 05:30 01/11/19 05:30 Additional Labs: Microbiology 01/07/19 11:43 Urine tolbert catheter Urine Culture - Final NO GROWTH AT 48 HOURS Laboratory Tests 01/07/19 01/07/19 01/08/19 04:26 06:03 04:09 WBC 39.0 H 41.3 H* Hgb 10.2 L 10.8 L Neutrophils % (Manual) 85 H 74 Band Neuts % (Manual) 12 H 19 H Potassium 3.4 L Phosphorus Magnesium Cortisol 01/09/19 01/09/19 01/09/19 03:30 08:06 08:06 WBC 23.6 H Hgb 11.1 L Neutrophils % (Manual) 79 H 83 H Band Neuts % (Manual) 12 H Potassium 2.9 L* Phosphorus Magnesium Cortisol 01/10/19 01/10/19 01/10/19 03:45 11:04 11:04 WBC Hgb Neutrophils % (Manual) 84 H Band Neuts % (Manual) Potassium Phosphorus 3.4 Magnesium 1.7 Cortisol 25.60 Radiology Reviewed by me: Yes (PCXR - stable, no acute changes) EKG Reviewed by me: Yes (Tele - A-fib in the 90's) Phys Exam - Physical Examination alert, nods to questions HEENT: PERRLA, sclera anicteric, oral pharynx no lesions Neck: no nodes, no JVD, supple, full ROM Respiratory: no wheezing, no rales, no rhonchi, clear to auscultation bilateral S1, S2 Cardiovascular: no significant murmur, no rub, gallop, irregular LOBO drain in place, incision intact Gastrointestinal: soft, no distention, positive bowel sounds Musculoskeletal: pulses present, edema present Neurological: normal sensation, moves all 4 limbs Skin: normal turgor, cap refill <2 seconds Deviation from normal: Tolbert with power urine Dx/Plan (1) Ischemic necrosis of large intestine Code(s): K55.049 - ACUTE INFARCTION OF LARGE INTESTINE, EXTENT UNSPECIFIED Status: Acute Comment: s/p R hemicolectomy, DULCE, distal small bowel resection and temporary wound closure with wound vac POD #3, second look POD #1 performed with washout and ileocolostomy with abd wound closure today, continue Cefepime/ Metronidazole (2) Acute bacterial peritonitis Code(s): K65.9 - PERITONITIS, UNSPECIFIED Status: Acute Comment: See above (3) Acute respiratory failure with hypoxemia Code(s): J96.01 - ACUTE RESPIRATORY FAILURE WITH HYPOXIA Status: Acute Comment: s/p Extubation, O2 via NC (4) NSTEMI (non-ST elevated myocardial infarction) Code(s): I21.4 - NON-ST ELEVATION (NSTEMI) MYOCARDIAL INFARCTION Status: Acute Comment: ASA, Atenolol (5) A-fib Code(s): I48.91 - UNSPECIFIED ATRIAL FIBRILLATION Status: Acute Qualifiers: Atrial fibrillation type: paroxysmal Qualified Code(s): I48.0 - Paroxysmal atrial fibrillation Comment: Cardizem gtt d/c'd, Heparin gtt currently, Digoxin, Atenolol, Amiodarone gtt - Plan continue antibiotics, PT/OT, manager social media, respiratory therapy, DVT proph w/ SCDs Continue supportive mgmt -: Continue Cefepime/Metronidazole -: Amiodarone, Digoxin for rate control -: Nutritional support with TF's -: AM lab: BMP, CBC * .
[2019-01-12] MEDS: Cefepime 1 GM in Sodium Chloride 0.9% 100 ML IVPB SCH ×3 (01:50→17:36)
[2019-01-12] MEDS: metroNIDAZOLE 500 MG in Premix Bag 1 BAG IVPB SCH ×3 (01:51→17:36)
[2019-01-12] MEDS: Norepinephrine 8 MG/250 ML BAG IVPB PRN (02:06)
[2019-01-12] MEDS: Lactated Ringer's 1,000 ML IV SCH ×2 (05:45→22:32)
[2019-01-12 06:14] LABS: Anion Gap 10 mmol/L (10-20); BUN (Urea Nitrogen) 23 mg/dL (9.8-20.1); Calc. Creatinine Clearance 76 mL/min (70-130); Calcium 8.3 mg/dL (7.8-10.44); Carbon Dioxide 25 mmol/L (23-31); Chloride 110 mmol/L (98-107); Estimated GFR-MDRD 76; Glucose 127 mg/dL (83-110); Potassium 3.7 mmol/L (3.5-5.1); Sodium 141 mmol/L (136-145)
[2019-01-12 06:23] LABS: Anisocytosis MODERATE=16-30 cells (100X) (0-5/hpf); Band 13 % (5-11); Elliptocytes SLIGHT = 2-5 cells (100X) (0-1/hpf); Eosinophils 2 % (0-10); Hemoglobin 9.7 g/dL (12.0-16.0); Lymphocytes 4 % (21-51); MDiff Complete? YES; Mean Corpuscular HGB CONC 30.3 g/dL (32.0-36.0); Mean Corpuscular Hemoglobin 22.7 pg (27.0-31.0); Mean Corpuscular Volume 74.9 fL (78.0-98.0); Mean Platelet Volume 6.3 fL (7.4-10.4); Microcytosis SLIGHT = 6-15 cells (100X) (0-5/hpf); Monocytes 3 % (0-10); Neutrophil 78 % (42-75); Platelet Count 185 thou/uL (130-400); RBC Distribution Width 25.6 % (11.5-14.5); Red Blood Cell (RBC) Count 4.29 mill/uL (4.20-5.40)
[2019-01-12 06:27] LABS: PTT 140.9 SEC (22.9-36.1)
[2019-01-12] MEDS: Acetaminophen 1,000 MG in Premix Bag 1 BAG IVPB SCH ×2 (06:59→12:51)
--- NOTE | 2019-01-12 07:39 | RAD ---
EXAM: Single view of the chest HISTORY: Ventilated patient with respiratory failure COMPARISON: 01/11/2019 FINDINGS: Single view of the chest shows an enlarged but stable cardiomediastinal silhouette. The en dotracheal tube is not seen and may have been removed. The other lines and tubes are unchanged in position. There is no evidence of consolidation, mass, or pleural effusion. The bones are unremarkabl e. IMPRESSION: Stable exam status post extubation
[2019-01-12] MEDS ORDERED: Enoxaparin Sodium 60 MG/0.6 ML SYRINGE SC SCH ×3 (09:28→21:00)
[2019-01-12] MEDS: Amiodarone 450 MG, Admixture Fee 1 EACH in Dextrose 5% in Water 250 ML IVPB SCH (09:29)
[2019-01-12] MEDS: Pantoprazole 40 MG VIAL IVP SCH (09:32)
[2019-01-12] MEDS: Furosemide 40 MG/4 ML VIAL SLOW IVP SCH (09:32)
[2019-01-12] MEDS: Aspirin 81 mg Enteric Coated Tablet PO SCH (09:33)
[2019-01-12] MEDS: Digoxin 0.5 MG/2 ML AMP SLOW IVP SCH (09:34)
[2019-01-12] MEDS ORDERED: Enoxaparin Sodium 80 MG/0.8 ML SYRINGE SC SCH (09:45)
[2019-01-12] MEDS ORDERED: Albumin 25% 25 GM/100 ML BOT IVPB SCH ×2 (10:00→12:15)
--- NOTE | 2019-01-12 11:35 | PRG ---
DATE OF SERVICE: 01/12/2019 SUBJECTIVE: Ms. Nash is a 78-year-old woman, who is postoperative day #2, status post second-look exploratory laparotomy with ileocolostomy. The patient is awake and alert this morning. She reports adequate pain control. She is not having any bowel movement or passing gas yet. Urinary output is adequate for this patient's age and weight. She is on norepinephrine now at 2 mcg/minute, being de-escalated. OBJECTIVE: VITAL SIGNS: Currently include blood pressure of 102/62, pulse is 88, respiratory rate is 24, temperature is 98.8 degrees Fahrenheit, maximum temperature in last 24 hours is 99.9 degrees Fahrenheit. Oxygen saturation is 98% on 2 L by nasal cannula oxygen. HEART: Reveals regular rate and rhythm. LUNGS: Clear to auscultation bilaterally. Breathing, regular and nonlabored. ABDOMEN: Soft and nondistended. Incision is intact, clean, and dry. Mina-Raygoza drain returns large amount of serous ascites. Bowel sounds are present in all 4 quadrants. Nasogastric tube has returned a scant gastric effluent over the last 24 hours. NEUROLOGIC: Reveals no focal deficits present. LABORATORY FINDINGS: Today include a CBC with 21,000 white blood cells, hemoglobin and hematocrit are stable at 9.7 and 32.1 respectively. Platelet count is 185,000. Differential counts as follows; 78 segmented neutrophils, 13 bands, 4 lymphocytes, 3 monocytes. Metabolic profile; sodium 141, potassium 3.7, chloride is 110, bicarb 25, BUN 23, creatinine is 0.74, and glucose is 127. IMPRESSION: 1. Postop day #2 status post second-look exploratory laparotomy for ischemic small and large bowel necrosis. 2. The patient is hemodynamically improving. PLAN: 1. We will discontinue the nasogastric tube; however, we will continue with trophic tube feeds until return of bowel function. 2. The Mina-Raygoza drain will be removed as the patient is fully anticoagulated now on unfractionated heparin. 3. She has remained hemodynamically stable with no evidence of active hemorrhage over the last 48 hours. 4. Now be prudent to transition the patient from unfractionated heparin infusion to weight based enoxaparin, given this patient's active history of venous thromboembolism. The above findings and plan have been discussed with the patient and her at bedside. 5. We will initiate physical and occupational therapy. Job ID: [id number]
--- NOTE | 2019-01-12 14:03 | PRG ---
DATE OF SERVICE: 01/12/2019 SUBJECTIVE: Ilene Nash is awake and alert, quick to answer questions. She is pleasant and cooperative. Her family is in the room. OBJECTIVE: VITAL SIGNS: She is afebrile. Heart rate is 96, blood pressure 106/67, respiratory rate in the teens. Intake and outputs, positive 2249. LUNGS: Clear anteriorly and laterally. HEART: Regular rhythm. ABDOMEN: Soft and surprisingly minimally tender. EXTREMITIES: Without asymmetry. monitor and storage bin tender still shows atrial fibrillation. Chest x-ray shows small bilateral effusions posteriorly. LABORATORY DATA: White count 21, hemoglobin 9.7, platelets 185,000. 13% bands on peripheral smear. Sodium 141, potassium 3.7, chloride 110, bicarb 25, BUN 23, creatinine 0.74. IMPRESSION: 1. Status post laparotomy for bowel with relook 2 days later and reanastomosis of small bowel and transverse colon she appears to be doing clinically well. 2. Mild postop effusions. 3. Atrial fibrillation. 4. Status post embolic event creating ischemic bowel, now anticoagulated. She can be switched to Lovenox in my opinion. She will continue with broad antimicrobial therapy. We will continue monitoring in the Critical Care Unit for now. Hopefully, she will be a candidate to transfer out of the Critical Care Unit in the morning. Job ID: [id number]
--- NOTE | 2019-01-12 16:10 | PDOC.PN ---
- Subjective Encounter Start Date: 01/12/19 Encounter Start Time: 14:00 Subjective: f/u for ischemic bowel necrosis s/p ileocolostomy POD# 2. Off pressor -: support and Amiodarone. LOBO drain pulled and continues on TF's low volume -: More awake and talkative. - Objective Resuscitation Status - Order Detail: 01/02/19 11:49 Resuscitation Status Routine Resuscitation Status: FULL: Full Resuscitation MAR Reviewed: Yes Vital Signs & Weight: Vital Signs (12 hours) Temp Pulse Resp Pulse Ox 01/12/19 13:58 94 16 99 01/12/19 12:00 98.6 F 01/12/19 09:34 84 01/12/19 08:00 98.8 F 99 01/12/19 07:44 84 18 96 Weight Admit Weight 168 lb Weight 170 lb 10.205 oz Most Recent Monitor Data Heart Rate from ECG 91 NIBP 110/54 NIBP BP-Mean 72 Respiration from ECG 14 SpO2 100 I&O: 01/11/19 01/12/19 01/13/19 06:59 06:59 06:59 Intake Total 3733.2 3427 560 Output Total 1597 1178 345 Balance 2136.2 2249 215 Result Diagrams: 01/12/19 05:40 01/12/19 05:40 Additional Labs: Microbiology 01/07/19 11:43 Urine tolbert catheter Urine Culture - Final NO GROWTH AT 48 HOURS Laboratory Tests 01/07/19 01/07/19 01/08/19 04:26 06:03 04:09 WBC 39.0 H 41.3 H* Hgb 10.2 L 10.8 L MCV Neutrophils % (Manual) 85 H 74 Band Neuts % (Manual) 12 H 19 H Potassium 3.4 L Phosphorus Magnesium Cortisol 01/09/19 01/09/19 01/09/19 03:30 08:06 08:06 WBC 23.6 H Hgb 11.1 L MCV Neutrophils % (Manual) 79 H 83 H Band Neuts % (Manual) 12 H Potassium 2.9 L* Phosphorus Magnesium Cortisol 01/10/19 01/10/19 01/10/19 03:45 11:04 11:04 WBC Hgb MCV Neutrophils % (Manual) 84 H Band Neuts % (Manual) Potassium Phosphorus 3.4 Magnesium 1.7 Cortisol 25.60 05/01/11/19 01/11/19 05:30 05:30 05:30 WBC 21.4 H Hgb 10.3 L MCV 74.3 L Neutrophils % (Manual) Band Neuts % (Manual) Potassium Phosphorus 2.4 Magnesium 1.6 Cortisol Radiology Reviewed by me: Yes (PCXR - no acute process) EKG Reviewed by me: Yes (Tele - A-fib 80's) Phys Exam - Physical Examination Constitutional: NAD alert, responsive HEENT: PERRLA, sclera anicteric, oral pharynx no lesions Neck: no nodes, no JVD, supple, full ROM Respiratory: no wheezing, no rales, no rhonchi, clear to auscultation bilateral S1, S2 Cardiovascular: no significant murmur, no rub, gallop, irregular incision intact Gastrointestinal: soft, no distention, positive bowel sounds Musculoskeletal: no edema, pulses present Neurological: moves all 4 limbs Skin: normal turgor, cap refill <2 seconds Deviation from normal: Tolbert with power urine Dx/Plan (1) Ischemic necrosis of large intestine Code(s): K55.049 - ACUTE INFARCTION OF LARGE INTESTINE, EXTENT UNSPECIFIED Status: Acute Comment: s/p R hemicolectomy, DULCE, distal small bowel resection and temporary wound closure with wound vac POD #4, second look POD #2 performed with washout and ileocolostomy with abd wound closure today, continue Cefepime/ Metronidazole (2) Acute bacterial peritonitis Code(s): K65.9 - PERITONITIS, UNSPECIFIED Status: Acute Comment: See above (3) Acute respiratory failure with hypoxemia Code(s): J96.01 - ACUTE RESPIRATORY FAILURE WITH HYPOXIA Status: Acute Comment: s/p Extubation, O2 via NC (4) NSTEMI (non-ST elevated myocardial infarction) Code(s): I21.4 - NON-ST ELEVATION (NSTEMI) MYOCARDIAL INFARCTION Status: Acute Comment: ASA, Atenolol (5) A-fib Code(s): I48.91 - UNSPECIFIED ATRIAL FIBRILLATION Status: Acute Qualifiers: Atrial fibrillation type: paroxysmal Qualified Code(s): I48.0 - Paroxysmal atrial fibrillation Comment: Cardizem gtt d/c'd, Lovenox sc BID, Digoxin - Plan continue antibiotics, PT/OT, mental health social worker, speech therapy, respiratory therapy, out of bed/ambulate, DVT proph w/SCDs Continue supportive mgmt -: Continue Cefepime/Metronidazole -: PT for mobilization -: TF's for nutritional support -: SNF/Rehab options * AM lab: BMP, CBC
--- NOTE | 2019-01-12 16:45 | PRG ---
DATE OF SERVICE: 01/12/2019 SUBJECTIVE: Ms. Nash is extubated. She is tolerating tube feeds, receiving some albumin, cefepime, Lovenox, metronidazole. She is also on Protonix once a day. OBJECTIVE: VITAL SIGNS: Pulse 92, blood pressure 101/63. LUNGS: Clear. ABDOMEN: Good dressing on it. This is clean. Bowel sounds are quiescent. LABORATORY DATA: White count 21,000, hemoglobin 9.7, platelet count 185. Sodium 141, potassium 5.7, chloride 101, bicarb 25, BUN and creatinine 23 and 0.74. ASSESSMENT AND PLAN: 1. Status post resection of distal 75 cm ileum in right colon for ischemia, necrosis, doing well on some TPN, and tolerating tube feeds. 2. Congestive heart failure. 3. Chronic obstructive pulmonary disease . We will follow from distance. If I can be of any further assistance in her care, please do not hesitate to contact me. Job ID: [id number]
[2019-01-12] MEDS: Enoxaparin Sodium 80 MG/0.8 ML SYRINGE SC SCH (22:31)
[2019-01-13] MEDS: metroNIDAZOLE 500 MG in Premix Bag 1 BAG IVPB SCH ×3 (01:24→18:08)
[2019-01-13] MEDS: Cefepime 1 GM in Sodium Chloride 0.9% 100 ML IVPB SCH ×3 (01:24→19:50)
[2019-01-13 07:21] LABS: Anion Gap 9 mmol/L (10-20); BUN (Urea Nitrogen) 20 mg/dL (9.8-20.1); Calc. Creatinine Clearance 87 mL/min (70-130); Calcium 8.5 mg/dL (7.8-10.44); Carbon Dioxide 28 mmol/L (23-31); Chloride 112 mmol/L (98-107); Estimated GFR-MDRD 88; Glucose 94 mg/dL (83-110); Potassium 3.6 mmol/L (3.5-5.1); Sodium 145 mmol/L (136-145)
[2019-01-13 07:23] LABS: Digoxin 1.21 ng/mL (0.8-2.0)
--- NOTE | 2019-01-13 08:13 | RAD ---
CHEST 1 VIEW: Date: 01/13/19 INDICATION: History of intubation. COMPARISON: Prior exam dated 01/12/19. FINDINGS: There is stable cardiomegaly, pulmonary vascular congestion, and central edema pattern. Feeding tube and left-sided central venous catheter is unchanged. Patient's previous gastric catheter has been rem mary alice. There are bilateral pleural effusions, left greater than right. Left basilar opacity persists. No pneumothorax is evident. IMPRESSION: Stable exam. POS: BH
[2019-01-13] MEDS ORDERED: Atenolol 25 MG TAB PO SCH (09:15)
[2019-01-13 09:17] LABS: Hemoglobin 8.5 g/dL (12.0-16.0); Mean Corpuscular HGB CONC 29.5 g/dL (32.0-36.0); Mean Corpuscular Hemoglobin 22.5 pg (27.0-31.0); Mean Corpuscular Volume 76.4 fL (78.0-98.0); Platelet Count 169 thou/uL (130-400); RBC Distribution Width 26.1 % (11.5-14.5); Red Blood Cell (RBC) Count 3.79 mill/uL (4.20-5.40); White Blood Cell (WBC) Count 14.1 thou/uL (4.8-10.8)
[2019-01-13 09:20] LABS: Band 5 % (5-11); Eosinophils 4 % (0-10); Hypochromia MODERATE=16-30 cells (100X) (0-5/hpf); Lymphocytes 10 % (21-51); MDiff Complete? YES; Microcytosis SLIGHT = 6-15 cells (100X) (0-5/hpf); Monocytes 3 % (0-10); Myelocyte 1 % (0-0); Neutrophil 77 % (42-75); Ovalocytes MODERATE= 6-15 cells (100X) (0-1/hpf); Platelet Morphology Comment Appears Adequate; Polychromasia MODERATE = 3-4 cells (100X) (0-2/hpf)
[2019-01-13] MEDS ORDERED: Magnesium 2 GM/50 ML 2 GM in Premix Bag 1 BAG IVPB SCH (09:30)
[2019-01-13] MEDS: Pantoprazole 40 MG VIAL IVP SCH (09:40)
[2019-01-13] MEDS: Furosemide 40 MG/4 ML VIAL SLOW IVP SCH (09:40)
[2019-01-13] MEDS: Enoxaparin Sodium 80 MG/0.8 ML SYRINGE SC SCH ×2 (09:41→20:39)
[2019-01-13] MEDS: Aspirin 81 mg Enteric Coated Tablet PO SCH (09:41)
[2019-01-13] MEDS: Digoxin 0.5 MG/2 ML AMP SLOW IVP SCH (10:01)
--- NOTE | 2019-01-13 11:24 | PRG ---
DATE OF SERVICE: 01/13/2019 SUBJECTIVE: Ms. Nash is doing well. She was in the neuro chair when I arrived this morning. She is in no distress. She remember my name. She is oriented to person and place. She is unsure what day it was. OBJECTIVE: VITAL SIGNS: Heart rate 90, respiratory rate 18, oximetry is 98% on 2 L, blood pressure 115/68. LUNGS: Clear. HEART: Regular rhythm. ABDOMEN: Soft and nontender. EXTREMITIES: Without asymmetry or edema. Chest radiograph is unchanged. She has a posterior pleural fluid seen on her film. White count 14.1, hemoglobin 8.5, platelets 169. Sodium 145, potassium 3.6, chloride 112, bicarb 28, BUN 20, creatinine 0.65. IMPRESSION: 1. Status post resection of bowel with a followup relook and reanastomosis of her small-bowel and her transverse colon. 2. Status post cholecystectomy this admission. 3. History of gastrointestinal blood loss. 4. History of atrial fibrillation with anticoagulation withheld because of gastrointestinal blood loss. 5. Deconditioning and obesity. 6. Early dementia. She is actually fairly well compensated at this time. 7. She is stable to move out of Critical Care Unit. Job ID: [id number]
--- NOTE | 2019-01-13 16:18 | PRG ---
DATE OF SERVICE: 01/13/2019 SUBJECTIVE: Ms. Nash is awake. She has been extubated. She is going to move down to the IMU. MEDICATIONS: 1. Lovenox. 2. DuoNeb. 3. Tenormin. 4. Tessalon. 5. Lanoxin. 6. Robitussin. 7. Ativan. 8. Flagyl. 9. Nitroglycerin. OBJECTIVE: VITAL SIGNS: Temperature is 97, pulse is 113 to 102, and blood pressure 110/55. LUNGS: Clear. HEART: Regular rhythm without clicks, rubs, or murmurs. ABDOMEN: Soft and nontender. LABORATORY DATA: White count is 14, hemoglobin is 8.5, and platelet count is 169. Sodium 145, potassium 3.6, BUN and creatinine are 20 and 0.65. ASSESSMENT: 1. Ischemic distal small bowel and right colon, status post resection. 2. Peritonitis, status post resection, on antibiotics, improving well. 3. Diarrhea. The nurses note she is having quite a bit of output. She did have 75 cm of terminal ileum removed. RECOMMENDATIONS: Consider either adding some Lomotil 2 to 3 times a day to slow her bowels or consider adding some Colestid in the evening for bile acid sequestrations. We will defer to General Surgery before we add any of these as she is just in the pretty immediate postoperative period. If she were to continue diarrhea, we would consider a C. diff, but the nurses note she does not have an odor of C. diff. Job ID: [id number]
[2019-01-13] MEDS: Lactated Ringer's 1,000 ML IV SCH ×2 (16:19→21:17)
--- NOTE | 2019-01-13 16:38 | PDOC.PN ---
- Subjective Encounter Start Date: 01/13/19 Encounter Start Time: 15:00 Subjective: f/u for ischemic necrosis of distal small/large bowel with resection and -: colostomy on Cefepime/Metronidazole. Doing well overall and tolerating -: TF's with Dobhoff. - Objective Resuscitation Status - Order Detail: 01/02/19 11:49 Resuscitation Status Routine Resuscitation Status: FULL: Full Resuscitation MAR Reviewed: Yes Vital Signs & Weight: Vital Signs (12 hours) Temp Pulse Pulse Pulse Resp BP BP 01/13/19 14:47 100 103 H 110/55 L 104/57 L 01/13/19 13:20 97 19 01/13/19 12:00 98.6 F 01/13/19 11:05 93 115/72 01/13/19 10:01 98 01/13/19 08:01 98 18 01/13/19 08:00 98.8 F Pulse Ox Pulse Ox Pulse Ox 01/13/19 14:47 99 99 01/13/19 13:20 99 01/13/19 12:00 01/13/19 11:05 100 01/13/19 10:01 01/13/19 08:01 98 01/13/19 08:00 98 Weight Admit Weight 168 lb 13.985 oz Weight 173 lb 8.061 oz Most Recent Monitor Data Heart Rate from ECG 113 NIBP 110/55 NIBP BP-Mean 73 Respiration from ECG 23 SpO2 99 I&O: 01/12/19 01/13/19 01/14/19 06:59 06:59 06:59 Intake Total 3427 2831 350 Output Total 1551 197 4819 Balance 2249 2002 -825 Result Diagrams: 01/13/19 06:47 01/13/19 06:47 Additional Labs: Microbiology 01/07/19 11:43 Urine tolbert catheter Urine Culture - Final NO GROWTH AT 48 HOURS Laboratory Tests 01/07/19 01/07/19 01/08/19 04:26 06:03 04:09 WBC 39.0 H 41.3 H* Hgb 10.2 L 10.8 L MCV Neutrophils % (Manual) 85 H 74 Band Neuts % (Manual) 12 H 19 H Potassium 3.4 L Phosphorus Magnesium Cortisol 01/09/19 01/09/19 01/09/19 03:30 08:06 08:06 WBC 23.6 H Hgb 11.1 L MCV Neutrophils % (Manual) 79 H 83 H Band Neuts % (Manual) 12 H Potassium 2.9 L* Phosphorus Magnesium Cortisol 01/10/19 01/10/19 01/10/19 03:45 11:04 11:04 WBC Hgb MCV Neutrophils % (Manual) 84 H Band Neuts % (Manual) Potassium Phosphorus 3.4 Magnesium 1.7 Cortisol 25.60 01/11/19 01/11/19 01/11/19 05:30 05:30 05:30 WBC 21.4 H Hgb 10.3 L MCV 74.3 L Neutrophils % (Manual) Band Neuts % (Manual) Potassium Phosphorus 2.4 Magnesium 1.6 Cortisol Radiology Reviewed by me: Yes (PCXR - central pulm edema, feeding tube in place) EKG Reviewed by me: Yes (Tele - A-fib) Phys Exam - Physical Examination Constitutional: NAD HEENT: PERRLA, sclera anicteric, oral pharynx no lesions Neck: no nodes, no JVD, supple, full ROM Respiratory: no wheezing, no rhonchi S1, S2 Cardiovascular: no significant murmur, no rub, gallop, irregular surgical incision intact Gastrointestinal: soft, no distention, positive bowel sounds Musculoskeletal: no edema, pulses present Neurological: normal sensation, moves all 4 limbs Psychiatric: A&O x 3 Skin: normal turgor, cap refill <2 seconds Dx/Plan (1) Ischemic necrosis of large intestine Code(s): K55.049 - ACUTE INFARCTION OF LARGE INTESTINE, EXTENT UNSPECIFIED Status: Acute Comment: s/p R hemicolectomy, DULCE, distal small bowel resection and temporary wound closure with wound vac POD #5, second look POD #3 performed with washout and ileocolostomy with abd wound closure, continue Cefepime/ Metronidazole (2) Acute bacterial peritonitis Code(s): K65.9 - PERITONITIS, UNSPECIFIED Status: Acute Comment: See above (3) Acute respiratory failure with hypoxemia Code(s): J96.01 - ACUTE RESPIRATORY FAILURE WITH HYPOXIA Status: Acute Comment: s/p Extubation, O2 @ 2L/min NC (4) NSTEMI (non-ST elevated myocardial infarction) Code(s): I21.4 - NON-ST ELEVATION (NSTEMI) MYOCARDIAL INFARCTION Status: Acute Comment: ASA, Atenolol (5) A-fib Code(s): I48.91 - UNSPECIFIED ATRIAL FIBRILLATION Status: Acute Qualifiers: Atrial fibrillation type: paroxysmal Qualified Code(s): I48.0 - Paroxysmal atrial fibrillation Comment: Cardizem gtt d/c'd, Lovenox sc BID, Digoxin - Plan continue antibiotics, PT/OT, social sciences chair, respiratory therapy, out of bed/ ambulate, DVT proph w/SCDs Stable currently -: Continue Cefepime/Flagyl -: PT/OT for mobilization -: CM for Swing/SNF options -: AM lab: BMP, CBC * .
--- NOTE | 2019-01-13 21:23 | PRG ---
DATE OF SERVICE: 01/13/2019 This is Dianna Whitfield NP dictating a report for Reji Root DO. HISTORY OF PRESENT ILLNESS: The patient is a 78-year-old female who is postoperative day #3 status post second-look exploratory laparotomy with ileocolostomy. The patient is awake and alert, sitting up in the neuro chair in ICU. The patient reports adequate pain control. The patient is off all pressors at this time. This patient with minimal urine output overnight, but starting to picket [employer] this morning. OBJECTIVE: VITAL SIGNS: Temperature 98.8, SpO2 of 98% on 2 L, heart rate 97, and blood pressure 123/80. GENERAL: The patient awake and alert, sitting up in the chair, in no distress. HEART: Irregularly irregular, +1 pitting edema LUNGS: Clear bilateral, breathing is regular and nonlabored with equal excursion. ABDOMEN: Soft and nondistended, incision is intact, clean and dry. EXTREMITIES: The patient with diffuse edema secondary to third spacing. NEUROLOGIC: No focal deficits. LABORATORY DATA: WBC 14.1, RBC 3.79, hemoglobin 8.5, hematocrit 28.9, platelet 169. Sodium 145, potassium 3.6, chloride 112, BUN 20, creatinine 0.65, estimated GFR 88, glucose 94, calcium 8.5 and magnesium 1.5. DIAGNOSTIC DATA: Chest x-ray, stable exam. No pneumothorax evident. Positive for bilateral pleural effusions, left greater than right, left basilar opacity persists. IMPRESSION: Postoperative day #3 status post second-look exploratory laparotomy with ischemic small and large bowel necrosis. PLAN: The patient is hemodynamically improving. We will see about transferring patient to tele as long the pulmonary is okay with it. We will continue supportive care. We will continue physical and occupational therapy. The patient was examined with Dr. Root during morning rounds. Job ID: [id number] [facility]
[2019-01-14] MEDS: Cefepime 1 GM in Sodium Chloride 0.9% 100 ML IVPB SCH ×3 (02:21→17:21)
[2019-01-14] MEDS: metroNIDAZOLE 500 MG in Premix Bag 1 BAG IVPB SCH ×3 (02:28→17:21)
[2019-01-14 04:57] LABS: Anion Gap 7 mmol/L (10-20); BUN (Urea Nitrogen) 20 mg/dL (9.8-20.1); Calc. Creatinine Clearance 77 mL/min (70-130); Calcium 8.2 mg/dL (7.8-10.44); Carbon Dioxide 27 mmol/L (23-31); Chloride 113 mmol/L (98-107); Estimated GFR-MDRD 76; Glucose 138 mg/dL (83-110); Potassium 3.1 mmol/L (3.5-5.1); Sodium 144 mmol/L (136-145)
[2019-01-14 05:00] LABS: Band 1 % (5-11); Hemoglobin 8.3 g/dL (12.0-16.0); Hypochromia SLIGHT = 6-15 cells (100X) (0-5/hpf); Lymphocytes 3 % (21-51); MDiff Complete? YES; Mean Corpuscular HGB CONC 28.8 g/dL (32.0-36.0); Mean Corpuscular Hemoglobin 22.5 pg (27.0-31.0); Mean Corpuscular Volume 77.9 fL (78.0-98.0); Mean Platelet Volume 11.3 fL (7.4-10.4); Monocytes 1 % (0-10); Neutrophil 95 % (42-75); Platelet Count 222 thou/uL (130-400); Platelet Morphology Comment Appears Adequate; RBC Distribution Width 26.3 % (11.5-14.5); White Blood Cell (WBC) Count 13.7 thou/uL (4.8-10.8)
--- NOTE | 2019-01-14 07:44 | RAD ---
EXAM: Portable chest: INDICATIONS: Hospital follow-up. Shortness of breath. COMPARISON: 01/13/2019 FINDINGS: Cardiomegaly. Mild vascular congestion. Bilateral effusions and bibasilar atelectasis. NG t ube and central line unchanged. IMPRESSION: Stable findings
[2019-01-14] MEDS: Atenolol 25 MG TAB PO SCH (09:02)
[2019-01-14] MEDS: Aspirin 81 mg Enteric Coated Tablet PO SCH (09:02)
[2019-01-14] MEDS: Enoxaparin Sodium 80 MG/0.8 ML SYRINGE SC SCH ×2 (09:02→21:09)
[2019-01-14] MEDS: Furosemide 40 MG/4 ML VIAL SLOW IVP SCH (09:04)
[2019-01-14] MEDS: Pantoprazole 40 MG VIAL IVP SCH (09:04)
[2019-01-14] MEDS: Digoxin 0.5 MG/2 ML AMP SLOW IVP SCH (10:37)
--- NOTE | 2019-01-14 11:17 | PDOC.PN ---
- Subjective Encounter Start Date: 01/14/19 Encounter Start Time: 11:15 Ms. Nash was seen today in follow-up of ischemic bowel s/p resection. She appears quite weak. Her nurse noted free blood in her pull up. She is awake, and denies any abdominal pain. She denies feeling short of breath. - Objective Resuscitation Status - Order Detail: 01/02/19 11:49 Resuscitation Status Routine Resuscitation Status: FULL: Full Resuscitation MAR Reviewed: Yes Vital Signs & Weight: Vital Signs (12 hours) Temp Pulse Resp BP BP Pulse Ox 01/14/19 10:37 116 H 01/14/19 09:02 116 H 129/62 01/14/19 07:36 98.2 F 116 H 18 129/62 94 L 01/14/19 06:48 96 01/14/19 06:47 101 H 20 96 01/14/19 03:53 98.1 F 90 16 126/62 96 01/14/19 02:02 96 01/14/19 02:01 96 01/13/19 23:43 98.2 F 101 H 16 135/68 94 L Weight Admit Weight 168 lb 13.985 oz Weight 171 lb 1.6 oz Most Recent Monitor Data Heart Rate from ECG 113 NIBP 110/55 NIBP BP-Mean 73 Respiration from ECG 23 SpO2 99 I&O: 01/13/19 01/14/19 01/15/19 06:59 06:59 06:59 Intake Total 2831 715 Output Total 828 1850 Balance 20025 Result Diagrams: 01/14/19 04:22 01/14/19 04:22 Phys Exam - Physical Examination HEENT: PERRLA, sclera anicteric Respiratory: no wheezing, no rales, no rhonchi, clear to auscultation bilateral Cardiovascular: RRR, no rub 2/6 systolic murmur- slight Gastrointestinal: soft, non-tender, no distention, positive bowel sounds Musculoskeletal: pulses present, edema present trace pedal edema bilaterally Dx/Plan (1) Ischemic necrosis of large intestine Code(s): K55.049 - ACUTE INFARCTION OF LARGE INTESTINE, EXTENT UNSPECIFIED Status: Acute Comment: s/p R hemicolectomy, DULCE, distal small bowel resection and temporary wound closure with wound vac POD #5, second look POD #3 performed with washout and ileocolostomy with abd wound closure, continue Cefepime/ Metronidazole (2) Acute bacterial peritonitis Code(s): K65.9 - PERITONITIS, UNSPECIFIED Status: Acute Comment: See above (3) Hematochezia Code(s): K92.1 - MELENA Status: Acute (4) New onset a-fib Code(s): I48.91 - UNSPECIFIED ATRIAL FIBRILLATION Status: Acute (5) Acute respiratory failure with hypoxemia Code(s): J96.01 - ACUTE RESPIRATORY FAILURE WITH HYPOXIA Status: Acute Comment: s/p Extubation, O2 @ 2L/min NC (6) Bilateral pneumonia Code(s): J18.9 - PNEUMONIA, UNSPECIFIED ORGANISM Status: Acute (7) NSTEMI (non-ST elevated myocardial infarction) Code(s): I21.4 - NON-ST ELEVATION (NSTEMI) MYOCARDIAL INFARCTION Status: Acute Comment: ASA, Atenolol (8) Hypertension Code(s): I10 - ESSENTIAL (PRIMARY) HYPERTENSION Status: Chronic (9) Iron deficiency anemia Code(s): D50.9 - IRON DEFICIENCY ANEMIA, UNSPECIFIED Status: Acute (10) Colitis Code(s): K52.9 - NONINFECTIVE GASTROENTERITIS AND COLITIS, UNSPECIFIED Status : Acute - Plan * Hematochezia- this following hemicolectomy for ischemic bowel- discussed with Dr. Swanson- will defer to General Surgery regarding continuing Lovenox or not. Will monitor her H&H and transfuse as needed * Peritonitis from ischemic bowel- continue Cefepime and Flagyl. * HTN- blood pressure is controlled * Pneumonia- resolved * AFIB- her heart rate is a bit elevated, but stable * Severe Deconditioning- continue PT/OT as tolerated
[2019-01-14] MEDS ORDERED: Potassium Chloride 40 MEQ in Premix Bag 1 BAG IVPB SCH (12:30)
[2019-01-14 12:31] LABS: Magnesium 1.3 mg/dL (1.6-2.6)
[2019-01-14 12:32] LABS: INR-International Normal Ratio 1.3; Prothrombin Time 16.5 SEC (12.0-14.7)
[2019-01-14 12:35] LABS: Phosphorus 1.3 mg/dL (2.3-4.7)
[2019-01-14 13:47] LABS: #Eosinphils 0.6 thou/uL (0.0-0.7); #Lymphocytes 1.1 thou/uL (1.20-3.40); #Neutrophils 15.3 thou/uL (1.40-6.50); %Basophils 0.1 % (0.0-1.0); %Eosinophils 3.1 % (0.0-10.0); %Lymphocytes 5.9 % (21.0-51.0); %Monocytes 5.5 % (0.0-10.0); %Neutrophils 85.4 % (42.0-75.0); Hemoglobin 7.7 g/dL (12.0-16.0); Mean Corpuscular HGB CONC 29.8 g/dL (32.0-36.0); Mean Corpuscular Volume 77.3 fL (78.0-98.0); Mean Platelet Volume 10.4 fL (7.4-10.4); Platelet Count 306 thou/uL (130-400); RBC Distribution Width 26.2 % (11.5-14.5); Red Blood Cell (RBC) Count 3.36 mill/uL (4.20-5.40)
--- NOTE | 2019-01-14 13:50 | PDOC.CTH ---
Cardiology Progress Note - Subjective No new issues. Afib remains rate controlled. - Objective Vital Signs Temp Pulse Resp BP BP BP Pulse Ox 01/14/19 12:34 100 20 94 L 01/14/19 11:36 98.8 F 105 H 20 117/58 L 95 01/14/19 10:37 116 H 01/14/19 09:02 116 H 129/62 01/14/19 08:00 94 L 01/14/19 07:36 98.2 F 116 H 18 129/62 94 L 01/14/19 06:48 96 01/14/19 06:47 101 H 20 96 01/14/19 03:53 98.1 F 90 16 126/62 96 01/14/19 02:02 96 01/14/19 02:01 96 Admit Weight 168 lb 13.985 oz Weight 171 lb 1.6 oz 01/13/19 01/14/19 01/15/19 06:59 06:59 06:59 Intake Total 2831 715 30 Output Total 828 1850 Balance 2002 30 - Physical Examination General/Neuro: alert & oriented x3, NAD Neck: no JVD present Lungs: CTA, unlabored respirations Heart: other: (Irreg irreg) Abdomen: NT/ND Extremities: + edema B (1+) - Telemetry Telemetry Rhythm: Afib HR 90's. - Labs Result Diagrams: 01/14/19 13:30 01/14/19 04:22 Troponin/CKMB Troponin I 8.481 ng/mL (< 0.028) H* 01/02/19 14:30 - Assessment/Plan 1. Chronic afib, rate controlled. 2. Chronic GI blood loss (no anticoagulation) 3. Type 2 NM 4. HTN 5. HLP 6./ Hepatitis C 7. Hx of left leg DVT 2-017 8. GERD. PLAN: - Continue rate control with atenolol. - Replace K - BP borderline low to up titrate Atenolol for now.
[2019-01-14 14:04] LABS: Elliptocytes SLIGHT = 2-5 cells (100X) (0-1/hpf); Hypochromia MODERATE=16-30 cells (100X) (0-5/hpf); MDiff Complete? YES; Microcytosis SLIGHT = 6-15 cells (100X) (0-5/hpf); Ovalocytes MODERATE= 6-15 cells (100X) (0-1/hpf); Platelet Morphology Comment Appears Adequate; Polychromasia SLIGHT = 2-3 cells (100X) (0-2/hpf)
--- NOTE | 2019-01-14 14:06 | PRG ---
DATE OF SERVICE: 01/14/2019 SUBJECTIVE: The patient is quiet. She has no complaints. She says she is breathing okay. OBJECTIVE: VITAL SIGNS: Temperature 98.8, pulse 100, respirations 20, O2 saturation 94% on 1 L, and blood pressure 117/58. HEENT: Unremarkable. NECK: No JVD. LUNGS: She has slightly diminished breath sounds at both bases. CARDIAC: S1 and S2, regular. ABDOMEN: Soft. Surgical site seems to be well healed. EXTREMITIES: No edema. LABORATORY DATA: White blood cell count 13.7, hematocrit 28.8, and platelet count 222. INR is 1.3. Sodium 144, potassium 3.1, BUN 20, creatinine 0.7, glucose 139. DIAGNOSTIC DATA: Chest x-ray shows no significant change. ASSESSMENT: 1. Status post resection of bowel. 2. Atrial fibrillation. 3. Dementia. 4. Deconditioning. PLAN: Continue current care. I think we can stop daily imaging studies. The main issue now is rehabilitative in nature. At some point, she may need to be restarted on her anticoagulant for atrial fibrillation. Job ID: [id number]
--- NOTE | 2019-01-14 15:26 | PRG ---
DATE OF SERVICE: 01/14/2019 SUBJECTIVE: Ms. Nash had a little bit of blood per rectum today -red blood with some clot, which happened once, has not recurred. She denies any overt pain. She is receiving tube feeds. OBJECTIVE: VITAL SIGNS: Temperature is 98, pulse is 100, respirations 18, and blood pressure is 117/59. GENERAL: She is awake. She states she wants to go home. She has mild dementia. LUNGS: Clear. HEART: Regular rhythm. ABDOMEN: Nontender. Bowel sounds are positive. Incisions are healing, warm, and dry. LABORATORY DATA: Hemoglobin is 13.7 on 18th at 1330 hours. Hemoglobin is 8.3 for this morning and 7.7 at 1330 hours. INR 1.3, PT 16.5, PTT 36. Sodium 144, potassium 3.1, BUN and creatinine are 20 and 0.7. ASSESSMENT: Rectal bleeding. This may be related to bleeding from her anastomosis. She had 2 surgeries usually for distal small bowel and proximal colon ischemia, could be hemorrhoidal or related to her blood thinners. At this point in time, she has no signs of overt hemorrhage. She has had a colonoscopy last year with a known stricture in the sigmoid colon, which could not be advanced beyond. At this time, I would just observe her. Continue IV tube feeds and monitor hemoglobin. If she has further bleeding, we may have to consider other interventions or evaluations or holding her Plavix. We will follow along with you. Job ID: [id number] [facility]
[2019-01-14] MEDS: K-Phos Neutral 250 MG TAB PO SCH (17:21)
[2019-01-14] MEDS ORDERED: Magnesium Sulfate 3 GM in Sodium Chloride 0.9% 100 ML IVPB SCH (18:45)
[2019-01-14] MEDS ORDERED: Potassium Phosphate 15 MMOL in Sodium Chloride 0.9% 250 ML 250 ML IVPB SCH (18:45)
--- NOTE | 2019-01-14 18:59 | PRG ---
DATE OF SERVICE: 01/14/2019 SUBJECTIVE: This is a 78-year-old female, who is postop day #4, status post second-look exploratory laparotomy with ileocolostomy. The patient is awake and alert with family at bedside. The patient voices no complaints at this time other than bloody stool diaper. The patient denies any abdominal pain. The patient had no overnight events. OBJECTIVE: VITAL SIGNS: Pulse 100, respirations 20, SpO2 of 94% on 1 L, and blood pressure 117/58. GENERAL: The patient is awake, alert, in no distress. HEART: Irregularly irregular rhythm with 1+ pitting edema in all extremities. LUNGS: Clear bilaterally. Breathing is regular and nonlabored with equal excursion. ABDOMEN: Soft, nontender, nondistended. Incision is intact, clean, and dry. Bloody bowel movement. EXTREMITIES: Diffuse edema. Positive distal pulses. NEUROLOGIC: No focal deficits. LABORATORY DATA: WBC 13.7, RBC 3.70, hemoglobin 8.3, hematocrit 28.8, this was before rectal bleeding. After rectal bleeding, WBC 18.0, RBCs 3.36, hemoglobin 7.7, hematocrit 26.0, and platelets 306. Sodium 144, potassium 3.1, chloride 113, creatinine 0.74, BUN 20, estimated GFR 70, glucose 138, calcium 8.2, phosphorus 1.3, magnesium 1.3. DIAGNOSTICS: Chest x-ray, stable findings, cardiomegaly, mild vascular congestion, bilateral effusions. IMPRESSION: 1. Postop day #4, status post second-look exploratory laparotomy with ischemic small and large bowel necrosis, ileocolostomy. 2. Gastrointestinal bleeding secondary to anastomosis. 3. Chronic atrial fibrillation, rate controlled. 4. Hypokalemia, hypomagnesemia. PLAN: We will discontinue Dobbhoff today. We will trend hemoglobin and hematocrit, and administer blood products as needed. We will continue the patient's Lovenox. We will increase the patient's diet to a full liquid diet. We will ensure that all blood draws were drawn from the patient's central line and peripheral. We will replace the patient's electrolytes. The plan was discussed with Dr. Root, who agrees. The patient was also evaluated by Dr. Root, today during rounds. We will also stop the patient's IV fluid. Job ID: [id number]
[2019-01-15] MEDS: Cefepime 1 GM in Sodium Chloride 0.9% 100 ML IVPB SCH ×3 (02:04→17:56)
[2019-01-15] MEDS: metroNIDAZOLE 500 MG in Premix Bag 1 BAG IVPB SCH ×3 (02:49→17:51)
[2019-01-15 05:45] LABS: Hemoglobin 7.6 g/dL (12.0-16.0); Hypochromia SLIGHT = 6-15 cells (100X) (0-5/hpf); Lymphocytes 2 % (21-51); MDiff Complete? YES; Mean Corpuscular Hemoglobin 22.9 pg (27.0-31.0); Mean Corpuscular Volume 78.8 fL (78.0-98.0); Mean Platelet Volume 11.1 fL (7.4-10.4); Monocytes 4 % (0-10); Neutrophil 94 % (42-75); Nucleated RBC 1 % (0); Platelet Count 336 thou/uL (130-400); Platelet Morphology Comment Appears Adequate; RBC Distribution Width 28.6 % (11.5-14.5); Red Blood Cell (RBC) Count 3.32 mill/uL (4.20-5.40); White Blood Cell (WBC) Count 28.8 thou/uL (4.8-10.8)
[2019-01-15 05:51] LABS: Anion Gap 16 mmol/L (10-20); BUN (Urea Nitrogen) 26 mg/dL (9.8-20.1); Calc. Creatinine Clearance 59 mL/min (70-130); Calcium 8.2 mg/dL (7.8-10.44); Carbon Dioxide 21 mmol/L (23-31); Chloride 117 mmol/L (98-107); Estimated GFR-MDRD 57; Glucose 144 mg/dL (83-110); Magnesium 1.9 mg/dL (1.6-2.6); Potassium 3.9 mmol/L (3.5-5.1); Sodium 150 mmol/L (136-145)
[2019-01-15 05:53] LABS: Phosphorus 1.9 mg/dL (2.3-4.7)
[2019-01-15] MEDS ORDERED: Potassium Phosphate 15 MMOL in Sodium Chloride 0.9% 250 ML 250 ML IVPB SCH ×2 (06:00→12:30)
[2019-01-15] MEDS ORDERED: Magnesium Sulfate 4 GM in Sodium Chloride 0.9% 250 ML 250 ML IVPB SCH (06:00)
[2019-01-15] MEDS: Enoxaparin Sodium 80 MG/0.8 ML SYRINGE SC SCH ×2 (09:53→21:14)
[2019-01-15] MEDS: Furosemide 40 MG/4 ML VIAL SLOW IVP SCH (09:54)
[2019-01-15] MEDS: Atenolol 25 MG TAB PO SCH (09:55)
[2019-01-15] MEDS: Pantoprazole 40 MG VIAL IVP SCH (09:55)
[2019-01-15] MEDS: Saccharomyces boulardii 250 MG CAP PO SCH (09:56)
[2019-01-15] MEDS: K-Phos Neutral 250 MG TAB PO SCH (09:56)
[2019-01-15] MEDS: Aspirin 81 mg Enteric Coated Tablet PO SCH (09:56)
[2019-01-15] MEDS: Digoxin 0.5 MG/2 ML AMP SLOW IVP SCH (10:31)
[2019-01-15] MEDS: Dextrose 5% in Water 1,000 ML IV SCH (10:45)
--- NOTE | 2019-01-15 12:18 | PDOC.PN ---
- Subjective Encounter Start Date: 01/15/19 Encounter Start Time: 12:16 Ms. Nash was seen today in follow-up. She appears very weak. She managed to shake her head when asked if she is having abdominal pain or trouble breathing. - Objective Resuscitation Status - Order Detail: 01/02/19 11:49 Resuscitation Status Routine Resuscitation Status: FULL: Full Resuscitation MAR Reviewed: Yes Vital Signs & Weight: Vital Signs (12 hours) Temp Pulse Resp BP BP Pulse Ox 01/15/19 10:31 100 01/15/19 09:55 99 129/65 01/15/19 08:19 99 20 96 01/15/19 07:52 98.2 F 100 18 129/65 93 L 01/15/19 04:00 98.1 F 109 H 16 118/68 93 L 01/15/19 00:31 105 H 20 96 Weight Admit Weight 168 lb 13.985 oz Weight 182 lb 12.8 oz Most Recent Monitor Data Heart Rate from ECG 113 NIBP 110/55 NIBP BP-Mean 73 Respiration from ECG 23 SpO2 99 I&O: 01/14/19 01/15/19 01/16/19 06:59 06:59 06:59 Intake Total 715 1616 Output Total 1850 Balance -1135 1616 Result Diagrams: 01/15/19 05:08 01/15/19 05:08 Phys Exam - Physical Examination HEENT: PERRLA, sclera anicteric Respiratory: no wheezing, no rales, no rhonchi + coarse breath sounds bilaterally Cardiovascular: RRR, no significant murmur, no rub Gastrointestinal: soft, non-tender, no distention, positive bowel sounds Musculoskeletal: pulses present, edema present + generalized edema in both upper and lower extremities Dx/Plan (1) Ischemic necrosis of large intestine Code(s): K55.049 - ACUTE INFARCTION OF LARGE INTESTINE, EXTENT UNSPECIFIED Status: Acute Comment: s/p R hemicolectomy, DULCE, distal small bowel resection and temporary wound closure with wound vac POD #5, second look POD #3 performed with washout and ileocolostomy with abd wound closure, continue Cefepime/ Metronidazole (2) Acute bacterial peritonitis Code(s): K65.9 - PERITONITIS, UNSPECIFIED Status: Acute Comment: See above (3) Hematochezia Code(s): K92.1 - MELENA Status: Acute (4) New onset a-fib Code(s): I48.91 - UNSPECIFIED ATRIAL FIBRILLATION Status: Acute (5) Acute respiratory failure with hypoxemia Code(s): J96.01 - ACUTE RESPIRATORY FAILURE WITH HYPOXIA Status: Acute Comment: s/p Extubation, O2 @ 2L/min NC (6) Bilateral pneumonia Code(s): J18.9 - PNEUMONIA, UNSPECIFIED ORGANISM Status: Resolved (7) NSTEMI (non-ST elevated myocardial infarction) Code(s): I21.4 - NON-ST ELEVATION (NSTEMI) MYOCARDIAL INFARCTION Status: Acute Comment: ASA, Atenolol (8) Hypertension Code(s): I10 - ESSENTIAL (PRIMARY) HYPERTENSION Status: Chronic (9) Iron deficiency anemia Code(s): D50.9 - IRON DEFICIENCY ANEMIA, UNSPECIFIED Status: Acute (10) Colitis Code(s): K52.9 - NONINFECTIVE GASTROENTERITIS AND COLITIS, UNSPECIFIED Status : Acute (11) Hypernatremia Code(s): E87.0 - HYPEROSMOLALITY AND HYPERNATREMIA Status: Acute (12) Physical deconditioning Code(s): R53.81 - OTHER MALAISE Status: Chronic (13) Acute anemia Code(s): D64.9 - ANEMIA, UNSPECIFIED Status: Acute - Plan * Ischemic bowel with peritonitis and sepsis- s/p resection- continue IV antibiotics ( Cefepime and Flagyl) * Hematochezia with acute on chronic blood loss anemia- continue to monitor, and transfuse as needed. * HTN- blood pressure is stable * AFIB her heart rate is stable * She has been started on Lovenox for CVA prophylaxis * Hypernatremia- will place her on D5W * Severe deconditioning- this will compromise her recovery- Continue PT/OT
--- NOTE | 2019-01-15 13:31 | PRG ---
DATE OF SERVICE: 01/15/2019 SUBJECTIVE: The patient is doing okay. Had no acute complaints today. OBJECTIVE: VITAL SIGNS: Temperature is 98.2, pulse 96, respirations 18, O2 saturation 93%, blood pressure 111/56. HEENT: Unremarkable. NECK: No JVD. LUNGS: Clear. CARDIAC: S1 and S2. Regular. ABDOMEN: Soft. EXTREMITIES: She has severe edema throughout. LABORATORY DATA: White blood cell count 28.8, hemoglobin 7.6, hematocrit 26.1, and platelet count 94. Sodium 150, potassium 3.9, chloride 117, CO2 of 21, BUN 26, creatinine 0.9, glucose 144. ASSESSMENT: 1. Severe peripheral edema. 2. Hypernatremia. 3. Severe deconditioning. 4. Status post resection of bowel. 5. Atrial fibrillation. PLAN: I would withhold any aggressive diuresis at this time. At the same time, I would not be inclined to give her much in the way of fluids or free water. Her sodium will be followed daily. Discussed with family at bedside. Job ID: [id number]
--- NOTE | 2019-01-15 14:16 | PRG ---
DATE OF SERVICE: 01/15/2019 This is Britta Saldana PA-C dictating a report for Reji Root DO. SUBJECTIVE: The patient was seen this morning, lying in bed. Reported pain was well controlled and she slept well overnight. Has been tolerating a full liquid diet and tube feeds. Yesterday, the patient had a large bloody stool, but has not had any bloody stool since then. She has had 4 watery bowel movements since that time. She has no complaints this morning, but appears very weak. She denies nausea or vomiting. White count is markedly elevated this morning at 28 from 18. OBJECTIVE: VITAL SIGNS: Temperature 98, pulse 100, respirations 18, oxygen saturation 93% on 1L nasal cannula, blood pressure 129/65. GENERAL: Elderly, weak-appearing female with no signs of acute distress. CARDIAC: Regular rate and rhythm. No murmurs, gallops, or rubs. PULMONARY: Equal chest rise and fall. Clear breath sounds bilaterally. No signs of acute respiratory distress. ABDOMEN: Soft, moderately tender to palpation. Midline incision is clean, dry, and intact with candelario. Right lower quadrant wound with previous drain site is clean, dry, and intact with no signs of infection. EXTREMITIES: 2+ pulses in all extremities. 2+ edema in bilateral upper and lower extremities. Gross motor and sensation are intact. NEUROLOGIC: GCS is 15. No focal deficits. Pupils equal, round, and reactive to light bilaterally. LABORATORY FINDINGS: White count 28.8, hemoglobin 7.6, hematocrit 26.6, and platelets 336. Sodium 150, potassium 3.9, , carbon dioxide 21, BUN 26, creatinine 0.95, and glucose 144. Phosphorus 1.9. Magnesium 1.9. DIAGNOSTIC FINDINGS: There are no new diagnostic findings to report. IMPRESSION: 1. Postoperative day 5 status post a second-look abdominal washout, LOBO placement, and ileocolostomy with closed abdomen. 2. Acute enterocolitis and peritonitis secondary to ischemic bowel necrosis. 3. Ofzkx-oh-qhxqpse atrial fibrillation. 4. History of atrial fibrillation, hepatitis C, frequent urinary tract infections, hypertension, deep vein thromboses and pulmonary embolism, anemia, and chronic kidney disease. 5. Leukocytosis. 6. Hypophosphatemia and hypomagnesemia. 7. Diarrhea. PLAN: We will continue with current diet and medication regimen. Continue with therapeutic Lovenox. We will give 1 unit of packed red blood cells today. Replace magnesium and phosphorus. Send C diff for further evaluation of loose bowel movements. The patient should continue to work with Physical and Occupational Therapy. She will likely need to be discharged to acute rehab facility. The patient was discussed with Dr. Root this morning after rounds. Job ID: [id number]
--- NOTE | 2019-01-15 15:13 | PRG ---
DATE OF SERVICE: 01/15/2019 SUBJECTIVE: Ms. Nash has had no bleeding overnight according to the nurses and also the patient. She is tolerating tube feeds. She is tolerating p.o. She denies any abdominal pain. OBJECTIVE: VITAL SIGNS: Temperature is 98.2. She has been afebrile. Pulse 96. Blood pressure 111/56. ABDOMEN: Soft, nontender. She has a Dobhoff feeding tube in. She is tolerating feeds through that. LABORATORY DATA: White count 28.6, hemoglobin 7.6, platelet count 336. Sodium 150, potassium 3.9, BUN and creatinine are 26 and 0.95. ASSESSMENT: 1. Lower gastrointestinal bleed, likely related to her anastomosis. No further bleeding. 2. Hypernatremia. 3. Severe peripheral edema. 4. Previous resection of the chronic ischemic right colon and distal 75 cm of the ileum. RECOMMENDATIONS: No indication for endoscopy for bleeding at this point in time. Reviewing Dr. Frazier's note from Pulmonary/Critical Care, he felt we just hold off on diuresis and the hypernatremia will fix itself. She has access to free water and is able to drink on her own as well. We will follow from a distance at this point. If I can be of any further assistance in her care, please do not hesitate to contact me. Job ID: [id number]
[2019-01-15] MEDS: Ondansetron ODT 4 MG TAB PO PRN (16:13)
--- NOTE | 2019-01-15 16:46 | PDOC.CTH ---
Cardiology Progress Note - Subjective No new issues. - Objective Vital Signs Temp Pulse Pulse Resp BP BP BP 01/15/19 16:24 98.3 F 101 H 18 115/58 L 01/15/19 15:57 98.1 F 96 20 109/57 L 01/15/19 15:30 97.9 F 97 16 104/54 L 01/15/19 15:24 98 18 01/15/19 12:00 98.2 F 96 18 111/56 L 01/15/19 10:31 100 01/15/19 10:10 01/15/19 09:55 99 129/65 01/15/19 08:19 99 20 01/15/19 07:52 98.2 F 100 18 129/65 Pulse Ox 01/15/19 16:24 93 L 01/15/19 15:57 93 L 01/15/19 15:30 94 L 01/15/19 15:24 95 01/15/19 12:00 93 L 01/15/19 10:31 01/15/19 10:10 92 L 01/15/19 09:55 01/15/19 08:19 96 01/15/19 07:52 93 L Admit Weight 168 lb 13.985 oz Weight 182 lb 12.8 oz 01/14/19 01/15/19 01/16/19 06:59 06:59 06:59 Intake Total 715 1616 1859 Output Total 1850 Balance -1135 1616 1859 - Physical Examination General/Neuro: NAD Neck: no JVD present Lungs: unlabored respirations Heart: other: (Irreg irreg) Abdomen: NT/ND Extremities: + edema B (1+) - Telemetry Telemetry Rhythm: Afib HR 90's to 100's. - Labs Result Diagrams: 01/15/19 05:08 01/15/19 05:08 Troponin/CKMB Troponin I 8.481 ng/mL (< 0.028) H* 01/02/19 14:30 - Assessment/Plan 1. Chronic afib, rate controlled. 2. Chronic GI blood loss (no anticoagulation) 3. Type 2 UT 4. HTN 5. HLP 6. Hepatitis C 7. Hx of left leg DVT 2017 8. GERD. PLAN: - Continue rate control with atenolol. HR a little over 100 likely due to anemia. - BP borderline low to up titrate Atenolol for now. - Hgb dropping. Transfuse as needed.
[2019-01-15] MEDS: Ondansetron PF 4 MG/2 ML Vial IVP PRN (17:50)
[2019-01-16] MEDS: Cefepime 1 GM in Sodium Chloride 0.9% 100 ML IVPB SCH (02:28)
[2019-01-16] MEDS: metroNIDAZOLE 500 MG in Premix Bag 1 BAG IVPB SCH (02:33)
[2019-01-16] MEDS: Dextrose 5% in Water 1,000 ML IV SCH (05:07)
[2019-01-16 05:57] LABS: Band 11 % (5-11); Hemoglobin 6.6 g/dL (12.0-16.0); Lymphocytes 3 % (21-51); MDiff Complete? YES; Mean Corpuscular HGB CONC 30.5 g/dL (32.0-36.0); Mean Corpuscular Hemoglobin 25.3 pg (27.0-31.0); Mean Corpuscular Volume 83.2 fL (78.0-98.0); Mean Platelet Volume 9.7 fL (7.4-10.4); Metamyelocyte 1 % (0-0); Monocytes 4 % (0-10); Neutrophil 81 % (42-75); Platelet Count 347 thou/uL (130-400); Platelet Morphology Comment Appears Adequate; RBC Distribution Width 27.6 % (11.5-14.5); White Blood Cell (WBC) Count 29.4 thou/uL (4.8-10.8)
[2019-01-16 06:02] LABS: Anion Gap 8 mmol/L (10-20); BUN (Urea Nitrogen) 23 mg/dL (9.8-20.1); Calc. Creatinine Clearance 67 mL/min (70-130); Calcium 7.6 mg/dL (7.8-10.44); Carbon Dioxide 27 mmol/L (23-31); Chloride 115 mmol/L (98-107); Estimated GFR-MDRD 61; Glucose 102 mg/dL (83-110); Magnesium 2.2 mg/dL (1.6-2.6); Potassium 3.1 mmol/L (3.5-5.1); Sodium 147 mmol/L (136-145)
[2019-01-16 06:04] LABS: Phosphorus 2.7 mg/dL (2.3-4.7)
[2019-01-16] MEDS ORDERED: Potassium Phosphate 30 MMOL in Sodium Chloride 0.9% 500 ML IVPB SCH (07:15)
[2019-01-16] MEDS ORDERED: Potassium Phosphate 30 MMOL in Sodium Chloride 0.9% 250 ML 250 ML IVPB SCH (07:30)
--- NOTE | 2019-01-16 08:27 | RAD ---
RADIOGRAPH CHEST 1 VIEW: DATE: 01/16/2019 TIME: 8:20 AM HISTORY: 78-year-old female with dyspnea and congestive heart failure COMPARISON: 01/14/2019 FINDINGS: Cardiomegaly. Bilateral pleural effusions. At bilateral lung bases remains. However, the haziness of the right midlung zone has improved. Dobbho ff feeding tube has been removed. Left subclavian central venous catheter remains. No pneumothorax. IMPRESSION: 1. Interval improvement in aeration of the right lung. 2. Bilateral pleural effusions and cardiomegaly remain.
[2019-01-16] MEDS ORDERED: Fluticasone Propionate Nasal Spray 16 gm Bottle NASAL PRN (09:00)
[2019-01-16] MEDS: Pantoprazole 40 MG VIAL IVP SCH (09:44)
[2019-01-16] MEDS: Saccharomyces boulardii 250 MG CAP PO SCH (09:44)
[2019-01-16] MEDS: Sodium Chloride 0.9% (PF) 10 ML VIAL FS PRN (09:44)
[2019-01-16] MEDS: Ferrous Sulfate 325 MG TAB PO SCH ×2 (09:44→16:39)
[2019-01-16] MEDS: Ascorbic Acid 500 mg Chewable Tablet PO SCH (09:45)
[2019-01-16] MEDS: Atenolol 25 MG TAB PO SCH (09:45)
[2019-01-16] MEDS: Aspirin 81 mg Enteric Coated Tablet PO SCH (09:45)
[2019-01-16] MEDS: Digoxin 0.125 MG TAB PO SCH (10:21)
[2019-01-16] MEDS: Micafungin 100 MG in Sodium Chloride 0.9% 100 ML IVPB SCH ×2 (10:22→14:58)
[2019-01-16] MEDS: Ondansetron PF 4 MG/2 ML Vial IVP PRN (10:24)
[2019-01-16] MEDS: Digoxin 0.5 MG/2 ML AMP SLOW IVP SCH (10:42)
--- NOTE | 2019-01-16 11:07 | PQF ---
CLINICAL DOCUMENTATION IMPROVEMENT CLARIFICATION FORM: ICD-10 Updated PLEASE DO AN ADDENDUM TO THE PROGRESS NOTE WITH ANY DOCUMENTATION UPDATES OR ADDITIONS AND CARRY THROUGH TO DC SUMMARY. THANK YOU. DATE: 01/16/19 ATTN: DR. GARAY Please exercise your independent, professional judgment in responding to the clarification form. Clinical indicators are provided on the bottom of this form for your review Please check appropriate box(s): Conflicting documentation was noted in the Medical Record, please clarify if patient is being treated/monitored for: [ ] NSTEMI [ X ] SC TYPE 2 [ ] OTHER In addition, please specify: Present on Admission (POA): [ X ] Yes [ ] No [ ] Unable to determine For continuity of documentation, please document condition throughout progress notes and discharge summary. Thank You. CLINICAL INDICATORS - SIGNS / SYMPTOMS/ LABS PROGRESS NOTE 01/15: "NSTEMI, ACUTE" CARDIOLOGY NOTE 01/15: "TYPE 2 SC" TROPONINS 2.751 / 5.142 / 8.481 RISKS: H/O AFIB HYPERTENSION TREATMENT: CARDIOLOGY CONSULT ASPIRIN (01/03-PRESENT) ATENOLOL (01/14-PRESENT) LOVENOX (START 01/16) (This form is maintained as a part of the permanent medical record) 2014 [employer]. All Rights Reserved [email or web address] [email or web address] Office: [phone] [facility]
--- NOTE | 2019-01-16 11:27 | PQF ---
CLINICAL DOCUMENTATION IMPROVEMENT CLARIFICATION FORM: ICD-10 Updated PLEASE DO AN ADDENDUM TO THE PROGRESS NOTE WITH ANY DOCUMENTATION UPDATES OR ADDITIONS AND CARRY THROUGH TO DC SUMMARY. THANK YOU. DATE: 01/16/19 ATTN: DR. GARAY Please exercise your independent, professional judgment in responding to the clarification form. Clinical indicators are provided on the bottom of this form for your review Diagnosis: "SEPSIS" Present on Admission (POA): [ ] Yes [ X ] No [ ] Unable to determine Coding guidelines require hospitals to identify whether a diagnosis was present on admission (POA) or not. To accurately assign the appropriate POA indicator, this information must be clearly documented within the medical record. CLINICAL INDICATORS - SIGNS / SYMPTOMS / LABS PROGRESS NOTE 01/15: "ISCHEMIC BOWEL WITH PERITONITIS AND SEPSIS" ER VITALS: PULSE 162 RR 28 WBC 01/03: 14.0 01/07: 39.0 RISKS: PERITONITIS TREATMENT: IV AZITHROMYCIN (ER-01/03) IV ROCEPHIN (ER-01/04) IV ZOSYN (START 01/16) IV MAXIPIME (01/09-01/16) IV FLAGYL (01/09-01/16) IV VANCOMYCIN (01/07-01/09) CARDIAC MONITORING BLOOD CULTURES EXPLORATORY LAP WITH BOWEL RESECTION SAP [employer] Win[employer] (This form is maintained as a part of the permanent medical record) 2014 [email or web address]. All Rights Reserved [email or web address] [email or web address] Office: [phone] MTDD
[2019-01-16] MEDS ORDERED: Piperacillin/Tazobactam 4.5 GM in Sodium Chloride 0.9% 100 ML IVPB SCH (12:00)
[2019-01-16] MEDS ORDERED: Furosemide 40 MG/4 ML VIAL SLOW IVP SCH (13:00)
[2019-01-16] MEDS ORDERED: Sterile Water 10 ML VIAL FS SCH (13:15)
[2019-01-16] MEDS ORDERED: Activase 2 MG VIAL CATH SCH ×2 (13:15→13:45)
[2019-01-16 14:26] LABS: Analyzer IN Cardio OR; Base Excess (BEa) 2.1 mEq/L (-2.0 to +3.0); CO2 Tension 32.4 mmHg (35.0-45.0); Calcium, Ionized 0.97 mmol/L (1.12-1.30); Carboxyhemoglobin (COHb) 1.3 gm% (0.0-3.0); Hemoglobin (Hb) 9.7 g/dL (12.0-16.0); O2 Tension (PaO2) 92.8 mmHg (> 70.0); Potassium - ABG Lab 2.43 mmol/L (3.70-5.30); Puncture Site ALINE; pH, Arterial 7.51 (7.35-7.45)
--- NOTE | 2019-01-16 15:57 | PDOC.PN ---
- Subjective Encounter Start Date: 01/16/19 Encounter Start Time: 12:30 Ms. Nash was seen today in follow-up of ischemic bowel, s/p resection. She is a bit more awake and alert today when I am seeing her. She indicates no abdominal pain. - Objective Resuscitation Status - Order Detail: 01/02/19 11:49 Resuscitation Status Routine Resuscitation Status: FULL: Full Resuscitation MAR Reviewed: Yes Vital Signs & Weight: Vital Signs (12 hours) Temp Pulse Resp BP BP Pulse Ox 01/16/19 11:52 98.5 F 99 17 111/52 L 95 01/16/19 10:42 91 01/16/19 10:21 91 01/16/19 09:45 91 113/61 01/16/19 09:40 98.4 F 91 17 113/64 94 L 01/16/19 08:00 94 L 01/16/19 06:40 96 20 98 Weight Admit Weight 168 lb 13.985 oz Weight 183 lb 8 oz Most Recent Monitor Data Heart Rate from ECG 113 NIBP 110/55 NIBP BP-Mean 73 Respiration from ECG 23 SpO2 99 I&O: 01/15/19 01/16/19 01/17/19 06:59 06:59 06:59 Intake Total 1616 5364 Balance 1616 5364 Result Diagrams: 01/16/19 05:30 01/16/19 05:30 Phys Exam - Physical Examination HEENT: PERRLA Respiratory: no wheezing, no rales, no rhonchi, clear to auscultation bilateral Cardiovascular: RRR, no significant murmur, no rub Gastrointestinal: soft, non-tender, no distention, positive bowel sounds Musculoskeletal: pulses present, edema present + edema in both upper and lower extremities Neurological: non-focal, normal sensation Dx/Plan (1) Ischemic necrosis of large intestine Code(s): K55.049 - ACUTE INFARCTION OF LARGE INTESTINE, EXTENT UNSPECIFIED Status: Acute Comment: s/p R hemicolectomy, DULCE, distal small bowel resection and temporary wound closure with wound vac POD #5, second look POD #3 performed with washout and ileocolostomy with abd wound closure, continue Cefepime/ Metronidazole (2) Acute bacterial peritonitis Code(s): K65.9 - PERITONITIS, UNSPECIFIED Status: Acute Comment: See above (3) Hematochezia Code(s): K92.1 - MELENA Status: Acute (4) New onset a-fib Code(s): I48.91 - UNSPECIFIED ATRIAL FIBRILLATION Status: Acute (5) Acute respiratory failure with hypoxemia Code(s): J96.01 - ACUTE RESPIRATORY FAILURE WITH HYPOXIA Status: Acute Comment: s/p Extubation, O2 @ 2L/min NC (6) Bilateral pneumonia Code(s): J18.9 - PNEUMONIA, UNSPECIFIED ORGANISM Status: Resolved (7) NSTEMI (non-ST elevated myocardial infarction) Code(s): I21.4 - NON-ST ELEVATION (NSTEMI) MYOCARDIAL INFARCTION Status: Acute Comment: ASA, Atenolol (8) Hypertension Code(s): I10 - ESSENTIAL (PRIMARY) HYPERTENSION Status: Chronic (9) Iron deficiency anemia Code(s): D50.9 - IRON DEFICIENCY ANEMIA, UNSPECIFIED Status: Acute (10) Colitis Code(s): K52.9 - NONINFECTIVE GASTROENTERITIS AND COLITIS, UNSPECIFIED Status : Acute (11) Hypernatremia Code(s): E87.0 - HYPEROSMOLALITY AND HYPERNATREMIA Status: Acute (12) Physical deconditioning Code(s): R53.81 - OTHER MALAISE Status: Chronic (13) Acute anemia Code(s): D64.9 - ANEMIA, UNSPECIFIED Status: Acute - Plan * Ischemic bowel- s/p resection- continue IV Zosyn. Her WBC count has been rising- Micafungin has been added * Acute blood loss anemia- continue to transfuse as needed. The lovenox dose has been cut in half * Hypernatremia- better today * Hypokalemia- continue to replace * HTN- blood pressure is stable * AFIB- her heart rate is stable * Pneumonia- resolved * Severe Deconditioning- continue PT as tolerated.
--- NOTE | 2019-01-16 16:07 | PDOC.EVN ---
Event Note - Event Note Event Note: The patient's overall condition was discussed jefferson=ith the patient's daughter and . We discussed code status as well as future plans for the patient post discharge. Her told me she would not want to be dependent on life support if there was no hope that she would get better. However if there is a chance that it is a reversible condition he would want her to have a try a CPR. Therefore she will remain a full code. Her daughter told me she is now realizing that her mother can no longer live at home, nor in an Assisted Living facility like they had planned. She would like for her to go to the Swing bed in [place] first then a Permanent Facility thereafter. APC 20 minutes.
--- NOTE | 2019-01-16 16:29 | PRG ---
DATE OF SERVICE: 01/16/2019 SUBJECTIVE: Ms. Nash is a 78-year-old woman who is postoperative day #6 status post exploratory laparotomy and ileocolostomy. The patient previously underwent laparotomy with right hemicolectomy for ischemic bowel necrosis involving the right colon and distal ileum. She was placed on full anticoagulation and recent CT scan of the chest which was remarkable for right atrial thrombus. The patient had one large bloody bowel movement over the weekend causing a blood loss anemia. According to her nursing, she has had multiple loose bowel movements over the last 36 hours, which is nonbloody. PHYSICAL EXAMINATION: VITAL SIGNS: This morning include blood pressure 113/64, pulse is 91, respiratory rate is 17, temperature is 98.4 degrees Fahrenheit, oxygen saturation is 95% on 3 L by nasal cannula oxygen. HEENT: Pupils are equal, round, reactive to light and accommodation. She has bilateral scleral edema present. NECK: She has no jugular venous distention noted. HEART: Reveals regular rate and rhythm. No murmurs or gallops auscultated. LUNGS: Clear to auscultation bilaterally. Breathing, regular and nonlabored. ABDOMEN: Soft and nondistended. Incision is intact, clean, dry. She has good bowel sounds in all 4 quadrants. EXTREMITIES: Reveal 2+ radial and pedal pulses bilaterally. She has bilateral upper and lower extremity soft tissue edema present. NEUROLOGIC: Reveals no focal deficits present. LABORATORY FINDINGS: Today includes a CBC with 29,400 white blood cells, hemoglobin and hematocrit 6.6 and 21.6 respectively. Platelet count is 347,000. Differential count as follows; 81 segmented neutrophils, 11 bands, 3 lymphocytes, and 4 monocytes. Metabolic profile; sodium 147, potassium 3.1, chloride is 115, bicarb is 27, BUN is 23, creatinine 0.89, glucose is 102, magnesium is 2.2, and phosphorus is 2.7. IMPRESSIONS: 1. Postop day #6 status post exploratory laparotomy with ileocolostomy. 2. Acute blood loss anemia secondary to recent coagulopathic bleed. 3. We will decrease enoxaparin for next 24 to 48 hours and monitor the patient for hemostasis. In the interim, we will transfuse the patient with 2 units of packed red blood cells for this acute blood loss anemia. 4. We will advance diet as tolerated. 5. We will increase activity per Physical and Occupational therapy. Anticipate discharge to swing bed once bed becomes available and the patient is hemodynamically stable with no evidence of ongoing hemorrhage. Above findings and plan discussed with the patient and at bedside. They both indicated understanding of the information given. I have answered their questions. Job ID: [id number]
[2019-01-16 18:27] LABS: Mean Corpuscular HGB CONC 30.8 g/dL (32.0-36.0); Mean Corpuscular Hemoglobin 26.2 pg (27.0-31.0); Mean Corpuscular Volume 85.1 fL (78.0-98.0); Mean Platelet Volume 9.7 fL (7.4-10.4); Platelet Count 312 thou/uL (130-400); RBC Distribution Width 26.4 % (11.5-14.5); Red Blood Cell (RBC) Count 3.42 mill/uL (4.20-5.40); White Blood Cell (WBC) Count 24.8 thou/uL (4.8-10.8)
[2019-01-16] MEDS: Piperacillin/Tazobactam 4.5 GM in Sodium Chloride 0.9% 100 ML IVPB SCH (20:11)
[2019-01-16] MEDS ORDERED: Enoxaparin Sodium 30 MG/0.3 ML SYRINGE SC SCH (21:00)
--- NOTE | 2019-01-17 00:41 | RAD ---
AP view abdomen. HISTORY: Postoperative radiograph abdomen. AP view abdomen obtained. Multilevel lumbar degenerative changes seen. Left paracentral abdominal surgical clips seen. No distended gas-filled loops of bowel seen. IMPRESSION: Postoperative changes.
[2019-01-17] MEDS: Piperacillin/Tazobactam 4.5 GM in Sodium Chloride 0.9% 100 ML IVPB SCH ×4 (03:39→20:36)
[2019-01-17 03:44] LABS: Actual Bicarbonate (HCO3a) 25.7 mEq/L (22-28); CO2 Tension 36.3 mmHg (35.0-45.0); Calcium, Ionized 1.11 mmol/L (1.12-1.30); Carboxyhemoglobin (COHb) 0.8 gm% (0.0-3.0); Hemoglobin (Hb) 9.5 g/dL (12.0-16.0); O2 Tension (PaO2) 103.8 mmHg (> 70.0); Potassium - ABG Lab 3.14 mmol/L (3.70-5.30); pH, Arterial 7.47 (7.35-7.45)
[2019-01-17 03:46] LABS: ALV-art Gradient 50.465 (0-20); Puncture Site LBA
[2019-01-17 06:53] LABS: Phosphorus 3.3 mg/dL (2.3-4.7)
[2019-01-17 06:54] LABS: Anion Gap 11 mmol/L (10-20); BUN (Urea Nitrogen) 19 mg/dL (9.8-20.1); Calc. Creatinine Clearance 62 mL/min (70-130); Calcium 7.8 mg/dL (7.8-10.44); Carbon Dioxide 25 mmol/L (23-31); Chloride 112 mmol/L (98-107); Estimated GFR-MDRD 57; Glucose 78 mg/dL (83-110); Magnesium 1.7 mg/dL (1.6-2.6); Potassium 3.1 mmol/L (3.5-5.1); Sodium 145 mmol/L (136-145)
[2019-01-17] MEDS ORDERED: Magnesium 2 GM/50 ML 2 GM in Premix Bag 1 BAG IVPB SCH (07:30)
[2019-01-17] MEDS ORDERED: Potassium Chloride 40 MEQ in Premix Bag 1 BAG IVPB SCH (07:30)
[2019-01-17] MEDS ORDERED: PHOS-NAK 1 PKT PACK PO SCH (07:30)
[2019-01-17] MEDS ORDERED: Furosemide 40 MG TAB PO SCH ×2 (07:30→16:42)
[2019-01-17 07:39] LABS: Anisocytosis SLIGHT = 6-15 cells (100X) (0-5/hpf); Band 10 % (5-11); Eosinophils 1 % (0-10); Hemoglobin 8.8 g/dL (12.0-16.0); Hypochromia SLIGHT = 6-15 cells (100X) (0-5/hpf); Lymphocytes 4 % (21-51); MDiff Complete? YES; Mean Corpuscular HGB CONC 31.7 g/dL (32.0-36.0); Mean Corpuscular Hemoglobin 27.1 pg (27.0-31.0); Mean Corpuscular Volume 85.4 fL (78.0-98.0); Mean Platelet Volume 9.7 fL (7.4-10.4); Monocytes 1 % (0-10); Neutrophil 83 % (42-75); Platelet Count 316 thou/uL (130-400); Platelet Morphology Comment Appears Adequate; RBC Distribution Width 26.3 % (11.5-14.5); Reactive Lymphocytes 1 % (0-10); Red Blood Cell (RBC) Count 3.26 mill/uL (4.20-5.40); White Blood Cell (WBC) Count 21.5 thou/uL (4.8-10.8)
[2019-01-17] MEDS: Ferrous Sulfate 325 MG TAB PO SCH ×2 (08:17→17:09)
[2019-01-17] MEDS: Saccharomyces boulardii 250 MG CAP PO SCH (08:18)
[2019-01-17] MEDS: Apixaban 5 MG TAB PO SCH ×2 (08:18→20:29)
[2019-01-17] MEDS: Digoxin 0.125 MG TAB PO SCH (08:18)
[2019-01-17] MEDS: Aspirin 81 mg Enteric Coated Tablet PO SCH (08:18)
[2019-01-17] MEDS: Ascorbic Acid 500 mg Chewable Tablet PO SCH (08:18)
[2019-01-17] MEDS: Atenolol 25 MG TAB PO SCH (08:18)
[2019-01-17] MEDS: Potassium Chloride 20 MEQ in Premix Bag 1 BAG IVPB SCH ×2 (08:19→10:51)
[2019-01-17] MEDS: Pantoprazole 40 MG VIAL IVP SCH (08:19)
--- NOTE | 2019-01-17 13:21 | PRG ---
DATE OF SERVICE: 01/17/2019 SUBJECTIVE: The patient was seen this morning sitting up in bed, very alert and overall improvement in her appearance. She states that she feels better today than yesterday and slept well overnight. Daughter at bedside also reports the patient appears to be doing much better. At the time of our evaluation, she was having breakfast. She is on a regular diet. She is stooling and voiding without difficulties. Midline abdominal incision appears clean, dry, and intact. She has been hemodynamically stable. Has not received any further blood products this morning. She denies nausea, vomiting, or diarrhea. OBJECTIVE: VITAL SIGNS: Temperature 98.3, pulse 99, respirations 16, oxygen saturation 100% on 3 L nasal cannula, blood pressure 121/64. GENERAL: Elderly female sitting up in bed with no signs of acute distress. RESPIRATORY: Equal chest rise and fall. Clear breath sounds bilaterally. No signs of acute respiratory distress. CARDIAC: Regular rate, irregular rhythm. No murmurs, gallops, or rubs. GI: Abdomen is soft, nontender, nondistended. Midline abdominal wound with candelario in place are clean, dry, and intact with no signs of infection. No erythema or purulent discharge noted. EXTREMITIES: 2+ pulses in all extremities. Swelling to bilateral lower extremities and upper extremities greatly improved since yesterday. NEURO: GCS is 15. No focal neurological deficits. LABORATORY FINDINGS: White count 21.5, hemoglobin 8.8, hematocrit 27.7, platelets 316. Sodium 145, potassium 3.1, chloride 112, carbon dioxide 25, BUN 19, creatinine 0.95, glucose 78, phos 3.3, magnesium 1.7. DIAGNOSTIC FINDINGS: There are no new diagnostic findings to report. ASSESSMENT: 1. Status post ex lap with ileocolectomy. 2. Ischemic bowel necrosis. 3. Acute blood loss anemia, improved. 4. History of atrial fibrillation, hep C, urinary tract infections, hypertension, deep vein thrombosis and pulmonary embolism, anemia, and chronic kidney disease 2. PLAN: The patient will be transitioned to her home p.o. dose of Lasix. Lovenox will also be discontinued today. She will be started on her home Eliquis. We will replace her potassium, phos, and magnesium as well today. She is to work with Physical and Occupational Therapy. Goal is to get the patient up out of bed today. She is pending placement at a swing bed. She continues to tolerate a regular diet. Continue Zosyn for now. The patient will be transferred from telemetry to the surgical nursing floor. The patient was discussed with Dr. Root this morning before rounds. Job ID: [id number]
--- NOTE | 2019-01-17 14:16 | PDOC.PN ---
- Subjective Encounter Start Date: 01/17/19 Encounter Start Time: 11:10 Ms. Nash was seen today in follow-up of Ischemic bowel, and sepsis. She is feeling better today. She appears stronger. She denies having any abdominal pain. She denies feeling short of breath. - Objective Resuscitation Status - Order Detail: 01/02/19 11:49 Resuscitation Status Routine Resuscitation Status: FULL: Full Resuscitation MAR Reviewed: Yes Vital Signs & Weight: Vital Signs (12 hours) Temp Pulse Resp BP BP Pulse Ox 01/17/19 12:44 96 16 98 01/17/19 11:23 104/62 01/17/19 11:17 98.7 F 94 22 H 108/57 L 100 01/17/19 08:22 100 01/17/19 07:26 98.3 F 99 16 121/64 100 01/17/19 07:20 96 01/17/19 07:19 92 16 96 01/17/19 03:34 97.8 F 90 19 107/60 99 Weight Admit Weight 168 lb 13.985 oz Weight 180 lb 6.4 oz Most Recent Monitor Data Heart Rate from ECG 113 NIBP 110/55 NIBP BP-Mean 73 Respiration from ECG 23 SpO2 99 I&O: 01/16/19 01/17/19 01/18/19 06:59 06:59 06:59 Intake Total 5364 2227 Output Total 250 Balance 5364 1977 Result Diagrams: 01/17/19 06:05 01/17/19 06:05 Phys Exam - Physical Examination HEENT: PERRLA Respiratory: no wheezing, no rales, no rhonchi, clear to auscultation bilateral Cardiovascular: RRR, no significant murmur, no rub Gastrointestinal: soft, non-tender, no distention, positive bowel sounds Musculoskeletal: pulses present, edema present + swelling of both her upper and lower extremities Neurological: non-focal, normal sensation Dx/Plan (1) Ischemic necrosis of large intestine Code(s): K55.049 - ACUTE INFARCTION OF LARGE INTESTINE, EXTENT UNSPECIFIED Status: Acute Comment: s/p R hemicolectomy, DULCE, distal small bowel resection and temporary wound closure with wound vac POD #5, second look POD #3 performed with washout and ileocolostomy with abd wound closure, continue Cefepime/ Metronidazole (2) Acute bacterial peritonitis Code(s): K65.9 - PERITONITIS, UNSPECIFIED Status: Acute Comment: See above (3) Hematochezia Code(s): K92.1 - MELENA Status: Acute (4) New onset a-fib Code(s): I48.91 - UNSPECIFIED ATRIAL FIBRILLATION Status: Acute (5) Acute respiratory failure with hypoxemia Code(s): J96.01 - ACUTE RESPIRATORY FAILURE WITH HYPOXIA Status: Acute Comment: s/p Extubation, O2 @ 2L/min NC (6) NSTEMI (non-ST elevated myocardial infarction) Code(s): I21.4 - NON-ST ELEVATION (NSTEMI) MYOCARDIAL INFARCTION Status: Acute Comment: ASA, Atenolol (7) Hypertension Code(s): I10 - ESSENTIAL (PRIMARY) HYPERTENSION Status: Chronic (8) Iron deficiency anemia Code(s): D50.9 - IRON DEFICIENCY ANEMIA, UNSPECIFIED Status: Acute (9) Colitis Code(s): K52.9 - NONINFECTIVE GASTROENTERITIS AND COLITIS, UNSPECIFIED Status : Acute (10) Hypernatremia Code(s): E87.0 - HYPEROSMOLALITY AND HYPERNATREMIA Status: Acute (11) Physical deconditioning Code(s): R53.81 - OTHER MALAISE Status: Chronic (12) Acute anemia Code(s): D64.9 - ANEMIA, UNSPECIFIED Status: Acute - Plan * Ischemic Bowel- s/p exploratory lap with ileocolectomy - she is slowly improving * Acute on chronic blood loss anemia- her H&H has remained relatively stable * HTN- blood pressure is stable . * Hypernatremia- improved * Hypokalemia- continue to replace * AFIB- her heart rate is stable * Severe deconditioning- continue PT/OT
--- NOTE | 2019-01-17 14:42 | PRG ---
DATE OF SERVICE: 01/17/2019 SUBJECTIVE: Ilene Nash has no new complaints other than wanting to go home. OBJECTIVE: VITAL SIGNS: She is afebrile. Heart rate is 94, respiratory rate is 22, oximetry is 100% on 3 L, blood pressure is 108/57. LUNGS: Clear. HEART: Regular rhythm. ABDOMEN: Soft. EXTREMITIES: Without asymmetry. LABORATORY DATA: White count is 21.5, hemoglobin 8.8, platelets 316. Sodium 145, potassium 3.1, chloride 112, bicarb 25, BUN 19, and creatinine 0.95. IMPRESSION AND PLAN: 1. Status post laparotomy for bowel. 2. Embolic event associated with atrial fibrillation. 3. Chronic intermittent atrial fibrillation, off anticoagulant because of blood loss anemia. 4. Dementia that is reasonably compensated now. 5. Hypertension. 6. History of deep venous thrombosis and pulmonary embolism in the past. 7. Acute on chronic kidney dysfunction that is reasonably stable. Orders have been reviewed. Apparently, the family tells me they tried to get a peripheral IV in her yesterday, unable to do so. She is still on IV antimicrobial therapy with Zosyn and micafungin. If this is to continue, she probably needs a PICC line. Job ID: [id number]
[2019-01-17] MEDS: Ondansetron PF 4 MG/2 ML Vial IVP PRN (15:58)
[2019-01-17] MEDS: Micafungin 100 MG in Sodium Chloride 0.9% 100 ML IVPB SCH (15:58)
--- NOTE | 2019-01-17 19:14 | PRG ---
DATE OF SERVICE: 01/16/2019 SUBJECTIVE: Ms. Nash has had no signs of bleeding. She pulled her NG tube out overnight and she is tolerating liquid diet. OBJECTIVE: VITAL SIGNS: Temperature is 98, pulse 93, and blood pressure 110/59. GENERAL: She is mildly demented, but pleasant. LUNGS: Clear. HEART: Regular rate and rhythm without clicks, rubs, or murmurs. ABDOMEN: Nontender. LABORATORY DATA: Hemoglobin was 6.6, white count 29,000, and platelet count 347. Sodium 147, potassium 3.1, BUN and creatinine are 23 and 0.89. ASSESSMENT AND PLAN: 1. The patient has pulled out the Dobhoff tube. Surgery is going to let her feed on her own. 2. Drop in hemoglobin. There are no signs of gastrointestinal bleeding at this time. It seems that Surgery is planning on transfusing her and observing. If there is ongoing drop in hemoglobin, it may be reasonable to re-scan her abdomen. Job ID: [id number]
[2019-01-17] MEDS: Loperamide HCl 2 MG CAP PO SCH (20:28)
[2019-01-18] MEDS ORDERED: Lorazepam 2 MG/ML VIAL SLOW IVP PRN (00:54)
[2019-01-18] MEDS ORDERED: diphenhydrAMINE 50 MG/ML VIAL ONE (03:02)
[2019-01-18] MEDS: Piperacillin/Tazobactam 4.5 GM in Sodium Chloride 0.9% 100 ML IVPB SCH ×3 (03:14→17:06)
[2019-01-18] MEDS ORDERED: diphenhydrAMINE 50 MG/ML VIAL IVP SCH (03:15)
[2019-01-18 05:20] LABS: Phosphorus 2.8 mg/dL (2.3-4.7)
[2019-01-18 05:21] LABS: Anion Gap 11 mmol/L (10-20); BUN (Urea Nitrogen) 17 mg/dL (9.8-20.1); Band 5 % (5-11); Calc. Creatinine Clearance 59 mL/min (70-130); Calcium 7.9 mg/dL (7.8-10.44); Carbon Dioxide 26 mmol/L (23-31); Chloride 111 mmol/L (98-107); Eosinophils 6 % (0-10); Estimated GFR-MDRD 53; Glucose 78 mg/dL (83-110); Hemoglobin 8.3 g/dL (12.0-16.0); Lymphocytes 5 % (21-51); MDiff Complete? YES; Magnesium 1.9 mg/dL (1.6-2.6); Mean Corpuscular HGB CONC 30.2 g/dL (32.0-36.0); Mean Corpuscular Volume 85.9 fL (78.0-98.0); Mean Platelet Volume 10.3 fL (7.4-10.4); Monocytes 3 % (0-10); Neutrophil 81 % (42-75); Platelet Count 365 thou/uL (130-400); Platelet Morphology Comment Appears Adequate; Potassium 3.4 mmol/L (3.5-5.1); RBC Distribution Width 26.8 % (11.5-14.5); Red Blood Cell (RBC) Count 3.19 mill/uL (4.20-5.40); Sodium 145 mmol/L (136-145); White Blood Cell (WBC) Count 20.6 thou/uL (4.8-10.8)
[2019-01-18] MEDS ORDERED: Furosemide 40 MG TAB PO SCH (07:30)
[2019-01-18] MEDS: Atenolol 25 MG TAB PO SCH (08:16)
[2019-01-18] MEDS: Ferrous Sulfate 325 MG TAB PO SCH ×2 (08:16→17:43)
[2019-01-18] MEDS: Ascorbic Acid 500 mg Chewable Tablet PO SCH (08:16)
[2019-01-18] MEDS: Apixaban 5 MG TAB PO SCH ×2 (08:16→21:46)
[2019-01-18] MEDS: Loperamide HCl 2 MG CAP PO SCH ×4 (08:16→21:46)
[2019-01-18] MEDS: Aspirin 81 mg Enteric Coated Tablet PO SCH (08:17)
[2019-01-18] MEDS: Digoxin 0.125 MG TAB PO SCH (08:17)
[2019-01-18] MEDS: Saccharomyces boulardii 250 MG CAP PO SCH (08:17)
[2019-01-18] MEDS: Pantoprazole 40 MG VIAL IVP SCH (08:18)
[2019-01-18] MEDS ORDERED: Potassium Phosphate 30 MMOL in Sodium Chloride 0.9% 250 ML 250 ML IVPB SCH (10:00)
--- NOTE | 2019-01-18 11:14 | RAD ---
PORTABLE CHEST: DATE: 01/18/2019. PROVIDED CLINICAL HISTORY: Hypoxia. COMPARISON: 01/16/2019. FINDINGS: Cardiac silhouette remains enlarged. Left-sided central line is again seen in similar position. Bib asilar pleural parenchymal opacity appears similar to the prior examination. No evidence for pneumot horax. IMPRESSION: Stable radiographic appearance of the chest. POS: [facility]
[2019-01-18] MEDS ORDERED: Nystatin Powder 15 GM BOT TOP PRN (12:26)
--- NOTE | 2019-01-18 14:06 | PRG ---
DATE OF SERVICE: 01/18/2019 SUBJECTIVE: She is in no distress. She has no new complaints. She just wants to go home. OBJECTIVE: VITAL SIGNS: She is afebrile. Heart rate 89, respiratory rate 18, oximetry is 92 on 3 L, blood pressure 108/58. LUNGS: Clear anteriorly and laterally. HEART: Regular rhythm. Chest radiograph today is unchanged from the radiograph several days ago. We are working on a swing bed for her. So far, she is tolerating full-dose anticoagulation with a hemoglobin that is stable at 8.3 g. In the past, she had chronic blood loss with anticoagulation. Hopefully, this would not be a problem in the near future. She is transferred to a swing bed, her hemoglobin/hematocrit will need to be checked several times a week. Job ID: [id number]
[2019-01-18 14:35] VITALS: BMI 32.2
--- NOTE | 2019-01-18 14:50 | PDOC.PN ---
- Subjective Encounter Start Date: 01/18/19 Encounter Start Time: 12:15 Ms. Nash was seen today in follow-up of bowel infarction and peritonitis. She continues to look better each day. She notes several loose stools a day. - Objective Resuscitation Status - Order Detail: 01/02/19 11:49 Resuscitation Status Routine Resuscitation Status: FULL: Full Resuscitation MAR Reviewed: Yes Vital Signs & Weight: Vital Signs (12 hours) Temp Pulse Resp BP BP BP Pulse Ox 01/18/19 13:15 89 18 92 L 01/18/19 09:47 104/88 108/58 L 01/18/19 08:16 85 01/18/19 08:00 96.1 F L 94 18 119/63 94 L 01/18/19 07:04 85 18 91 L 01/18/19 02:57 97.7 F 97 20 102/57 L 95 Weight Admit Weight 168 lb 13.985 oz Weight 181 lb 14.4 oz Most Recent Monitor Data Heart Rate from ECG 113 NIBP 110/55 NIBP BP-Mean 73 Respiration from ECG 23 SpO2 99 I&O: 01/17/19 01/18/19 01/19/19 06:59 06:59 06:59 Intake Total 2227 2100 Output Total 250 Balance 1977 2100 Result Diagrams: 01/18/19 03:57 01/18/19 03:57 Phys Exam - Physical Examination HEENT: PERRLA Respiratory: no wheezing, no rales, no rhonchi, clear to auscultation bilateral Cardiovascular: RRR, no significant murmur, no rub Gastrointestinal: soft, non-tender, no distention, positive bowel sounds Musculoskeletal: pulses present, edema present + edema in both upper and lower extremities Neurological: non-focal, normal sensation, moves all 4 limbs Dx/Plan (1) Ischemic necrosis of large intestine Code(s): K55.049 - ACUTE INFARCTION OF LARGE INTESTINE, EXTENT UNSPECIFIED Status: Acute Comment: s/p R hemicolectomy, DULCE, distal small bowel resection and temporary wound closure with wound vac POD #5, second look POD #3 performed with washout and ileocolostomy with abd wound closure, continue Cefepime/ Metronidazole (2) Acute bacterial peritonitis Code(s): K65.9 - PERITONITIS, UNSPECIFIED Status: Acute Comment: See above (3) Hematochezia Code(s): K92.1 - MELENA Status: Acute (4) New onset a-fib Code(s): I48.91 - UNSPECIFIED ATRIAL FIBRILLATION Status: Acute (5) Acute respiratory failure with hypoxemia Code(s): J96.01 - ACUTE RESPIRATORY FAILURE WITH HYPOXIA Status: Acute Comment: s/p Extubation, O2 @ 2L/min NC (6) NSTEMI (non-ST elevated myocardial infarction) Code(s): I21.4 - NON-ST ELEVATION (NSTEMI) MYOCARDIAL INFARCTION Status: Acute Comment: ASA, Atenolol (7) Hypertension Code(s): I10 - ESSENTIAL (PRIMARY) HYPERTENSION Status: Chronic (8) Iron deficiency anemia Code(s): D50.9 - IRON DEFICIENCY ANEMIA, UNSPECIFIED Status: Acute (9) Colitis Code(s): K52.9 - NONINFECTIVE GASTROENTERITIS AND COLITIS, UNSPECIFIED Status : Acute (10) Physical deconditioning Code(s): R53.81 - OTHER MALAISE Status: Chronic (11) Acute anemia Code(s): D64.9 - ANEMIA, UNSPECIFIED Status: Acute - Plan * Bowel infarction with peritonitis- clinically improving Continue Zosyn and Micafungin * HTN- blood pressure is controlled . * AFIB- her heart rate is controlled- she is currently on Eliquis * Acute on chronic anemia- her HGB is stabilizing. she had a history of acute on chronic GI bleeding- will need to monitor H&H closely * Physical Deconditioning- continue PT/ OT * Awaiting Swing bed
[2019-01-18] MEDS: Micafungin 100 MG in Sodium Chloride 0.9% 100 ML IVPB SCH (15:30)
--- NOTE | 2019-01-18 16:58 | PRG ---
DATE OF SERVICE: 01/18/2019 SUBJECTIVE: The patient was seen this morning, sitting up in bed, the patient alert and in no distress. The patient continues to improve. The patient reports she feels good today and had no overnight events. The patient's daughter at bedside and also agrees the patient is doing much better. The patient is tolerating a regular diet. The patient continues to have normal stool and voiding without difficulties. The patient's midline abdominal incision appears clean, dry, and intact. The patient has been hemodynamically stable. The patient has not required any further blood products in the past 48 hours. The patient denies any nausea, vomiting, or diarrhea. OBJECTIVE: VITAL SIGNS: Temperature 96.1, pulse 94, respirations 18, SpO2 of 94% on 3 L, blood pressure 119/63. GENERAL: The patient awake, alert, in no distress. RESPIRATORY: Equal chest rise and fall, crackles in bilateral bases, no acute distress. CARDIAC: Regular rate, irregular rhythm, no murmurs, no gallops or rubs. ABDOMEN: Soft, nontender, nondistended. Midline abdominal wound with candelario in place, clean, dry, and intact. No signs of infection. EXTREMITIES: Mild pedal edema, 2+ pulses in all Extremities. NEUROLOGIC: GCS 15, no focal deficits. LABORATORY DATA: Sodium 145, potassium 3.4, chloride 111, CO2 of 26, BUN 17, creatinine 1.00, estimated GFR 53, glucose 78, calcium 7.9, magnesium 1.9. BNP 1861.4. WBC 20.6, RBC 3.19, hemoglobin 8.3, hematocrit 27.5. DIAGNOSTICS: Chest x-ray, cardiac silhouette remains enlarged. Left-sided central line in similar position. No evidence of pneumothorax, stable radiographic appearance of chest. Bibasilar pleural parenchymal opacity appears similar to prior exam. IMPRESSION: 1. Status post exploratory laparotomy with ileocolectomy. 2. Ischemic bowel necrosis. 3. Acute blood loss anemia, improved. 4. History of atrial fibrillation, hep C, urinary tract infections, hypertension , deep vein thrombosis and pulmonary embolism, anemia, and chronic kidney disease 2. 5. Hypokalemia. 6. Congestive Heart Failure PLAN: The patient is pending placement to swing bed. Replace electrolytes. Antibiotics discontinued as the patient's blood cultures are negative. We will continue the patient's home Lasix as the patient has been requiring oxygen, will continue regular diet. Continue PT/ OT. The patient was examined this morning with Dr. Root. Job ID: [id number] MTDD
[2019-01-18] MEDS ORDERED: Furosemide 40 MG/4 ML VIAL SLOW IVP SCH (17:45)
[2019-01-19 05:52] LABS: #Eosinphils 0.8 thou/uL (0.0-0.7); #Monocytes 0.8 thou/uL (0.11-0.59); #Neutrophils 13.4 thou/uL (1.40-6.50); %Basophils 0.3 % (0.0-1.0); %Eosinophils 5.1 % (0.0-10.0); %Lymphocytes 6.3 % (21.0-51.0); %Neutrophils 83.3 % (42.0-75.0); Hemoglobin 8.6 g/dL (12.0-16.0); Hypochromia SLIGHT = 6-15 cells (100X) (0-5/hpf); MDiff Complete? YES; Mean Corpuscular HGB CONC 31.6 g/dL (32.0-36.0); Mean Corpuscular Hemoglobin 27.1 pg (27.0-31.0); Mean Corpuscular Volume 85.9 fL (78.0-98.0); Mean Platelet Volume 8.8 fL (7.4-10.4); Platelet Count 400 thou/uL (130-400); Platelet Morphology Comment Appears Adequate; RBC Distribution Width 26.4 % (11.5-14.5); Red Blood Cell (RBC) Count 3.17 mill/uL (4.20-5.40); Target Cells SLIGHT = 2-5 cells (100X) (0-1/hpf); White Blood Cell (WBC) Count 16.1 thou/uL (4.8-10.8)
[2019-01-19 05:59] LABS: Anion Gap 10 mmol/L (10-20); BUN (Urea Nitrogen) 18 mg/dL (9.8-20.1); Calc. Creatinine Clearance 59 mL/min (70-130); Carbon Dioxide 27 mmol/L (23-31); Chloride 111 mmol/L (98-107); Estimated GFR-MDRD 53; Glucose 93 mg/dL (83-110); Magnesium 1.7 mg/dL (1.6-2.6); Phosphorus 3.8 mg/dL (2.3-4.7); Potassium 3.8 mmol/L (3.5-5.1); Sodium 144 mmol/L (136-145)
[2019-01-19] MEDS ORDERED: Furosemide 40 MG/4 ML VIAL SLOW IVP SCH (09:00)
[2019-01-19] MEDS ORDERED: Furosemide 40 MG TAB PO SCH ×2 (09:00→14:00)
[2019-01-19] MEDS: Atenolol 25 MG TAB PO SCH (09:24)
[2019-01-19] MEDS: Ascorbic Acid 500 mg Chewable Tablet PO SCH (09:24)
[2019-01-19] MEDS: Digoxin 0.125 MG TAB PO SCH (09:24)
[2019-01-19] MEDS: Saccharomyces boulardii 250 MG CAP PO SCH (09:25)
[2019-01-19] MEDS: Ferrous Sulfate 325 MG TAB PO SCH ×2 (09:27→17:22)
[2019-01-19] MEDS: Aspirin 81 mg Enteric Coated Tablet PO SCH (09:27)
[2019-01-19] MEDS: Apixaban 5 MG TAB PO SCH ×2 (09:27→21:15)
[2019-01-19] MEDS: Loperamide HCl 2 MG CAP PO SCH ×4 (09:27→21:15)
--- NOTE | 2019-01-19 14:59 | PRG ---
DATE OF SERVICE: 01/19/2019 SUBJECTIVE: The patient was seen this morning, sitting up in bed, in no acute distress. Able to speak full sentences, although slightly tachypneic. The patient is awake, alert, and oriented to person, place, and time. The patient had no overnight events. The patient is emotional as she feels like she is a burden to her and her family. She states that she felt lonely last night and called her to come back to the hospital and stay with her. The patient continues to tolerate a regular diet. The patient continues to have normal stool and voiding without any difficulty. The patient also denies any nausea, vomiting, or diarrhea. OBJECTIVE: VITAL SIGNS: Temperature 97.8, pulse 99, respirations 17, SpO2 of 98% on 2.5 L nasal cannula, blood pressure 120/56. GENERAL: The patient is awake, alert, and mildly tachypneic. The patient is able to speak in full sentences. The patient's spouse is at bedside. RESPIRATORY: Chest rise is symmetrical, clear breath sounds in the upper lobes, crackles in bilateral bases. CARDIAC: Regular rate. No murmurs. ABDOMEN: Soft, nontender, nondistended. Midline abdominal wound with candelario clean, dry, and intact. EXTREMITIES: Mild pedal edema bilateral, +1 pitting, left greater than right. Positive distal pulses 2+ in all extremities. NEUROLOGIC: GCS 15, no focal deficit. LABORATORY DATA: WBC 16.1, RBC 3.17, hemoglobin 8.6, hematocrit 27.2, platelets 400. Sodium 144, potassium 3.8, chloride 111, BUN 18, creatinine 1.01, estimated GFR 53, glucose 93, calcium 8.0, phosphorus 3.8, magnesium 1.7. DIAGNOSTIC DATA: There are no diagnostics to review today. IMPRESSION: 1. Status post exploratory laparotomy with ileocolectomy. 2. Ischemic bowel necrosis. 3. Acute blood loss anemia, improved. 4. History of atrial fibrillation. 5. Hepatitis C. 6. Urinary tract infection. 7. Hypertension. 8. Deep venous thrombosis and pulmonary embolism. 9. Anemia. 10. Chronic kidney disease, stage 2. 11. Congestive heart failure. PLAN: We will give the patient IV Lasix. We will also continue the patient's daily p.o. Lasix. We will continue to have the patient work with Physical and Occupational Therapy. We will continue regular diet as tolerated. The patient has pending placement to swing bed. The patient was examined with Dr. Root during morning rounds. The patient and family both agree with plan. Job ID: [id number]
--- NOTE | 2019-01-19 15:57 | PRG ---
DATE OF SERVICE: 01/19/2019 SUBJECTIVE: Ms. Nash is having issues with her skin, so she is having a Maxwell placed. She is sitting in the urine with a diaper urinary collection system. She would benefit from a Maxwell. I would agree with placement of this. OBJECTIVE: VITAL SIGNS: Blood pressure is 103/56, heart rate is 94, respiratory rate is 18, oximetry is 98% on 3 L a minute. LUNGS: Unchanged. HEART: Unchanged. ABDOMEN: Unchanged. LABORATORY DATA: White count 16.1, hemoglobin 8.6, platelets 400,000. Electrolytes are unremarkable. C. difficile is negative. She remains on broad antimicrobial therapy. So, it look likes the Zosyn has been discontinued, but she is still on micafungin. Her line is not old enough or early for me to suspect a fungal infection. I would consider some fine antimicrobial therapy. She came in with an admitting diagnosis of pneumonia, but did not have pneumonia in my opinion. Discontinuing antibiotics think would be appropriate at this point. Job ID: [id number]
[2019-01-19] MEDS: Micafungin 100 MG in Sodium Chloride 0.9% 100 ML IVPB SCH (16:05)
--- NOTE | 2019-01-19 16:35 | PDOC.PN ---
- Subjective Encounter Start Date: 01/19/19 Encounter Start Time: 15:30 Patient seen and examined for Ischemic bowel necrosis. Poor appetite per spouse. Feels gen weak. Sat on EOB earlier. No other complaints. No overnight events - Objective Resuscitation Status - Order Detail: 01/02/19 11:49 Resuscitation Status Routine Resuscitation Status: FULL: Full Resuscitation MAR Reviewed: Yes Vital Signs & Weight: Vital Signs (12 hours) Temp Pulse Pulse Pulse Resp BP BP 01/19/19 16:00 97.2 F L 94 18 01/19/19 13:36 99 92 108/59 L 119/66 01/19/19 13:20 87 16 01/19/19 12:00 97.8 F 96 18 01/19/19 09:24 99 01/19/19 09:15 94 96 103/56 L 110/56 L 01/19/19 08:00 97.8 F 99 17 01/19/19 06:56 92 16 BP Pulse Ox Pulse Ox Pulse Ox 01/19/19 16:00 111/58 L 98 01/19/19 13:36 95 96 01/19/19 13:20 92 L 01/19/19 12:00 97 01/19/19 09:24 01/19/19 09:15 99 99 01/19/19 08:00 120/56 L 98 01/19/19 06:56 98 Weight Admit Weight 168 lb 13.985 oz Weight 184 lb 9.6 oz Most Recent Monitor Data Heart Rate from ECG 113 NIBP 110/55 NIBP BP-Mean 73 Respiration from ECG 23 SpO2 99 I&O: 01/18/19 01/19/19 01/20/19 06:59 06:59 06:59 Intake Total 2099 3000 Output Total 1000 Balance 2099 1999 Result Diagrams: 01/19/19 05:25 01/19/19 05:25 EKG Reviewed by me: Yes (Tele Afib) Phys Exam - Physical Examination Constitutional: NAD Respiratory: no wheezing, no rhonchi Cardiovascular: no rub, irregular Gastrointestinal: soft, positive bowel sounds Musculoskeletal: edema present Neurological: moves all 4 limbs Dx/Plan - Plan IMPRESSION: Sepsis due to Ischemic bowel colitis/necrosis with Peritonitis s/p Exp Lap Acute on chronic diastolic HF Mod Mitral regurg Afib with RVR - restarted on anticoag - rate controlled Acute blood loss anemia HTN HLD Physical deconditioning Electrolyte abn Type 2 KS Acute hypoxic resp failure - on O2 supp h/o DVT/PE Diverticulosis Obesity BMI 32.7 PLAN: Cont IV Lasix AM labs Cont PT/OT Accepted at Swing bed DC to SNF once cleared by Gen surg Review of Systems - Review of Systems Respiratory: negative: Cough, Dry, Shortness of Breath, Hemoptysis, SOB with Excertion, Pleuritic Pain, Sputum, Wheezing Cardiovascular: negative: chest pain, palpitations, orthopnea, paroxysmal nocturnal dyspnea, edema, light headedness, other - Medications/Allergies Allergies/Adverse Reactions: Allergies Allergy/AdvReac Type Severity Reaction Status Date / Time sulfamethoxazole Allergy Verified 01/02/19 14:26 [From Bactrim] trimethoprim [From Bactrim] Allergy Verified 01/02/19 14:26 Medications: Current Medications Albuterol/Ipratropium (Duoneb) 3 ml NEB S9PA-IN [facility] Last Admin: 01/19/19 13:20 Dose: 3 ml Apixaban (Eliquis) 5 mg PO BID [facility] Last Admin: 01/19/19 09:27 Dose: 5 mg Ascorbic Acid (Vitamin C) 500 mg PO QAM-[facility] Last Admin: 01/19/19 09:24 Dose: 500 mg Aspirin (Ecotrin) 81 mg PO DAILY [facility] Last Admin: 01/19/19 09:27 Dose: 81 mg Atenolol (Tenormin) 12.5 mg PO DAILY [facility] Last Admin: 01/19/19 09:24 Dose: 12.5 mg Benzonatate (Tessalon) 100 mg PO Q6H PRN PRN Reason: Cough Digoxin (Lanoxin) 0.125 mg PO DAILY [facility] Last Admin: 01/19/19 09:24 Dose: 0.125 mg Ferrous Sulfate (Feosol) 325 mg PO BID-[facility] Last Admin: 01/19/19 09:27 Dose: 325 mg Fluticasone Propionate (Flonase Nasal [place]) 0 gm NASAL DAILY PRN PRN Reason: ALLERGIES Furosemide (Lasix) 40 mg SLOW IVP BID [facility] Guaifenesin/Dextromethorphan (Robitussin Dm) 15 ml PO Q4H PRN PRN Reason: Cough Hydralazine HCl (Apresoline) 10 mg SLOW IVP Q4H PRN PRN Reason: SBP > 180 and HR < 70 Promethazine HCl 12.5 mg/ (Sodium Chloride) 50.5 mls @ 202 mls/hr IVPB Q6H PRN PRN Reason: Nausea Last Admin: 01/06/19 07:24 Dose: 50.5 mls Micafungin Sodium 100 mg/ (Sodium Chloride) 100 mls @ 100 mls/hr IVPB Q24HR@ 1500 [facility] Last Admin: 01/19/19 16:05 Dose: 100 mls Loperamide HCl (Imodium) 2 mg PO QID [facility] Last Admin: 01/19/19 13:54 Dose: 2 mg Multivitamins (Theragran) 1 tab PO DAILY [facility] Nitroglycerin (Nitrostat) 0.4 mg SL Q5MIN PRN PRN Reason: Chest Pain Nystatin (Mycostatin Powder) 1 gm TOP BID PRN PRN Reason: Topical Irritations Last Admin: 01/18/19 17:52 Dose: 1 applic Nystatin (Mycostatin Powder) 0 gm TOP BID [facility] Ondansetron HCl (Zofran Odt) 4 mg PO Q6H PRN PRN Reason: Nausea/Vomiting Last Admin: 01/15/19 16:13 Dose: 4 mg Ondansetron HCl (Zofran) 4 mg IVP Q6H PRN PRN Reason: Nausea/Vomiting Last Admin: 01/17/19 15:58 Dose: 4 mg Pantoprazole Sodium (Protonix) 40 mg PO DAILY [facility] Last Admin: 01/19/19 09:30 Dose: 40 mg Saccharomyces Boulardii (Florastor) 250 mg PO DAILY [facility] Last Admin: 01/19/19 09:25 Dose: 250 mg Sodium Chloride (Flush - Normal Saline) 10 ml IVF Q12HR [facility] Last Admin: 01/19/19 09:26 Dose: 10 ml Sodium Chloride (Normal Saline Pf) 10 ml FS PRN PRN PRN Reason: RECONSTITUTION Last Admin: 01/16/19 09:44 Dose: 10 ml
--- NOTE | 2019-01-19 19:49 | PRG ---
DATE OF SERVICE: 01/19/2019 SUBJECTIVE: Ms. Nash has really had no bleeding. Her Dobhoff is out. Her daughter said that she did not eat well today, but she has a tray at present. I have asked the nurse if she is on a restricted diet and they stated no, but the patient does not want to eat what is on the tray, looks like pureed food. OBJECTIVE: VITAL SIGNS: Temperature 97.8. She has been afebrile, pulse 84, blood pressure 111/85. LUNGS: Clear. HEART: Has regular rate and rhythm. ABDOMEN: Nontender. Slight moisture at the inferior aspect of her incision staple line, but no overt evidence of dehiscence or opening. LABORATORY DATA: White count 16.1, hemoglobin 8.6, platelet count 400. Sodium 144, potassium 3.8, BUN and creatinine are 18 and 1.01. BNP was 1861 yesterday. ASSESSMENT AND PLAN: 1. Status post right hemicolectomy for ischemic colitis. 2. Her chronic anemia may be related to some chronic features of colitis in the right colon. This was never able to be evaluated secondary to severe stricture in the sigmoid colon. It did not permit passage of the colonoscope or an upper endoscope. Previous teams were evaluating that. 3. She is now on full-dose Eliquis and not bleeding, which is a good sign. 4. She is off antibiotics. Continues on probiotics. Diet is regular. I have encouraged that the patient's daughter bring her feeds from home that she may like because she does need to eat to get better. At this time, we will follow from periphery. We will check on her intermittently. Once again, thank you for including me in this patient's evaluation. If I can be of any further assistance in her care or if any questions, please do not hesitate to contact me. Job ID: [id number]
[2019-01-19] MEDS: Nystatin Powder 15 GM BOT TOP SCH (21:16)
[2019-01-19] MEDS: Furosemide 40 MG/4 ML VIAL SLOW IVP SCH (21:16)
[2019-01-20 05:52] LABS: ALT (SGPT) 14 U/L (8-55); AST (SGOT) 31 U/L (5-34); Albumin 2.3 g/dL (3.4-4.8); Alkaline Phosphatase 64 U/L (40-150); Bilirubin, Direct 0.4 mg/dL (0.1-0.3); Bilirubin, Total 0.6 mg/dL (0.2-1.2); Protein, Total 4.8 g/dL (6.0-8.3)
[2019-01-20] MEDS ORDERED: Magnesium Sulfate 4 GM in Sodium Chloride 0.9% 250 ML 250 ML IVPB SCH (07:45)
[2019-01-20] MEDS: Furosemide 40 MG/4 ML VIAL SLOW IVP SCH ×2 (08:35→13:00)
[2019-01-20 08:40] LABS: Phosphorus 3.3 mg/dL (2.3-4.7); Potassium 3.8 mmol/L (3.5-5.1)
[2019-01-20] MEDS: Apixaban 5 MG TAB PO SCH ×2 (08:43→21:40)
[2019-01-20] MEDS: Digoxin 0.125 MG TAB PO SCH (08:43)
[2019-01-20] MEDS: Ferrous Sulfate 325 MG TAB PO SCH ×2 (08:43→17:48)
[2019-01-20] MEDS: Ascorbic Acid 500 mg Chewable Tablet PO SCH (08:43)
[2019-01-20] MEDS: Multivit, Therapeutic 1 TAB PO SCH (08:43)
[2019-01-20] MEDS: Aspirin 81 mg Enteric Coated Tablet PO SCH (08:43)
[2019-01-20] MEDS: Atenolol 25 MG TAB PO SCH (08:43)
[2019-01-20] MEDS: Nystatin Powder 15 GM BOT TOP SCH ×2 (08:44→21:41)
[2019-01-20] MEDS: Saccharomyces boulardii 250 MG CAP PO SCH (08:44)
[2019-01-20] MEDS: Loperamide HCl 2 MG CAP PO SCH ×4 (08:44→21:40)
[2019-01-20] MEDS ORDERED: Furosemide 40 MG/4 ML VIAL SLOW IVP SCH (09:45)
[2019-01-20 10:07] LABS: Anion Gap 10 mmol/L (10-20); BUN (Urea Nitrogen) 15 mg/dL (9.8-20.1); Calc. Creatinine Clearance 70 mL/min (70-130); Calcium 8.2 mg/dL (7.8-10.44); Carbon Dioxide 31 mmol/L (23-31); Chloride 103 mmol/L (98-107); Estimated GFR-MDRD 64; Glucose 89 mg/dL (83-110); Phosphorus 3.3 mg/dL (2.3-4.7); Potassium 3.7 mmol/L (3.5-5.1); Sodium 140 mmol/L (136-145)
[2019-01-20] MEDS ORDERED: PHOS-NAK 1 PKT PACK PO SCH (11:45)
[2019-01-20] MEDS ORDERED: Potassium Chloride 20 MEQ TAB PO SCH (11:45)
--- NOTE | 2019-01-20 11:45 | PRG ---
DATE OF SERVICE: 01/20/2019 SUBJECTIVE: Ms. Nash is a 78-year-old woman, who is postoperative day #10 status post exploratory laparotomy, right hemicolectomy, and partial ileectomy for ischemic bowel necrosis. Ultimately, she was returned for second-look with ileocolostomy. This morning, she is awake and alert. She has been treated for acute congestive heart failure exacerbation. She was placed on diuretics intravenously yesterday. Adequate urinary output has been achieved. This morning, the patient reports feeling better tolerating diet, although her appetite is still not quite good. OBJECTIVE: VITAL SIGNS: This morning include blood pressure 107/71, pulse is 93, respiratory rate is 16, temperature is 97.9 degrees Fahrenheit, oxygen saturation is 96% on 2 L by nasal cannula oxygen. She was on 3 L nasal cannula oxygen yesterday. HEART: Reveals regular rate and rhythm. No murmurs or gallops auscultated. LUNGS: Clear to auscultation bilaterally. Her breathing is regular and nonlabored. ABDOMEN: Soft with incisional tenderness to palpation. She has no gross rebound tenderness present. EXTREMITIES: Reveals 2+ radial and pedal pulses bilaterally. She has decreased bilateral ankle edema present. NEUROLOGIC: Reveals no focal deficits present. LABORATORY FINDINGS: Include a metabolic profile; sodium 140, potassium 3.7, chloride is 103, bicarb is 31, BUN is 15, creatinine is 0.86, glucose is 89, phosphorus is 3.3. IMPRESSIONS: 1. Postop day #12 status post exploratory laparotomy with right colectomy and right partial ileectomy for ischemic bowel necrosis. 2. Postop day #10 status post second-look exploratory laparotomy with abdominal washout and ileocolostomy. 3. Acute congestive heart failure exacerbation, improving. 4. Acute hypokalemia. PLAN: 1. Correct abnormal electrolytes. 2. Continue with diuretics and monitor the patient's urinary output, hemodynamics as endpoint of diuresis and anticipate ongoing recovery from the CHF. 3. We will increase activity per Physical and Occupational therapy. 4. Anticipate discharge to swing bed within the next 48 hours. Above findings and plan discussed with the patient and her at bedside. 5. They both indicated understanding of the information given. 6. I have answered their questions. Job ID: [id number] [facility]
--- NOTE | 2019-01-20 12:06 | PRG ---
DATE OF SERVICE: 01/20/2019 SUBJECTIVE: Ms. Nash is doing reasonably well. Her main problem is that she is quite weak. She is unable to get up without assistance. She sat on the bed earlier this morning. I have encouraged family and the nurses to get her up into a chair this afternoon with physical therapy. OBJECTIVE: VITAL SIGNS: She is afebrile. Heart rate is 92, respiratory rate 16, oximetry is 96% on 2 L. LUNGS: Clear. HEART: Regular rhythm. ABDOMEN: Soft and nontender. EXTREMITIES: Without asymmetry or edema. Overall, she appears to be stable. IMPRESSION: 1. Status post emergent laparotomy for bowel. 2. History of paroxysmal atrial fib, off anticoagulation because of chronic gastrointestinal blood loss. 3. Blood loss anemia. 4. History of a sigmoid stricture. 5. Weakness and deconditioning. 6. Right pleural effusion on admission secondary to her atrial fibrillation. 7. Very early dementia. She is doing very well, but earlier in the admission was having problems with sundowning. Goal of care now is to get her into some type of skilled environment for physical therapy. She can get up to a commode, so she has a Maxwell in place and this will likely remain in place until she is more ambulatory and able to get up to a bedside commode. Her IV diuretics could be switched to p.o. diuretics in my opinion. Job ID: [id number]
[2019-01-20] MEDS: Micafungin 100 MG in Sodium Chloride 0.9% 100 ML IVPB SCH (14:37)
[2019-01-20] MEDS ORDERED: Melatonin 3 MG TAB PO SCH (21:00)
[2019-01-20] MEDS ORDERED: diphenhydrAMINE 25 MG CAP PO SCH (21:00)
--- NOTE | 2019-01-20 22:40 | PDOC.PN ---
- Subjective Encounter Start Date: 01/20/19 Encounter Start Time: 08:00 Patient seen and examined for CHF/Bowel ischemia. No CP. SOB improving. No new complaints. No overnight events - Objective Resuscitation Status - Order Detail: 01/02/19 11:49 Resuscitation Status Routine Resuscitation Status: FULL: Full Resuscitation MAR Reviewed: Yes Vital Signs & Weight: Vital Signs (12 hours) Temp Pulse Resp BP Pulse Ox 01/20/19 20:00 97.9 F 97 16 116/71 94 L 01/20/19 18:54 86 12 100 01/20/19 15:22 97.9 F 86 18 107/71 100 01/20/19 13:45 93 16 93 L 01/20/19 12:00 93 L 01/20/19 11:51 97.5 F L 93 16 112/75 93 L Weight Admit Weight 168 lb 13.985 oz Weight 185 lb Most Recent Monitor Data Heart Rate from ECG 113 NIBP 110/55 NIBP BP-Mean 73 Respiration from ECG 23 SpO2 99 I&O: 01/19/19 01/20/19 01/21/19 06:59 06:59 06:59 Intake Total 3000 1670 1250 Output Total 1000 2850 2400 Balance 1999 -1180 -1150 Result Diagrams: 01/19/19 05:25 01/20/19 09:30 Phys Exam - Physical Examination Constitutional: NAD Respiratory: no wheezing, no rhonchi dec AE at bases Cardiovascular: no rub, irregular Gastrointestinal: soft, positive bowel sounds Musculoskeletal: edema present Neurological: moves all 4 limbs Dx/Plan - Plan IMPRESSION: Sepsis due to Ischemic bowel colitis/necrosis with Peritonitis s/p Exp Lap Acute on chronic diastolic HF - improving Mod Mitral regurg Afib with RVR - restarted on anticoag - rate controlled Acute blood loss anemia Hypomagnesemia HTN HLD Physical deconditioning Electrolyte abn Type 2 ME Acute hypoxic resp failure - on O2 supp h/o DVT/PE Diverticulosis Obesity BMI 32.7 PLAN: Cont current meds as below Replace Magnesium AM labs Cont PT/OT Review of Systems - Review of Systems Respiratory: negative: Cough, Dry, Shortness of Breath, Hemoptysis, SOB with Excertion, Pleuritic Pain, Sputum, Wheezing Cardiovascular: negative: chest pain, palpitations, orthopnea, paroxysmal nocturnal dyspnea, edema, light headedness, other - Medications/Allergies Allergies/Adverse Reactions: Allergies Allergy/AdvReac Type Severity Reaction Status Date / Time sulfamethoxazole Allergy Verified 01/02/19 14:26 [From Bactrim] trimethoprim [From Bactrim] Allergy Verified 01/02/19 14:26 Medications: Current Medications Albuterol/Ipratropium (Duoneb) 3 ml NEB [id number] [facility] Last Admin: 01/20/19 18:54 Dose: 3 ml Apixaban (Eliquis) 5 mg PO BID [facility] Last Admin: 01/20/19 21:40 Dose: 5 mg Ascorbic Acid (Vitamin C) 500 mg PO QAM-[facility] Last Admin: 01/20/19 08:43 Dose: 500 mg Aspirin (Ecotrin) 81 mg PO DAILY [facility] Last Admin: 01/20/19 08:43 Dose: 81 mg Atenolol (Tenormin) 12.5 mg PO DAILY [facility] Last Admin: 01/20/19 08:43 Dose: 12.5 mg Benzonatate (Tessalon) 100 mg PO Q6H PRN PRN Reason: Cough Digoxin (Lanoxin) 0.125 mg PO DAILY [facility] Last Admin: 01/20/19 08:43 Dose: 0.125 mg Diphenhydramine HCl (Benadryl) 25 mg PO HS [facility] Last Admin: 01/20/19 21:40 Dose: 25 mg Ferrous Sulfate (Feosol) 325 mg PO BID-[facility] Last Admin: 01/20/19 17:48 Dose: 325 mg Fluticasone Propionate (Flonase Nasal [place]) 0 gm NASAL DAILY PRN PRN Reason: ALLERGIES Furosemide (Lasix) 40 mg SLOW IVP 0600,1400 [facility] Last Admin: 01/20/19 13:00 Dose: 40 mg Guaifenesin/Dextromethorphan (Robitussin Dm) 15 ml PO Q4H PRN PRN Reason: Cough Hydralazine HCl (Apresoline) 10 mg SLOW IVP Q4H PRN PRN Reason: SBP > 180 and HR < 70 Promethazine HCl 12.5 mg/ (Sodium Chloride) 50.5 mls @ 202 mls/hr IVPB Q6H PRN PRN Reason: Nausea Last Admin: 01/06/19 07:24 Dose: 50.5 mls Micafungin Sodium 100 mg/ (Sodium Chloride) 100 mls @ 100 mls/hr IVPB Q24HR@ 1500 [facility] Last Admin: 01/20/19 14:37 Dose: 100 mls Loperamide HCl (Imodium) 2 mg PO QID [facility] Last Admin: 01/20/19 21:40 Dose: 2 mg Melatonin (Melatonin) 3 mg PO HS [facility] Last Admin: 01/20/19 21:40 Dose: 3 mg Multivitamins (Theragran) 1 tab PO DAILY [facility] Last Admin: 01/20/19 08:43 Dose: 1 tab Nitroglycerin (Nitrostat) 0.4 mg SL Q5MIN PRN PRN Reason: Chest Pain Nystatin (Mycostatin Powder) 1 gm TOP BID PRN PRN Reason: Topical Irritations Last Admin: 01/18/19 17:52 Dose: 1 applic Nystatin (Mycostatin Powder) 0 gm TOP BID [facility] Last Admin: 01/20/19 21:41 Dose: 1 applic Ondansetron HCl (Zofran Odt) 4 mg PO Q6H PRN PRN Reason: Nausea/Vomiting Last Admin: 01/15/19 16:13 Dose: 4 mg Ondansetron HCl (Zofran) 4 mg IVP Q6H PRN PRN Reason: Nausea/Vomiting Last Admin: 01/17/19 15:58 Dose: 4 mg Pantoprazole Sodium (Protonix) 40 mg PO DAILY [facility] Last Admin: 01/20/19 08:44 Dose: 40 mg Saccharomyces Boulardii (Florastor) 250 mg PO DAILY [facility] Last Admin: 01/20/19 08:44 Dose: 250 mg Sodium Chloride (Flush - Normal Saline) 10 ml IVF Q12HR [facility] Last Admin: 01/20/19 21:49 Dose: 10 ml Sodium Chloride (Normal Saline Pf) 10 ml FS PRN PRN PRN Reason: RECONSTITUTION Last Admin: 01/16/19 09:44 Dose: 10 ml
[2019-01-21] MEDS: Furosemide 40 MG/4 ML VIAL SLOW IVP SCH (06:00)
[2019-01-21 06:32] LABS: Band 8 % (5-11); Eosinophils 4 % (0-10); Hemoglobin 9.3 g/dL (12.0-16.0); Lymphocytes 4 % (21-51); MDiff Complete? YES; Mean Corpuscular HGB CONC 31.2 g/dL (32.0-36.0); Mean Corpuscular Volume 86.5 fL (78.0-98.0); Mean Platelet Volume 8.8 fL (7.4-10.4); Monocytes 3 % (0-10); Neutrophil 80 % (42-75); Platelet Count 495 thou/uL (130-400); Platelet Morphology Comment Appears Increased; Red Blood Cell (RBC) Count 3.44 mill/uL (4.20-5.40); White Blood Cell (WBC) Count 15.6 thou/uL (4.8-10.8)
[2019-01-21 06:36] LABS: Anion Gap 10 mmol/L (10-20); BUN (Urea Nitrogen) 15 mg/dL (9.8-20.1); Calc. Creatinine Clearance 71 mL/min (70-130); Calcium 8.3 mg/dL (7.8-10.44); Carbon Dioxide 30 mmol/L (23-31); Chloride 103 mmol/L (98-107); Estimated GFR-MDRD 65; Glucose 104 mg/dL (83-110); Magnesium 1.9 mg/dL (1.6-2.6); Phosphorus 2.8 mg/dL (2.3-4.7); Potassium 4.2 mmol/L (3.5-5.1); Sodium 139 mmol/L (136-145)
[2019-01-21] MEDS: Ascorbic Acid 500 mg Chewable Tablet PO SCH (08:50)
[2019-01-21] MEDS: Ferrous Sulfate 325 MG TAB PO SCH (08:50)
[2019-01-21] MEDS: Multivit, Therapeutic 1 TAB PO SCH (09:37)
[2019-01-21] MEDS: Loperamide HCl 2 MG CAP PO SCH ×2 (09:37→12:59)
[2019-01-21] MEDS: Apixaban 5 MG TAB PO SCH (09:37)
[2019-01-21] MEDS: Atenolol 25 MG TAB PO SCH (09:37)
[2019-01-21] MEDS: Aspirin 81 mg Enteric Coated Tablet PO SCH (09:37)
[2019-01-21] MEDS: Digoxin 0.125 MG TAB PO SCH (09:37)
[2019-01-21] MEDS: Saccharomyces boulardii 250 MG CAP PO SCH (09:38)
[2019-01-21] MEDS: Nystatin Powder 15 GM BOT TOP SCH (09:38)
--- NOTE | 2019-01-21 13:57 | PRG ---
DATE OF SERVICE: 01/21/2019 SUBJECTIVE: The patient was seen this morning, lying in bed. She reported she slept well overnight and pain is well controlled. Tolerating a regular diet with Ensure t.i.d. she states she had no acute events overnight and will continue to work with Physical and Occupational Therapy. She is reporting, she thinks she is ready for discharge and is feeling much better. Denies nausea, vomiting, or diarrhea. OBJECTIVE: VITAL SIGNS: Temperature 98.0, pulse 102, respirations 20, oxygen saturation 97% on room air, and blood pressure 130/82. GENERAL: Elderly-deconditioned female, lying in bed with no signs of acute respiratory distress on nasal cannula oxygen. PULMONARY: Equal chest rise and fall. Clear breath sounds bilaterally. No signs of acute respiratory distress. CARDIAC: Regular rate and rhythm. No murmurs, gallops, or rubs. GASTROINTESTINAL: Abdomen is soft, nontender, and nondistended. Midline abdominal wound with candelario in place with no signs of acute infection or discharge. EXTREMITIES: 2+ pulses in bilateral radials, femorals, and DPs. Improving lower extremity edema. Gross motor and sensation are intact. NEURO: No focal neurological deficits. LABORATORY FINDINGS: White count 15.6, hemoglobin 9.3, hematocrit 29.8, and platelets 495. Sodium 139, potassium 4.2, chloride 103, carbon dioxide 30, BUN 15, creatinine 0.85, phosphorus 2.8, and magnesium 1.9. BNP 1248. DIAGNOSTIC FINDINGS: There are no new diagnostic findings to report. ASSESSMENT: 1. Postop day #13, status post exploratory laparotomy with right colectomy and right partial ileectomy for ischemic bowel necrosis. 2. Postop day #11, status post second-look exploratory laparotomy with abdominal washout and ileocolostomy. 3. Acute congestive heart failure exacerbation, improved. PLAN: Continue to replace electrolytes as needed. We will discontinue IV Lasix today and start her on 40 mg p.o. Lasix x3 days and then will decrease to 40 mg p.o. daily, which is her home dose of Lasix. Midline abdominal candelario were removed. Plan to continue micafungin for a total of 10 days. Continue to work with Physical and Occupational Therapy. The patient is ready for discharge from the standpoint of General Surgery. She was made an appointment for 02/14 at 2:00 p.m. to follow up with Dr. Root in the clinic. She is pending placement at a [facility] facility. The patient was seen and examined by Dr. Root and myself this morning during rounds. Job ID: [id number] MTDD
[2019-01-21] MEDS ORDERED: Furosemide 40 MG TAB PO SCH (14:00)
[2019-01-21] MEDS: Micafungin 100 MG in Sodium Chloride 0.9% 100 ML IVPB SCH (14:23)
--- NOTE | 2019-01-21 14:54 | PRG ---
DATE OF SERVICE: 01/21/2019 SERVICE: Pulmonary Medicine. INTERVAL HISTORY: The patient is doing really well from respiratory standpoint. She is breathing comfortably on room air. She has no complaints of cough, sputum production, fevers, or chills. She is not having any palpitations or chest pain. Her bowels are normal. She has not passed any blood per rectum. PHYSICAL EXAMINATION: VITAL SIGNS: Afebrile, pulse 107, blood pressure 100/71, respirations 18, and saturation 97% on room air. GENERAL: The patient is awake and alert, in no apparent distress. LUNGS: Decent air entry. There is no prolonged expiratory phase. Dependent crackles are noted. No wheezing or rhonchi appreciated. HEART: Normal rate and regular. ABDOMEN: Soft, nontender, and nondistended. Bowel sounds are positive. MUSCULOSKELETAL: No cyanosis or clubbing. No pitting in the bilateral lower extremities. NEUROLOGIC: Grossly nonfocal. LABORATORY DATA: WBC 15.6, hemoglobin 9.3, platelets 495,000 and gently uptrending. INR 1.3. Basic metabolic profile is unremarkable. Magnesium and phosphorous fall within the normal limits. BNP is gently downtrending to 1200. Digoxin is 1.21. C. diff antigen and toxin are unremarkable. Urine culture, blood culture x2 are also unremarkable. ASSESSMENT: 1. Acute hypoxic respiratory failure, resolved. 2. Atrial fibrillation with rapid ventricular rate, currently under rate control. 3. Acute blood loss anemia, stable. 4. Laparotomy with excision of ischemic bowel, postop day #11 from most recent operation. DISCUSSION AND PLAN: The patient is returning to euvolemia. We are going to continue to diurese her gently through time. Pulmonary/Critical Care will continue to follow along so long as the patient remains in-house; however, she is currently stable for transition to a shelter facility, where she can pursue rehabilitation. Job ID: [id number] [facility]
--- NOTE | 2019-01-21 15:45 | DIS ---
DATE OF ADMISSION: 01/02/2019 DATE OF DISCHARGE: 01/21/2019 DISCHARGE DISPOSITION[facility] The patient was seen and examined on the day of discharge. Denies any new complaints. Overall feels better. ALLERGIES: THE PATIENT IS ALLERGIC TO BACTRIM. DISCHARGE MEDICATIONS: 1. Eliquis 5 mg b.i.d. 2. Flovent Diskus as needed. 3. Multivitamin one tablet daily. 4. Vitamin C 500 mg daily. 5. Atenolol 12.5 mg daily. 6. Vitamin B12 and folic acid one tablet daily. 7. Digoxin 0.125 mg daily. 8. Ferrous sulfate 325 mg b.i.d. 9. Lasix 40 mg twice daily for 3 days. 10. Potassium chloride 10 mEq daily. 11. Protonix 40 mg daily. 12. Florastor 250 mg daily. 13. Micafungin 100 mg IV daily to be discontinued after January 26. 14. Melatonin 3 mg at bedtime. 15. DuoNebs as needed. INPATIENT CONSULTANTS: General Surgery, Dr. Root; Gastroenterology Dr. Swanson; and pulmonary/Critical Care, Dr. Wilkes. INPATIENT PROCEDURES: 1. On January 08, the patient underwent exploratory laparotomy with extensive adhesiolysis with right hemicolectomy and segmental distal small bowel resection. 2. On January 10, the patient underwent second-look exploratory laparotomy with abdominal washout and placement of nasojejunal tube along with ileocolostomy and abdominal closure. 3. On January 10, 2019, the patient underwent central line placement, which will be discontinued prior to discharge. DIAGNOSTIC TESTS: 1. CT angiogram of the chest on January 02, 2019, was negative for pulmonary embolism. It showed bilateral pulmonary parenchymal opacities and bilateral mild pleural fluid. 2. On January 07, 2019, the patient underwent CT scan of the abdomen and pelvis that showed mildly prominent loops of small and large bowel containing stool compatible with delayed transit and/or wall thickening, which can be seen in enterocolitis. 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 3. The patient had several chest x-rays. Last chest x-ray 3 days ago was stable. 4. Pathology from the exploratory laparotomy was consistent with ischemic colitis without any malignancy. 5. Echocardiogram on January 08, 2019, showed ejection fraction of 50% to 55% with moderate mitral regurgitation. BRIEF HOSPITAL COURSE: The patient is a 78-year-old female with atrial fibrillation, currently on anticoagulation. History of pulmonary embolism and DVT, hypertension, and diverticulosis, presented to the hospital on January 02, 2019 with shortness of breath and nausea along with chest discomfort. A workup was consistent with acute hypoxic respiratory failure along with atrial fibrillation with rapid ventricular response. She was started on Cardizem drip. Anticoagulation was continued. The patient was monitored in the intermediate care unit. She was also found to have elevated troponin with a maximum troponin of 8.4. The patient was seen by Cardiology, Dr. Ravinder Vazquez along with Pulmonary/Critical Care. She was also started on ceftriaxone and azithromycin for possible bilateral pneumonia. Later on Cardizem drip was discontinued. She was started back on her atenolol. The patient was also evaluated by Gastroenterology, Dr. Swanson, for persistent anemia. EGD and colonoscopy were not done due to respiratory failure. The patient was found to have fever. Infectious Disease was consulted on January 07, 2019. She underwent a CT scan of the abdomen and pelvis with contrast per Infectious Disease. The CT scan showed findings consistent with enterocolitis. General Surgery was then consulted. She underwent exploratory laparotomy as discussed above. She developed volume overload requiring IV Lasix. IV Lasix has been changed to oral. CT scan of the abdomen and pelvis was also consistent with right atrial mass, consistent with thrombus. For this reason, an urgent echocardiogram was done that was negative for intracardiac thrombus. She will be discharged to swing bed for further rehabilitation. FINAL DIAGNOSES: 1. Atrial fibrillation with rapid ventricular response on admission, improved. 2. Sepsis secondary to ischemic colitis with peritonitis status post exploratory laparotomy. 3. Suspected medication noncompliance due to underlying dementia. 4. Acute on chronic diastolic heart failure. 5. Moderate mitral regurgitation. 6. Acute blood loss anemia. The patient received total of 4 units of packed red blood cells this admission. 7. Chronic hepatitis C. 8. Electrolyte abnormalities including hyponatremia, hypokalemia, hypophosphatemia, and hypomagnesemia. 9. Metabolic acidosis/lactic acidosis on admission resolved. 10. Moderate protein calorie malnutrition. 11. Type 2 myocardial infarction. 12. Sulfa allergy. 13. Suspected bilateral pneumonia, questionable pneumococcal on admission, completed antibiotics. 14. Acute hypoxic respiratory failure on admission, improved. 15. Chronic anticoagulation. 16. Physical deconditioning. 17. Gastroesophageal reflux disease. 18. History of recurrent urinary tract infections. 19. Chronic kidney disease stage 2. 20. Hyperlipidemia. TIME SPENT: Total time coordinating the discharge of this patient was 43 minutes. Job ID: [id number]
[2019-01-21 16:07] VITALS: BP 117/78; TEMP 98.4
== END 2019-01-21 16:21 | DRG 329 ==
LOC: ERS 07:57 → IMCU/EMU 09:14 → CCU 01-08 14:55 → 2SE 01-13 15:38 → 2NO 01-16 18:27 → SURG B 01-19 19:31
PROVIDERS: ADMIT Family Medicine; ATTEND Family Medicine
PROC: 0DTF0ZZ Resection of Right Large Intestine, Open Approach (ICD-10-PCS; principal; 2019-01-08)
PROC: 0DNW0ZZ Release Peritoneum, Open Approach (ICD-10-PCS; 2019-01-08)
PROC: 0DBB0ZZ Excision of Ileum, Open Approach (ICD-10-PCS; 2019-01-08)
PROC: 05H633Z Insertion of Infusion Device into Left Subclavian Vein, Percutaneous Approach (ICD-10-PCS; 2019-01-08)
PROC: 30233N1 Transfusion of Nonautologous Red Blood Cells into Peripheral Vein, Percutaneous Approach (ICD-10-PCS; 2019-01-08)
PROC: 0D1B0Z4 Bypass Ileum to Cutaneous, Open Approach (ICD-10-PCS; 2019-01-10)
PROC: 0DHA3UZ Insertion of Feeding Device into Jejunum, Percutaneous Approach (ICD-10-PCS; 2019-01-10)
PROC: 30233N1 Transfusion of Nonautologous Red Blood Cells into Peripheral Vein, Percutaneous Approach (ICD-10-PCS; 2019-01-15)
PROC: 30233N1 Transfusion of Nonautologous Red Blood Cells into Peripheral Vein, Percutaneous Approach (ICD-10-PCS; 2019-01-16)
DX: K65.0 Generalized (acute) peritonitis (principal); K55.049 Acute infarction of large intestine, extent unspecified; J96.01 Acute respiratory failure with hypoxia; A41.9 Sepsis, unspecified organism; I21.A1 Myocardial infarction type 2; I50.33 Acute on chronic diastolic (congestive) heart failure; K55.029 Acute infarction of small intestine, extent unspecified; I13.0 Hypertensive heart and chronic kidney disease with heart failure and stage 1 through stage 4 chronic kidney disease, or unspecified chronic kidney disease; D62 Acute posthemorrhagic anemia; N17.9 Acute kidney failure, unspecified; E87.1 Hypo-osmolality and hyponatremia; E87.2 Acidosis; E87.0 Hyperosmolality and hypernatremia; K55.8 Other vascular disorders of intestine; B18.2 Chronic viral hepatitis C; N18.2 Chronic kidney disease, stage 2 (mild); I34.0 Nonrheumatic mitral (valve) insufficiency; I48.0 Paroxysmal atrial fibrillation; J44.9 Chronic obstructive pulmonary disease, unspecified; K66.0 Peritoneal adhesions (postprocedural) (postinfection); F03.90 Unspecified dementia, unspecified severity, without behavioral disturbance, psychotic disturbance, mood disturbance, and anxiety; E83.42 Hypomagnesemia; E87.6 Hypokalemia; E78.5 Hyperlipidemia, unspecified; K57.30 Diverticulosis of large intestine without perforation or abscess without bleeding; R53.81 Other malaise; K21.9 Gastro-esophageal reflux disease without esophagitis; E66.9 Obesity, unspecified; Z68.32 Body mass index [BMI] 32.0-32.9, adult; Z79.01 Long term (current) use of anticoagulants; Z79.899 Other long term (current) drug therapy; Z86.711 Personal history of pulmonary embolism; Z86.718 Personal history of other venous thrombosis and embolism; Z87.891 Personal history of nicotine dependence; Z88.1 Allergy status to other antibiotic agents; Z88.8 Allergy status to other drugs, medicaments and biological substances; Z82.49 Family history of ischemic heart disease and other diseases of the circulatory system; Z91.14 Patient's other noncompliance with medication regimen; Z87.440 Personal history of urinary (tract) infections
CPT/HCPCS: 36415; 36430; 71045; 71275; 74018; 74177; 80048; 80061; 80076; 80162; 80202; 82533; 82728; 82805; 83540; 83550; 83605; 83735; 83880; 84100; 84132; 85007; 85025; 85027; 85046; 85379; 85610; 85730; 86850; 86900; 86901; 87040; 87086; 87324; 87449; 88307; 93005; 93306; 94002; 94003; 94640; 96365; 96366; 96368; 96375; 96376; A4216; C9113; J0131; J0282; J0456; J0692; J0696; J1160; J1200; J1642; J1644; J1650; J1940; J2001; J2060; J2248; J2250; J2405; J2543; J2550; J2704; J2916; J2997; J3010; J3370; J3475; J3480; J3490; J7050; J7070; J7620; P9016; P9045; P9047; Q0162; Q0163; Q9966

== ENCOUNTER 2021-05-30 22:59 | Inpatient (IN) | payer MEDICARE, MEDICAID ==
[2021-05-30] MEDS ORDERED: Furosemide 40 MG/4 ML VIAL ONE (23:34)
[2021-05-30] MEDS ORDERED: Aspirin 325 MG TAB ONE (23:34)
[2021-05-31 00:51] LABS: Bilirubin Negative (Negative); Blood, Urine Negative (Negative); Clarity Clear (Clear); Glucose, Urine (Dipstick) Normal (Negative); Ketone, Urine Negative (Negative); Leukocyte Negative Leu/uL (Negative); Nitrite Negative (Negative); Protein, Urine (Dipstick) Negative (Neg-Trace); Specific Gravity, Urine 1.013 (1.002-1.036); Urobilinogen Normal mg/dL (Less than 2)
[2021-05-31 01:27] LABS: Troponin I 0.078 ng/mL (< 0.028)
[2021-05-31 02:34] VITALS: BMI 23.8
[2021-05-31 03:08] LABS: Digoxin Less than 0.15 ng/mL (0.8-2.0)
[2021-05-31 05:11] VITALS: BP 123/60; TEMP 97.9
[2021-05-31 05:19] LABS: Troponin I 0.055 ng/mL (< 0.028)
[2021-05-31] MEDS ORDERED: FLU VACC QS2021-22(65YR UP)/PF 240 MCG/0.7 ML SYRINGE IM ONE (09:00)
[2021-05-31 18:40] LABS: SARS-CoV-2 PCR by NAA DETECTED (NotDetected)
== END 2021-05-31 10:50 | disposition expired | DRG 308 ==
LOC: ERS 22:59 → ERHOLD 05-31 00:13 → 2SW 05-31 02:10
PROVIDERS: ADMIT Student in an Organized Health Care Education/Training Program; ATTEND Nurse Practitioner Family
PROC: 5A12012 Performance of Cardiac Output, Single, Manual (ICD-10-PCS; principal; 2021-05-31)
PROC: 0BH17EZ Insertion of Endotracheal Airway into Trachea, Via Natural or Artificial Opening (ICD-10-PCS; 2021-05-31)
DX: R00.1 Bradycardia, unspecified (principal); U07.1 COVID-19; I48.91 Unspecified atrial fibrillation; I46.9 Cardiac arrest, cause unspecified; I45.81 Long QT syndrome; R79.89 Other specified abnormal findings of blood chemistry; Z86.19 Personal history of other infectious and parasitic diseases; Z87.440 Personal history of urinary (tract) infections; Z86.718 Personal history of other venous thrombosis and embolism; Z86.711 Personal history of pulmonary embolism; Z90.49 Acquired absence of other specified parts of digestive tract; Z87.891 Personal history of nicotine dependence; Z88.1 Allergy status to other antibiotic agents; Z88.2 Allergy status to sulfonamides; Z88.8 Allergy status to other drugs, medicaments and biological substances; Z79.01 Long term (current) use of anticoagulants; Z79.899 Other long term (current) drug therapy; I50.9 Heart failure, unspecified; I11.0 Hypertensive heart disease with heart failure; R77.8 Other specified abnormalities of plasma proteins
CPT/HCPCS: 36415; 80162; 81003; 84484; 96374; J1940; U0003; U0005